=== PATIENT | female | born 2000 | race Two or more races ===

== ENCOUNTER 2020-11-17 16:17 | Emergency (ER) | payer MEDICAID, SELFPAY ==
--- NOTE | ~2020-11-17 | XR_ITS ---
EXAMINATION: XR CHEST CLINICAL INFORMATION: Chest pain. COMPARISON: None TECHNIQUE: Frontal view of the chest was obtained. FINDINGS: The lungs are clear. There is no pneumothorax, pleural reaction, infiltrate, or groundglass opacity. There are costophrenic sulci are clear. The heart is normal in size. The vascularity is normal. The hilar and mediastinal contours and visualized bony structures are unremarkable. XR/XR chest 1V IMPRESSION: Unremarkable examination.
[2020-11-17 16:24] VITALS: BP 100/69; PULSE 85; RESP 16; TEMP 36.6; O2SAT 95; BMI 34.2
== END 2020-11-17 19:34 | disposition left against medical advice (07) ==
PROVIDERS: Emergency Provider Emergency Medicine
DX: J45.909 Unspecified asthma, uncomplicated (principal)
CPT/HCPCS: 71045; 99282; 99283

== ENCOUNTER 2020-12-19 19:56 | Emergency (ER) | payer MEDICAID, SELFPAY ==
[2020-12-19 20:53] VITALS: BP 111/65; PULSE 84; RESP 18; TEMP 36.7; O2SAT 99; BMI 34.2
[2020-12-19 21:36] LABS: COVID-19 Test Negative (Negative); IDNOW Serial# 55D5AD1C
--- NOTE | 2020-12-19 22:16 | ED_ITS ---
HPI - General Adult General Chief complaint: General Medical Stated complaint: Flu like Source: patient Mode of arrival: ambulatory Limitations: no limitations History of Present Illness HPI narrative: 20-year-old female presents with upper respiratory symptoms consistent with COVID-19. Patient would like to be tested. Onset (ago): day(s) (2) Location: head Radiation: non-radiation Severity: mild Severity scale (1-10): 2 Pain Consistency: constant Relieving factors: none Associated symptoms: denies other symptoms Treatments prior to arrival: none Related Data Allergies Allergy/AdvReac Type Severity Reaction Status Date / Time No Known Allergies Allergy Unverified 11/26/19 16:54 Review of Systems Review of Systems: Constitutional: No Fever, No Chills ENT/Mouth: No Ear Pain, positive Nasal Congestion, positive sore throat Eyes: No Eye Pain, No Swelling, No Redness Cardiovascular: No Chest Pain, No SOB Respiratory: Positive Cough, No Sputum, No Dyspnea Gastrointestinal: No Nausea, No Vomiting, No Diarrhea, No Hematochezia, No Melena Genitourinary: No Dysuria, No Urinary Frequency, No Hematuria Musculoskeletal: No Myalgias Skin: No Skin Lesions, No rash Neuro: No Weakness, No Numbness, No Paresthesias, No Dizziness, No Headache Psych: No Anxiety, no Depression, no SI/HI Heme/Lymph: No Lymphadenopathy Endocrine: No Polyuria, No Polydipsia Yes all other systems are reviewed and are negative [facility] Past Medical History Attestation statement: The following information was validated with the patient. Source: old records reviewed Social History Social History Advance Directives: No Advance Directives Information Provided: No Patient : No Physical Exam Vital Signs: Vital Signs: Last Vital Signs Temp 98.1 F 12/19/20 20:53 Pulse 84 12/19/20 20:53 Resp 18 12/19/20 20:53 BP 111/65 12/19/20 20:53 Pulse Ox 99 12/19/20 20:53 Body Mass Index 34.2 Appearance: Alert. Oriented X3. No acute distress. Eyes: Pupils equal, round and reactive to light. Sclera nonicteric. ENT: Pharynx normal. Moist mucous membranes. Neck: Normal inspection. Neck supple. CVS: Normal heart rate and rhythm. Pulses normal. Respiratory: No respiratory distress. Breath sounds normal. Abdomen: Soft and nontender. Skin: Skin warm and dry. Normal skin color. Normal skin turgor. Extremities: No lower extremity edema. Moves all extremities against resistance. Gait well balanced well coordinated. Neuro: No motor deficit. No sensory deficit. Cranial nerves 2-12 intact. Course Course Course Narrative: 20-year-old female presents with upper respiratory symptoms consistent with COVID-19 requesting testing. COVID-19 test is negative. Plan of care is to discharge home. Medical Decision Making Differential Diagnosis Differential Diagnosis: URI, COVID-19, pharyngitis, influenza Medical Records Medical records reviewed: Yes I reviewed the patient's medical records. Lab Data Lab results reviewed: Yes I reviewed the patient's lab results. Labs: Lab Results 12/19/20 Range/Units 21:02 COVID-19 (BRENDA) Negative (Negative) COVID-19 Clin Com See Note Discharge Plan Discharge Clinical Impression: Acute viral syndrome Patient Disposition: Home, Self-Care Instructions: Viral Syndrome (ED) Additional Instructions: You evaluated for upper respiratory symptoms. Your COVID-19 test is negative. Please continue to use supportive measures such as Tylenol, Motrin, and rest to help alleviate symptoms. Thank you for choosing this emergency department for evaluation. Please follow-up with primary care physician as needed. Return to the emergency department for any new, concerning, or worsening symptoms. Stand Alone Forms: Work/School Release Interventions: ED Discharge Assessment Last Done: 12/19/20 22:48 Discharge Date/Time: 12/19/20 22:49
== END 2020-12-19 22:49 | disposition home or self-care (01) ==
PROVIDERS: Emergency Provider Internal Medicine
DX: B34.9 Viral infection, unspecified (principal); Z20.822 Contact with and (suspected) exposure to COVID-19
CPT/HCPCS: 36415; 87635; 99283

== ENCOUNTER 2021-03-10 22:49 | Emergency (ER) | payer MEDICAID, SELFPAY ==
--- NOTE | 2021-03-10 22:54 | ED.GENADULT ---
HPI - General Adult General Chief complaint: Psychiatric Symptoms Stated complaint: CRISIS Time Seen by Provider: 03/10/21 22:53 Source: EMS Mode of arrival: EMS Limitations: altered mental status History of Present Illness HPI narrative: Patient is brought to the emergency room for acting erratically. Patient was found by police, eating rice, patient was being loud, PD called. EMS was not able to get the patient's name. Patient in is laughing, giggling, loud, trying to get out of bed, unable to stand up on herself. Patient unable to answer any questions, patient yelling loudly [id number] over and over again. Related Data Allergies Allergy/AdvReac Type Severity Reaction Status Date / Time Unable to Assess Allergy Unverified 03/10/21 22:53 Review of Systems Review of Systems: Yes Unobtainable due to mental status PMFSH Social History Social History Advance Directives: No Physical Exam Vital Signs: Vital Signs: Last Vital Signs Temp 98.2 F 03/10/21 23:22 Pulse 78 03/11/21 01:51 Resp 16 03/11/21 04:00 BP 99/57 L 03/11/21 01:51 Pulse Ox 97 03/11/21 01:51 BMI result Body Mass Index 26.6 Const: Other: Appearance: Alert. Disoriented, screaming blakewaaaawaaaawaaaaa , patient has a very strong odor of marijuana, trying to redirect patient but patient keeps trying to get out of bed nearly falling Eyes: Pupils equal, round and reactive to light. ENT: Pharynx normal. Neck: Normal inspection. Neck supple. No lymph nodes noted. No crepitus CVS: Normal heart rate and rhythm. Pulses normal. Normal S1 and S2 Respiratory: No respiratory distress. Breath sounds normal. No Wheezing. No rales Abdomen: Soft and nontender. No rigidity. No distention. Skin: Skin warm and dry. Patient has pen hollis/scribbled all over her thighs bilaterally in the front, no abrasions or lacerations Extremities: Moves all extremities Neuro: Patient is under the influence of unknown substances, not following directions Course Course Course Narrative: At this time, patient is too intoxicated/under the influence of substance. Patient is not even speaking, only making noises. Patient is awake but we were unable to get any history from her at all. We tried redirecting the patient but she keeps trying to get up, nearly falling, had to be repositioned in bed multiple times by security. To avoid any falls or injuries, patient was given 50 mg of Benadryl, 2 of Ativan, 5 of Haldol. Patient tolerated well the IM injection. Patient rested comfortably. Physician observation started at 23:06 Planus to metabolize to freedom, reassess once patient is sober for SI, and for patient's wishes for detox Patient is awake, alert and oriented x3, steady gait. I was informed by the patient's nurse that the patient's mother has been calling trying to get the patient behavioral health help. Patient denies suicidal homicidal ideation. Patient declined any help. At this time, there is no grounds to Section 12 the patient. Discharge Plan Discharge Clinical Impression: Substance abuse, Intoxication by drug Patient Disposition: Home, Self-Care Instructions: Cannabis Abuse (ED) Additional Instructions: You declined any behavioral health help. Please follow-up with your primary care physician tomorrow. If you have any worsening or new symptoms, please return to the emergency room or call 911
[2021-03-10 23:01] VITALS: BMI 26.6
--- NOTE | 2021-03-10 23:03 | PC.NURSE ---
pt refusing to give name, date of , screaming inconsolably. medications ordered and administered per MAR as pt was unredirectable. she accepted IM medication without difficulty. pt changed into [facility], close obs staff monitoring pt. EMS was called by police who found pt screaming outside an apartment building without any ID, she was scratching herself, eating amharic rice and mashed potatoes, smoking a blunt. pt refusing vitals, unable to sit still at this time. breathing unlabored, skin [employer].
[2021-03-10] MEDS: Haloperidol Lactate 5 MG/ML VIAL IM (23:06)
[2021-03-10] MEDS: LORazepam 2 MG/ML VIAL IM (23:06)
[2021-03-10] MEDS: diphenhydrAMINE HCL 50 MG/ML VIAL IM (23:06)
[2021-03-10 23:22] VITALS: BP 96/64; PULSE 76; RESP 16; TEMP 36.8; O2SAT 98
[2021-03-10 23:52] VITALS: PULSE 78; RESP 18
[2021-03-10 23:56] VITALS: BP 96/60; PULSE 84; RESP 16; O2SAT 97
[2021-03-11 01:51] VITALS: BP 99/57; PULSE 78; RESP 16; O2SAT 97
[2021-03-11 04:00] VITALS: RESP 16
[2021-03-11 06:00] VITALS: BP 98/53; PULSE 61; RESP 18; TEMP 36.4; O2SAT 98
--- NOTE | 2021-03-11 06:07 | PC.NURSE ---
patient up and ambulating steadily in the halls. asking to be reevaluated for discharge home. stating she did not want us contacting her mother, patient was informed that her mother called and asked for the patient to call her in the am, left her number. seen and reevaluated by provider. patient is alert and oriented, breathing is even and unlabored, ambulating steadily. denies si and hi, wanting to harm herself and others. does not want to see [facility] team of behavioral health for detox. asking to walk home. informed patient that her aunt and mother offered a ride earlier. patient refusing to call them i am 20 years old and my own person . patient discharged home with her belongings.
--- NOTE | 2021-03-11 06:09 | PC.NURSE ---
Patient woke up requesting to go home,''patient stated I don't want to hurt myself'' this tech told the Nurse pt also asked for food. pt got dressed and ate a sandwich and drank a cup of ginerale.
== END 2021-03-11 06:20 | disposition home or self-care (01) ==
PROVIDERS: Emergency Provider Emergency Medicine
DX: F19.120 Other psychoactive substance abuse with intoxication, uncomplicated (principal); F25.0 Schizoaffective disorder, bipolar type; F12.90 Cannabis use, unspecified, uncomplicated; F17.200 Nicotine dependence, unspecified, uncomplicated
CPT/HCPCS: 96372; 99284; 99285; J1200; J2060

== ENCOUNTER 2021-03-28 13:11 | Inpatient (IN) | payer MEDICAID, OTHER, SELFPAY ==
--- NOTE | 2021-03-28 13:23 | ED_ITS ---
HPI - Psych General Chief Complaint: Psychiatric Symptoms Stated Complaint: CRISIS,NOT MED COMPLIANT,-HI/-SI Time Seen by Provider: 03/28/21 13:21 Source: patient and EMS Mode of arrival: EMS Limitations: other (poor historian) History of Present Illness complaint: other (loud speech, appears manic, off medications ) Onset (ago): year(s) Duration: getting worse History of same: Yes Relieving factors: none Context: not taking psychiatric medications Associated psychiatric symptoms: racing thoughts Associated symptoms: denies other symptoms Treatments prior to arrival: none Related Data Allergies Allergy/AdvReac Type Severity Reaction Status Date / Time Unable to Assess Allergy Unverified 03/10/21 22:53 Review of Systems Review of Systems: ROS unable to be obtained due to patient laughing and peristently rapping during interview [facility] Past Medical History Attestation statement: The following information was validated with the patient. Medical History Asthma Bipolar 1 disorder Schizophrenia Social History Social History (Updated 03/28/21 @ 13:27 by Reena Smith DO) Patient Tobacco Use Status: Current everyday Tobacco user Substance Use Type: Marijuana Advance Directives: No Advance Directives Information Provided: No Patient : No Physical Exam Vital Signs: Vital Signs: Last Vital Signs Temp 98 F 03/28/21 13:51 Pulse 97 03/28/21 13:51 Resp 17 03/28/21 13:51 Pulse Ox 97 03/28/21 13:51 BMI result Body Mass Index 27.7 Appearance: Alert. Oriented X3. laughing inappropriately, pressured speech, rapping loudly, at times seems she can control herself but then gets very loud again Eyes: Pupils equal, round and reactive to light. ENT: Pharynx normal. Neck: Normal inspection. Neck supple. CVS: Normal heart rate and rhythm. Pulses normal. Respiratory: No respiratory distress. Breath sounds normal. Abdomen: Soft and non-tender. Skin: Skin warm and dry. Normal skin color. Normal skin turgor. Extremities: No lower extremity edema. No calf ttp Neuro: Oriented X 3. No motor deficit. No sensory deficit. CN 2-12 intact Course Course Course Narrative: Physician observation started at 356pm Patient placed in physician observation because the patient needed more time for BHN to assess the need for inpatient psychiatric admission. At the time observation was started the patient's vitals were stable, patient is alert and oriented , Neuro: nonfocal, CV RRR, Lungs clear patient refusing blood draws at this time inpatient bed search per [facility] MDM - Psych MDM Narrative Medical decision making narrative: 20 yo female with hx of bipolar, schizophrenia here with c/o racing thoughts, pressured speech, giggling, states she is anxious off of her medications, requesting PO pills for her anxiety denies allergies - will offer ativan and haldol PD called for her behaviors at home - plan to consult [facility] Lab Data Labs: Lab Results 03/28/21 03/28/21 03/28/21 Range/Units 13:46 13:46 13:46 Urine Test NEGATIVE (NEGATIVE) Urine Opiates Screen Not Detected (Not Detect) Urine Fentanyl Screen Not Detected (Not Detect) Ur Barbiturates Screen Not Detected (Not Detect) Ur Phencyclidine Scrn Not Detected (Not Detect) Ur Amphetamines Screen Not Detected (Not Detect) U Benzodiazepines Scrn Not Detected (Not Detect) Urine Cocaine Screen Not Detected (Not Detect) U Marijuana (THC) Screen POSITIVE H (Not Detect) COVID-19 (BRENDA) Negative (Negative) COVID-19 Clin Com See Note Discharge Plan Discharge Clinical Impression: Non compliance w medication regimen, Chronic schizophrenia Patient Disposition: Still a Patient
[2021-03-28] MEDS: LORazepam 1 MG TABLET 2 MG PO (13:29)
[2021-03-28] MEDS: HaloperidoL 5 MG TABLET PO (13:30)
[2021-03-28 13:51] VITALS: BP 122/86; PULSE 95; PULSE 97; RESP 17; TEMP 36.6; O2SAT 97; O2SAT 99; BMI 27.7
[2021-03-28 13:58] LABS: UPreg QC Valid YES; Urine Pregnancy NEGATIVE (NEGATIVE)
[2021-03-28 14:10] LABS: Amphetamine Screen Urine Not Detected (Not Detect); Barbiturates, Urine Not Detected (Not Detect); Benzodiazepines Screen Urine Not Detected (Not Detect); Cannabinoid Screen Urine POSITIVE (Not Detect); Cocaine Screen Urine Not Detected (Not Detect); Fentanyl, urine Not Detected (Not Detect); Opiate Screen Urine Not Detected (Not Detect); Phencyclidine Screen Urine Not Detected (Not Detect)
[2021-03-28 14:17] LABS: COVID-19 Test Negative (Negative); IDNOW Serial# 55D5AD1C
[2021-03-29 05:39] VITALS: BP 115/69; PULSE 74; RESP 18; TEMP 36.6; O2SAT 98
--- NOTE | 2021-03-29 06:33 | PC.NURSE ---
Patient slept through the night, no distress observed/reported, behavior appropriate, currently not on any medication, patient's disposition per [facility] is section 12 inpatient bed search, VSS, will continue to monitor.
--- NOTE | 2021-03-29 07:20 | PC.NURSE ---
patient appears to remain asleep at present respirations are even and unlabored, patient appears in no distress
[2021-03-29 11:38] VITALS: BP 113/66; PULSE 99; RESP 16; TEMP 36.8; O2SAT 97
--- NOTE | 2021-03-29 13:29 | PC.NURSE ---
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
--- NOTE | 2021-03-29 14:46 | PC.NURSE ---
patient upset about not being discharged and threatening verbally posturing, offensive statements towards staff.
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
[2021-03-29 16:06] VITALS: BP 128/68; PULSE 95; TEMP 36.3; O2SAT 100
[2021-03-29] MEDS: LORazepam 1 MG TABLET 2 MG PO (16:27)
[2021-03-29] MEDS: HaloperidoL 5 MG TABLET PO (16:27)
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
[2021-03-30 05:07] VITALS: BP 111/78; PULSE 110; RESP 16; TEMP 36.8; O2SAT 96
[2021-03-30 08:16] VITALS: BP 121/86; PULSE 83; RESP 16; TEMP 37.1; O2SAT 98
[2021-03-30] MEDS: OLANZapine 5 MG TABLET PO (10:08)
--- NOTE | 2021-03-30 10:09 | PC.NURSE ---
med x 1 with zyrprexa 5mg po for increase anxiety. pt wants to d/c self because she is greater than 18yrs old and she has done this before she states. pt is ambulation independently in hallway/bathroom/btb.
--- NOTE | 2021-03-30 10:13 | PC.NURSE ---
pt is dancing in hallway with self. i
--- NOTE | 2021-03-30 11:00 | PC.NURSE ---
joyce (lead intake co-ordinator of [facility]) called for an update on pt. [facility] is requesting a new covid test/result prior to pt admission.
[2021-03-30 11:31] VITALS: BP 106/64; PULSE 71; TEMP 36.3; O2SAT 99
--- NOTE | 2021-03-30 11:31 | PC.NURSE ---
rozn at bedside speaking with pt. pt aware of plan of care.
--- NOTE | 2021-03-30 11:52 | PC.NURSE ---
pt spoke to her mother on community phone.
--- NOTE | 2021-03-30 13:37 | PC.NURSE ---
pt states that she wants to leave, she is over 18yrs. pt is lying on the floor on her back tearful . pt is stating that she will break all the furniture if she does not leave. security and care team in attendance.
[2021-03-30] MEDS: LORazepam 1 MG TABLET 2 MG PO (13:46)
[2021-03-30] MEDS: HaloperidoL 5 MG TABLET PO (13:47)
--- NOTE | 2021-03-30 13:49 | PC.NURSE ---
increase agitation/restlessness, pt med x 1 with haldol 5mg po and ativan 2mg po. pt is in hallway talking to self (hallucinating) and swearing.
[2021-03-30 16:30] LABS: MANUAL DIFF FLAG NO
[2021-03-30 16:32] LABS: Appearance Urine CLEAR; Basophils Percent Auto 0.5 % (0-2); Color Urine YELLOW; Eosinophils Absolute Auto 0.3 X10*3/uL (0.0-0.4); Eosinophils Percent Auto 3.8 % (0-4); Glucose Urine UA NEG (NEG); Hematocrit 43.9 % (37.0-47.0); Hemoglobin 14.3 g/dl (12.0-16.0); Imm Gran Abs Auto 0.02 X10*3/uL (0.00-0.03); Imm Gran Pct Auto 0.2 % (0.0-0.4); Leukocyte Esterase Urine NEG (NEG); Lymphocytes Absolute Auto 2.9 X10*3/uL (1.2-4.9); Lymphocytes Percent Auto 32.6 % (20-40); Mean Corpuscular HGB Conc 32.6 g/dl (31.0-35.0); Mean Corpuscular Hemoglobin 28.3 pg (27.0-33.0); Mean Corpuscular Volume 86.8 fL (80.0-98.0); Monocytes Absolute Auto 0.5 X10*3/uL (0.1-1.2); Monocytes Percent Auto 5.8 % (2-11); Neutrophils Percent Auto 57.1 % (45-73); Nitrite Urine NEG (NEG); Platelet Count 211 X10*3/uL (160-400); Red Blood Count 5.06 X10*6/uL (4.20-5.50); Red Cell Distribution Width 14.8 % (11.0-16.0); Urine Blood NEG (NEG); Urine Ketones NEG (NEG); Urine Protein NEG (NEG-TRACE); White Blood Count 8.8 X10*3/uL (4.8-10.8)
[2021-03-30 16:48] LABS: Alanine Aminotransferase 18 U/L (0-31); Alkaline Phosphatase 78 U/L (39-117); Anion Gap 11 (12-20); Aspartate Amino Transferase 14 U/L (5-31); Bilirubin Direct < 0.2 mg/dL (0.0-0.5); Bilirubin Total 0.3 mg/dL (0.0-1.0); Blood Urea Nitrogen 19 mg/dL (9-16); Carbon Dioxide 28 mmol/L (22-29); Chloride 107 mmol/L (96-108); Creatinine Clr Calc Pharmacy 118.2; Estimated Glomerular Filt Rate > 60; Glucose Random 87 mg/dL (60-115); Magnesium 1.8 mg/dL (1.6-2.6); Potassium 4.2 mmol/L (3.3-5.1); Sodium 142 mmol/L (135-145); Total Protein 7.4 g/dL (6.5-8.0)
[2021-03-30 23:51] VITALS: RESP 20
--- NOTE | 2021-03-31 00:32 | PC.NURSE ---
Pt alert and oriented x4, calm and cooperative. Pt ambulating steady on her feet. Pt denies pain. Pt asleep in bed, will continue to monitor.
[2021-03-31] MEDS: OLANZapine 5 MG TABLET PO ×2 (05:14→11:32)
--- NOTE | 2021-03-31 05:15 | PC.NURSE ---
Pt remains alert and oriented x4. Slept until 0430, noted to be walking around POD and singing, noted to be pacing around POD, noted to be making rapid movements swinging her arms. Pt looking anxious and antsy. Pt offered Zyprexa and accepted.
--- NOTE | 2021-03-31 07:11 | PC.NURSE ---
patient appears to remain asleep respirations are even and unlabored, patient appears in no distress
[2021-03-31 09:06] VITALS: BP 106/63; PULSE 91; RESP 17; TEMP 36.5; O2SAT 97
--- NOTE | 2021-03-31 13:47 | PC.NURSE ---
pt walking throughout the pod was slightly anxious/agitated around 1130 but responded well to zyprexa prn and listening to [employer] music and was dancing in her room
--- NOTE | 2021-03-31 17:15 | PC.NURSE ---
Patient took shower was given snacks hyperverbal and appears to be in a manic state pleasant aware of plan of care to be a bed search
[2021-04-01 01:05] VITALS: BP 108/67; PULSE 85; RESP 20; TEMP 36.6; O2SAT 100
[2021-04-01] MEDS: LORazepam 1 MG TABLET 2 MG PO (01:20)
[2021-04-01] MEDS: OLANZapine 5 MG TABLET PO ×2 (01:21→20:51)
--- NOTE | 2021-04-01 07:10 | PC.NURSE ---
Patient slept adequately, difficulty falling sleep, delusional administered Olanzapine 5 mg and ativan 2 mg po with positive effect, no distress observed/reported, medication compliant, behavior appropriate, disposition per [facility] section 12 inpatient bed search, VSS, will continue to monitor.
[2021-04-01 09:48] VITALS: BP 106/63; PULSE 85; RESP 16; TEMP 36.6; O2SAT 98
[2021-04-01 15:41] VITALS: BP 111/70; PULSE 77; TEMP 36.6; O2SAT 100
--- NOTE | 2021-04-01 18:44 | PC.NURSE ---
pt report taken from garrett berger. pt in bathroom at this time. pt in nad, will continue to monitor.
[2021-04-01] MEDS: diphenhydrAMINE HCL 25 MG TABLET 50 MG PO (22:21)
[2021-04-02 03:35] VITALS: BP 116/69; PULSE 75; RESP 16; TEMP 36.8; O2SAT 98
--- NOTE | 2021-04-02 06:34 | PC.NURSE ---
Patient slept through the night, no distress observed/reported, medication compliant, behavior paranoid at baseline but non-concerning, disposition per [facility] is section 12 inpatient bed search, VSS, will continue to monitor
--- NOTE | 2021-04-02 07:46 | PC.NURSE ---
up, eating breakfast, out to chat with staff. is calm, steady on feet. good eye contact.
[2021-04-02] MEDS: OLANZapine 5 MG TABLET PO ×2 (08:37→20:46)
--- NOTE | 2021-04-02 09:54 | PC.NURSE ---
LAURENCE Ramirez in POd called Security when patient began saying inappropriate things to other patients. Patient wasn't redirectable to room and escalated more. Descalation with security was successful and patient willing to take ativan PO following descalation. Pt now writing in room.
[2021-04-02] MEDS: LORazepam 1 MG TABLET PO (09:57)
[2021-04-02 14:00] VITALS: BP 109/65; PULSE 82; TEMP 36.6; O2SAT 98
--- NOTE | 2021-04-03 | ECG_ITS ---
Test Reason : medical clearance Blood Pressure : / mmHG Vent. Rate : 086 BPM Atrial Rate : 086 BPM P-R Int : 176 ms QRS Dur : 092 ms QT Int : 380 ms P-R-T Axes : 067 090 069 degrees QTc Int : 454 ms Normal sinus rhythm Rightward axis Borderline ECG No previous ECGs available Referred By: Patt Dexter Electronically Signed By:KAREN GONZALEZ MD
[2021-04-03 03:59] VITALS: BP 92/58; PULSE 88; RESP 17; TEMP 36.6; O2SAT 99
--- NOTE | 2021-04-03 06:18 | PC.NURSE ---
Patient slept through the night, no distress observed/reported, medication compliant, behavior paranoid at baseline but non-concerning, disposition per [facility] is section 12 inpatient bed search, no update on bed search, VSS, will continue to monitor
--- NOTE | 2021-04-03 07:21 | PC.NURSE ---
patient appeared to remain asleep until approxiamtely 0715, respirations are even and unlabored, patient appears in no distress
[2021-04-03 07:59] VITALS: BP 89/67; PULSE 83; RESP 12; TEMP 36.6; O2SAT 99
[2021-04-03] MEDS: OLANZapine 5 MG TABLET PO (09:36)
[2021-04-03 10:19] LABS: COVID-19 Test Negative (Negative); IDNOW Serial# 9DD0AD1C
--- NOTE | 2021-04-03 15:48 | PC.NURSE ---
Patient is alert and cooperative aware of plan of care to be transported to room 308-2 escorted to floor via wheelchair with belongings accompanied by staff and security
[2021-04-03 17:08] VITALS: BP 98/57; PULSE 85; TEMP 36.4; O2SAT 99
[2021-04-03 17:44] VITALS: BMI 33.3
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
--- NOTE | 2021-04-03 19:10 | PC.NURSE ---
Pt signed a 3 day notice on Monday 04/03, up on 04/06/21
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
[2021-04-03] MEDS: OLANZapine 10 MG TABLET PO (21:36)
[2021-04-03] MEDS: hydrOXYzine HCL 25 MG TABLET PO (21:36)
[2021-04-03] MEDS: traZODone HCL 50 MG TABLET PO (21:36)
[2021-04-04 08:00] VITALS: BP 107/56; PULSE 86; RESP 16; TEMP 36.3; O2SAT 98
[2021-04-04 08:14] LABS: Cholesterol 157 mg/dL; HDL Cholesterol 24 mg/dL; LDL Cholesterol Calculated 82 mg/dl; Triglycerides 256 mg/dL
[2021-04-04 08:35] LABS: Free T4 (Free Thyroxine) 0.67 ng/dL (0.71-1.85); Thyroid Stimulating Hormone 1.54 uIU/mL (0.32-4.0)
[2021-04-04 08:49] LABS: Estimated Average Glucose 103 mg/dL; Hemoglobin A1c % 5.2 %
[2021-04-04 09:27] LABS: Vitamin B12 340 pg/mL (200-900)
--- NOTE | 2021-04-04 10:25 | P.PNPSI_ITS ---
Subjective Subjective Date of Service: 04/04/21 Reason For Visit: SI Interim History: Patient seen and discussed with team. Per staff research associate, pt presented as dysregulated, agitated as she was yelling at her mother on the phone. She has presented as hypomanic today however was redirectable. She was also walking around her room topless, even when staff came in for checks, again required redirection. Patient evaluated this morning and upon interview she reports she feels good, i just showered. Reports positive benefit on zyprexa. Says she argued with her mom today because she doesnt want me in her house. Pt has poor insight into her sx and appears limited cognitively, says im still a little girl, i'm gonna say stupid threats and say a lot of bullshit but at the end of the day I want things to work out for me. Says her mom doesnt want her on her lease because she is a smoker but im her daughter and pt says she doesnt want to be on the streets. Pt has some insight into her mood instability, says I have anger management issues. Thinks Depreta chung worked' in the past. Sleep is improved on zyprexa, Ginny been resting well. Appetite is good, denies overeating. In the milieu, patient is somewhat disruptive in behavior but overall redirectable. Denies SI/SIB/HI upon inquiry. Says she feels safe. Medication Compliance: Yes Side effects from medications: No Attending Groups: Intermittent Review of Systems Acute medical concerns: No Medical Review of Systems: unchanged Mental Status Exam Mental Status Exam Narrative: A&O except to situation. Pt well groomed, just showered, overweight. Good eye contact, inattentive. No Tics or Tremors. Has some psychomotor agitation, i.e. leg shaking (this was noted in ED BH pod prior to starting olanzapine). No abnormal involuntary movements. Calm, cooperative, however difficult to engage in meaningful conversation. Non-pressured speech, spontaneous with regular rate and rhythm, normal volume and prosody. No prolonged speech latency or dysarthria. Mood is ?good,? affect is calm. Denies SI/SIB/HI upon inquiry. Denies A/VH or delusional thought content. Thoughts are disorganized, tangential. Appears to have cognitive impairment possibly secondary to psych diagnosis. Insight/ Judgment limited. Diagnostics Vital Signs (24Hr): Vital Signs - 24 hr 04/03/21 17:08 04/04/21 08:00 Temperature 97.5 F 97.4 F Pulse Rate 85 86 Respiratory Rate 16 Blood Pressure 98/57 L 107/56 L Pulse Oximetry 99 98 BMI result 4Bd Body Mass Index 4d 33.3 4d 4d Labs Results: 03/30/21 16:26 03/30/21 16:26 Labs: Laboratory Results - last 48 hr 04/03/21 04/04/21 04/04/21 09:54 07:29 07:29 Estimat Average Glucose 103 Hemoglobin A1c % 5.2 Triglycerides 256 Cholesterol 157 LDL Cholesterol, Calc 82 HDL Cholesterol 24 Vitamin B12 Folate TSH 1.54 Free T4 0.67 L COVID-19 (BRENDA) Negative COVID-19 Clin Com See Note 04/04/21 07:29 Estimat Average Glucose Hemoglobin A1c % Triglycerides Cholesterol LDL Cholesterol, Calc HDL Cholesterol Vitamin B12 340 Folate 7.0 TSH Free T4 COVID-19 (BRENDA) COVID-19 Clin Com Medications Medications Current Medications Acetaminophen (Acetaminophen 325 Mg Tablet) 650 mg PO Q6H PRN PRN Reason: Headache/Pain Mild Scale (1-3) Al Hydroxide/Mg Hydroxide (Magnesium Hydrox/Alum Hydrox 30 Ml Oral.Susp) 30 ml PO Q6H PRN PRN Reason: Heartburn/Nausea Hydroxyzine HCl (Hydroxyzine Hcl 25 Mg Tablet) 25 mg PO Q6H PRN PRN Reason: Anxiety Last Admin: 04/03/21 21:36 Dose: 25 mg Documented by: Magnesium Hydroxide (Milk Of Magnesia 30 Ml Oral.Susp) 30 ml PO DAILY PRN PRN Reason: Constipation Olanzapine (Olanzapine 10 Mg Tablet) 10 mg PO BEDTIME BELA Last Admin: 04/03/21 21:36 Dose: 10 mg Documented by: Pharmacy Consult (Consult Rx Perform Med Rec) 1 each MISCELLANE ONCE PRN PRN Reason: Consult order Trazodone HCl (Trazodone Hcl 50 Mg Tablet) 50 mg PO BEDTIME PRN PRN Reason: Insomnia Last Admin: 04/03/21 21:36 Dose: 50 mg Documented by: Allergies Allergies Allergy/AdvReac Type Severity Reaction Status Date / Time Unable to Assess Allergy Unverified 03/10/21 22:53 Assessment & Plan Assessment & Plan (1) Schizoaffective disorder, bipolar type: Status: Acute Code(s): F25.0 - Schizoaffective disorder, bipolar type Plan Eleni is a 20 yo female who carries a dx of bipolar disorder and schizophrenia. She presented to [facility] ED on 03/28/21 due to hypomania after her mother called the [place] PD due to pt throwing kitchen table and chairs, reaching for kitchen knives, and threatening to harm herself and her mother. Has been off psychotropic medications since 2019. Pt has a hx of being stabilized on haldol, ativan, depakote, and olanzapine. She has a hx of IPLOC 2x in 2020 at [facility] for manic, psychotic behavior. Plan: Pt has been on zyprexa 5 mg Q4H PRN in the ED BH pod, will change to olanzapine 10 mg QHS to target sx of hypomania and psychosis. Once a day dosing may help with adherence in OP setting. 04/04/21: Start depakote ER 500 mg QHS to target mood instability, hypomanic features. Will monitor for benefit, has been stabilized on this medication in the past in combo with antipsychotic. Monitor response to medications. Monitor for safety in the milieu. Discharge on stabilization. Patient seen. Chart reviewed. Discussed with team. Obtain collateral contact info?as needed I spent minutes with the patient and/or on the patient floor today, greater than?50% of which was spent counseling/coordinating care. Reason for contiued inpatient stay Substantial Risk for: inability to function, rapid decompensation and med/psych decompensation
[2021-04-04 18:31] VITALS: BP 114/70; PULSE 91; RESP 16; TEMP 36.7; O2SAT 98
[2021-04-04] MEDS: OLANZapine 10 MG TABLET PO (20:19)
[2021-04-04] MEDS: hydrOXYzine HCL 25 MG TABLET PO (20:19)
[2021-04-04] MEDS: Divalproex Sodium ER 500 MG TAB.ER.24H PO (20:19)
[2021-04-05 08:28] VITALS: BP 113/70; PULSE 76; RESP 16; TEMP 36.3; O2SAT 97
[2021-04-05] MEDS: LORazepam 1 MG TABLET 2 MG PO ×2 (10:20→15:06)
[2021-04-05] MEDS: HaloperidoL 5 MG TABLET PO ×2 (10:20→15:06)
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
[2021-04-05] MEDS: hydrOXYzine HCL 25 MG TABLET PO (20:49)
[2021-04-05] MEDS: Divalproex Sodium ER 500 MG TAB.ER.24H 1000 MG PO (20:49)
[2021-04-05] MEDS: OLANZapine 10 MG TABLET PO (20:49)
[2021-04-05 20:54] VITALS: BP 113/57; PULSE 69; TEMP 36.8; O2SAT 97
[2021-04-06 07:00] VITALS: BMI 34.3
[2021-04-06 07:49] VITALS: BP 115/66; PULSE 95; TEMP 36.4; O2SAT 98
[2021-04-06] MEDS: HaloperidoL 5 MG TABLET PO ×2 (13:36→20:48)
[2021-04-06] MEDS: LORazepam 1 MG TABLET 2 MG PO (13:37)
--- NOTE | 2021-04-06 15:08 | P.PNPSI_ITS ---
Subjective Subjective Date of Service: 04/06/21 Reason For Visit: SI Interim History: pt encountered in [place], conversing with various staff. amenable to come with MD for interview. disorganized but reasonably calm. accepts information that MD will be filing for commitment without outburst. does say at one point that perhaps she could use remaining in the hospital a bit longer and taking more medication. she believes her mother would accept her home if she left today and she repeatedly expresses the desire to discharge today. practically, once MD informs her she will not be discharged today, she excuses herself to inform her mother she will not be leaving after all. per staff, perseverating about discharge yesterday. agitated behaviors triggered a number of peers yesterday. haldol/ativan PRNs were effective to quell agitation yesterday. later in the day beter able to interact with others in a calm and appropriate manner. slept from 9:30 pm through 5:45 am. Mental Status Exam Mental Status Exam Narrative: hypermotoric and verbal. dressed in loose informal clothing. cooperative with interview. speech incr in rate, amount, loudness. decr latency. thoughts ci rcumstantial and focused on her being an adult and being able to decide her discharge. affect hyper-intense, min-labile. no SI/HI/AVH expressed. Diagnostics Vital Signs (24Hr): Vital Signs - 24 hr 04/05/21 20:54 04/06/21 07:49 Temperature 98.2 F 97.5 F Pulse Rate 69 95 Blood Pressure 113/57 L 115/66 Pulse Oximetry 97 98 BMI result Verdana 4 Body Mass Index Verdana 4 33.3 Verdana 4 Verdana 4 Labs Results: 03/30/21 16:26 03/30/21 16:26 Medications Medications Current Medications Acetaminophen (Acetaminophen 325 Mg Tablet) 650 mg PO Q6H PRN PRN Reason: Headache/Pain Mild Scale (1-3) Al Hydroxide/Mg Hydroxide (Magnesium Hydrox/Alum Hydrox 30 Ml Oral.Susp) 30 ml PO Q6H PRN PRN Reason: Heartburn/Nausea Divalproex Sodium (Divalproex Sodium Er 500 Mg Tab.Er.24h) 1,000 mg PO BEDTIME BELA Last Admin: 04/05/21 20:49 Dose: 1,000 mg Documented by: Haloperidol (Haloperidol 5 Mg Tablet) 5 mg PO Q4H PRN PRN Reason: agitation Last Admin: 04/06/21 13:36 Dose: 5 mg Documented by: Hydroxyzine HCl (Hydroxyzine Hcl 25 Mg Tablet) 25 mg PO Q6H PRN PRN Reason: Anxiety Last Admin: 04/05/21 20:49 Dose: 25 mg Documented by: Lorazepam (Lorazepam 1 Mg Tablet) 2 mg PO Q4H PRN PRN Reason: agitation Last Admin: 04/06/21 13:37 Dose: 2 mg Documented by: Magnesium Hydroxide (Milk Of Magnesia 30 Ml Oral.Susp) 30 ml PO DAILY PRN PRN Reason: Constipation Olanzapine (Olanzapine 10 Mg Tablet) 20 mg PO BEDTIME [facility] Pharmacy Consult (Consult Rx Perform Med Rec) 1 each MISCELLANE ONCE PRN PRN Reason: Consult order Trazodone HCl (Trazodone Hcl 50 Mg Tablet) 50 mg PO BEDTIME PRN PRN Reason: Insomnia Last Admin: 04/03/21 21:36 Dose: 50 mg Documented by: Allergies Allergies Allergy/AdvReac Type Severity Reaction Status Date / Time Unable to Assess Allergy Unverified 03/10/21 22:53 Assessment & Plan Assessment & Plan (1) Schizoaffective disorder, bipolar type: Status: Acute Code(s): F25.0 - Schizoaffective disorder, bipolar type Plan Eleni is a 20 yo female who carries a dx of bipolar disorder and schizophrenia. She presented to [facility] ED on 03/28/21 due to hypomania after her mother called the [place] PD due to pt throwing kitchen table and chairs, reaching for kitchen knives, and threatening to harm herself and her mother. Has been off psychotropic medications since 2020. Pt has a hx of being stabilized on haldol, ativan, depakote, and olanzapine. She has a hx of IPLOC 2x in 2020 at [facility] for manic, psychotic behavior. Plan: Pt has been on zyprexa 5 mg Q4H PRN in the ED BH pod, will change to olanzapine 10 mg QHS to target sx of hypomania and psychosis. Once a day dosing may help with adherence in OP setting. 04/04/21: Start depakote ER 500 mg QHS to target mood instability, hypomanic features. Will monitor for benefit, has been stabilized on this medication in the past in combo with antipsychotic. 04/05: manic. VPA dosing raised to 1000 mg at bedtime, zyprexa 10 continued. 04/06: manic. increasing VPA to 1500 mg QHS and zyprexa to 20 mg. Monitor response to medications. Monitor for safety in the milieu. Discharge on stabilization. Patient seen. Chart reviewed. Discussed with team. Obtain collateral contact info?as needed I spent minutes with the patient and/or on the patient floor today, greater than?50% of which was spent counseling/coordinating care. Reason for contiued inpatient stay Substantial Risk for: harm to self, inability to function and rapid decompensation
[2021-04-06] MEDS: OLANZapine 10 MG TABLET 20 MG PO (20:48)
[2021-04-06] MEDS: Divalproex Sodium ER 500 MG TAB.ER.24H 1500 MG PO (20:48)
[2021-04-06] MEDS: hydrOXYzine HCL 25 MG TABLET PO (20:48)
[2021-04-06 21:43] VITALS: BP 94/52; PULSE 91; TEMP 36.3; O2SAT 95
[2021-04-07 08:29] VITALS: BP 110/72; PULSE 127; RESP 14; TEMP 36.3; O2SAT 97
--- NOTE | 2021-04-07 12:00 | MHC.CLN ---
NUTRITION CONSULT REQUESTED BY PATIENT THAT SHE IS NOT GETTING ENOUGH FOOD. VISITED WITH PATIENT IN HER ROOM. ADVISED THAT SHE CAN ORDER MORE FOOD ITEMS ON HER MEAL TRAYS IF SHE WOULD LIKE. ALSO CAN REQUEST SNACKS ON UNIT. PATIENT NOT FOCUSED ON CONVERSATION STATING THAT SHE IS TIRED .
--- NOTE | 2021-04-07 12:51 | P.PNPSI_ITS ---
Subjective Subjective Date of Service: 04/07/21 Reason For Visit: SI Interim History: pt amenable to meeting, seems a bit more slowed down and less perseverative, more cognitively flexible. seems to understand that she will not be able to return to her mother's house at discharge and conceives of her housing issue as a substantial one. no complaints about medication side effects. per staff, court scheduled for april 13. anx 3, dep 0. denies SI/HI/AVH. appears to be RIS. dancing, chatty. slept well. Mental Status Exam Mental Status Exam Narrative: much less hypermotoric and verbal than yesterday. dressed in loose informal clothing. cooperative with interview. speech remains incr in rate, amount. nml loudness. decr latency. thoughts vague and often difficult to parse, but a bit more organized and less perseverative than yesterday. affect normo-intense, non-labile. no SI/HI/AVH expressed. Diagnostics Vital Signs (24Hr): Vital Signs - 24 hr 04/06/21 21:43 04/07/21 08:29 Temperature 97.4 F 97.3 F Pulse Rate 91 127 H Respiratory Rate 14 Blood Pressure 94/52 L 110/72 Pulse Oximetry 95 97 BMI result Verdana 4 Body Mass Index Verdana 4 34.3 Verdana 4 Verdana 4 Labs Results: 03/30/21 16:26 03/30/21 16:26 Medications Medications Current Medications Acetaminophen (Acetaminophen 325 Mg Tablet) 650 mg PO Q6H PRN PRN Reason: Headache/Pain Mild Scale (1-3) Al Hydroxide/Mg Hydroxide (Magnesium Hydrox/Alum Hydrox 30 Ml Oral.Susp) 30 ml PO Q6H PRN PRN Reason: Heartburn/Nausea Divalproex Sodium (Divalproex Sodium Er 500 Mg Tab.Er.24h) 1,500 mg PO BEDTIME BELA Last Admin: 04/06/21 20:48 Dose: 1,500 mg Documented by: Haloperidol (Haloperidol 5 Mg Tablet) 5 mg PO Q4H PRN PRN Reason: agitation Last Admin: 04/06/21 20:48 Dose: 5 mg Documented by: Hydroxyzine HCl (Hydroxyzine Hcl 25 Mg Tablet) 25 mg PO Q6H PRN PRN Reason: Anxiety Last Admin: 04/06/21 20:48 Dose: 25 mg Documented by: Lorazepam (Lorazepam 1 Mg Tablet) 2 mg PO Q4H PRN PRN Reason: agitation Last Admin: 04/06/21 13:37 Dose: 2 mg Documented by: Magnesium Hydroxide (Milk Of Magnesia 30 Ml Oral.Susp) 30 ml PO DAILY PRN PRN Reason: Constipation Olanzapine (Olanzapine 10 Mg Tablet) 20 mg PO BEDTIME BELA Last Admin: 04/06/21 20:48 Dose: 20 mg Documented by: Pharmacy Consult (Consult Rx Perform Med Rec) 1 each MISCELLANE ONCE PRN PRN Reason: Consult order Trazodone HCl (Trazodone Hcl 50 Mg Tablet) 50 mg PO BEDTIME PRN PRN Reason: Insomnia Last Admin: 04/03/21 21:36 Dose: 50 mg Documented by: Allergies Allergies Allergy/AdvReac Type Severity Reaction Status Date / Time Unable to Assess Allergy Unverified 03/10/21 22:53 Assessment & Plan Assessment & Plan (1) Schizoaffective disorder, bipolar type: Status: Acute Code(s): F25.0 - Schizoaffective disorder, bipolar type Plan Eleni is a 20 yo female who carries a dx of bipolar disorder and schizophrenia. She presented to [facility] ED on 03/28/21 due to hypomania after her mother called the [place] PD due to pt throwing kitchen table and chairs, reaching for kitchen knives, and threatening to harm herself and her mother. Has been off psychotropic medications since 2019. Pt has a hx of being stabilized on haldol, ativan, depakote, and olanzapine. She has a hx of IPLOC 2x in 2020 at [facility] for manic, psychotic behavior. Plan: Pt has been on zyprexa 5 mg Q4H PRN in the ED BH pod, will change to olanzapine 10 mg QHS to target sx of hypomania and psychosis. Once a day dosing may help with adherence in OP setting. 04/04/21: Start depakote ER 500 mg QHS to target mood instability, hypomanic features. Will monitor for benefit, has been stabilized on this medication in the past in combo with antipsychotic. 04/05: manic. VPA dosing raised to 1000 mg at bedtime, zyprexa 10 continued. 04/06: manic. increasing VPA to 1500 mg QHS and zyprexa to 20 mg. 04/07: rima reduced slightly. continue current medications for now. Monitor response to medications. Monitor for safety in the milieu. Discharge on stabilization. Patient seen. Chart reviewed. Discussed with team. Obtain collateral contact info?as needed I spent minutes with the patient and/or on the patient floor today, greater than?50% of which was spent counseling/coordinating care. Reason for contiued inpatient stay Substantial Risk for: harm to others, inability to function and rapid decompensation
[2021-04-07 20:15] VITALS: BP 103/75; PULSE 103; TEMP 36.5; O2SAT 96
[2021-04-07] MEDS: OLANZapine 10 MG TABLET 20 MG PO (20:18)
[2021-04-07] MEDS: Divalproex Sodium ER 500 MG TAB.ER.24H 1500 MG PO (20:18)
[2021-04-07] MEDS: traZODone HCL 50 MG TABLET PO (20:25)
[2021-04-07] MEDS: hydrOXYzine HCL 25 MG TABLET PO (20:25)
[2021-04-08 06:00] VITALS: BP 106/62; PULSE 100; RESP 18; TEMP 36.7; O2SAT 97
[2021-04-08 20:45] VITALS: BP 142/72; PULSE 83; TEMP 36.6; O2SAT 96
[2021-04-08] MEDS: hydrOXYzine HCL 25 MG TABLET PO (22:07)
[2021-04-08] MEDS: Divalproex Sodium ER 500 MG TAB.ER.24H 1500 MG PO (22:07)
[2021-04-08] MEDS: OLANZapine 10 MG TABLET 20 MG PO (22:07)
[2021-04-09 08:34] VITALS: BP 143/98; PULSE 95; RESP 17; TEMP 36.2; O2SAT 97
--- NOTE | 2021-04-09 13:22 | P.PNPSI_ITS ---
Subjective Subjective Date of Service: 04/09/21 Reason For Visit: SI Subjective Notes: Conditional Voluntary and 3 Day Interim History: The nursing staff reported that the patient was seen in the hallway singing and dancing. She stated that she wants to go home and she has signed a 3 day notice. On interview, she denied any symptom, that she is doing fine but she had concrete thinking and thought blocking at times. Mental Status Exam Mental Status Exam Patient Appearance: Well Grooomed Patient Orientation: Person and Situation Level of Consciousness: Awake Patient Behavior: Cooperative Mood Description: Constricted Affect Description: Calm Patient Cognition Impaired: Yes Ability to Follow Directions: Good Speech Pattern: Rapid Hallucinations: None Delusions: Present Thought Process: Distracted and Evasive Thought Content: positive for Circumstantial Judgement: Fair Diagnostics Vital Signs (24Hr): Vital Signs - 24 hr 04/08/21 20:45 04/09/21 08:34 Temperature 97.8 F 97.2 F Pulse Rate 83 95 Respiratory Rate 17 Blood Pressure 142/72 H 143/98 H Pulse Oximetry 96 97 BMI result Verdana 4 Body Mass Index Verdana 4 34.3 Verdana 4 Verdana 4 Labs Results: 03/30/21 16:26 03/30/21 16:26 Medications Medications Current Medications Acetaminophen (Acetaminophen 325 Mg Tablet) 650 mg PO Q6H PRN PRN Reason: Headache/Pain Mild Scale (1-3) Al Hydroxide/Mg Hydroxide (Magnesium Hydrox/Alum Hydrox 30 Ml Oral.Susp) 30 ml PO Q6H PRN PRN Reason: Heartburn/Nausea Divalproex Sodium (Divalproex Sodium Er 500 Mg Tab.Er.24h) 1,500 mg PO BEDTIME BELA Last Admin: 04/08/21 22:07 Dose: 1,500 mg Documented by: Haloperidol (Haloperidol 5 Mg Tablet) 5 mg PO Q4H PRN PRN Reason: agitation Last Admin: 04/06/21 20:48 Dose: 5 mg Documented by: Hydroxyzine HCl (Hydroxyzine Hcl 25 Mg Tablet) 25 mg PO Q6H PRN PRN Reason: Anxiety Last Admin: 04/08/21 22:07 Dose: 25 mg Documented by: Lorazepam (Lorazepam 1 Mg Tablet) 2 mg PO Q4H PRN PRN Reason: agitation Last Admin: 04/06/21 13:37 Dose: 2 mg Documented by: Magnesium Hydroxide (Milk Of Magnesia 30 Ml Oral.Susp) 30 ml PO DAILY PRN PRN Reason: Constipation Olanzapine (Olanzapine 10 Mg Tablet) 20 mg PO BEDTIME BELA Last Admin: 04/08/21 22:07 Dose: 20 mg Documented by: Pharmacy Consult (Consult Rx Perform Med Rec) 1 each MISCELLANE ONCE PRN PRN Reason: Consult order Trazodone HCl (Trazodone Hcl 50 Mg Tablet) 50 mg PO BEDTIME PRN PRN Reason: Insomnia Last Admin: 04/07/21 20:25 Dose: 50 mg Documented by: Allergies Allergies Allergy/AdvReac Type Severity Reaction Status Date / Time Unable to Assess Allergy Unverified 03/10/21 22:53 Assessment & Plan Assessment & Plan (1) Schizoaffective disorder, bipolar type: Status: Acute Code(s): F25.0 - Schizoaffective disorder, bipolar type Plan Eleni is a 20 yo female who carries a dx of bipolar disorder and schizophrenia. She presented to [facility] ED on 03/28/21 due to hypomania after her mother called the [place] PD due to pt throwing kitchen table and chairs, reaching for kitchen knives, and threatening to harm herself and her mother. Has been off psychotropic medications since 2019. Pt has a hx of being stabilized on haldol, ativan, depakote, and olanzapine. She has a hx of IPLOC 2x in 2019 at [facility] for manic, psychotic behavior. Plan: Pt has been on zyprexa 5 mg Q4H PRN in the ED BH pod, will change to olanzapine 10 mg QHS to target sx of hypomania and psychosis. Once a day dosing may help with adherence in OP setting. 04/04/21: Start depakote ER 500 mg QHS to target mood instability, hypomanic features. Will monitor for benefit, has been stabilized on this medication in the past in combo with antipsychotic. 04/05: manic. VPA dosing raised to 1000 mg at bedtime, zyprexa 10 continued. 04/06: manic. increasing VPA to 1500 mg QHS and zyprexa to 20 mg. 04/07: rima reduced slightly. continue current medications for now. Monitor response to medications. Monitor for safety in the milieu. Discharge on stabilization. Patient seen. Chart reviewed. Discussed with team. Obtain collateral contact info?as needed I spent minutes with the patient and/or on the patient floor today, greater than?50% of which was spent counseling/coordinating care. Reason for contiued inpatient stay Substantial Risk for: inability to function, rapid decompensation and med/psych decompensation
[2021-04-09] MEDS: LORazepam 1 MG TABLET 2 MG PO (15:06)
[2021-04-09] MEDS: HaloperidoL 5 MG TABLET PO (15:06)
[2021-04-10 08:30] VITALS: BP 105/65; PULSE 95; RESP 18; TEMP 36.2; O2SAT 95
--- NOTE | 2021-04-10 10:38 | P.PNPSI_ITS ---
Subjective Subjective Date of Service: 04/08/21 Reason For Visit: SI Interim History: The nursing staff reported that she was singing on the hallways, easily redirectable. On interview, she denied new symptoms, asked about 3 day notice. Mental Status Exam Mental Status Exam Patient Appearance: Appropriate Patient Orientation: Person and Situation Level of Consciousness: Awake Patient Behavior: Guarded and Passive Mood Description: Suspicious and Withdrawn Affect Description: Constricted Patient Cognition Impaired: No Ability to Follow Directions: Fair Speech Pattern: Clear Hallucinations: None Delusions: Not Present Thought Process: Intact Thought Content: positive for Linear Judgement: Fair Diagnostics Vital Signs (24Hr): BMI result Verdana 4 Body Mass Index Verdana 4 34.3 Verdana 4 Verdana 4 Labs Results: 03/30/21 16:26 03/30/21 16:26 Medications Medications Current Medications Acetaminophen (Acetaminophen 325 Mg Tablet) 650 mg PO Q6H PRN PRN Reason: Headache/Pain Mild Scale (1-3) Al Hydroxide/Mg Hydroxide (Magnesium Hydrox/Alum Hydrox 30 Ml Oral.Susp) 30 ml PO Q6H PRN PRN Reason: Heartburn/Nausea Divalproex Sodium (Divalproex Sodium Er 500 Mg Tab.Er.24h) 1,500 mg PO BEDTIME BELA Last Admin: 04/10/21 01:30 Dose: Not Given Documented by: Haloperidol (Haloperidol 5 Mg Tablet) 5 mg PO Q4H PRN PRN Reason: agitation Last Admin: 04/09/21 15:06 Dose: 5 mg Documented by: Hydroxyzine HCl (Hydroxyzine Hcl 25 Mg Tablet) 25 mg PO Q6H PRN PRN Reason: Anxiety Last Admin: 04/08/21 22:07 Dose: 25 mg Documented by: Magnesium Hydroxide (Milk Of Magnesia 30 Ml Oral.Susp) 30 ml PO DAILY PRN PRN Reason: Constipation Olanzapine (Olanzapine 10 Mg Tablet) 20 mg PO BEDTIME BELA Last Admin: 04/10/21 01:30 Dose: Not Given Documented by: Pharmacy Consult (Consult Rx Perform Med Rec) 1 each MISCELLANE ONCE PRN PRN Reason: Consult order Trazodone HCl (Trazodone Hcl 50 Mg Tablet) 50 mg PO BEDTIME PRN PRN Reason: Insomnia Last Admin: 04/07/21 20:25 Dose: 50 mg Documented by: Allergies Allergies Allergy/AdvReac Type Severity Reaction Status Date / Time Unable to Assess Allergy Unverified 03/10/21 22:53 Assessment & Plan Assessment & Plan (1) Schizoaffective disorder, bipolar type: Status: Acute Code(s): F25.0 - Schizoaffective disorder, bipolar type Plan Eleni is a 20 yo female who carries a dx of bipolar disorder and schizophrenia. She presented to [facility] ED on 03/28/21 due to hypomania after her mother called the [place] PD due to pt throwing kitchen table and chairs, reaching for kitchen knives, and threatening to harm herself and her mother. Has been off psychotropic medications since 2019. Pt has a hx of being stabilized on haldol, ativan, depakote, and olanzapine. She has a hx of IPLOC 2x in 2019 at [facility] for manic, psychotic behavior. Plan: Pt has been on zyprexa 5 mg Q4H PRN in the ED BH pod, will change to olanzapine 10 mg QHS to target sx of hypomania and psychosis. Once a day dosing may help with adherence in OP setting. 04/04/21: Start depakote ER 500 mg QHS to target mood instability, hypomanic features. Will monitor for benefit, has been stabilized on this medication in the past in combo with antipsychotic. 04/05: manic. VPA dosing raised to 1000 mg at bedtime, zyprexa 10 continued. 04/06: manic. increasing VPA to 1500 mg QHS and zyprexa to 20 mg. 04/07: rima reduced slightly. continue current medications for now. Monitor response to medications. Monitor for safety in the milieu. Discharge on stabilization. Patient seen. Chart reviewed. Discussed with team. Obtain collateral contact info?as needed I spent minutes with the patient and/or on the patient floor today, greater than?50% of which was spent counseling/coordinating care. Reason for contiued inpatient stay Substantial Risk for: inability to function, rapid decompensation and med/psych decompensation
[2021-04-10] MEDS: Divalproex Sodium ER 500 MG TAB.ER.24H 1000 MG PO (10:56)
[2021-04-10] MEDS: OLANZapine ODT 10 MG TAB.RAPDIS TRANSLINGU (10:56)
--- NOTE | 2021-04-10 13:34 | P.PNPSI_ITS ---
Subjective Subjective Date of Service: 04/10/21 Reason For Visit: SI Interim History: pt eager to meet with MD. asking for discharge, notes she is over 18 and so should be able to go. MD explains to her that team does not feel it is safe for her to discharge and that she will not be allowed to go until her rima is under better control and a suitable living environment is identified for her. pt is persistent and perseverative and is inflexible in her thinking. per staff, denying depression, SI/HI/AVH. appears to RIS, however, per staff. anxiety 07/18. asking for discharge. calling her mother on the phone a lot. pacing, listening to music. refused meds last NOC. Mental Status Exam Mental Status Exam Narrative: continues less hypermotoric and verbal than earlier in admission. dressed in loose informal clothing. cooperative with interview. speech remains incr in rate, amount. nml loudness. decr latency. thoughts vague and often difficult to parse, but a bit more organized than previously. affect normo-intense, non- labile. no SI/HI/AVH expressed. Diagnostics Vital Signs (24Hr): Vital Signs - 24 hr 04/10/21 08:30 Temperature 97.2 F Pulse Rate 95 Respiratory Rate 18 Blood Pressure 105/65 Pulse Oximetry 95 BMI result Verdana 4 Body Mass Index Verdana 4 34.3 Verdana 4 Verdana 4 Labs Results: 03/30/21 16:26 03/30/21 16:26 Medications Medications Current Medications Acetaminophen (Acetaminophen 325 Mg Tablet) 650 mg PO Q6H PRN PRN Reason: Headache/Pain Mild Scale (1-3) Al Hydroxide/Mg Hydroxide (Magnesium Hydrox/Alum Hydrox 30 Ml Oral.Susp) 30 ml PO Q6H PRN PRN Reason: Heartburn/Nausea Divalproex Sodium (Divalproex Sodium Er 500 Mg Tab.Er.24h) 1,500 mg PO BEDTIME BELA Last Admin: 04/10/21 01:30 Dose: Not Given Documented by: Haloperidol (Haloperidol 5 Mg Tablet) 5 mg PO Q4H PRN PRN Reason: agitation Last Admin: 04/09/21 15:06 Dose: 5 mg Documented by: Hydroxyzine HCl (Hydroxyzine Hcl 25 Mg Tablet) 25 mg PO Q6H PRN PRN Reason: Anxiety Last Admin: 04/08/21 22:07 Dose: 25 mg Documented by: Magnesium Hydroxide (Milk Of Magnesia 30 Ml Oral.Susp) 30 ml PO DAILY PRN PRN Reason: Constipation Olanzapine (Olanzapine 10 Mg Tablet) 20 mg PO BEDTIME BELA Last Admin: 04/10/21 01:30 Dose: Not Given Documented by: Pharmacy Consult (Consult Rx Perform Med Rec) 1 each MISCELLANE ONCE PRN PRN Reason: Consult order Trazodone HCl (Trazodone Hcl 50 Mg Tablet) 50 mg PO BEDTIME PRN PRN Reason: Insomnia Last Admin: 04/07/21 20:25 Dose: 50 mg Documented by: Allergies Allergies Allergy/AdvReac Type Severity Reaction Status Date / Time Unable to Assess Allergy Unverified 03/10/21 22:53 Assessment & Plan Assessment & Plan (1) Schizoaffective disorder, bipolar type: Status: Acute Code(s): F25.0 - Schizoaffective disorder, bipolar type Plan Eleni is a 20 yo female who carries a dx of bipolar disorder and schizophrenia. She presented to [facility] ED on 03/28/21 due to hypomania after her mother called the [place] [employer] due to pt throwing kitchen table and chairs, reaching for kitchen knives, and threatening to harm herself and her mother. Has been off psychotropic medications since 2019. Pt has a hx of being stabilized on haldol, ativan, depakote, and olanzapine. She has a hx of IPLOC 2x in 2020 at [facility] for manic, psychotic behavior. Plan: Pt has been on zyprexa 5 mg Q4H PRN in the ED BH pod, will change to olanzapine 10 mg QHS to target sx of hypomania and psychosis. Once a day dosing may help with adherence in OP setting. 04/04/21: Start depakote ER 500 mg QHS to target mood instability, hypomanic features. Will monitor for benefit, has been stabilized on this medication in the past in combo with antipsychotic. 04/05: manic. VPA dosing raised to 1000 mg at bedtime, zyprexa 10 continued. 04/06: manic. increasing VPA to 1500 mg QHS and zyprexa to 20 mg. 04/07: rima reduced slightly. continue current medications for now. 04/10: rima continues unchanged from 04/07. T/C increased VPA to 2000 mg. I spent minutes with the patient and/or on the patient floor today, greater than?50% of which was spent counseling/coordinating care. Reason for contiued inpatient stay Substantial Risk for: inability to function and rapid decompensation
[2021-04-10] MEDS: OLANZapine 10 MG TABLET 20 MG PO (22:33)
[2021-04-10] MEDS: Divalproex Sodium ER 500 MG TAB.ER.24H 1500 MG PO (22:33)
[2021-04-11 10:45] VITALS: BP 119/65; PULSE 97; RESP 18; TEMP 36.5; O2SAT 99
--- NOTE | 2021-04-11 11:01 | P.PNPSI_ITS ---
Subjective Subjective Date of Service: 04/11/21 Reason For Visit: SI Interim History: pt appears a bit less pressured today. seen in a room with TV on and was incredibly distractable by the TV. states that there is a hearing this at which her mother will testify and that she might get to go to a assisted in [place] where they will set her up with longer term housing. reports very good mood but difficulty sleeping. MD informs her her HS meds will need to be increased to help her sleep as that is very important. per staff, asking for DC. slept 830 to 1000 pm, up briefly, then back in bed until 0700. Mental Status Exam Mental Status Exam Narrative: continues less hypermotoric and verbal than earlier in admission. dressed in loose informal clothing. cooperative with interview. speech remains incr in rate, amount. nml loudness. decr latency. thoughts a bit more organized and concrete than previously. affect normo-intense, non-labile. no SI/HI/AVH expr essed. Diagnostics Vital Signs (24Hr): BMI result Verdana 4 Body Mass Index Verdana 4 34.3 Verdana 4 Verdana 4 Labs Results: 03/30/21 16:26 03/30/21 16:26 Medications Medications Current Medications Acetaminophen (Acetaminophen 325 Mg Tablet) 650 mg PO Q6H PRN PRN Reason: Headache/Pain Mild Scale (1-3) Al Hydroxide/Mg Hydroxide (Magnesium Hydrox/Alum Hydrox 30 Ml Oral.Susp) 30 ml PO Q6H PRN PRN Reason: Heartburn/Nausea Divalproex Sodium (Divalproex Sodium Er 500 Mg Tab.Er.24h) 1,500 mg PO BEDTIME BELA Last Admin: 04/10/21 22:33 Dose: 1,500 mg Documented by: Haloperidol (Haloperidol 5 Mg Tablet) 5 mg PO Q4H PRN PRN Reason: agitation Last Admin: 04/09/21 15:06 Dose: 5 mg Documented by: Hydroxyzine HCl (Hydroxyzine Hcl 25 Mg Tablet) 25 mg PO Q6H PRN PRN Reason: Anxiety Last Admin: 04/08/21 22:07 Dose: 25 mg Documented by: Magnesium Hydroxide (Milk Of Magnesia 30 Ml Oral.Susp) 30 ml PO DAILY PRN PRN Reason: Constipation Olanzapine (Olanzapine 10 Mg Tablet) 20 mg PO BEDTIME BELA Last Admin: 04/10/21 22:33 Dose: 20 mg Documented by: Pharmacy Consult (Consult Rx Perform Med Rec) 1 each MISCELLANE ONCE PRN PRN Reason: Consult order Trazodone HCl (Trazodone Hcl 50 Mg Tablet) 50 mg PO BEDTIME PRN PRN Reason: Insomnia Last Admin: 04/07/21 20:25 Dose: 50 mg Documented by: Allergies Allergies Allergy/AdvReac Type Severity Reaction Status Date / Time Unable to Assess Allergy Unverified 03/10/21 22:53 Assessment & Plan Assessment & Plan (1) Schizoaffective disorder, bipolar type: Status: Acute Code(s): F25.0 - Schizoaffective disorder, bipolar type Facundo Knowles is a 20 yo female who carries a dx of bipolar disorder and schizophrenia. She presented to [facility] ED on 03/28/21 due to hypomania after her mother called the [place] PD due to pt throwing kitchen table and chairs, reaching for kitchen knives, and threatening to harm herself and her mother. Has been off psychotropic medications since 2019. Pt has a hx of being stabilized on haldol, ativan, depakote, and olanzapine. She has a hx of IPLOC 2x in 2020 at [facility] for manic, psychotic behavior. Plan: Pt has been on zyprexa 5 mg Q4H PRN in the ED BH pod, will change to olanzapine 10 mg QHS to target sx of hypomania and psychosis. Once a day dosing may help with adherence in OP setting. 04/04/21: Start depakote ER 500 mg QHS to target mood instability, hypomanic features. Will monitor for benefit, has been stabilized on this medication in the past in combo with antipsychotic. 04/05: manic. VPA dosing raised to 1000 mg at bedtime, zyprexa 10 continued. 04/06: manic. increasing VPA to 1500 mg QHS and zyprexa to 20 mg. 04/07: rima reduced slightly. continue current medications for now. 04/10: rima continues unchanged from 04/07. T/C increased VPA to 2000 mg. 04/11: remains manic. increase VPA to 2000 mg tonight and olanzapine to 30 mg tonight. I spent minutes with the patient and/or on the patient floor today, greater than?50% of which was spent counseling/coordinating care. Reason for contiued inpatient stay Substantial Risk for: inability to function and rapid decompensation
[2021-04-11] MEDS: OLANZapine 10 MG TABLET 30 MG PO (20:58)
[2021-04-11] MEDS: Divalproex Sodium ER 500 MG TAB.ER.24H 2000 MG PO (20:58)
[2021-04-11 21:00] VITALS: BP 108/63; PULSE 94; RESP 16; TEMP 36.5; O2SAT 99
[2021-04-12 09:25] VITALS: BP 99/63; PULSE 80; RESP 17; TEMP 36.2; O2SAT 100
--- NOTE | 2021-04-12 15:14 | P.PNPSI_ITS ---
Subjective Subjective Date of Service: 04/12/21 Reason For Visit: SI Interim History: pt reprots that she is getting there in terms of her mood. reports she is happy, as well. describes that she is fearless, she has been through it all and experienced everything and she knows she can handle anything. focused on 05/08 appointments to get started getting SSI and concerned that commitment to the hospital may prevent her from attending the appointment. denies SI/HI/AVH. spontaneously breaks into Latonya Dutta song during interview. per staff, active and appropriate in group. dancing, singing on the unit. guarded. up x2 in the night for food. med-compliant. Mental Status Exam Mental Status Exam Narrative: continues less hypermotoric and verbal than earlier in admission. dressed in loose informal clothing. cooperative with interview. speech remains incr in rate, amount. nml loudness. decr latency. thoughts a bit more organized and concrete than previously. affect normo-intense, non-labile. no SI/HI/AVH. Diagnostics Vital Signs (24Hr): Vital Signs - 24 hr 04/11/21 21:00 04/12/21 09:25 Temperature 97.7 F 97.1 F Pulse Rate 94 80 Respiratory Rate 16 17 Blood Pressure 108/63 99/63 Pulse Oximetry 99 100 BMI result Verdana 4 Body Mass Index Verdana 4 34.3 Verdana 4 Verdana 4 Labs Results: 03/30/21 16:26 03/30/21 16:26 Medications Medications Current Medications Acetaminophen (Acetaminophen 325 Mg Tablet) 650 mg PO Q6H PRN PRN Reason: Headache/Pain Mild Scale (1-3) Al Hydroxide/Mg Hydroxide (Magnesium Hydrox/Alum Hydrox 30 Ml Oral.Susp) 30 ml PO Q6H PRN PRN Reason: Heartburn/Nausea Divalproex Sodium (Divalproex Sodium Er 500 Mg Tab.Er.24h) 2,000 mg PO BEDTIME BELA Last Admin: 04/11/21 20:58 Dose: 2,000 mg Documented by: Haloperidol (Haloperidol 5 Mg Tablet) 5 mg PO Q4H PRN PRN Reason: agitation Last Admin: 04/09/21 15:06 Dose: 5 mg Documented by: Hydroxyzine HCl (Hydroxyzine Hcl 25 Mg Tablet) 25 mg PO Q6H PRN PRN Reason: Anxiety Last Admin: 04/08/21 22:07 Dose: 25 mg Documented by: Magnesium Hydroxide (Milk Of Magnesia 30 Ml Oral.Susp) 30 ml PO DAILY PRN PRN Reason: Constipation Olanzapine (Olanzapine 10 Mg Tablet) 30 mg PO BEDTIME BELA Last Admin: 04/11/21 20:58 Dose: 30 mg Documented by: Pharmacy Consult (Consult Rx Perform Med Rec) 1 each MISCELLANE ONCE PRN PRN Reason: Consult order Trazodone HCl (Trazodone Hcl 50 Mg Tablet) 50 mg PO BEDTIME PRN PRN Reason: Insomnia Last Admin: 04/07/21 20:25 Dose: 50 mg Documented by: Allergies Allergies Allergy/AdvReac Type Severity Reaction Status Date / Time Unable to Assess Allergy Unverified 03/10/21 22:53 Assessment & Plan Assessment & Plan (1) Schizoaffective disorder, bipolar type: Status: Acute Code(s): F25.0 - Schizoaffective disorder, bipolar type Plan Eleni is a 20 yo female who carries a dx of bipolar disorder and schizophrenia. She presented to [facility] ED on 03/28/21 due to hypomania after her mother called the [employer] due to pt throwing kitchen table and chairs, reaching for kitchen knives, and threatening to harm herself and her mother. Has been off psychotropic medications since 2019. Pt has a hx of being stabilized on haldol, ativan, depakote, and olanzapine. She has a hx of IPLOC 2x in 2020 at [facility] for manic, psychotic behavior. Plan: Pt has been on zyprexa 5 mg Q4H PRN in the ED BH pod, will change to olanzapine 10 mg QHS to target sx of hypomania and psychosis. Once a day dosing may help with adherence in OP setting. 04/04/21: Start depakote ER 500 mg QHS to target mood instability, hypomanic features. Will monitor for benefit, has been stabilized on this medication in the past in combo with antipsychotic. 04/05: manic. VPA dosing raised to 1000 mg at bedtime, zyprexa 10 continued. 04/06: manic. increasing VPA to 1500 mg QHS and zyprexa to 20 mg. 04/07: rima reduced slightly. continue current medications for now. 04/10: rima continues unchanged from 04/07. T/C increased VPA to 2000 mg. 04/11: remains manic. increase VPA to 2000 mg tonight and olanzapine to 30 mg tonight. 04/12: as per yesterday. perhaps slightly calmer today. hearing has been deferred a week. I spent minutes with the patient and/or on the patient floor today, greater than?50% of which was spent counseling/coordinating care. Reason for contiued inpatient stay Substantial Risk for: inability to function and rapid decompensation
[2021-04-12 20:00] VITALS: BP 106/68; PULSE 100; RESP 100; TEMP 36; O2SAT 97
[2021-04-12] MEDS: Divalproex Sodium ER 500 MG TAB.ER.24H 2000 MG PO (20:50)
[2021-04-12] MEDS: OLANZapine 10 MG TABLET 30 MG PO (20:50)
[2021-04-13 07:00] VITALS: BMI 33.1
[2021-04-13 09:30] VITALS: BP 108/63; PULSE 91; RESP 16; TEMP 36.5; O2SAT 96
[2021-04-13] MEDS: Acetaminophen 325 MG TABLET 650 MG PO (13:18)
--- NOTE | 2021-04-13 14:02 | P.PNPSI_ITS ---
Subjective Subjective Date of Service: 04/13/21 Reason For Visit: SI Interim History: pt appears more calm today, no longer pressured, able to remain quiet, not talking over MD. also has gained enough insight to be able to say that she would not be safe if discharged to the street. remains interested in SW getting her out of the hospital and on her way to her own apartment. per staff, visible, interactive. denies anx/dep. denies SI/HI. denies AVH. dancing in the milieu yesterday, some agitation during meeting 1:1 with staff. polite and pleasant, generally speaking, however. seen by package delivery room service runner and KATJA yesterday. slept well. Mental Status Exam Mental Status Exam Narrative: dressed in loose informal clothing. cooperative with interview. no PMA/PMR. speech nml in rate, amount, loudness, latency. thoughts more organized and linear/logical. affect normo-intense, non-labile. no SI/HI/AVH expressed. Diagnostics Vital Signs (24Hr): Vital Signs - 24 hr 04/12/21 20:00 04/13/21 09:30 Temperature 96.8 F 97.7 F Pulse Rate 100 91 Respiratory Rate 100 H 16 Blood Pressure 106/68 108/63 Pulse Oximetry 97 96 BMI result Verdana 4 Body Mass Index Verdana 4 34.3 Verdana 4 Verdana 4 Labs Results: 03/30/21 16:26 03/30/21 16:26 Medications Medications Current Medications Acetaminophen (Acetaminophen 325 Mg Tablet) 650 mg PO Q6H PRN PRN Reason: Headache/Pain Mild Scale (1-3) Last Admin: 04/13/21 13:18 Dose: 650 mg Documented by: Al Hydroxide/Mg Hydroxide (Magnesium Hydrox/Alum Hydrox 30 Ml Oral.Susp) 30 ml PO Q6H PRN PRN Reason: Heartburn/Nausea Divalproex Sodium (Divalproex Sodium Er 500 Mg Tab.Er.24h) 2,000 mg PO BEDTIME BELA Last Admin: 04/12/21 20:50 Dose: 2,000 mg Documented by: Haloperidol (Haloperidol 5 Mg Tablet) 5 mg PO Q4H PRN PRN Reason: agitation Last Admin: 04/09/21 15:06 Dose: 5 mg Documented by: Hydroxyzine HCl (Hydroxyzine Hcl 25 Mg Tablet) 25 mg PO Q6H PRN PRN Reason: Anxiety Last Admin: 04/08/21 22:07 Dose: 25 mg Documented by: Magnesium Hydroxide (Milk Of Magnesia 30 Ml Oral.Susp) 30 ml PO DAILY PRN PRN Reason: Constipation Olanzapine (Olanzapine 10 Mg Tablet) 30 mg PO BEDTIME BELA Last Admin: 04/12/21 20:50 Dose: 30 mg Documented by: Pharmacy Consult (Consult Rx Perform Med Rec) 1 each MISCELLANE ONCE PRN PRN Reason: Consult order Trazodone HCl (Trazodone Hcl 50 Mg Tablet) 50 mg PO BEDTIME PRN PRN Reason: Insomnia Last Admin: 04/07/21 20:25 Dose: 50 mg Documented by: Allergies Allergies Allergy/AdvReac Type Severity Reaction Status Date / Time Unable to Assess Allergy Unverified 03/10/21 22:53 Assessment & Plan Assessment & Plan (1) Schizoaffective disorder, bipolar type: Status: Acute Code(s): F25.0 - Schizoaffective disorder, bipolar type Plan Eleni is a 20 yo female who carries a dx of bipolar disorder and schizophrenia. She presented to [facility] ED on 03/28/21 due to hypomania after her mother called the [employer] PD due to pt throwing kitchen table and chairs, reaching for kitchen knives, and threatening to harm herself and her mother. Has been off psychotropic medications since 2019. Pt has a hx of being stabilized on haldol, ativan, depakote, and olanzapine. She has a hx of IPLOC 2x in 2020 at [facility] for manic, psychotic behavior. Plan: Pt has been on zyprexa 5 mg Q4H PRN in the ED BH pod, will change to olanzapine 10 mg QHS to target sx of hypomania and psychosis. Once a day dosing may help with adherence in OP setting. 04/04/21: Start depakote ER 500 mg QHS to target mood instability, hypomanic features. Will monitor for benefit, has been stabilized on this medication in the past in combo with antipsychotic. 04/05: manic. VPA dosing raised to 1000 mg at bedtime, zyprexa 10 continued. 04/06: manic. increasing VPA to 1500 mg QHS and zyprexa to 20 mg. 04/07: rima reduced slightly. continue current medications for now. 04/10: rima continues unchanged from 04/07. T/C increased VPA to 2000 mg. 04/11: remains manic. increase VPA to 2000 mg tonight and olanzapine to 30 mg tonight. 04/12: as per yesterday. perhaps slightly calmer today. hearing has been deferred a week. 04/13: substantial improvement in manic Sx. continue current mgmt. I spent minutes with the patient and/or on the patient floor today, greater than?50% of which was spent counseling/coordinating care. Reason for contiued inpatient stay Substantial Risk for: inability to function and rapid decompensation
[2021-04-13] MEDS: hydrOXYzine HCL 25 MG TABLET PO (15:04)
[2021-04-13 18:00] VITALS: BP 115/63; PULSE 86; RESP 16; TEMP 36.3; O2SAT 97
[2021-04-13] MEDS: OLANZapine 10 MG TABLET 30 MG PO (22:07)
[2021-04-13] MEDS: Divalproex Sodium ER 500 MG TAB.ER.24H 2000 MG PO (22:07)
[2021-04-14 08:41] VITALS: BP 129/61; PULSE 114; RESP 17; TEMP 36.7; O2SAT 97
--- NOTE | 2021-04-14 12:27 | P.PNPSI_ITS ---
Subjective Subjective Date of Service: 04/14/21 Reason For Visit: SI Interim History: pt in a good humor, seen mouthing lyrics to music on headphones while painting in day room. no complaints or requests today. states she is in a good mood, sleeping well, working with SW on discharge to [facility] next week. agreeable to labs for saturday. per staff, attending art group only. anx 3, denying other Sx. pacing, headphones on. pleasant. Mental Status Exam Mental Status Exam Narrative: dressed in loose informal clothing. cooperative with interview. no PMA/PMR. speech incr in rate; nml amount, loudness, latency. thoughts more organized and linear/logical. affect normo-intense, non-labile. no SI/HI/AVH expressed. Diagnostics Vital Signs (24Hr): Vital Signs - 24 hr 04/13/21 18:00 04/14/21 08:41 Temperature 97.3 F 98.0 F Pulse Rate 86 114 H Respiratory Rate 16 17 Blood Pressure 115/63 129/61 Pulse Oximetry 97 97 BMI result Verdana 4 Body Mass Index Verdana 4 33.1 Verdana 4 Verdana 4 Labs Results: 03/30/21 16:26 03/30/21 16:26 Medications Medications Current Medications Acetaminophen (Acetaminophen 325 Mg Tablet) 650 mg PO Q6H PRN PRN Reason: Headache/Pain Mild Scale (1-3) Last Admin: 04/13/21 13:18 Dose: 650 mg Documented by: Al Hydroxide/Mg Hydroxide (Magnesium Hydrox/Alum Hydrox 30 Ml Oral.Susp) 30 ml PO Q6H PRN PRN Reason: Heartburn/Nausea Divalproex Sodium (Divalproex Sodium Er 500 Mg Tab.Er.24h) 2,000 mg PO BEDTIME BELA Last Admin: 04/13/21 22:07 Dose: 2,000 mg Documented by: Haloperidol (Haloperidol 5 Mg Tablet) 5 mg PO Q4H PRN PRN Reason: agitation Last Admin: 04/09/21 15:06 Dose: 5 mg Documented by: Hydroxyzine HCl (Hydroxyzine Hcl 25 Mg Tablet) 25 mg PO Q6H PRN PRN Reason: Anxiety Last Admin: 04/13/21 15:04 Dose: 25 mg Documented by: Magnesium Hydroxide (Milk Of Magnesia 30 Ml Oral.Susp) 30 ml PO DAILY PRN PRN Reason: Constipation Olanzapine (Olanzapine 10 Mg Tablet) 30 mg PO BEDTIME BELA Last Admin: 04/13/21 22:07 Dose: 30 mg Documented by: Pharmacy Consult (Consult Rx Perform Med Rec) 1 each MISCELLANE ONCE PRN PRN Reason: Consult order Trazodone HCl (Trazodone Hcl 50 Mg Tablet) 50 mg PO BEDTIME PRN PRN Reason: Insomnia Last Admin: 04/07/21 20:25 Dose: 50 mg Documented by: Allergies Allergies Allergy/AdvReac Type Severity Reaction Status Date / Time Unable to Assess Allergy Unverified 03/10/21 22:53 Assessment & Plan Assessment & Plan (1) Schizoaffective disorder, bipolar type: Status: Acute Code(s): F25.0 - Schizoaffective disorder, bipolar type Plan Eleni is a 20 yo female who carries a dx of bipolar disorder and schiz ophrenia. She presented to [facility] ED on 03/28/21 due to hypomania after her mother called the [place] PD due to pt throwing kitchen table and chairs, reaching for kitchen knives, and threatening to harm herself and her mother. Has been off psychotropic medications since 2020. Pt has a hx of being stabilized on haldol, ativan, depakote, and olanzapine. She has a hx of IPLOC 2x in 2020 at [facility] for manic, psychotic behavior. Plan: Pt has been on zyprexa 5 mg Q4H PRN in the ED BH pod, will change to ol anzapine 10 mg QHS to target sx of hypomania and psychosis. Once a day dosing may help with adherence in OP setting. 04/04/21: Start depakote ER 500 mg QHS to target mood instability, hypomanic features. Will monitor for benefit, has been stabilized on this medication in the past in combo with antipsychotic. 04/05: manic. VPA dosing raised to 1000 mg at bedtime, zyprexa 10 continued. 04/06: manic. increasing VPA to 1500 mg QHS and zyprexa to 20 mg. 04/07: rima reduced slightly. continue current medications for now. 04/10: rima continues unchanged from 04/07. T/C increased VPA to 2000 mg. 04/11: remains manic. increase VPA to 2000 mg tonight and olanzapine to 30 mg tonight. 04/12: as per yesterday. perhaps slightly calmer today. hearing has been deferred a week. 04/13: substantial improvement in manic Sx. continue current mgmt. 04/14: as per yesterday. labs ordered for saturday. planning for DC to [facility] sometime next week. I spent minutes with the patient and/or on the patient floor today, greater than?50% of which was spent counseling/coordinating care. Reason for contiued inpatient stay Substantial Risk for: harm to self, inability to function and rapid decompensation
[2021-04-14] MEDS: OLANZapine 10 MG TABLET 30 MG PO (20:44)
[2021-04-14] MEDS: Divalproex Sodium ER 500 MG TAB.ER.24H 2000 MG PO (20:44)
[2021-04-14 20:46] VITALS: BP 105/68; PULSE 84; TEMP 36.6; O2SAT 96
[2021-04-15] MEDS: Acetaminophen 325 MG TABLET 650 MG PO (08:10)
[2021-04-15 08:30] VITALS: BP 112/70; PULSE 83; RESP 18; TEMP 36.4; O2SAT 97
--- NOTE | 2021-04-15 18:31 | HO.PSYCHPN ---
Subjective Subjective Date of Service: 04/15/21 Reason For Visit: SI Subjective Notes: Conditional Voluntary Interim History: 04/14: pt in a good humor, seen mouthing lyrics to music on headphones while painting in day room. no complaints or requests today. states she is in a good mood, sleeping well, working with SW on discharge to [facility] next week. agreeable to labs for saturday. per staff, attending art group only. anx 3, denying other Sx. pacing, headphones on. pleasant. 04/15 : No complaints. Pleasant. Happy thst DC to assisted is imminent next week. Ct meds Medication Compliance: Yes Review of Systems Review of Systems CVS: No c/o chest pain, palpitations, no SOB [employer]: No c/o dizziness, headache GI: No c/o Nausea, Vomiting, diarrhea, constipation or heartburn Mental Status Exam Mental Status Exam Narrative: dressed in loose informal clothing. cooperative with interview. no PMA/PMR. speech incr in rate; nml amount, loudness, latency. thoughts more organized and linear/logical. affect normo-intense, non-labile. no SI/HI/AVH expressed. Patient Appearance: Appropriate Patient Orientation: Person and Situation Level of Consciousness: Awake Patient Behavior: Guarded and Passive Mood Description: Suspicious and Withdrawn Affect Description: Constricted Patient Cognition Impaired: No Ability to Follow Directions: Fair Speech Pattern: Clear Diagnostics Vital Signs (24Hr): Vital Signs - 24 hr 04/14/21 20:46 04/15/21 08:30 Temperature 97.8 F 97.5 F Pulse Rate 84 83 Respiratory Rate 18 Blood Pressure 105/68 112/70 Pulse Oximetry 96 97 BMI result Body Mass Index 33.1 Labs Results: 03/30/21 16:26 03/30/21 16:26 Medications Medications Current Medications Acetaminophen (Acetaminophen 325 Mg Tablet) 650 mg PO Q6H PRN PRN Reason: Headache/Pain Mild Scale (1-3) Last Admin: 04/15/21 08:10 Dose: 650 mg Documented by: Al Hydroxide/Mg Hydroxide (Magnesium Hydrox/Alum Hydrox 30 Ml Oral.Susp) 30 ml PO Q6H PRN PRN Reason: Heartburn/Nausea Divalproex Sodium (Divalproex Sodium Er 500 Mg Tab.Er.24h) 2,000 mg PO BEDTIME [facility] Last Admin: 04/14/21 20:44 Dose: 2,000 mg Documented by: Haloperidol (Haloperidol 5 Mg Tablet) 5 mg PO Q4H PRN PRN Reason: agitation Last Admin: 04/09/21 15:06 Dose: 5 mg Documented by: Hydroxyzine HCl (Hydroxyzine Hcl 25 Mg Tablet) 25 mg PO Q6H PRN PRN Reason: Anxiety Last Admin: 04/13/21 15:04 Dose: 25 mg Documented by: Magnesium Hydroxide (Milk Of Magnesia 30 Ml Oral.Susp) 30 ml PO DAILY PRN PRN Reason: Constipation Olanzapine (Olanzapine 10 Mg Tablet) 30 mg PO BEDTIME BELA Last Admin: 04/14/21 20:44 Dose: 30 mg Documented by: Pharmacy Consult (Consult Rx Perform Med Rec) 1 each MISCELLANE ONCE PRN PRN Reason: Consult order Trazodone HCl (Trazodone Hcl 50 Mg Tablet) 50 mg PO BEDTIME PRN PRN Reason: Insomnia Last Admin: 04/07/21 20:25 Dose: 50 mg Documented by: Allergies Allergies Allergy/AdvReac Type Severity Reaction Status Date / Time Unable to Assess Allergy Unverified 03/10/21 22:53 Assessment & Plan Assessment & Plan (1) Schizoaffective disorder, bipolar type: Status: Acute Code(s): F25.0 - Schizoaffective disorder, bipolar type Plan Eleni is a 20 yo female who carries a dx of bipolar disorder and schizophrenia. She presented to [facility] ED on 03/28/21 due to hypomania after her mother called the [place] PD due to pt throwing kitchen table and chairs, reaching for kitchen knives, and threatening to harm herself and her mother. Has been off psychotropic medications since 2019. Pt has a hx of being stabilized on haldol, ativan, depakote, and olanzapine. She has a hx of IPLOC 2x in 2020 at [facility] for manic, psychotic behavior. Plan: Pt has been on zyprexa 5 mg Q4H PRN in the ED BH pod, will change to olanzapine 10 mg QHS to target sx of hypomania and psychosis. Once a day dosing may help with adherence in OP setting. 04/04/21: Start depakote ER 500 mg QHS to target mood instability, hypomanic features. Will monitor for benefit, has been stabilized on this medication in the past in combo with antipsychotic. 04/05: manic. VPA dosing raised to 1000 mg at bedtime, zyprexa 10 continued. 04/06: manic. increasing VPA to 1500 mg QHS and zyprexa to 20 mg. 04/07: rima reduced slightly. continue current medications for now. 04/10: rima continues unchanged from 04/07. T/C increased VPA to 2000 mg. 04/11: remains manic. increase VPA to 2000 mg tonight and olanzapine to 30 mg tonight. 04/12: as per yesterday. perhaps slightly calmer today. hearing has been deferred a week. 04/13: substantial improvement in manic Sx. continue current mgmt. 04/14: as per yesterday. labs ordered for saturday. planning for DC to [facility] assisted sometime next week. 04/15: Ct meds Rx plan. DC assisted next week I spent minutes with the patient and/or on the patient floor today, greater than?50% of which was spent counseling/coordinating care. Patient educated on: diagnosis Reason for contiued inpatient stay Substantial Risk for: harm to self and rapid decompensation
[2021-04-15 20:00] VITALS: BP 129/70; PULSE 88; RESP 17; TEMP 36.4; O2SAT 98
[2021-04-15] MEDS: OLANZapine 10 MG TABLET 30 MG PO (20:35)
[2021-04-15] MEDS: Divalproex Sodium ER 500 MG TAB.ER.24H 2000 MG PO (20:35)
[2021-04-15] MEDS: hydrOXYzine HCL 25 MG TABLET PO (20:39)
[2021-04-15] MEDS: traZODone HCL 50 MG TABLET PO (20:39)
--- NOTE | 2021-04-16 04:38 | P.PNPSI_ITS ---
Subjective Subjective Date of Service: 04/16/21 Reason For Visit: SI Subjective Notes: Conditional Voluntary Interim History: 04/14: pt in a good humor, seen mouthing lyrics to music on headphones while painting in day room. no complaints or requests today. states she is in a good mood, sleeping well, working with SW on discharge to [facility] next week. agreeable to labs for saturday. per staff, attending art group only. anx 3, denying other Sx. pacing, headphones on. pleasant. 04/15 : No complaints. Pleasant. Happy thst DC to [facility] is imminent next week. Ct meds 04/16: Pleasant/ no complaints. Looking forward to DC Review of Systems Review of Systems CVS: No c/o chest pain, palpitations, no SOB NARCOTICS AND VICE DETECTIVE: No c/o dizziness, headache GI: No c/o Nausea, Vomiting, diarrhea, constipation or heartburn Mental Status Exam Mental Status Exam Narrative: dressed in loose informal clothing. cooperative with interview. no PMA/PMR. speech incr in rate; nml amount, loudness, latency. thoughts more organized and linear/logical. affect normo-intense, non-labile. no SI/HI/AVH expressed. Patient Appearance: Appropriate Patient Orientation: Person and Situation Level of Consciousness: Awake Patient Behavior: Guarded and Passive Mood Description: Suspicious and Withdrawn Affect Description: Constricted Patient Cognition Impaired: No Ability to Follow Directions: Fair Speech Pattern: Clear Diagnostics Vital Signs (24Hr): Vital Signs - 24 hr 04/15/21 08:30 04/15/21 20:00 Temperature 97.5 F 97.6 F Pulse Rate 83 88 Respiratory Rate 18 17 Blood Pressure 112/70 129/70 Pulse Oximetry 97 98 BMI result Verdana 4 Body Mass Index Verdana 4 33.1 Verdana 4 Verdana 4 Labs Results: 03/30/21 16:26 03/30/21 16:26 Medications Medications Current Medications Acetaminophen (Acetaminophen 325 Mg Tablet) 650 mg PO Q6H PRN PRN Reason: Headache/Pain Mild Scale (1-3) Last Admin: 04/15/21 08:10 Dose: 650 mg Documented by: Al Hydroxide/Mg Hydroxide (Magnesium Hydrox/Alum Hydrox 30 Ml Oral.Susp) 30 ml PO Q6H PRN PRN Reason: Heartburn/Nausea Divalproex Sodium (Divalproex Sodium Er 500 Mg Tab.Er.24h) 2,000 mg PO BEDTIME BELA Last Admin: 04/15/21 20:35 Dose: 2,000 mg Documented by: Haloperidol (Haloperidol 5 Mg Tablet) 5 mg PO Q4H PRN PRN Reason: agitation Last Admin: 04/09/21 15:06 Dose: 5 mg Documented by: Hydroxyzine HCl (Hydroxyzine Hcl 25 Mg Tablet) 25 mg PO Q6H PRN PRN Reason: Anxiety Last Admin: 04/15/21 20:39 Dose: 25 mg Documented by: Magnesium Hydroxide (Milk Of Magnesia 30 Ml Oral.Susp) 30 ml PO DAILY PRN PRN Reason: Constipation Olanzapine (Olanzapine 10 Mg Tablet) 30 mg PO BEDTIME BELA Last Admin: 04/15/21 20:35 Dose: 30 mg Documented by: Pharmacy Consult (Consult Rx Perform Med Rec) 1 each MISCELLANE ONCE PRN PRN Reason: Consult order Trazodone HCl (Trazodone Hcl 50 Mg Tablet) 50 mg PO BEDTIME PRN PRN Reason: Insomnia Last Admin: 04/15/21 20:39 Dose: 50 mg Documented by: Allergies Allergies Allergy/AdvReac Type Severity Reaction Status Date / Time Unable to Assess Allergy Unverified 03/10/21 22:53 Assessment & Plan Assessment & Plan (1) Schizoaffective disorder, bipolar type: Status: Acute Code(s): F25.0 - Schizoaffective disorder, bipolar type Plan Eleni is a 20 yo female who carries a dx of bipolar disorder and schizophrenia. She presented to [facility] ED on 03/28/21 due to hypomania after her mother called the [place] PD due to pt throwing kitchen table and chairs, reaching for kitchen knives, and threatening to harm herself and her mother. Has been off psychotropic medications since 2020. Pt has a hx of being stabilized on haldol, ativan, depakote, and olanzapine. She has a hx of IPLOC 2x in 2019 at [facility] for manic, psychotic behavior. Plan: Pt has been on zyprexa 5 mg Q4H PRN in the ED BH pod, will change to olanzapine 10 mg QHS to target sx of hypomania and psychosis. Once a day dosing may help with adherence in OP setting. 1/25/22: Start depakote ER 500 mg QHS to target mood instability, hypomanic features. Will monitor for benefit, has been stabilized on this medication in the past in combo with antipsychotic. 04/05: manic. VPA dosing raised to 1000 mg at bedtime, zyprexa 10 continued. 04/06: manic. increasing VPA to 1500 mg QHS and zyprexa to 20 mg. 04/07: rima reduced slightly. continue current medications for now. 04/10: rima continues unchanged from 04/07. T/C increased VPA to 2000 mg. 04/11: remains manic. increase VPA to 2000 mg tonight and olanzapine to 30 mg tonight. 04/12: as per yesterday. perhaps slightly calmer today. hearing has been deferred a week. 04/13: substantial improvement in manic Sx. continue current mgmt. 04/14: as per yesterday. labs ordered for saturday. planning for DC to [facility] sometime next week. 04/15: Ct meds Rx plan. DC [facility] next week 04/16: Dc next week. Ct Rx plan I spent minutes with the patient and/or on the patient floor today, greater than?50% of which was spent counseling/coordinating care. Reason for contiued inpatient stay Substantial Risk for: harm to self
[2021-04-16 08:15] VITALS: BP 114/73; PULSE 86; RESP 18; TEMP 36.8; O2SAT 99
[2021-04-16 18:00] VITALS: BP 107/66; PULSE 94; RESP 16; TEMP 36.6; O2SAT 97
[2021-04-16] MEDS: Divalproex Sodium ER 500 MG TAB.ER.24H 2000 MG PO (20:51)
[2021-04-16] MEDS: traZODone HCL 50 MG TABLET PO (20:52)
[2021-04-16] MEDS: OLANZapine 10 MG TABLET 30 MG PO (20:52)
[2021-04-17 08:20] VITALS: BP 128/74; PULSE 94; RESP 16; TEMP 36.8; O2SAT 97
[2021-04-17 08:29] LABS: MANUAL DIFF FLAG NO
[2021-04-17 08:43] LABS: Basophils Percent Auto 0.4 % (0-2); Eosinophils Absolute Auto 0.2 X10*3/uL (0.0-0.4); Eosinophils Percent Auto 2.2 % (0-4); Hematocrit 41.7 % (37.0-47.0); Hemoglobin 13.6 g/dl (12.0-16.0); Imm Gran Abs Auto 0.35 X10*3/uL (0.00-0.03); Imm Gran Pct Auto 3.9 % (0.0-0.4); Lymphocytes Absolute Auto 2.8 X10*3/uL (1.2-4.9); Lymphocytes Percent Auto 30.3 % (20-40); Mean Corpuscular HGB Conc 32.6 g/dl (31.0-35.0); Mean Corpuscular Hemoglobin 27.8 pg (27.0-33.0); Mean Corpuscular Volume 85.3 fL (80.0-98.0); Mean Platelet Volume 10.3 fL (9.4-12.3); Monocytes Absolute Auto 0.8 X10*3/uL (0.1-1.2); Monocytes Percent Auto 9.2 % (2-11); Neutrophils Absolute Auto 4.9 x10*3/uL (2.0-8.3); Platelet Count 189 X10*3/uL (160-400); Red Blood Count 4.89 X10*6/uL (4.20-5.50); Red Cell Distribution Width 15.4 % (11.0-16.0); White Blood Count 9.1 X10*3/uL (4.8-10.8)
[2021-04-17 09:10] LABS: Valproate 86.1 mcg/mL (50.0-100.0)
[2021-04-17 09:12] LABS: Alanine Aminotransferase 57 U/L (0-31); Albumin Level 3.5 g/dL (3.5-5.0); Alkaline Phosphatase 57 U/L (39-117); Anion Gap 11 (12-20); Aspartate Amino Transferase 27 U/L (5-31); Bilirubin Direct < 0.2 mg/dL (0.0-0.5); Bilirubin Total 0.3 mg/dL (0.0-1.0); Blood Urea Nitrogen 20 mg/dL (9-16); Calcium 9.9 mg/dL (8.4-10.2); Carbon Dioxide 32 mmol/L (22-29); Chloride 102 mmol/L (96-108); Creatinine Clr Calc Pharmacy 160.1; Estimated Glomerular Filt Rate > 60; Glucose Random 81 mg/dL (60-115); Potassium 4.9 mmol/L (3.3-5.1); Sodium 140 mmol/L (135-145); Total Protein 6.2 g/dL (6.5-8.0)
--- NOTE | 2021-04-17 12:51 | P.PNPSI_ITS ---
Subjective Subjective Date of Service: 04/17/21 Reason For Visit: SI Interim History: pt appears as last saturday. less pressured and perseverative on discharge, let still wanting to leave [facility]. denies any problems or symptoms whatsoever. would like to go to intermediate [facility], informed hopefully a bed will opn in the next few days. VPA level 86, slight LFT bump. per staff, pleasant, showered, eating well. no anx/dep/AH. excited to go to intermediate. singing in room while roommate napping. slept well overnight. Mental Status Exam Mental Status Exam Narrative: dressed in loose informal clothing. cooperative with interview. no PMA/PMR. speech incr in rate; nml amount, loudness, latency. thoughts more organized and linear/logical. affect normo-intense, non-labile. no SI/HI/AVH expressed. Diagnostics Vital Signs (24Hr): Vital Signs - 24 hr 04/16/21 18:00 04/17/21 08:20 Temperature 98 F 98.2 F Pulse Rate 94 94 Respiratory Rate 16 16 Blood Pressure 107/66 128/74 Pulse Oximetry 97 97 BMI result Verdana 4 Body Mass Index Verdana 4 33.1 Verdana 4 Verdana 4 Labs Results: 04/17/21 08:14 04/17/21 08:14 Labs: Laboratory Results - last 48 hr 04/17/21 04/17/21 08:14 08:14 WBC 9.1 RBC 4.89 Hgb 13.6 Hct 41.7 MCV 85.3 MCH 27.8 MCHC 32.6 RDW 15.4 Plt Count 189 MPV 10.3 Immature Gran % (Auto) 3.9 H Neut % (Auto) 54.0 Lymph % (Auto) 30.3 [place] % (Auto) 9.2 Eos % (Auto) 2.2 Baso % (Auto) 0.4 Lymph # (Auto) 2.8 [place] # (Auto) 0.8 Eos # (Auto) 0.2 Baso # (Auto) 0.0 Abs Immat Gran (auto) 0.35 H Absolute Neuts (auto) 4.9 Absolute Nucleated RBC 0.000 Nucleated RBC % (auto) 0.0 Sodium 140 Potassium 4.9 Chloride 102 Carbon Dioxide 32 H Anion Gap 11 L BUN 20 H Creatinine 0.72 Estim Creat Clear Calc 160.1 Estimated GFR > 60 Random Glucose 81 Calcium 9.9 Total Bilirubin 0.3 Direct Bilirubin < 0.2 AST 27 D ALT 57 H Alkaline Phosphatase 57 D Total Protein 6.2 L Albumin 3.5 Valproic Acid 86.1 Medications Medications Current Medications Acetaminophen (Acetaminophen 325 Mg Tablet) 650 mg PO Q6H PRN PRN Reason: Headache/Pain Mild Scale (1-3) Last Admin: 04/15/21 08:10 Dose: 650 mg Documented by: Al Hydroxide/Mg Hydroxide (Magnesium Hydrox/Alum Hydrox 30 Ml Oral.Susp) 30 ml PO Q6H PRN PRN Reason: Heartburn/Nausea Divalproex Sodium (Divalproex Sodium Er 500 Mg Tab.Er.24h) 2,000 mg PO BEDTIME BELA Last Admin: 04/16/21 20:51 Dose: 2,000 mg Documented by: Haloperidol (Haloperidol 5 Mg Tablet) 5 mg PO Q4H PRN PRN Reason: agitation Last Admin: 04/09/21 15:06 Dose: 5 mg Documented by: Hydroxyzine HCl (Hydroxyzine Hcl 25 Mg Tablet) 25 mg PO Q6H PRN PRN Reason: Anxiety Last Admin: 04/15/21 20:39 Dose: 25 mg Documented by: Magnesium Hydroxide (Milk Of Magnesia 30 Ml Oral.Susp) 30 ml PO DAILY PRN PRN Reason: Constipation Olanzapine (Olanzapine 10 Mg Tablet) 30 mg PO BEDTIME BELA Last Admin: 04/16/21 20:52 Dose: 30 mg Documented by: Pharmacy Consult (Consult Rx Perform Med Rec) 1 each MISCELLANE ONCE PRN PRN Reason: Consult order Trazodone HCl (Trazodone Hcl 50 Mg Tablet) 50 mg PO BEDTIME PRN PRN Reason: Insomnia Last Admin: 04/16/21 20:52 Dose: 50 mg Documented by: Allergies Allergies Allergy/AdvReac Type Severity Reaction Status Date / Time Unable to Assess Allergy Unverified 03/10/21 22:53 Assessment & Plan Assessment & Plan (1) Schizoaffective disorder, bipolar type: Status: Acute Code(s): F25.0 - Schizoaffective disorder, bipolar type Plan Eleni is a 20 yo female who carries a dx of bipolar disorder and schizophrenia. She presented to [facility] on 03/28/21 due to hypomania after her mother called the [place] PD due to pt throwing kitchen table and chairs, reaching for kitchen knives, and threatening to harm herself and her mother. Has been off psychotropic medications since 2019. Pt has a hx of being stabilized on haldol, ativan, depakote, and olanzapine. She has a hx of IPLOC 2x in 2019 at [facility] for manic, psychotic behavior. Plan: Pt has been on zyprexa 5 mg Q4H PRN in the ED BH pod, will change to olanzapine 10 mg QHS to target sx of hypomania and psychosis. Once a day dosing may help with adherence in OP setting. 04/04/21: Start depakote ER 500 mg QHS to target mood instability, hypomanic features. Will monitor for benefit, has been stabilized on this medication in the past in combo with antipsychotic. 04/05: manic. VPA dosing raised to 1000 mg at bedtime, zyprexa 10 continued. 04/06: manic. increasing VPA to 1500 mg QHS and zyprexa to 20 mg. 04/07: rima reduced slightly. continue current medications for now. 04/10: rima continues unchanged from 04/07. T/C increased VPA to 2000 mg. 04/11: remains manic. increase VPA to 2000 mg tonight and olanzapine to 30 mg tonight. 04/12: as per yesterday. perhaps slightly calmer today. hearing has been deferred a week. 04/13: substantial improvement in manic Sx. continue current mgmt. 04/14: as per yesterday. labs ordered for saturday. planning for DC to [facility] sometime next week. 04/15: Ct meds Rx plan. DC intermediate next week 2: Dc next week. Ct Rx plan 04/17: LFTs increased on 2 grams VPA. VPA level 86. monitor LFTs, planning for discharge later this weeken. improved insight into safety concerns, such as that a young woman is not safe when living on the streets. I spent minutes with the patient and/or on the patient floor today, greater than?50% of which was spent counseling/coordinating care. Reason for contiued inpatient stay Substantial Risk for: harm to self, inability to function and rapid decompensation
[2021-04-17] MEDS: OLANZapine 10 MG TABLET 30 MG PO (20:44)
[2021-04-17] MEDS: Divalproex Sodium ER 500 MG TAB.ER.24H 2000 MG PO (20:45)
[2021-04-17 20:48] VITALS: BP 117/77; PULSE 96; RESP 18; TEMP 36.3; O2SAT 99
[2021-04-18 09:30] VITALS: BP 117/68; PULSE 97; RESP 15; TEMP 36.7; O2SAT 98
--- NOTE | 2021-04-18 17:19 | HO.PSYCHPN ---
Subjective Subjective Date of Service: 04/18/21 Reason For Visit: SI Interim History: Patient seen and discussed with team. Patient evaluated this morning and upon interview pt reports she feels good and that her SW found a chcf in [place] for her. Says its going pretty good with her relationship with her mom. States she is doing okay with medications. No questions or concerns. Sleep is good. Says she feels sheldon happy because she is hoping to get discharged soon. eating well. In the milieu, patient is found resting in her room. Denies SI/SIB/HI upon inquiry. Denies irritability or assaultive ideation. Says she feels safe. Medication Compliance: Yes Side effects from medications: No Attending Groups: Yes Review of Systems Acute medical concerns: No Medical Review of Systems: unchanged Mental Status Exam Mental Status Exam Narrative: Appearance: casually groomed, good hygiene, in NAD behavior: calm, cooperative, calm when talking about lack of housing, future oriented Psychomotor: no agitation or retardation noted. TP: linear TC: no signs of psychosis Mood: good Affect: congruent, non labile. VH/VH: Diagnostics Vital Signs (24Hr): Vital Signs - 24 hr 04/17/21 20:48 04/18/21 09:30 Temperature 97.3 F 98.1 F Pulse Rate 96 97 Respiratory Rate 18 15 Blood Pressure 117/77 117/68 Pulse Oximetry 99 98 BMI result Body Mass Index 33.1 Labs Results: 04/17/21 08:14 04/17/21 08:14 Labs: Laboratory Results - last 48 hr 04/17/21 04/17/21 08:14 08:14 WBC 9.1 RBC 4.89 Hgb 13.6 Hct 41.7 MCV 85.3 MCH 27.8 MCHC 32.6 RDW 15.4 Plt Count 189 MPV 10.3 Immature Gran % (Auto) 3.9 H Neut % (Auto) 54.0 Lymph % (Auto) 30.3 [place] % (Auto) 9.2 Eos % (Auto) 2.2 Baso % (Auto) 0.4 Lymph # (Auto) 2.8 [place] # (Auto) 0.8 Eos # (Auto) 0.2 Baso # (Auto) 0.0 Abs Immat Gran (auto) 0.35 H Absolute Neuts (auto) 4.9 Absolute Nucleated RBC 0.000 Nucleated RBC % (auto) 0.0 Sodium 140 Potassium 4.9 Chloride 102 Carbon Dioxide 32 H Anion Gap 11 L BUN 20 H Creatinine 0.72 Estim Creat Clear Calc 160.1 Estimated GFR > 60 Random Glucose 81 Calcium 9.9 Total Bilirubin 0.3 Direct Bilirubin < 0.2 AST 27 D ALT 57 H Alkaline Phosphatase 57 D Total Protein 6.2 L Albumin 3.5 Valproic Acid 86.1 Medications Medications Current Medications Acetaminophen (Acetaminophen 325 Mg Tablet) 650 mg PO Q6H PRN PRN Reason: Headache/Pain Mild Scale (1-3) Last Admin: 04/15/21 08:10 Dose: 650 mg Documented by: Al Hydroxide/Mg Hydroxide (Magnesium Hydrox/Alum Hydrox 30 Ml Oral.Susp) 30 ml PO Q6H PRN PRN Reason: Heartburn/Nausea Divalproex Sodium (Divalproex Sodium Er 500 Mg Tab.Er.24h) 2,000 mg PO BEDTIME BELA Last Admin: 04/17/21 20:45 Dose: 2,000 mg Documented by: Haloperidol (Haloperidol 5 Mg Tablet) 5 mg PO Q4H PRN PRN Reason: agitation Last Admin: 04/09/21 15:06 Dose: 5 mg Documented by: Hydroxyzine HCl (Hydroxyzine Hcl 25 Mg Tablet) 25 mg PO Q6H PRN PRN Reason: Anxiety Last Admin: 04/15/21 20:39 Dose: 25 mg Documented by: Magnesium Hydroxide (Milk Of Magnesia 30 Ml Oral.Susp) 30 ml PO DAILY PRN PRN Reason: Constipation Olanzapine (Olanzapine 10 Mg Tablet) 30 mg PO BEDTIME [facility] Last Admin: 04/17/21 20:44 Dose: 30 mg Documented by: Pharmacy Consult (Consult Rx Perform Med Rec) 1 each MISCELLANE ONCE PRN PRN Reason: Consult order Trazodone HCl (Trazodone Hcl 50 Mg Tablet) 50 mg PO BEDTIME PRN PRN Reason: Insomnia Last Admin: 04/16/21 20:52 Dose: 50 mg Documented by: Allergies Allergies Allergy/AdvReac Type Severity Reaction Status Date / Time Unable to Assess Allergy Unverified 03/10/21 22:53 Assessment & Plan Assessment & Plan (1) Schizoaffective disorder, bipolar type: Status: Acute Code(s): F25.0 - Schizoaffective disorder, bipolar type Facundo Knowles is a 20 yo female who carries a dx of bipolar disorder and schizophrenia. She presented to [facility] ED on 03/28/21 due to hypomania after her mother called the [place] PD due to pt throwing kitchen table and chairs, reaching for kitchen knives, and threatening to harm herself and her mother. Has been off psychotropic medications since 2019. Pt has a hx of being stabilized on haldol, ativan, depakote, and olanzapine. She has a hx of IPLOC 2x in 2019 at [facility] for manic, psychotic behavior. Plan: Pt has been on zyprexa 5 mg Q4H PRN in the ED BH pod, will change to olanzapine 10 mg QHS to target sx of hypomania and psychosis. Once a day dosing may help with adherence in OP setting. 04/04/21: Start depakote ER 500 mg QHS to target mood instability, hypomanic features. Will monitor for benefit, has been stabilized on this medication in the past in combo with antipsychotic. 04/05: manic. VPA dosing raised to 1000 mg at bedtime, zyprexa 10 continued. 04/06: manic. increasing VPA to 1500 mg QHS and zyprexa to 20 mg. 04/07: rima reduced slightly. continue current medications for now. 04/10: rima continues unchanged from 04/07. T/C increased VPA to 2000 mg. 04/11: remains manic. increase VPA to 2000 mg tonight and olanzapine to 30 mg tonight. 04/12: as per yesterday. perhaps slightly calmer today. hearing has been deferred a week. 04/13: substantial improvement in manic Sx. continue current mgmt. 04/14: as per yesterday. labs ordered for saturday. planning for DC to [facility] sometime next week. 04/15: Ct meds Rx plan. DC [facility] next week 04/16: Dc next week. Ct Rx plan 04/17: LFTs increased on 2 grams VPA. VPA level 86. monitor LFTs, planning for discharge later this weeken. improved insight into safety concerns, such as that a young woman is not safe when living on the streets. 04/18: Ct current treatment plan I spent minutes with the patient and/or on the patient floor today, greater than?50% of which was spent counseling/coordinating care. Reason for contiued inpatient stay Substantial Risk for: rapid decompensation and med/psych decompensation
[2021-04-18] MEDS: Divalproex Sodium ER 500 MG TAB.ER.24H 2000 MG PO (20:17)
[2021-04-18] MEDS: OLANZapine 10 MG TABLET 30 MG PO (20:17)
[2021-04-18 20:21] VITALS: BP 110/64; PULSE 82; TEMP 36.5; O2SAT 96
[2021-04-19 06:00] VITALS: BP 116/72; PULSE 84; RESP 16; TEMP 36.7; O2SAT 98
--- NOTE | 2021-04-19 10:08 | HO.PSYCHPN ---
Subjective Subjective Date of Service: 04/19/21 Reason For Visit: SI Subjective Notes: Section 7 Interim History: Pt met with this chart writer and ANGÉLICA Rocha. Pt reports feeling better in that I'm a woman and I have more control over my emotions. Pt reports feeling calmer. She reports less anxious mood, sleeping and eating well. She denies SI/HI. She does not appear internally preoccupied. However, when asked what she thinks has helped her feel better she does not see connection between medications and her improvement in mood. She reports 2 years ago being stable without medication, therefore she thinks she can be stable without medications. This chart writer explained that mental illness is progressive and symptoms are more frequent, therefore need for ongoing treatment with medicaitons to prevent further hospitalizations. Pt also reports she wants to leave even if there is no correction bed secure for her. Given that psychiatrically she is stable and has reached max benefit from treatment inpt, team decided after consultation with hospital family law attorney to discharge pt prior to commitment hearing. Medication Compliance: Yes Side effects from medications: No Attending Groups: No Mental Status Exam Mental Status Exam Narrative: Appearance: casually groomed, good hygiene, in NAD behavior: calm, cooperative, somewhat frustrated when talking about lack of housing and pt worried about not being discharged. Psychomotor: no agitation or retardation noted. TP: linear TC: no signs of psychosis Mood: good Affect: congruent, non labile. VH/VH: Diagnostics Vital Signs (24Hr): Vital Signs - 24 hr 04/19/21 20:22 04/20/21 06:00 Temperature 98.4 F 98.6 F Pulse Rate 87 89 Respiratory Rate 16 Blood Pressure 111/68 111/70 Pulse Oximetry 97 97 BMI result Body Mass Index 33.1 Labs Results: 04/17/21 08:14 04/17/21 08:14 Medications Medications Current Medications Acetaminophen (Acetaminophen 325 Mg Tablet) 650 mg PO Q6H PRN PRN Reason: Headache/Pain Mild Scale (1-3) Last Admin: 04/15/21 08:10 Dose: 650 mg Documented by: Al Hydroxide/Mg Hydroxide (Magnesium Hydrox/Alum Hydrox 30 Ml Oral.Susp) 30 ml PO Q6H PRN PRN Reason: Heartburn/Nausea Divalproex Sodium (Divalproex Sodium Er 500 Mg Tab.Er.24h) 2,000 mg PO BEDTIME [facility] Last Admin: 04/19/21 20:19 Dose: 2,000 mg Documented by: Haloperidol (Haloperidol 5 Mg Tablet) 5 mg PO Q4H PRN PRN Reason: agitation Last Admin: 04/09/21 15:06 Dose: 5 mg Documented by: Hydroxyzine HCl (Hydroxyzine Hcl 25 Mg Tablet) 25 mg PO Q6H PRN PRN Reason: Anxiety Last Admin: 04/15/21 20:39 Dose: 25 mg Documented by: Magnesium Hydroxide (Milk Of Magnesia 30 Ml Oral.Susp) 30 ml PO DAILY PRN PRN Reason: Constipation Olanzapine (Olanzapine 10 Mg Tablet) 30 mg PO BEDTIME BELA Last Admin: 04/19/21 20:19 Dose: 30 mg Documented by: Pharmacy Consult (Consult Rx Perform Med Rec) 1 each MISCELLANE ONCE PRN PRN Reason: Consult order Trazodone HCl (Trazodone Hcl 50 Mg Tablet) 50 mg PO BEDTIME PRN PRN Reason: Insomnia Last Admin: 04/16/21 20:52 Dose: 50 mg Documented by: Allergies Allergies Allergy/AdvReac Type Severity Reaction Status Date / Time Unable to Assess Allergy Unverified 03/10/21 22:53 Assessment & Plan Assessment & Plan (1) Schizoaffective disorder, bipolar type: Status: Acute Code(s): F25.0 - Schizoaffective disorder, bipolar type Plan Eleni is a 20 yo female who carries a dx of bipolar disorder and schizophrenia. She presented to [facility] on 03/28/21 due to hypomania after her mother called the [place] PD due to pt throwing kitchen table and chairs, reaching for kitchen knives, and threatening to harm herself and her mother. Has been off psychotropic medications since 2020. Pt has a hx of being stabilized on haldol, ativan, depakote, and olanzapine. She has a hx of IPLOC 2x in 2020 at [facility] for manic, psychotic behavior. Plan: Pt has been on zyprexa 5 mg Q4H PRN in the ED BH pod, will change to olanzapine 10 mg QHS to target sx of hypomania and psychosis. Once a day dosing may help with adherence in OP setting. 04/04/21: Start depakote ER 500 mg QHS to target mood instability, hypomanic features. Will monitor for benefit, has been stabilized on this medication in the past in combo with antipsychotic. 04/05: manic. VPA dosing raised to 1000 mg at bedtime, zyprexa 10 continued. 04/06: manic. increasing VPA to 1500 mg QHS and zyprexa to 20 mg. 04/07: rima reduced slightly. continue current medications for now. 04/10: rima continues unchanged from 04/07. T/C increased VPA to 2000 mg. 04/11: remains manic. increase VPA to 2000 mg tonight and olanzapine to 30 mg tonight. 04/12: as per yesterday. perhaps slightly calmer today. hearing has been deferred a week. 04/13: substantial improvement in manic Sx. continue current mgmt. 04/14: as per yesterday. labs ordered for saturday. planning for DC to [facility] sometime next week. 04/15: Ct meds Rx plan. DC correction next week 04/16: Dc next week. Ct Rx plan 04/17: LFTs increased on 2 grams VPA. VPA level 86. monitor LFTs, planning for discharge later this weeken. improved insight into safety concerns, such as that a young woman is not safe when living on the streets. I spent minutes with the patient and/or on the patient floor today, greater than?50% of which was spent counseling/coordinating care. Reason for contiued inpatient stay Substantial Risk for: stable for discharge
[2021-04-19] MEDS: Divalproex Sodium ER 500 MG TAB.ER.24H 2000 MG PO (20:19)
[2021-04-19] MEDS: OLANZapine 10 MG TABLET 30 MG PO (20:19)
[2021-04-19 20:22] VITALS: BP 111/68; PULSE 87; TEMP 36.9; O2SAT 97
[2021-04-20 06:00] VITALS: BP 111/70; PULSE 89; RESP 16; TEMP 37; O2SAT 97
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
--- NOTE | 2021-04-20 11:39 | PC.NURSE ---
Eleni is alert, fully oriented, pleasant and cooperative with discharge process. She verbalizes plan to continue meds as prescribed. She denies ideation, plan or intent to harm self or others. She denies auditory and visual hallucinations. She denies physical complaint.
== END 2021-04-20 11:15 | disposition home or self-care (01) | DRG 750 ==
LOC: HO.ED 15:57 → HO.PADLT16 04-03 13:28
PROVIDERS: Physician Assistant; Admitting Provider Social Worker; Emergency Provider Emergency Medicine; Visit Provider Psychiatry & Neurology Psychiatry
DX: F25.0 Schizoaffective disorder, bipolar type (principal); R45.851 Suicidal ideations; R45.850 Homicidal ideations; Z91.14 Patient's other noncompliance with medication regimen; F17.210 Nicotine dependence, cigarettes, uncomplicated; Z71.6 Tobacco abuse counseling; Z20.822 Contact with and (suspected) exposure to COVID-19; Z79.899 Other long term (current) drug therapy
CPT/HCPCS: 36415; 80048; 80061; 80076; 80164; 80307; 81003; 81025; 82607; 82746; 83036; 83735; 84439; 84443; 85025; 87635; 93005; 99285; Q0163

== ENCOUNTER 2021-04-21 11:12 | Emergency (ER) | payer MEDICAID, SELFPAY | END 2021-04-21 15:47 | disposition left against medical advice (07) | PROVIDERS: Emergency Provider Emergency Medicine | DX: R10.9 Unspecified abdominal pain (principal) ==

== ENCOUNTER 2021-07-09 07:37 | Inpatient (IN) | payer OTHER, MEDICAID, SELFPAY ==
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
[2021-07-09 08:02] VITALS: BP 135/77; PULSE 56; RESP 18; TEMP 36.8; O2SAT 99; BMI 32.3
--- NOTE | 2021-07-09 08:15 | PC.NURSE ---
BHN referal sent.
[2021-07-09 08:42] LABS: MANUAL DIFF FLAG NO
[2021-07-09 08:49] LABS: Basophils Percent Auto 0.3 % (0-2); Eosinophils Absolute Auto 0.2 X10*3/uL (0.0-0.4); Eosinophils Percent Auto 2.6 % (0-4); Hematocrit 43.5 % (37.0-47.0); Hemoglobin 14.5 g/dl (12.0-16.0); Imm Gran Abs Auto 0.02 X10*3/uL (0.00-0.03); Imm Gran Pct Auto 0.3 % (0.0-0.4); Lymphocytes Absolute Auto 2.9 X10*3/uL (1.2-4.9); Lymphocytes Percent Auto 39.8 % (20-40); Mean Corpuscular HGB Conc 33.3 g/dl (31.0-35.0); Mean Corpuscular Volume 84.1 fL (80.0-98.0); Mean Platelet Volume 10.3 fL (9.4-12.3); Monocytes Absolute Auto 0.5 X10*3/uL (0.1-1.2); Monocytes Percent Auto 6.4 % (2-11); Neutrophils Absolute Auto 3.7 x10*3/uL (2.0-8.3); Neutrophils Percent Auto 50.6 % (45-73); Platelet Count 227 X10*3/uL (160-400); Red Blood Count 5.17 X10*6/uL (4.20-5.50); Red Cell Distribution Width 13.1 % (11.0-16.0); White Blood Count 7.2 X10*3/uL (4.8-10.8)
[2021-07-09 08:50] LABS: UPreg QC Valid YES; Urine Pregnancy NEGATIVE (NEGATIVE)
[2021-07-09 09:01] VITALS: PULSE 97; RESP 16; O2SAT 95
[2021-07-09 09:01] LABS: COVID-19 Test Negative (Negative)
[2021-07-09 09:02] LABS: Alanine Aminotransferase 18 U/L (0-31); Albumin Level 4.1 g/dL (3.5-5.0); Alkaline Phosphatase 70 U/L (39-117); Anion Gap 12 (12-20); Aspartate Amino Transferase 19 U/L (5-31); Bilirubin Direct 0.2 mg/dL (0.0-0.5); Bilirubin Total 0.3 mg/dL (0.0-1.0); Blood Urea Nitrogen 11 mg/dL (9-16); Calcium 9.5 mg/dL (8.4-10.2); Carbon Dioxide 22 mmol/L (22-29); Chloride 108 mmol/L (96-108); Creatinine Clr Calc Pharmacy 148.1; Estimated Glomerular Filt Rate > 60; Glucose Random 107 mg/dL (60-115); Potassium 4.1 mmol/L (3.3-5.1); Sodium 138 mmol/L (135-145); Total Protein 7.6 g/dL (6.5-8.0)
[2021-07-09 09:14] LABS: Appearance Urine HAZY; Color Urine YELLOW; Glucose Urine UA NEG (NEG); Leukocyte Esterase Urine NEG (NEG); Nitrite Urine NEG (NEG); PH 5.5 (5.0-8.0); Specific Gravity - Urine >= 1.030 (1.005-1.025); UACC Culture Trigger NO; Urine Blood NEG (NEG); Urine Ketones NEG (NEG); Urine Protein 1+ MG/DL (NEG-TRACE)
[2021-07-09 09:25] LABS: Bacteria Urine 1+ /LPF; Squamous Epithelial Cell Urine 3+ /LPF; WBC Urine 0-2 /HPF (0-4)
--- NOTE | 2021-07-09 11:17 | PC.NURSE ---
pt has been hyper at times, at the RN station often for snacks. humming to herself, singing, responding to internal stimuli, dancing. redirectable when needed. no aggressive or violent behaviors noted since arrival.
[2021-07-09 11:47] LABS: Amphetamine Screen Urine Not Detected (Not Detect); Barbiturates, Urine Not Detected (Not Detect); Benzodiazepines Screen Urine Not Detected (Not Detect); Cannabinoid Screen Urine POSITIVE (Not Detect); Cocaine Screen Urine Not Detected (Not Detect); Fentanyl, urine Not Detected (Not Detect); Opiate Screen Urine Not Detected (Not Detect); Phencyclidine Screen Urine Not Detected (Not Detect)
[2021-07-09] MEDS: OLANZapine 10 MG TABLET PO (13:20)
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
--- NOTE | 2021-07-09 13:47 | PHA.MEDREC ---
MED REC COMPLETE, PT STATES NOT TAKING ANY MEDICATIONS Pharmacy Consult ? Medication Reconciliation Pharmacy has completed the medication reconciliation.
--- NOTE | 2021-07-09 14:07 | PC.NURSE ---
calmly meeting with N client consultant.
[2021-07-10] MEDS: LORazepam 1 MG TABLET PO ×2 (01:26→17:21)
[2021-07-10] MEDS: OLANZapine 5 MG TABLET PO ×2 (01:26→09:37)
[2021-07-10 01:33] VITALS: BP 119/79; PULSE 77; RESP 17; TEMP 36.5; O2SAT 98
--- NOTE | 2021-07-10 06:00 | PC.NURSE ---
Patient was up briefly, snacked and refreshed heavily, restless, Ativan 1 mg administered at 0126 with positive effect, compliant with her HS PO medication, behavior non concerning at this time but can be unpredictable, disposition per N is section 12 inpatient bed search, VSS, will continue to monitor.
[2021-07-10 16:50] VITALS: BP 124/61; PULSE 87; TEMP 36.6; O2SAT 96
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
[2021-07-10] MEDS: HaloperidoL 5 MG TABLET PO (17:21)
[2021-07-10] MEDS: Lithium Carbonate 300 MG CAPSULE PO (21:09)
[2021-07-10] MEDS: OLANZapine 10 MG TABLET PO (21:09)
--- NOTE | 2021-07-10 22:33 | PC.ADMIT ---
Patient is a 20 year old single , bilingual female admitted to as a Section 12 B from the [facility] POD at 1640 and placed on 15 minute safety checks. Patient admission diagnosis: unspecified Schizophrenia. Medical issue: hx of arthritis. )
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
[2021-07-11 06:37] VITALS: BP 115/84; PULSE 124; RESP 22; TEMP 36.5; O2SAT 98
[2021-07-11 08:17] LABS: Alanine Aminotransferase 25 U/L (0-31); Alkaline Phosphatase 60 U/L (39-117); Anion Gap 12 (12-20); Aspartate Amino Transferase 17 U/L (5-31); Bilirubin Total 0.4 mg/dL (0.0-1.0); Blood Urea Nitrogen 12 mg/dL (9-16); Calcium 9.7 mg/dL (8.4-10.2); Carbon Dioxide 21 mmol/L (22-29); Chloride 109 mmol/L (96-108); Cholesterol 138 mg/dL; Estimated Glomerular Filt Rate > 60; Glucose Fasting 103 mg/dL (60-99); HDL Cholesterol 33 mg/dL; LDL Cholesterol Calculated 83 mg/dl; Magnesium 1.9 mg/dL (1.6-2.6); Potassium 4.3 mmol/L (3.3-5.1); Sodium 138 mmol/L (135-145); Total Protein 7.2 g/dL (6.5-8.0); Triglycerides 112 mg/dL
[2021-07-11 08:23] LABS: Estimated Average Glucose 105 mg/dL; Free T4 (Free Thyroxine) 1.08 ng/dL (0.71-1.85); Hemoglobin A1c % 5.3 %; Thyroid Stimulating Hormone 4.13 uIU/mL (0.32-4.0)
[2021-07-11] MEDS: HaloperidoL 5 MG TABLET PO ×2 (08:39→16:42)
[2021-07-11] MEDS: OLANZapine 10 MG TABLET PO ×2 (08:39→22:31)
[2021-07-11] MEDS: LORazepam 1 MG TABLET PO ×2 (08:39→16:42)
[2021-07-11 08:54] LABS: Folate 8.1 ng/mL (> or = 4.0); Vitamin B12 351 pg/mL (200-900)
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
[2021-07-11] MEDS: Lithium Carbonate 300 MG CAPSULE PO (22:31)
[2021-07-11 22:35] VITALS: BP 115/80; PULSE 122; TEMP 36.3; O2SAT 97
[2021-07-12 06:00] VITALS: BP 104/72; PULSE 92; RESP 19; TEMP 36.2; O2SAT 98
[2021-07-12] MEDS: OLANZapine 10 MG TABLET PO (08:50)
[2021-07-12] MEDS: HaloperidoL 5 MG TABLET PO ×2 (08:50→18:33)
[2021-07-12] MEDS: LORazepam 1 MG TABLET PO ×2 (08:50→16:36)
--- NOTE | 2021-07-12 16:12 | HO.PSYCHPN ---
Subjective Subjective Date of Service: 07/12/21 Reason For Visit: schizophrenia Subjective Notes: Conditional Voluntary Healthcare Proxy: No Guardianship: No Medical Problems Affecting Mental Status: No Interim History: Met with pt and Juve MESSER. Call to mother who will come in Saturday 1pm for a family meeting. Pt agrees to applications for MRC, DMH, DTA, SSI She remains manic, somewhat scattered and tangential and is making awkward verbalizations that appear to be a combinations of echolalia and attempted ventriloquism, while humming. She was hypergraphic but organized in our meeting. She is focused on her 21st birthday on [birth year] and wants to be discharged for this. 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 Will continue to work with her medicines. Medication Compliance: Yes Side effects from medications: No Attending Groups: No Review of Systems Acute medical concerns: No Medical Review of Systems: unchanged Review of Systems Reports behavioral changes Psychiatric: Reports behavioral changes, Reports difficulty concentrating, Reports irritability, Reports mood swings, Reports paranoia, Reports homicidal ideation (denies) and Reports suicidal ideation (denies) Mental Status Exam Mental Status Exam Patient Appearance: Fatigued and Disheveled Patient Orientation: Person, Place and Situation Level of Consciousness: Alert Patient Behavior: Guarded, Talkative, Hyperactive, Suspicious, Aggressive, Restless, Belligerent, Verbal Threats, Anxious, Resistive to Care, Avoidant, Fatigued, Distractible, Good Eye Contact, Uncooperative and Impulsive Mood Description: Labile and Angry Affect Description: Labile Patient Cognition Impaired: No Ability to Follow Directions: Good Speech Pattern: Perseverating, Spontaneous Speech, Rambling and Pressured Memory Description: Remote Impaired and Episodic Impaired Hallucinations: Auditory Delusions: Paranoid Ideation and Grandiose Perceptual Disturbances: Derealization Thought Process: Racing, Illogical and Distracted Thought Content: positive for Racing, positive for Disorganized and positive for Homicidal Ideation Depressive Symptoms: Increased Irritability and Difficulty Concentrating Abnormal Motor Activity Signs and Symptoms: Agitation and Restlessness Judgement: Poor Diagnostics Vital Signs (24Hr): Vital Signs - 24 hr 07/11/21 22:35 07/12/21 06:00 Temperature 97.4 F 97.2 F Pulse Rate 122 H 92 Respiratory Rate 19 Blood Pressure 115/80 104/72 Pulse Oximetry 97 98 BMI result Body Mass Index 32.3 Labs Results: 07/09/21 08:36 07/11/21 07:40 Labs: Laboratory Results - last 48 hr 07/11/21 07/11/21 07/11/21 07:40 07:40 07:40 Sodium 138 Potassium 4.3 Chloride 109 H Carbon Dioxide 21 L Anion Gap 12 BUN 12 Creatinine 0.75 Estim Creat Clear Calc 150.0 Estimated GFR > 60 Fasting Glucose 103 H Estimat Average Glucose 105 Hemoglobin A1c % 5.3 Calcium 9.7 Magnesium 1.9 Total Bilirubin 0.4 AST 17 ALT 25 Alkaline Phosphatase 60 Total Protein 7.2 Albumin 4.0 Triglycerides 112 Cholesterol 138 LDL Cholesterol, Calc 83 HDL Cholesterol 33 D Vitamin B12 351 Folate 8.1 TSH 4.13 H Free T4 1.08 Medications Medications Current Medications Acetaminophen (Acetaminophen 325 Mg Tablet) 650 mg PO Q6H PRN PRN Reason: Headache/Pain Mild Scale (1-3) Al Hydroxide/Mg Hydroxide (Magnesium Hydrox/Alum Hydrox 30 Ml Oral.Susp) 30 ml PO Q6H PRN PRN Reason: Heartburn/Nausea Haloperidol (Haloperidol 5 Mg Tablet) 5 mg PO BID PRN PRN Reason: psychotic agitation,violence Last Admin: 07/12/21 08:50 Dose: 5 mg Documented by: Hydroxyzine HCl (Hydroxyzine Hcl 25 Mg Tablet) 25 mg PO BEDTIME PRN PRN Reason: Anxiety [place] Carbonate ([place] Carbonate 300 Mg Capsule) 300 mg PO BEDTIME [facility] Last Admin: 07/11/21 22:31 Dose: 300 mg Documented by: Lorazepam (Lorazepam 1 Mg Tablet) 1 mg PO Q4H PRN PRN Reason: agitation Last Admin: 07/12/21 08:50 Dose: 1 mg Documented by: Magnesium Hydroxide (Milk Of Magnesia 30 Ml Oral.Susp) 30 ml PO DAILY PRN PRN Reason: Constipation Olanzapine (Olanzapine 5 Mg Tablet) 5 mg PO Q4H PRN PRN Reason: psychosis, agitation Olanzapine (Olanzapine 10 Mg Tablet) 10 mg PO BID [facility] Last Admin: 07/12/21 08:50 Dose: 10 mg Documented by: Pharmacy Consult (Consult Rx Perform Med Rec) 1 each MISCELLANE ONCE PRN PRN Reason: Consult order Trazodone HCl (Trazodone Hcl 50 Mg Tablet) 50 mg PO BEDTIME PRN PRN Reason: Insomnia Allergies Allergies Allergy/AdvReac Type Severity Reaction Status Date / Time No Known Allergies Allergy Verified 07/09/21 08:01 Assessment & Plan Assessment & Plan (1) Schizoaffective disorder, bipolar type: Status: Acute Code(s): F25.0 - Schizoaffective disorder, bipolar type Plan Increase [place] to 600 mg HS Increase Olanzapine to 15 mg BID I spent minutes with the patient and/or on the patient floor today, greater than?50% of which was spent counseling/coordinating care. Patient educated on: therapeutic strategies Informed Consent: further education needed Reason for contiued inpatient stay Substantial Risk for: harm to self, harm to others, inability to function and rapid decompensation
[2021-07-12] MEDS: OLANZapine 5 MG TABLET PO (16:36)
[2021-07-12] MEDS: OLANZapine 7.5 MG TABLET 15 MG PO (20:30)
[2021-07-12] MEDS: Lithium Carbonate 300 MG CAPSULE 600 MG PO (20:31)
[2021-07-13 09:15] VITALS: BP 134/68; PULSE 114; TEMP 36.6
[2021-07-13] MEDS: OLANZapine 7.5 MG TABLET 15 MG PO ×2 (09:36→19:19)
[2021-07-13] MEDS: HaloperidoL 5 MG TABLET PO ×2 (09:36→18:49)
[2021-07-13] MEDS: LORazepam 1 MG TABLET PO ×2 (09:37→18:49)
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
[2021-07-13 18:00] VITALS: BP 119/68; PULSE 85; RESP 16; TEMP 36.4; O2SAT 99
[2021-07-13] MEDS: Lithium Carbonate 300 MG CAPSULE 600 MG PO (19:20)
[2021-07-14] MEDS: OLANZapine 7.5 MG TABLET 15 MG PO ×2 (08:17→19:54)
[2021-07-14 09:46] VITALS: BP 121/76; PULSE 117; RESP 18; TEMP 36.6; O2SAT 94
--- NOTE | 2021-07-14 11:56 | P.PNPSI_ITS ---
Subjective Subjective Date of Service: 07/14/21 Reason For Visit: schizophrenia Subjective Notes: 3 Day Healthcare Proxy: No Guardianship: No Medical Problems Affecting Mental Status: No Interim History: Family meeting with pt, pt's mother, Juve MESSER. Three day notice to 07/18. Pt continues to present with hypomania, tangential at times and with pressure of speech. Today she presents with more obvious ADHD sx as well. Interaction with mother went well. Mother is very supportive. Pt wanting to return to school to work on GED and to begin to work again. Mother is supportive of this. Mother supports medication therapy for pt, citing her need to utilize medication as well for medical issues. Pt had refused [facility] referral on 07/13. Today, she will allow out pt follow up appointments to be made. Pt is anticipating her 21st birthday on 07[birth year] and is excited to be legal . Medication Compliance: Yes Side effects from medications: No Attending Groups: Intermittent Review of Systems Acute medical concerns: No Medical Review of Systems: unchanged Review of Systems Psychiatric: Reports anxiety, Reports depression, Reports difficulty concentrating, Reports irritability, Reports mood swings and Reports paranoia Mental Status Exam Mental Status Exam Patient Appearance: Disheveled Patient Orientation: Person, Place, Time and Situation Level of Consciousness: Alert Patient Behavior: Talkative, Cooperative, Restless, Anxious, Distractible and Good Eye Contact Mood Description: Apprehensive Affect Description: Labile Patient Cognition Impaired: No Ability to Follow Directions: Good Speech Pattern: Spontaneous Speech, Rambling, Cofabulation, Excessive and Pressured Memory Description: Episodic Impaired Hallucinations: None Delusions: Not Present Thought Process: Distracted Thought Content: positive for Circumstantial, positive for Tangential and positive for Logical Depressive Symptoms: Difficulty Sleeping Abnormal Motor Activity Signs and Symptoms: Restlessness Judgement: Fair Diagnostics Vital Signs (24Hr): Vital Signs - 24 hr 07/13/21 18:00 07/14/21 09:46 Temperature 97.6 F 97.8 F Pulse Rate 85 117 H Respiratory Rate 16 18 Blood Pressure 119/68 121/76 Pulse Oximetry 99 94 BMI result Body Mass Index 32.3 Labs Results: 07/09/21 08:36 07/11/21 07:40 Medications Medications Current Medications Acetaminophen (Acetaminophen 325 Mg Tablet) 650 mg PO Q6H PRN PRN Reason: Headache/Pain Mild Scale (1-3) Al Hydroxide/Mg Hydroxide (Magnesium Hydrox/Alum Hydrox 30 Ml Oral.Susp) 30 ml PO Q6H PRN PRN Reason: Heartburn/Nausea Haloperidol (Haloperidol 5 Mg Tablet) 5 mg PO BID PRN PRN Reason: psychotic agitation,violence Last Admin: 07/13/21 18:49 Dose: 5 mg Documented by: Hydroxyzine HCl (Hydroxyzine Hcl 25 Mg Tablet) 25 mg PO BEDTIME PRN PRN Reason: Anxiety [place] Carbonate ([place] Carbonate 300 Mg Capsule) 600 mg PO BEDTIME [facility] Last Admin: 07/13/21 19:20 Dose: 600 mg Documented by: Lorazepam (Lorazepam 1 Mg Tablet) 1 mg PO Q4H PRN PRN Reason: agitation Last Admin: 07/13/21 18:49 Dose: 1 mg Documented by: Magnesium Hydroxide (Milk Of Magnesia 30 Ml Oral.Susp) 30 ml PO DAILY PRN PRN Reason: Constipation Olanzapine (Olanzapine 5 Mg Tablet) 5 mg PO Q4H PRN PRN Reason: psychosis, agitation Last Admin: 07/12/21 16:36 Dose: 5 mg Documented by: Olanzapine (Olanzapine 7.5 Mg Tablet) 15 mg PO BID [facility] Last Admin: 07/14/21 08:17 Dose: 15 mg Documented by: Pharmacy Consult (Consult Rx Perform Med Rec) 1 each MISCELLANE ONCE PRN PRN Reason: Consult order Trazodone HCl (Trazodone Hcl 50 Mg Tablet) 50 mg PO BEDTIME PRN PRN Reason: Insomnia Allergies Allergies Allergy/AdvReac Type Severity Reaction Status Date / Time No Known Allergies Allergy Verified 07/09/21 08:01 Assessment & Plan Assessment & Plan (1) Schizoaffective disorder, bipolar type: Status: Acute Code(s): F25.0 - Schizoaffective disorder, bipolar type Plan Increase [place] to 600 mg HS Increase Olanzapine to 15 mg BID 07/14/21- Discontinue [place] Continue Olanzapine Clonidine 0.1 mg bid I spent minutes with the patient and/or on the patient floor today, greater than?50% of which was spent counseling/coordinating care. Patient educated on: medication risk/benefits and therapeutic strategies Informed Consent: further education needed Reason for contiued inpatient stay Substantial Risk for: inability to function and rapid decompensation
[2021-07-14 18:00] VITALS: BP 132/89; PULSE 118; RESP 16; TEMP 36.7; O2SAT 98
[2021-07-14] MEDS: cloNIDine HCL 0.1 MG TABLET PO (19:54)
[2021-07-15] MEDS: LORazepam 1 MG TABLET PO ×2 (00:34→21:19)
[2021-07-15] MEDS: hydrOXYzine HCL 25 MG TABLET PO (00:34)
[2021-07-15 06:00] VITALS: BP 109/55; PULSE 80; RESP 16; TEMP 36.5; O2SAT 98
[2021-07-15] MEDS: OLANZapine 7.5 MG TABLET 15 MG PO ×2 (09:20→21:19)
[2021-07-15] MEDS: cloNIDine HCL 0.1 MG TABLET PO ×2 (09:20→21:20)
[2021-07-15] MEDS: Acetaminophen 325 MG TABLET 650 MG PO (11:20)
--- NOTE | 2021-07-15 16:45 | P.PNPSI_ITS ---
Subjective Subjective Date of Service: 07/15/21 Reason For Visit: schizophrenia Interim History: Patient a little disorganized but pleasant. Sometimes standing in the [place] and this looking around. On approach she was lying in a bed singing very loudly. As health science writer introduced himself she apologized for singing to loudly and says she will try to be quieter but she does likes to sing the lyrics to her music allowed which she finds comforting. She denies any SI or HI or AVH. She says s he is overall doing well and is looking for to lunch. She has no complaints and no requests. Mental Status Exam Mental Status Exam Narrative: Patient Appearance:?unkempt Patient Orientation:?Person, Place, Time and Situation Level of Consciousness:?Alert Patient Behavior:?Talkative, Cooperative, Restless, Anxious, Distractible and Good Eye Contact Mood Description:?Apprehensive Affect Description:?Labile Patient Cognition Impaired:?No Ability to Follow Directions:?Good Speech Pattern:?Spontaneous Speech, Rambling, Cofabulation, Excessive and Pressured Memory Description:?Episodic Impaired Hallucinations:?None Delusions:?Not Present Thought Process:?Distracted; can be goal oriented Thought Content:on lunch, music Depressive Symptoms:?Difficulty Sleeping Abnormal Motor Activity Signs and Symptoms:?Restlessness Judgement:?Fair Diagnostics Vital Signs (24Hr): Vital Signs - 24 hr 07/14/21 18:00 Temperature 98.0 F Pulse Rate 118 H Respiratory Rate 16 Blood Pressure 132/89 Pulse Oximetry 98 BMI result Body Mass Index 32.3 Labs Results: 07/09/21 08:36 07/11/21 07:40 Medications Medications Current Medications Acetaminophen (Acetaminophen 325 Mg Tablet) 650 mg PO Q6H PRN PRN Reason: Headache/Pain Mild Scale (1-3) Last Admin: 07/15/21 11:20 Dose: 650 mg Documented by: Al Hydroxide/Mg Hydroxide (Magnesium Hydrox/Alum Hydrox 30 Ml Oral.Susp) 30 ml PO Q6H PRN PRN Reason: Heartburn/Nausea Clonidine HCl (Clonidine Hcl 0.1 Mg Tablet) 0.1 mg PO BID BELA; Protocol Last Admin: 07/15/21 09:20 Dose: 0.1 mg Documented by: Haloperidol (Haloperidol 5 Mg Tablet) 5 mg PO BID PRN PRN Reason: psychotic agitation,violence Last Admin: 07/13/21 18:49 Dose: 5 mg Documented by: Hydroxyzine HCl (Hydroxyzine Hcl 25 Mg Tablet) 25 mg PO BEDTIME PRN PRN Reason: Anxiety Last Admin: 07/15/21 00:34 Dose: 25 mg Documented by: Lorazepam (Lorazepam 1 Mg Tablet) 1 mg PO Q4H PRN PRN Reason: agitation Last Admin: 07/15/21 00:34 Dose: 1 mg Documented by: Magnesium Hydroxide (Milk Of Magnesia 30 Ml Oral.Susp) 30 ml PO DAILY PRN PRN Reason: Constipation Olanzapine (Olanzapine 5 Mg Tablet) 5 mg PO Q4H PRN PRN Reason: psychosis, agitation Last Admin: 07/12/21 16:36 Dose: 5 mg Documented by: Olanzapine (Olanzapine 7.5 Mg Tablet) 15 mg PO BID BELA Last Admin: 07/15/21 09:20 Dose: 15 mg Documented by: Pharmacy Consult (Consult Rx Perform Med Rec) 1 each MISCELLANE ONCE PRN PRN Reason: Consult order Trazodone HCl (Trazodone Hcl 50 Mg Tablet) 50 mg PO BEDTIME PRN PRN Reason: Insomnia Allergies Allergies Allergy/AdvReac Type Severity Reaction Status Date / Time No Known Allergies Allergy Verified 07/09/21 08:01 Assessment & Plan Assessment & Plan (1) Schizoaffective disorder, bipolar type: Status: Acute Code(s): F25.0 - Schizoaffective disorder, bipolar type Plan Increase [place] to 600 mg HS Increase Olanzapine to 15 mg BID 07/13/21: no med changes 07/15 no changes to current regimen I spent minutes with the patient and/or on the patient floor today, greater than?50% of which was spent counseling/coordinating care. Reason for contiued inpatient stay Substantial Risk for: med/psych decompensation
[2021-07-15 18:00] VITALS: BP 99/57; PULSE 70; RESP 18; TEMP 36.5; O2SAT 98
[2021-07-16] MEDS: cloNIDine HCL 0.1 MG TABLET PO ×2 (10:59→21:26)
[2021-07-16] MEDS: OLANZapine 7.5 MG TABLET 15 MG PO ×2 (10:59→21:26)
[2021-07-16 11:04] VITALS: BP 105/72; PULSE 90; RESP 16; TEMP 36.8; O2SAT 99
[2021-07-16 18:00] VITALS: BP 125/78; PULSE 107; RESP 20; TEMP 36.4; O2SAT 98
--- NOTE | 2021-07-16 18:40 | P.PNPSI_ITS ---
Subjective Subjective Date of Service: 07/16/21 Reason For Visit: schizophrenia Interim History: Patient pleasant and calm, sitting in her room. She said she was singing and feels in a good mood. Denies any SI or AVH. Says she is sleeping fine. No complaints and no requests Mental Status Exam Mental Status Exam Narrative: Patient Appearance:?unkempt Patient Orientation:?Person, Place, Time and Situation Level of Consciousness:?Alert Patient Behavior:?Talkative, Cooperative, Distractible and Good Eye Contact Mood Description:? good Affect Description:?Labile Patient Cognition Impaired:?No Ability to Follow Directions:?Good Speech Pattern:?Spontaneous Speech, sometimes Rambling Memory Description:?Episodic Impaired Hallucinations:?None Delusions:?Not Present Thought Process:?Distracted; can be goal oriented Thought Content: music Abnormal Motor Activity Signs and Symptoms:?Restlessness Judgement:?Fair Diagnostics Vital Signs (24Hr): Vital Signs - 24 hr 07/16/21 11:04 Temperature 98.2 F Pulse Rate 90 Respiratory Rate 16 Blood Pressure 105/72 Pulse Oximetry 99 BMI result Body Mass Index 32.3 Labs Results: 07/09/21 08:36 07/11/21 07:40 Medications Medications Current Medications Acetaminophen (Acetaminophen 325 Mg Tablet) 650 mg PO Q6H PRN PRN Reason: Headache/Pain Mild Scale (1-3) Last Admin: 07/15/21 11:20 Dose: 650 mg Documented by: Al Hydroxide/Mg Hydroxide (Magnesium Hydrox/Alum Hydrox 30 Ml Oral.Susp) 30 ml PO Q6H PRN PRN Reason: Heartburn/Nausea Clonidine HCl (Clonidine Hcl 0.1 Mg Tablet) 0.1 mg PO BID BELA; Protocol Last Admin: 07/16/21 10:59 Dose: 0.1 mg Documented by: Haloperidol (Haloperidol 5 Mg Tablet) 5 mg PO BID PRN PRN Reason: psychotic agitation,violence Last Admin: 07/13/21 18:49 Dose: 5 mg Documented by: Hydroxyzine HCl (Hydroxyzine Hcl 25 Mg Tablet) 25 mg PO BEDTIME PRN PRN Reason: Anxiety Last Admin: 07/15/21 00:34 Dose: 25 mg Documented by: Lorazepam (Lorazepam 1 Mg Tablet) 1 mg PO Q4H PRN PRN Reason: agitation Last Admin: 07/15/21 21:19 Dose: 1 mg Documented by: Magnesium Hydroxide (Milk Of Magnesia 30 Ml Oral.Susp) 30 ml PO DAILY PRN PRN Reason: Constipation Olanzapine (Olanzapine 5 Mg Tablet) 5 mg PO Q4H PRN PRN Reason: psychosis, agitation Last Admin: 07/12/21 16:36 Dose: 5 mg Documented by: Olanzapine (Olanzapine 7.5 Mg Tablet) 15 mg PO BID BELA Last Admin: 07/16/21 10:59 Dose: 15 mg Documented by: Pharmacy Consult (Consult Rx Perform Med Rec) 1 each MISCELLANE ONCE PRN PRN Reason: Consult order Trazodone HCl (Trazodone Hcl 50 Mg Tablet) 50 mg PO BEDTIME PRN PRN Reason: Insomnia Allergies Allergies Allergy/AdvReac Type Severity Reaction Status Date / Time No Known Allergies Allergy Verified 07/09/21 08:01 Assessment & Plan Assessment & Plan (1) Schizoaffective disorder, bipolar type: Status: Acute Code(s): F25.0 - Schizoaffective disorder, bipolar type Plan Increase [place] to 600 mg HS Increase Olanzapine to 15 mg BID 07/13/21: no med changes 07/15 no changes to current regimen 07/16 no changes to current regimen I spent minutes with the patient and/or on the patient floor today, greater than?50% of which was spent counseling/coordinating care. Reason for contiued inpatient stay Substantial Risk for: other
[2021-07-16] MEDS: traZODone HCL 50 MG TABLET PO (21:26)
[2021-07-16] MEDS: LORazepam 1 MG TABLET PO (21:26)
[2021-07-17 08:00] VITALS: BP 84/57; PULSE 84; TEMP 35.8; O2SAT 99
[2021-07-17] MEDS: OLANZapine 7.5 MG TABLET 15 MG PO ×2 (09:33→21:42)
[2021-07-17] MEDS: LORazepam 1 MG TABLET PO (09:33)
--- NOTE | 2021-07-17 18:48 | HO.PSYCHPN ---
Subjective Subjective Date of Service: 07/17/21 Reason For Visit: schizophrenia Subjective Notes: [place] Warning, Conditional Voluntary and 3 Day Healthcare Proxy: No Guardianship: No Medical Problems Affecting Mental Status: No Interim History: Patient seen and discussed with team. Patient evaluated today and upon interview pt reports her mood is good. Says her sleep is getting better. Medications are okay. Pt says she is very excited to discharge and looking forward to her birthday coming up, says her mom is gonna buy me a cake. In the milieu, patient is safe in behavior. Denies SI/SIB/HI upon inquiry. Denies irritability or assaultive ideation. Says she feels safe. Medication Compliance: Yes Side effects from medications: No Attending Groups: Intermittent Review of Systems Acute medical concerns: No Medical Review of Systems: unchanged Mental Status Exam Mental Status Exam Narrative: Patient Appearance:?unkempt Patient Orientation:?Person, Place, Time and Situation Level of Consciousness:?Alert Patient Behavior:?Talkative, Cooperative, Distractible and Good Eye Contact Mood Description:? good Affect Description:?Labile Patient Cognition Impaired:?No Ability to Follow Directions:?Good Speech Pattern:?Spontaneous Speech, sometimes Rambling Memory Description:?Episodic Impaired Hallucinations:?None Delusions:?Not Present Thought Process:?Distracted; can be goal oriented Thought Content: music Abnormal Motor Activity Signs and Symptoms:?Restlessness Judgement:?Fair Diagnostics Vital Signs (24Hr): Vital Signs - 24 hr 07/17/21 08:00 Temperature 96.4 F L Pulse Rate 84 Blood Pressure 84/57 L Pulse Oximetry 99 BMI result Body Mass Index 32.3 Labs Results: 07/09/21 08:36 07/11/21 07:40 Medications Medications Current Medications Acetaminophen (Acetaminophen 325 Mg Tablet) 650 mg PO Q6H PRN PRN Reason: Headache/Pain Mild Scale (1-3) Last Admin: 07/15/21 11:20 Dose: 650 mg Documented by: Al Hydroxide/Mg Hydroxide (Magnesium Hydrox/Alum Hydrox 30 Ml Oral.Susp) 30 ml PO Q6H PRN PRN Reason: Heartburn/Nausea Clonidine HCl (Clonidine Hcl 0.1 Mg Tablet) 0.1 mg PO BID BELA; Protocol Last Admin: 07/17/21 09:45 Dose: Not Given Documented by: Haloperidol (Haloperidol 5 Mg Tablet) 5 mg PO BID PRN PRN Reason: psychotic agitation,violence Last Admin: 07/13/21 18:49 Dose: 5 mg Documented by: Hydroxyzine HCl (Hydroxyzine Hcl 25 Mg Tablet) 25 mg PO BEDTIME PRN PRN Reason: Anxiety Last Admin: 07/15/21 00:34 Dose: 25 mg Documented by: Lorazepam (Lorazepam 1 Mg Tablet) 1 mg PO Q4H PRN PRN Reason: agitation Last Admin: 07/17/21 09:33 Dose: 1 mg Documented by: Magnesium Hydroxide (Milk Of Magnesia 30 Ml Oral.Susp) 30 ml PO DAILY PRN PRN Reason: Constipation Olanzapine (Olanzapine 5 Mg Tablet) 5 mg PO Q4H PRN PRN Reason: psychosis, agitation Last Admin: 07/12/21 16:36 Dose: 5 mg Documented by: Olanzapine (Olanzapine 7.5 Mg Tablet) 15 mg PO BID BELA Last Admin: 07/17/21 09:33 Dose: 15 mg Documented by: Pharmacy Consult (Consult Rx Perform Med Rec) 1 each MISCELLANE ONCE PRN PRN Reason: Consult order Trazodone HCl (Trazodone Hcl 50 Mg Tablet) 50 mg PO BEDTIME PRN PRN Reason: Insomnia Last Admin: 07/16/21 21:26 Dose: 50 mg Documented by: Allergies Allergies Allergy/AdvReac Type Severity Reaction Status Date / Time No Known Allergies Allergy Verified 07/09/21 08:01 Assessment & Plan Assessment & Plan (1) Schizoaffective disorder, bipolar type: Status: Acute Code(s): F25.0 - Schizoaffective disorder, bipolar type Plan Increase [place] to 600 mg HS Increase Olanzapine to 15 mg BID 07/13/21: no med changes 07/15 no changes to current regimen 07/16 no changes to current regimen 07/17 continue current regimen, 3 day notice up on 07/18 I spent minutes with the patient and/or on the patient floor today, greater than?50% of which was spent counseling/coordinating care. Patient educated on: therapeutic strategies Reason for contiued inpatient stay Substantial Risk for: med/psych decompensation
[2021-07-17] MEDS: cloNIDine HCL 0.1 MG TABLET PO (21:43)
[2021-07-17 21:45] VITALS: BP 117/58; PULSE 83; TEMP 36.3
[2021-07-18] MEDS: cloNIDine HCL 0.1 MG TABLET PO (09:27)
[2021-07-18] MEDS: OLANZapine 7.5 MG TABLET 15 MG PO (09:27)
--- NOTE | 2021-07-18 09:28 | P.DS_ITS ---
DS: Providers Provider Date of Service: 07/18/21 Date of admission: 07/10/21 15:13 Date of discharge: 07/18/21 Primary care physician: [facility] Admitting clinician: Micaela Bryan Attending physician on admission: Micaela Bryan Attending physician on discharge: Micaela Bryan Discharging clinician: Micaela Bryan DS: Diagnosis Discharge Diagnosis (1) Schizoaffective disorder, bipolar type: Status: Acute DS: Medications Discharge Medications Home Medications: Previous Rx's Medication Instructions Recorded clonidine HCl 0.1 mg tablet 0.1 mg PO BID #60 tab 07/18/21 olanzapine 15 mg tablet (Zyprexa) 15 mg PO BID #60 tab 07/18/21 Mental Status Exam Mental Status Exam Patient Appearance: Disheveled Patient Orientation: Person, Place, Time and Situation Level of Consciousness: Alert Patient Behavior: Talkative, Cooperative, Restless, Anxious, Distractible and Good Eye Contact Mood Description: Apprehensive Affect Description: Labile Patient Cognition Impaired: No Ability to Follow Directions: Good Speech Pattern: Spontaneous Speech, Rambling, Cofabulation, Excessive and Pressured Memory Description: Episodic Impaired Hallucinations: None Delusions: Not Present Thought Process: Distracted Thought Content: positive for Circumstantial, positive for Tangential and positive for Logical Depressive Symptoms: Difficulty Sleeping Abnormal Motor Activity Signs and Symptoms: Restlessness Judgement: Fair DS: Summary Hospital Course Hospital Course: Pt admitted to adult psychiatry for exacerbation of symptoms of Schizoaffective Disorder, Bipolar Type. Pt was started on Olanzapine and Clonidine, these were titrated and pt returned to baseline. Family meeting with mother who was a valuable resource in advising the team on Eleni's baseline. Pt responded to behavioral interventions by the team and was able to return home to her mother who agreed to her discharge, believing she was stable and at her baseline level of functioning. Time spent discussing smoking cessation with patient: 3 to 10 minutes Status at Discharge Functional status at discharge: independent ambulation Overall status at discharge: patient is back to baseline Time Spent with Patient Time attestation: Total time spent providing and/or coordinating discharge services: 30 Time spent: Less than 30 minutes Discharge Plan Discharge Patient Disposition: Home, Self-Care Discharge Diagnosis: Schizoaffective Disorder, bipolar type Referrals: [facility] [Other] - Tomorrow (Patient referral to outpatient therapy and psychiatry Patient's parent should follow-up with [facility] outpatient clinic for scheduled appointments as agency has not communicated them prior to discharge.) [facility] [Primary Care Provider] - 1 Week Discharge Medications: New clonidine HCl 0.1 mg Tablet 0.1 mg PO BID Qty: 60 0RF Protocol: Hold for SBP< HOLD for SBP < : 90 olanzapine [Zyprexa] 15 mg tablet 15 mg PO BID Qty: 60 0RF Discharge Orders: Discharge Order (Routine); Ordered 07/18/21 Ordered By: Micaela Bryan Diet: advance to usual diet Activity on Discharge: As tolerated Stand Alone Forms: Patient Portal Discharge page, Community Support Care Plan Goals: Mood Stabilization Health Concerns: Schizoaffective Disorder, Bipolar Type Plan of Treatment: Attend scheduled appointments Take medications as directed Assessment: non-suicidal, non-psychotic Discharge Date/Time: 07/18/21 10:44
[2021-07-18 09:41] VITALS: BP 107/59; PULSE 83; RESP 16; TEMP 36.3; O2SAT 100
== END 2021-07-18 10:44 | disposition home or self-care (01) | DRG 750 ==
LOC: HO.ED 07-10 11:23 → HO.PM5 07-10 15:17
PROVIDERS: Admitting Provider Psychiatry & Neurology Psychiatry; Emergency Provider Emergency Medicine; Visit Provider Clinical Nurse Specialist Psychiatric/Mental Health, Adult
DX: F25.0 Schizoaffective disorder, bipolar type (principal); Z20.822 Contact with and (suspected) exposure to COVID-19; Z79.899 Other long term (current) drug therapy
CPT/HCPCS: 36415; 80048; 80053; 80061; 80076; 80307; 81001; 81025; 82607; 82746; 83036; 83735; 84439; 84443; 85025; 87635; 99285

== ENCOUNTER 2021-08-31 20:00 | Inpatient (IN) | payer OTHER, MEDICAID, SELFPAY ==
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
[2021-08-31 20:39] VITALS: BP 109/77; PULSE 91; RESP 16; TEMP 36.4; O2SAT 97; BMI 29.0
[2021-08-31] MEDS: HaloperidoL 5 MG TABLET 10 MG PO (20:46)
[2021-08-31] MEDS: LORazepam 1 MG TABLET 2 MG PO (20:47)
[2021-08-31] MEDS: diphenhydrAMINE HCL 25 MG TABLET 50 MG PO (20:47)
[2021-08-31 21:24] LABS: COVID-19 Test Negative (Negative)
[2021-08-31] MEDS: OLANZapine 7.5 MG TABLET 15 MG PO (22:33)
[2021-09-01 01:12] LABS: MANUAL DIFF FLAG NO
[2021-09-01 01:13] LABS: Basophils Percent Auto 0.3 % (0-2); Eosinophils Absolute Auto 0.2 X10*3/uL (0.0-0.4); Eosinophils Percent Auto 2.4 % (0-4); Hematocrit 41.9 % (37.0-47.0); Hemoglobin 13.8 g/dl (12.0-16.0); Imm Gran Abs Auto 0.03 X10*3/uL (0.00-0.03); Imm Gran Pct Auto 0.3 % (0.0-0.4); Lymphocytes Absolute Auto 2.9 X10*3/uL (1.2-4.9); Lymphocytes Percent Auto 31.8 % (20-40); Mean Corpuscular HGB Conc 32.9 g/dl (31.0-35.0); Mean Corpuscular Hemoglobin 27.7 pg (27.0-33.0); Mean Platelet Volume 9.4 fL (9.4-12.3); Monocytes Absolute Auto 0.6 X10*3/uL (0.1-1.2); Monocytes Percent Auto 6.7 % (2-11); Neutrophils Absolute Auto 5.4 x10*3/uL (2.0-8.3); Neutrophils Percent Auto 58.5 % (45-73); Platelet Count 221 X10*3/uL (160-400); Red Blood Count 4.99 X10*6/uL (4.20-5.50); Red Cell Distribution Width 14.6 % (11.0-16.0); White Blood Count 9.2 X10*3/uL (4.8-10.8)
[2021-09-01 01:24] LABS: Ethanol < 10 mg/dL
[2021-09-01 01:28] LABS: Alanine Aminotransferase 12 U/L (0-31); Albumin Level 3.8 g/dL (3.5-5.0); Alkaline Phosphatase 66 U/L (39-117); Anion Gap 11 (12-20); Aspartate Amino Transferase 12 U/L (5-31); Bilirubin Total 0.4 mg/dL (0.0-1.0); Blood Urea Nitrogen 15 mg/dL (9-16); Calcium 9.2 mg/dL (8.4-10.2); Carbon Dioxide 23 mmol/L (22-29); Chloride 109 mmol/L (96-108); Creatinine Clr Calc Pharmacy 128.6; Estimated Glomerular Filt Rate > 60; Glucose Random 108 mg/dL (60-115); Magnesium 1.9 mg/dL (1.6-2.6); Potassium 3.9 mmol/L (3.3-5.1); Sodium 139 mmol/L (135-145); Total Protein 6.7 g/dL (6.5-8.0)
--- NOTE | 2021-09-01 06:14 | PC.NURSE ---
Patient slept through the night, no distress observed/reported, administered Ativan 2 mg PO, Haldol 10 mg PO, and Benadryl 50 mg PO at 2046, at the time of arrival due to manic behavior, HS medication administered/medication compliant, VSS, disposition per [facility] is section 12 inpatient bed search, behavior non concerning at this time but highly unpredictable, will continue to monitor.
[2021-09-01 07:07] VITALS: BP 109/68; PULSE 80; RESP 16; TEMP 36.4; O2SAT 98
--- NOTE | 2021-09-01 08:10 | PC.NURSE ---
PT RESTING ON STRETCHER. ATE BKFST. BEDSEARCH CONTINUES
[2021-09-01] MEDS: OLANZapine 7.5 MG TABLET 15 MG PO ×2 (09:09→20:57)
[2021-09-01] MEDS: cloNIDine HCL 0.1 MG TABLET PO ×2 (09:09→20:57)
--- NOTE | 2021-09-01 14:46 | PC.NURSE ---
NURSE TO NURSE TO M3
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
[2021-09-01 15:55] VITALS: BP 115/68; PULSE 62; RESP 18; TEMP 36.4; O2SAT 99
--- NOTE | 2021-09-01 16:22 | PC.NURSE ---
Pt signed a Three Day Notice on Friday 09/01 up on Wednesday 09/06.
--- NOTE | 2021-09-01 16:41 | PC.NURSE ---
Patient signed a 3Day Notice, shortly after being admitted onto the unit. Covering Psychiatric Provider who entered original orders was notified, along with Social Work and Utilization Review- all notified via email by this Rear Load Truck Driver.
--- NOTE | 2021-09-01 18:30 | PC.ADMIT ---
21yo female admitted onto M3 from [facility] ED Pod referred by the CARE Team. Patient known to [facility] Behavioral Health Units. PMH of Bipolar, Schizophrenia, and Asthma. Admitted for rima and bizarre affect, per crisis report patient has been off her medication for the last 40 days, patient's mother called 911 r/t safety concerns re: patient's bizarre behavior including leaving the house naked during the night. Limited participation in Admission Assessment: Patient calm upon arriving to the unit, quickly became tearful and labile, noted to be trying to maintain control and manage emotions, then self-dialoguing in escalation before retreating to her room and falling asleep. Patient previously received a medical restraint in the ER d/t aggressive behaviors toward staff; no s/sx of aggression at time of admission. Patient admitted under a CV, and requested/signed a 3 Day Notice once on the unit. Denied SI/HI; appeared to be responding to internal stimuli, thought blocking. Legals not signed at this time. Orders were obtained by Psych Provider. Placed on 15 minute safety checks.
[2021-09-01 20:52] VITALS: BP 108/66; PULSE 76; RESP 18; TEMP 36.2; O2SAT 98
[2021-09-02] MEDS: HaloperidoL 5 MG TABLET PO ×3 (04:51→22:41)
[2021-09-02] MEDS: LORazepam 1 MG TABLET PO ×3 (04:51→22:41)
[2021-09-02 08:45] VITALS: BP 143/71; PULSE 89; RESP 18; TEMP 36.2; O2SAT 99
[2021-09-02] MEDS: cloNIDine HCL 0.1 MG TABLET PO ×2 (08:52→22:41)
[2021-09-02] MEDS: OLANZapine 7.5 MG TABLET 15 MG PO ×2 (08:52→22:41)
[2021-09-02 09:23] LABS: Alanine Aminotransferase 15 U/L (0-31); Albumin Level 3.9 g/dL (3.5-5.0); Alkaline Phosphatase 59 U/L (39-117); Aspartate Amino Transferase 14 U/L (5-31); Bilirubin Total 0.3 mg/dL (0.0-1.0); Blood Urea Nitrogen 13 mg/dL (9-16); Calcium 9.5 mg/dL (8.4-10.2); Cholesterol 176 mg/dL; Creatinine Clr Calc Pharmacy 122.3; Estimated Glomerular Filt Rate > 60; Glucose Fasting 88 mg/dL (60-99); HDL Cholesterol 33 mg/dL; LDL Cholesterol Calculated 110 mg/dl; Total Protein 6.9 g/dL (6.5-8.0); Triglycerides 165 mg/dL
[2021-09-02 09:33] LABS: Anion Gap 11 (12-20); Carbon Dioxide 26 mmol/L (22-29); Chloride 105 mmol/L (96-108); Potassium 4.9 mmol/L (3.3-5.1); Sodium 137 mmol/L (135-145)
--- NOTE | 2021-09-02 10:08 | P.PNPSI_ITS ---
Subjective Subjective Date of Service: 09/02/21 Reason For Visit: Elizabeth Subjective Notes: Conditional Voluntary Medical Problems Affecting Mental Status: No Interim History: pt restarted zyprexa and clonidine; slept 10 pm to 4 am. Had repeat labs and CL in normal range. anion gap still 11. Chem profile essentially normal. taking meds; utilizing PRN meds with good effect; BP still elevated. Medication Compliance: Yes Side effects from medications: No Attending Groups: No Review of Systems Acute medical concerns: Yes none Medical Review of Systems: unchanged Review of Systems Review of Systems Constitutional : No Weight loss, No Fever, No Chills, No Fatigue, No Malaise ENT/Mouth : No sore throat, No Rhinorrhea Eyes: No Eye Pain, No Swelling, No Redness Cardiovascular : No Chest Pain, No SOB, No Dyspnea on Exertion, No Orthopnea, No Edema, No Palpitations Respiratory : No Cough, No Sputum, No Wheezing Gastrointestinal : No Nausea, No Vomiting, No Diarrhea, No Constipation, No abdominal Pain, No Hematochezia, No Melena Genitourinary : No Dysuria, No Urinary Frequency, No Hematuria, Musculoskeletal : No joint pain, No Myalgias, No Joint Swelling Skin : No Skin Lesions, No rash Neuro : No Weakness, No Numbness, No Dizziness, No Headache Psych : No Anxiety/Panic, No Depression All other systems reviewed and are negative Yes all other systems are reviewed and are negative and Unobtainable due to mental status Mental Status Exam Mental Status Exam Narrative: Appearance: poor hygiene in NAD Behavior:guarded and irritable psychomotor: no agitation or retardation noted Speech:clear, some delayed in response, spontaneous Thought process:thought blocking Thought content:wanting to go home Mood: okay Affect: guarded SI:denies HI:denies VH/AH:appears internally preoccupied. Delusions:paranoid delusions Insight/judgment:impaired x 2. Memory/cog: alert, not to situation Abnormal Motor Activity Signs and Symptoms: Restlessness Judgement: Poor Diagnostics Vital Signs (24Hr): Vital Signs - 24 hr 09/01/21 15:55 09/01/21 20:52 09/02/21 08:45 Temperature 97.6 F 97.2 F 97.1 F Pulse Rate 62 76 89 Respiratory Rate 18 18 18 Blood Pressure 115/68 108/66 143/71 H Pulse Oximetry 99 98 99 Oxygen Delivery Method Room Air Room Air Room Air BMI result Body Mass Index 29.0 Labs Results: 09/01/21 01:08 09/02/21 08:51 Labs: Laboratory Results - last 48 hr 08/31/21 09/01/21 09/01/21 20:48 01:08 01:08 WBC 9.2 RBC 4.99 Hgb 13.8 Hct 41.9 MCV 84.0 MCH 27.7 MCHC 32.9 RDW 14.6 Plt Count 221 MPV 9.4 Immature Gran % (Auto) 0.3 Neut % (Auto) 58.5 Lymph % (Auto) 31.8 [place] % (Auto) 6.7 Eos % (Auto) 2.4 Baso % (Auto) 0.3 Lymph # (Auto) 2.9 [place] # (Auto) 0.6 Eos # (Auto) 0.2 Baso # (Auto) 0.0 Abs Immat Gran (auto) 0.03 Absolute Neuts (auto) 5.4 Absolute Nucleated RBC 0.000 Nucleated RBC % (auto) 0.0 Sodium 139 Potassium 3.9 Chloride 109 H Carbon Dioxide 23 Anion Gap 11 L BUN 15 Creatinine 0.77 Estim Creat Clear Calc 128.6 Estimated GFR > 60 Random Glucose 108 Fasting Glucose Calcium 9.2 Magnesium 1.9 Total Bilirubin 0.4 AST 12 ALT 12 Alkaline Phosphatase 66 Total Protein 6.7 Albumin 3.8 Triglycerides Cholesterol LDL Cholesterol, Calc HDL Cholesterol TSH Ethyl Alcohol COVID-19 (BRENDA) Negative COVID-19 Clin Com See Note 09/01/21 09/02/21 01:08 08:51 WBC RBC Hgb Hct MCV MCH MCHC RDW Plt Count MPV Immature Gran % (Auto) Neut % (Auto) Lymph % (Auto) [place] % (Auto) Eos % (Auto) Baso % (Auto) Lymph # (Auto) [place] # (Auto) Eos # (Auto) Baso # (Auto) Abs Immat Gran (auto) Absolute Neuts (auto) Absolute Nucleated RBC Nucleated RBC % (auto) Sodium 137 Potassium 4.9 D Chloride 105 Carbon Dioxide 26 Anion Gap 11 L BUN 13 Creatinine 0.81 Estim Creat Clear Calc 122.3 Estimated GFR > 60 Random Glucose Fasting Glucose 88 Calcium 9.5 Magnesium Total Bilirubin 0.3 AST 14 ALT 15 Alkaline Phosphatase 59 Total Protein 6.9 Albumin 3.9 Triglycerides 165 Cholesterol 176 D LDL Cholesterol, Calc 110 HDL Cholesterol 33 TSH 2.60 Ethyl Alcohol < 10 COVID-19 (BRENDA) COVID-19 Clin Com Medications Medications Current Medications Acetaminophen (Acetaminophen 325 Mg Tablet) 650 mg PO Q6H PRN PRN Reason: Headache/Pain Mild Scale (1-3) Al Hydroxide/Mg Hydroxide (Magnesium Hydrox/Alum Hydrox 30 Ml Oral.Susp) 30 ml PO Q6H PRN PRN Reason: Heartburn/Nausea Clonidine HCl (Clonidine Hcl 0.1 Mg Tablet) 0.1 mg PO BID [facility]; Protocol Last Admin: 09/02/21 08:52 Dose: 0.1 mg Haloperidol (Haloperidol 5 Mg Tablet) 5 mg PO Q6H PRN PRN Reason: agitation Last Admin: 09/02/21 04:51 Dose: 5 mg Hydroxyzine HCl (Hydroxyzine Hcl 50 Mg Tablet) 50 mg PO Q6H PRN PRN Reason: Anxiety Lorazepam (Lorazepam 1 Mg Tablet) 1 mg PO Q6H PRN PRN Reason: agitation/anxiety Last Admin: 09/02/21 04:51 Dose: 1 mg Magnesium Hydroxide (Milk Of Magnesia 30 Ml Oral.Susp) 30 ml PO DAILY PRN PRN Reason: Constipation Olanzapine (Olanzapine 7.5 Mg Tablet) 15 mg PO BID [facility] Last Admin: 09/02/21 08:52 Dose: 15 mg Trazodone HCl (Trazodone Hcl 100 Mg Tablet) 100 mg PO BEDTIME PRN PRN Reason: Insomnia Allergies Allergies Allergy/AdvReac Type Severity Reaction Status Date / Time No Known Allergies Allergy Verified 07/09/21 08:01 Assessment & Plan Assessment & Plan (1) Schizoaffective disorder, bipolar type: Status: Acute Code(s): F25.0 - Schizoaffective disorder, bipolar type Plan Ms. Mcginnis is a 21 year-old woman with hx of schizoaffective disorder brought via EMS after pt found naked on the streets. Utox positive for cannabinoids. Pt known to / through previous admission with similar presentation. Pt last discharged from on 07/18/2021. Apparently pt has not taken medications since discharge. After discussing risks, benefits and alternative treatment option, pt agrees to restart olanzapine and clonidine. CONTINUE PLAN 15 minutes checks, CV Olanzapine 15mg po BID, clonidine 0.1mg po BID Obtain collateral information Aftercare planning. I spent ___15___ minutes with the patient and/or on the patient floor today, greater than?50% of which was spent counseling/coordinating care. Patient educated on: medication risk/benefits Informed Consent: further education needed Reason for contiued inpatient stay Substantial Risk for: harm to self, inability to function and rapid decompensation
[2021-09-02 10:23] LABS: Estimated Average Glucose 100 mg/dL; Hemoglobin A1c % 5.1 %
[2021-09-02] MEDS: Acetaminophen 325 MG TABLET 650 MG PO (12:59)
--- NOTE | 2021-09-02 16:50 | PC.NURSE ---
Patient appears to be increasingly responding to internal stimuli, labile, listening to headphones and shouting. Accepting redirection briefly but continues to appear increasingly preoccupied. Accepted PRNs as offered.
[2021-09-02 22:37] VITALS: BP 121/57; PULSE 75; RESP 16; TEMP 36.3; O2SAT 98
[2021-09-03 08:25] VITALS: BP 115/78; PULSE 100; RESP 18; TEMP 36.3; O2SAT 99
[2021-09-03] MEDS: OLANZapine 7.5 MG TABLET 15 MG PO ×2 (08:35→22:11)
[2021-09-03] MEDS: cloNIDine HCL 0.1 MG TABLET PO ×2 (08:35→22:11)
[2021-09-03] MEDS: HaloperidoL 5 MG TABLET PO (11:31)
[2021-09-03] MEDS: LORazepam 1 MG TABLET PO (11:31)
--- NOTE | 2021-09-03 12:05 | HO.PSYCHPN ---
Subjective Subjective Date of Service: 09/03/21 Reason For Visit: Elizabeth Subjective Notes: Conditional Voluntary Medical Problems Affecting Mental Status: No Interim History: Pt in bed with covers over her head when approached; Would not engage with TW. pt restarted zyprexa and clonidine; Staff report slept through night; Some odd behavior on unit spraying water around; throwing food. would not stop when asked. did not escalate and then got distracted with other things. taking meds; utilizing PRN meds with good effect; BP stabilizing. Medication Compliance: Yes Side effects from medications: No Review of Systems Acute medical concerns: No Medical Review of Systems: unchanged Review of Systems Review of Systems Constitutional : No Weight loss, No Fever, No Chills, No Fatigue, No Malaise ENT/Mouth : No sore throat, No Rhinorrhea Eyes: No Eye Pain, No Swelling, No Redness Cardiovascular : No Chest Pain, No SOB, No Dyspnea on Exertion, No Orthopnea, No Edema, No Palpitations Respiratory : No Cough, No Sputum, No Wheezing Gastrointestinal : No Nausea, No Vomiting, No Diarrhea, No Constipation, No abdominal Pain, No Hematochezia, No Melena Genitourinary : No Dysuria, No Urinary Frequency, No Hematuria, Musculoskeletal : No joint pain, No Myalgias, No Joint Swelling Skin : No Skin Lesions, No rash Neuro : No Weakness, No Numbness, No Dizziness, No Headache Psych : No Anxiety/Panic, No Depression All other systems reviewed and are negative Yes all other systems are reviewed and are negative and Unobtainable due to mental status Mental Status Exam Mental Status Exam Narrative: Appearance: poor hygiene in NAD Behavior:guarded and irritable psychomotor: no agitation or retardation noted Speech:clear, some delayed in response, spontaneous Thought process:thought blocking Thought content:wanting to go home Mood: okay Affect: guarded SI:denies HI:denies VH/AH:appears internally preoccupied. Delusions:paranoid delusions Insight/judgment:impaired x 2. Memory/cog: alert, not to situation Diagnostics Vital Signs (24Hr): Vital Signs - 24 hr 09/02/21 22:37 09/03/21 08:25 Temperature 97.4 F 97.4 F Pulse Rate 75 100 Respiratory Rate 16 18 Blood Pressure 121/57 L 115/78 Pulse Oximetry 98 99 Oxygen Delivery Method Room Air Room Air BMI result Body Mass Index 29.0 Labs Results: 09/01/21 01:08 09/02/21 08:51 Labs: Laboratory Results - last 48 hr 09/02/21 09/02/21 08:51 08:51 Sodium 137 Potassium 4.9 D Chloride 105 Carbon Dioxide 26 Anion Gap 11 L BUN 13 Creatinine 0.81 Estim Creat Clear Calc 122.3 Estimated GFR > 60 Fasting Glucose 88 Estimat Average Glucose 100 Hemoglobin A1c % 5.1 Calcium 9.5 Total Bilirubin 0.3 AST 14 ALT 15 Alkaline Phosphatase 59 Total Protein 6.9 Albumin 3.9 Triglycerides 165 Cholesterol 176 D LDL Cholesterol, Calc 110 HDL Cholesterol 33 TSH 2.60 Medications Medications Current Medications Acetaminophen (Acetaminophen 325 Mg Tablet) 650 mg PO Q6H PRN PRN Reason: Headache/Pain Mild Scale (1-3) Last Admin: 09/02/21 12:59 Dose: 650 mg Al Hydroxide/Mg Hydroxide (Magnesium Hydrox/Alum Hydrox 30 Ml Oral.Susp) 30 ml PO Q6H PRN PRN Reason: Heartburn/Nausea Clonidine HCl (Clonidine Hcl 0.1 Mg Tablet) 0.1 mg PO BID [facility]; Protocol Last Admin: 09/03/21 08:35 Dose: 0.1 mg Haloperidol (Haloperidol 5 Mg Tablet) 5 mg PO Q6H PRN PRN Reason: agitation Last Admin: 09/03/21 11:31 Dose: 5 mg Hydroxyzine HCl (Hydroxyzine Hcl 50 Mg Tablet) 50 mg PO Q6H PRN PRN Reason: Anxiety Lorazepam (Lorazepam 1 Mg Tablet) 1 mg PO Q6H PRN PRN Reason: agitation/anxiety Last Admin: 09/03/21 11:31 Dose: 1 mg Magnesium Hydroxide (Milk Of Magnesia 30 Ml Oral.Susp) 30 ml PO DAILY PRN PRN Reason: Constipation Olanzapine (Olanzapine 7.5 Mg Tablet) 15 mg PO BID [facility] Last Admin: 09/03/21 08:35 Dose: 15 mg Trazodone HCl (Trazodone Hcl 100 Mg Tablet) 100 mg PO BEDTIME PRN PRN Reason: Insomnia Allergies Allergies Allergy/AdvReac Type Severity Reaction Status Date / Time No Known Allergies Allergy Verified 07/09/21 08:01 Assessment & Plan Assessment & Plan (1) Schizoaffective disorder, bipolar type: Status: Acute Code(s): F25.0 - Schizoaffective disorder, bipolar type Plan Ms. Mcginnis is a 21 year-old woman with hx of schizoaffective disorder brought via EMS after pt found naked on the streets. Utox positive for cannabinoids. Pt known to M3/M5 through previous admission with similar presentation. Pt last discharged from on 07/18/2021. Apparently pt has not taken medications since discharge. After discussing risks, benefits and alternative treatment option, pt agrees to restart olanzapine and clonidine. CONTINUE PLAN 15 minutes checks, CV Olanzapine 15mg po BID, clonidine 0.1mg po BID Obtain collateral information Aftercare planning. I spent __15____ minutes with the patient and/or on the patient floor today, greater than?50% of which was spent counseling/coordinating care. Reason for contiued inpatient stay Substantial Risk for: harm to self, harm to others, inability to function and rapid decompensation
[2021-09-03 22:03] VITALS: BP 99/63; PULSE 88; RESP 16; TEMP 36.6; O2SAT 98
[2021-09-04] MEDS: OLANZapine 7.5 MG TABLET 15 MG PO ×2 (08:31→21:32)
[2021-09-04] MEDS: cloNIDine HCL 0.1 MG TABLET PO ×2 (08:31→21:32)
[2021-09-04 08:33] VITALS: BP 95/57; PULSE 81; RESP 16
--- NOTE | 2021-09-04 17:45 | HO.PSYCHPN ---
Subjective Subjective Date of Service: 09/04/21 Reason For Visit: Elizabeth Subjective Notes: [place]choa Warning and Conditional Voluntary Healthcare Proxy: No Guardianship: No Medical Problems Affecting Mental Status: No Interim History: Patient seen and discussed with team. Patient evaluated today and upon interview she reports Im good, feeling okay, no complaints about meds, sleep is good. Feels safe. Denies questions or concerns. Not going to groups, prolonged speech latency, intense staring. Pt is internally preoccupied, at one point introduces herself to T/W unprompted midway in conversation. Says she showered, eating okay.? Medication Compliance: Yes Side effects from medications: No Attending Groups: No Mental Status Exam Mental Status Exam Narrative: Appearance: hospital gown, poor hygiene in NAD Behavior:guarded but calm psychomotor: no agitation or retardation noted Speech:clear, some delayed in response, spontaneous Thought process:thought blocking Thought content:wanting to go home Mood: okay Affect: guarded SI:denies HI:denies VH/AH:appears internally preoccupied. Delusions:paranoid delusions Insight/judgment:impaired x 2. Memory/cog: alert, not to situation Diagnostics Vital Signs (24Hr): Vital Signs - 24 hr 09/03/21 22:03 09/04/21 08:33 Temperature 98 F Pulse Rate 88 81 Respiratory Rate 16 16 Blood Pressure 99/63 95/57 L Pulse Oximetry 98 Oxygen Delivery Method Room Air BMI result Body Mass Index 29.0 Labs Results: 09/01/21 01:08 09/02/21 08:51 Medications Medications Current Medications Acetaminophen (Acetaminophen 325 Mg Tablet) 650 mg PO Q6H PRN PRN Reason: Headache/Pain Mild Scale (1-3) Last Admin: 09/02/21 12:59 Dose: 650 mg Al Hydroxide/Mg Hydroxide (Magnesium Hydrox/Alum Hydrox 30 Ml Oral.Susp) 30 ml PO Q6H PRN PRN Reason: Heartburn/Nausea Clonidine HCl (Clonidine Hcl 0.1 Mg Tablet) 0.1 mg PO BID [facility]; Protocol Last Admin: 09/04/21 08:31 Dose: 0.1 mg Haloperidol (Haloperidol 5 Mg Tablet) 5 mg PO Q6H PRN PRN Reason: agitation Last Admin: 09/03/21 11:31 Dose: 5 mg Hydroxyzine HCl (Hydroxyzine Hcl 50 Mg Tablet) 50 mg PO Q6H PRN PRN Reason: Anxiety Lorazepam (Lorazepam 1 Mg Tablet) 1 mg PO Q6H PRN PRN Reason: agitation/anxiety Last Admin: 09/03/21 11:31 Dose: 1 mg Magnesium Hydroxide (Milk Of Magnesia 30 Ml Oral.Susp) 30 ml PO DAILY PRN PRN Reason: Constipation Olanzapine (Olanzapine 7.5 Mg Tablet) 15 mg PO BID [facility] Last Admin: 09/04/21 08:31 Dose: 15 mg Trazodone HCl (Trazodone Hcl 100 Mg Tablet) 100 mg PO BEDTIME PRN PRN Reason: Insomnia Allergies Allergies Allergy/AdvReac Type Severity Reaction Status Date / Time No Known Allergies Allergy Verified 07/09/21 08:01 Assessment & Plan Assessment & Plan (1) Schizoaffective disorder, bipolar type: Status: Acute Code(s): F25.0 - Schizoaffective disorder, bipolar type Plan Ms. Mcginnis is a 21 year-old woman with hx of schizoaffective disorder brought via EMS after pt found naked on the streets. Utox positive for cannabinoids. Pt known to / through previous admission with similar presentation. Pt last discharged from on 07/18/2021. Apparently pt has not taken medications since discharge. After discussing risks, benefits and alternative treatment option, pt agrees to restart olanzapine and clonidine. CONTINUE PLAN 15 minutes checks, CV Olanzapine 15mg po BID, clonidine 0.1mg po BID Obtain collateral information Aftercare planning. I spent minutes with the patient and/or on the patient floor today, greater than?50% of which was spent counseling/coordinating care. Patient educated on: medication risk/benefits Reason for contiued inpatient stay Substantial Risk for: inability to function, rapid decompensation and med/psych decompensation
[2021-09-04] MEDS: LORazepam 1 MG TABLET PO (21:32)
[2021-09-04 21:38] VITALS: BP 102/51; PULSE 73; RESP 18; TEMP 36.6; O2SAT 99
[2021-09-05 08:35] VITALS: BP 101/65; PULSE 84; RESP 16; TEMP 36.6; O2SAT 99
[2021-09-05] MEDS: OLANZapine 7.5 MG TABLET 15 MG PO ×2 (09:41→20:50)
[2021-09-05] MEDS: cloNIDine HCL 0.1 MG TABLET PO ×2 (09:41→20:50)
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
[2021-09-05 20:52] VITALS: BP 142/89; PULSE 96; TEMP 36.5; O2SAT 97
[2021-09-05] MEDS: LORazepam 1 MG TABLET PO (20:56)
[2021-09-05] MEDS: hydrOXYzine HCL 50 MG TABLET PO (22:07)
[2021-09-05] MEDS: traZODone HCL 100 MG TABLET PO (22:07)
[2021-09-06 08:30] VITALS: BP 102/61; PULSE 88; RESP 20; TEMP 36.3; O2SAT 97
[2021-09-06] MEDS: cloNIDine HCL 0.1 MG TABLET PO (08:45)
[2021-09-06] MEDS: OLANZapine 7.5 MG TABLET 15 MG PO (08:46)
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
== END 2021-09-06 14:06 | disposition home health service (06) | DRG 750 ==
LOC: HO.ED 09-01 01:32 → HO.PADLT16 09-01 15:40
PROVIDERS: Physician Assistant; Admitting Provider Social Worker; Emergency Provider Emergency Medicine Emergency Medical Services; Visit Provider Social Worker
DX: F25.0 Schizoaffective disorder, bipolar type (principal); Z20.822 Contact with and (suspected) exposure to COVID-19; Z79.899 Other long term (current) drug therapy
CPT/HCPCS: 36415; 80053; 80061; 82077; 83036; 83735; 84443; 85025; 87635; 99285; Q0163

== ENCOUNTER 2021-10-15 17:06 | Inpatient (IN) | payer OTHER, SELFPAY ==
[2021-10-15 17:15] VITALS: BP 109/68; PULSE 84; O2SAT 98
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
[2021-10-15 17:30] VITALS: BP 114/73; PULSE 86; RESP 18; TEMP 36.9; O2SAT 98; BMI 42.5
--- NOTE | 2021-10-15 18:15 | PC.NURSE ---
cooperative with spinning frame changer sitter nearby
[2021-10-15 18:37] LABS: Appearance Urine HAZY; Color Urine DK YELLOW; Glucose Urine UA NEG (NEG); Leukocyte Esterase Urine NEG (NEG); Nitrite Urine NEG (NEG); Specific Gravity - Urine >= 1.030 (1.005-1.025); Urine Blood NEG (NEG); Urine Ketones 5 MG/DL (NEG); Urine Protein TRACE MG/DL (NEG-TRACE)
[2021-10-15 18:52] LABS: Amphetamine Screen Urine Not Detected (Not Detect); Barbiturates, Urine Not Detected (Not Detect); Benzodiazepines Screen Urine Not Detected (Not Detect); Cannabinoid Screen Urine POSITIVE (Not Detect); Cocaine Screen Urine Not Detected (Not Detect); Fentanyl, urine Not Detected (Not Detect); Opiate Screen Urine Not Detected (Not Detect); Phencyclidine Screen Urine Not Detected (Not Detect)
[2021-10-15 19:29] LABS: COVID-19 Test Negative (Negative)
--- NOTE | 2021-10-16 01:18 | PC.NURSE ---
Patient refused lab draws, questions, and dinner. Patient did ask to be put in room. redirected back to chair and went to sleep. will continue with plan of care.
[2021-10-16 01:41] LABS: Basophils Percent Auto 0.5 % (0-2); Eosinophils Absolute Auto 0.2 X10*3/uL (0.0-0.4); Eosinophils Percent Auto 1.8 % (0-4); Hematocrit 42.8 % (37.0-47.0); Imm Gran Abs Auto 0.03 X10*3/uL (0.00-0.03); Imm Gran Pct Auto 0.4 % (0.0-0.4); Lymphocytes Percent Auto 35.3 % (20-40); Mean Corpuscular HGB Conc 32.7 g/dl (31.0-35.0); Mean Corpuscular Hemoglobin 27.6 pg (27.0-33.0); Mean Corpuscular Volume 84.4 fL (80.0-98.0); Mean Platelet Volume 9.5 fL (9.4-12.3); Monocytes Absolute Auto 0.7 X10*3/uL (0.1-1.2); Monocytes Percent Auto 7.9 % (2-11); Neutrophils Absolute Auto 4.6 x10*3/uL (2.0-8.3); Neutrophils Percent Auto 54.1 % (45-73); Platelet Count 227 X10*3/uL (160-400); Red Blood Count 5.07 X10*6/uL (4.20-5.50); Red Cell Distribution Width 14.7 % (11.0-16.0); White Blood Count 8.5 X10*3/uL (4.8-10.8)
[2021-10-16 01:42] LABS: MANUAL DIFF FLAG NO
[2021-10-16 02:13] LABS: Alanine Aminotransferase 12 U/L (0-31); Albumin Level 4.3 g/dL (3.5-5.0); Alkaline Phosphatase 62 U/L (39-117); Anion Gap 15 (12-20); Aspartate Amino Transferase 13 U/L (5-31); Bilirubin Total 0.7 mg/dL (0.0-1.0); Blood Urea Nitrogen 16 mg/dL (9-16); Calcium 10.1 mg/dL (8.4-10.2); Carbon Dioxide 25 mmol/L (22-29); Chloride 105 mmol/L (96-108); Creatinine Clr Calc Pharmacy 164.7; Estimated Glomerular Filt Rate > 60; Glucose Random 92 mg/dL (60-115); Magnesium 1.6 mg/dL (1.6-2.6); Potassium 4.4 mmol/L (3.3-5.1); Sodium 141 mmol/L (135-145); Total Protein 7.4 g/dL (6.5-8.0)
[2021-10-16 07:40] VITALS: BP 109/66; PULSE 63; RESP 20; TEMP 36.4; O2SAT 95
[2021-10-16 10:32] VITALS: BP 117/65; PULSE 63; RESP 14; O2SAT 99
[2021-10-16 16:54] VITALS: BP 99/57; PULSE 62; RESP 16; O2SAT 99
[2021-10-16 21:21] VITALS: BP 116/76; PULSE 68; RESP 16; TEMP 36.3; O2SAT 99
--- NOTE | 2021-10-16 21:58 | PC.ADMIT ---
Patient is a 21 year old female. Legal status of a CV. 15 minute safety checks initiated. Patient is covid negative.? A & O x2 person and place. Lack of insight into the situation and reported it is 2020 . Patient presents after endorsing suicial ideation as evidenced by writing a suicide note that read ?My name is Eleni and I just wnt to ?. Patient did not verbalize this to the mother or family, but left a note on the kitchen table. Currently the patient denies SI/HI/AH/VH. However, the patient was having a difficult time focusing during admission process due to responding to internal stimuli. Patient would laugh intermittently. Patient is able to contract for safety if suicidal thoughts occur. Concentration is impaired. Patient declined to sign ANNALEE at this time. Toxicology positive for marijuana. Patient denies acute complaints at this time.
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
[2021-10-16] MEDS: OLANZapine 10 MG TABLET PO (22:50)
[2021-10-17 09:16] LABS: Estimated Average Glucose 94 mg/dL; Hemoglobin A1c % 4.9 %
[2021-10-17 09:21] LABS: Cholesterol 156 mg/dL; HDL Cholesterol 35 mg/dL; LDL Cholesterol Calculated 94 mg/dl; Magnesium 1.8 mg/dL (1.6-2.6); Triglycerides 136 mg/dL
[2021-10-17 09:43] LABS: Free T4 (Free Thyroxine) 0.99 ng/dL (0.71-1.85); Thyroid Stimulating Hormone 1.01 uIU/mL (0.32-4.0)
[2021-10-17 11:00] LABS: Folate 8.3 ng/mL (> or = 4.0); Vitamin B12 260 pg/mL (200-900)
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
[2021-10-17] MEDS: OLANZapine 7.5 MG TABLET 15 MG PO (21:48)
[2021-10-17 21:50] VITALS: BP 132/78; PULSE 86; TEMP 36.6; O2SAT 96
[2021-10-18 06:00] VITALS: BP 107/75; PULSE 88; RESP 18; TEMP 36.6; O2SAT 98
--- NOTE | 2021-10-18 16:28 | P.PNPSI_ITS ---
Subjective Subjective Date of Service: 10/18/21 Reason For Visit: Psychosis Interim History: similar presentation to yesterday. terse, denies Sx. per staff, pleasant. flat, guarded. +RIS. denies Sx. showered. isolative. appeared to have slept well. Mental Status Exam Mental Status Exam Narrative: Pt is in hospital attire, adequately groomed. Good eye contact, inattentive. No Tics or Tremors. Calm, cooperative but not able to meaningfully engage. No abnormal involuntary movements. Non-pressured speech, spontaneous with regular rate and rhythm, normal volume and prosody. No prolonged speech latency or dysarthria. Mood is ?good,? affect is blunted. no SI/HI/AVH expressed. poverty of thought, thought blocking. Insight/ Judgment limited. Diagnostics Vital Signs (24Hr): Vital Signs - 24 hr 10/17/21 21:50 10/18/21 06:00 Temperature 97.9 F 97.8 F Pulse Rate 86 88 Respiratory Rate 18 Blood Pressure 132/78 107/75 Pulse Oximetry 96 98 Oxygen Delivery Method Room Air Room Air BMI result Body Mass Index 42.5 Labs Results: 10/16/21 01:28 10/16/21 01:28 Labs: Laboratory Results - last 48 hr 10/17/21 10/17/21 10/17/21 08:44 08:44 08:44 Estimat Average Glucose 94 Hemoglobin A1c % 4.9 Magnesium 1.8 Triglycerides 136 Cholesterol 156 LDL Cholesterol, Calc 94 HDL Cholesterol 35 Vitamin B12 260 Folate 8.3 TSH 1.01 Free T4 0.99 Medications Medications Current Medications Acetaminophen (Acetaminophen 325 Mg Tablet) 650 mg PO Q6H PRN PRN Reason: Headache/Pain Mild Scale (1-3) Al Hydroxide/Mg Hydroxide (Magnesium Hydrox/Alum Hydrox 30 Ml Oral.Susp) 30 ml PO Q6H PRN PRN Reason: Heartburn/Nausea Hydroxyzine HCl (Hydroxyzine Hcl 25 Mg Tablet) 25 mg PO Q6H PRN PRN Reason: Anxiety Magnesium Hydroxide (Milk Of Magnesia 30 Ml Oral.Susp) 30 ml PO DAILY PRN PRN Reason: Constipation Olanzapine (Olanzapine 7.5 Mg Tablet) 15 mg PO BEDTIME BELA Last Admin: 10/17/21 21:48 Dose: 15 mg Trazodone HCl (Trazodone Hcl 100 Mg Tablet) 100 mg PO BEDTIME PRN PRN Reason: Insomnia Allergies Allergies Allergy/AdvReac Type Severity Reaction Status Date / Time No Known Allergies Allergy Verified 10/15/21 17:30 Assessment & Plan Assessment & Plan (1) Schizoaffective disorder, bipolar type: Status: Acute Code(s): F25.0 - Schizoaffective disorder, bipolar type Plan Eleni is a 20 yo female who carries a dx of bipolar disorder and schizophrenia. She presented to [facility] on 10/15/2021 due to SI, patient presents with a hand written note that her mom found (this is in the chart) that is vaguely suicidal. Pt refused to answer questions, not cooperating. Pt recently discharged from [facility] 09/06/21. Pt is well known to [facility] M5/M3 with similar presentation s/s of rima often in context of med non-adherence. 10/16: Re-start olanzapine 10 mg QHS to target sx of hypomania and psychosis. 10/17: increase zyprexa to 15 mg QHS, add trazodone 100 mg QHS PRN insomnia. 10/18: continue current mgmt. I spent __20____ minutes with the patient and/or on the patient floor today, greater than?50% of which was spent counseling/coordinating care. Reason for contiued inpatient stay Substantial Risk for: harm to self, inability to function and rapid decompensation
[2021-10-18 18:00] VITALS: BP 124/69; PULSE 74; RESP 18; TEMP 36.4; O2SAT 96
[2021-10-18] MEDS: OLANZapine 7.5 MG TABLET 15 MG PO (21:33)
[2021-10-18 21:34] VITALS: BP 117/69; PULSE 75; TEMP 36.4; O2SAT 99
[2021-10-19 06:00] VITALS: BP 101/61; PULSE 56; RESP 16; TEMP 36.9; O2SAT 98
[2021-10-19 07:00] VITALS: BMI 32.7
[2021-10-19 09:31] VITALS: BMI 32.7
--- NOTE | 2021-10-19 14:22 | HO.PSYCHPN ---
Subjective Subjective Date of Service: 10/19/21 Reason For Visit: Psychosis Interim History: calm, cooperative. same presentation as other days. increased latency of response, appears preoccupied. states she is doing fine, denies all psych Sx. discuss maturation of her 3-day on saturday and planning for discharge that day. per staff, 3-day up saturday. flat, walking the halls, denies psych Sx. RIS. attended psych group. eating and sleeping well. feels safe. laughing and dancing in the [place] by herself. Mental Status Exam Mental Status Exam Narrative: Pt is in hospital attire, adequately groomed. Good eye contact, inattentive. No Tics or Tremors. Calm, cooperative but not able to meaningfully engage. No abnormal involuntary movements. Non-pressured speech, spontaneous with regular rate and rhythm, normal volume and prosody. increased latency of response. Mood is ?good,? affect is blunted. no SI/HI/AVH expressed. poverty of thought, thought blocking. Insight/ Judgment limited. Diagnostics Vital Signs (24Hr): Vital Signs - 24 hr 10/18/21 18:00 10/18/21 21:34 10/19/21 06:00 Temperature 97.6 F 97.6 F 98.4 F Pulse Rate 74 75 56 Respiratory Rate 18 16 Blood Pressure 124/69 117/69 101/61 Pulse Oximetry 96 99 98 Oxygen Delivery Method Room Air Room Air Room Air BMI result Body Mass Index 32.7 Labs Results: 10/16/21 01:28 10/16/21 01:28 Medications Medications Current Medications Acetaminophen (Acetaminophen 325 Mg Tablet) 650 mg PO Q6H PRN PRN Reason: Headache/Pain Mild Scale (1-3) Al Hydroxide/Mg Hydroxide (Magnesium Hydrox/Alum Hydrox 30 Ml Oral.Susp) 30 ml PO Q6H PRN PRN Reason: Heartburn/Nausea Hydroxyzine HCl (Hydroxyzine Hcl 25 Mg Tablet) 25 mg PO Q6H PRN PRN Reason: Anxiety Magnesium Hydroxide (Milk Of Magnesia 30 Ml Oral.Susp) 30 ml PO DAILY PRN PRN Reason: Constipation Olanzapine (Olanzapine 7.5 Mg Tablet) 15 mg PO BEDTIME BELA Last Admin: 10/18/21 21:33 Dose: 15 mg Trazodone HCl (Trazodone Hcl 100 Mg Tablet) 100 mg PO BEDTIME PRN PRN Reason: Insomnia Allergies Allergies Allergy/AdvReac Type Severity Reaction Status Date / Time No Known Allergies Allergy Verified 10/15/21 17:30 Assessment & Plan Assessment & Plan (1) Schizoaffective disorder, bipolar type: Status: Acute Code(s): F25.0 - Schizoaffective disorder, bipolar type Plan Eleni is a 20 yo female who carries a dx of bipolar disorder and schizophrenia. She presented to [facility] on 10/15/2021 due to SI, patient presents with a hand written note that her mom found (this is in the chart) that is vaguely suicidal. Pt refused to answer questions, not cooperating. Pt recently discharged from [facility] 09/06/21. Pt is well known to [facility] M5/M3 with similar presentation s/s of rima often in context of med non-adherence. 10/16: Re-start olanzapine 10 mg QHS to target sx of hypomania and psychosis. 10/17: increase zyprexa to 15 mg QHS, add trazodone 100 mg QHS PRN insomnia. 10/18: continue current mgmt. 10/19: continue current mgmt. continues with poverty of thought, delayed responses, bizarre behavior. safe, however. 3-day expires saturday, planning for saturday discharge. I spent __20____ minutes with the patient and/or on the patient floor today, greater than?50% of which was spent counseling/coordinating care. Reason for contiued inpatient stay Substantial Risk for: inability to function and rapid decompensation
[2021-10-19] MEDS: hydrOXYzine HCL 25 MG TABLET PO (16:57)
[2021-10-19 19:05] VITALS: BP 114/72; PULSE 67; RESP 16; TEMP 36.3; O2SAT 99
[2021-10-19] MEDS: OLANZapine 7.5 MG TABLET 15 MG PO (21:24)
[2021-10-20 09:44] VITALS: BP 118/69; PULSE 82; RESP 20; TEMP 36.7; O2SAT 99
--- NOTE | 2021-10-20 15:24 | HO.PSYCHPN ---
Subjective Subjective Date of Service: 10/20/21 Reason For Visit: Psychosis Interim History: no change in presentation. flat affect, slightly delayed responses. everything is good. states she is sleeping and eating well. no complaints or requests. explains she threw chair in her room bcse she can't shower, explaining she can't shower normally and she doesn't want to talk about it bcse it's personal. per staff, singing and dancing in the halls listening to music on headphones. attending groups. +RIS. denies Sx. flat affect. threw a chair in her room. slept well. Mental Status Exam Mental Status Exam Narrative: Pt is in hospital attire, adequately groomed. Good eye contact, inattentive. No Tics or Tremors. Calm, cooperative but not able to meaningfully engage. No abnormal involuntary movements. Non-pressured speech, spontaneous with regular rate and rhythm, normal volume and prosody. increased latency of response. Mood is ?good,? affect is blunted. no SI/HI/AVH expressed. poverty of thought, thought blocking. Insight/ Judgment limited. Diagnostics Vital Signs (24Hr): Vital Signs - 24 hr 10/19/21 19:05 10/20/21 09:44 Temperature 97.3 F 98.0 F Pulse Rate 67 82 Respiratory Rate 16 20 Blood Pressure 114/72 118/69 Pulse Oximetry 99 99 Oxygen Delivery Method Room Air Room Air BMI result Body Mass Index 32.7 Labs Results: 10/16/21 01:28 10/16/21 01:28 Medications Medications Current Medications Acetaminophen (Acetaminophen 325 Mg Tablet) 650 mg PO Q6H PRN PRN Reason: Headache/Pain Mild Scale (1-3) Al Hydroxide/Mg Hydroxide (Magnesium Hydrox/Alum Hydrox 30 Ml Oral.Susp) 30 ml PO Q6H PRN PRN Reason: Heartburn/Nausea Hydroxyzine HCl (Hydroxyzine Hcl 25 Mg Tablet) 25 mg PO Q6H PRN PRN Reason: Anxiety Last Admin: 10/19/21 16:57 Dose: 25 mg Magnesium Hydroxide (Milk Of Magnesia 30 Ml Oral.Susp) 30 ml PO DAILY PRN PRN Reason: Constipation Olanzapine (Olanzapine 7.5 Mg Tablet) 15 mg PO BEDTIME BELA Last Admin: 10/19/21 21:24 Dose: 15 mg Trazodone HCl (Trazodone Hcl 100 Mg Tablet) 100 mg PO BEDTIME PRN PRN Reason: Insomnia Allergies Allergies Allergy/AdvReac Type Severity Reaction Status Date / Time No Known Allergies Allergy Verified 10/15/21 17:30 Assessment & Plan Assessment & Plan (1) Schizoaffective disorder, bipolar type: Status: Acute Code(s): F25.0 - Schizoaffective disorder, bipolar type Plan Eleni is a 20 yo female who carries a dx of bipolar disorder and schizophrenia. She presented to [facility] on 10/15/2021 due to SI, patient presents with a hand written note that her mom found (this is in the chart) that is vaguely suicidal. Pt refused to answer questions, not cooperating. Pt recently discharged from [facility] 09/06/21. Pt is well known to [facility]/ with similar presentation s/s of rima often in context of med non-adherence. 10/16: Re-start olanzapine 10 mg QHS to target sx of hypomania and psychosis. 10/17: increase zyprexa to 15 mg QHS, add trazodone 100 mg QHS PRN insomnia. 10/18: continue current mgmt. 10/19: continue current mgmt. continues with poverty of thought, delayed responses, bizarre behavior. safe, however. 3-day expires saturday, planning for saturday discharge. 10/20: no change in presentation or management. I spent __20____ minutes with the patient and/or on the patient floor today, greater than?50% of which was spent counseling/coordinating care. Reason for contiued inpatient stay Substantial Risk for: inability to function and rapid decompensation
[2021-10-20] MEDS: OLANZapine 7.5 MG TABLET 15 MG PO (20:50)
[2021-10-20 20:53] VITALS: BP 105/67; PULSE 65; TEMP 36.4; O2SAT 97
[2021-10-21 09:08] VITALS: BP 121/78; PULSE 78; RESP 18; TEMP 36.7; O2SAT 96
--- NOTE | 2021-10-21 14:16 | P.PNPSI_ITS ---
Subjective Subjective Date of Service: 10/21/21 Reason For Visit: Psychosis Subjective Notes: 3 Day Interim History: Three-day notice in place which expires on Saturday. As per staff has been guarded but pleasant. Pacing listen to music. Today with automotive service writer reports things are going well. Being in the hospital has helped her reflect on things but reluctant to discuss details. Did appear internally preoccupied. Denied depression. Denied SI. Reports that she would like to discharge home to her mom. Medication Compliance: Yes Side effects from medications: No Attending Groups: Intermittent Review of Systems Acute medical concerns: No Review of Systems Review of Systems Unremarkable Mental Status Exam Mental Status Exam Narrative: engaged. Hospital clothing. Self-care okay. Affect flat. Did appear internally preoccupied. Was slightly guarded. No SI or HI. Insight and judgment limited Diagnostics Vital Signs (24Hr): Vital Signs - 24 hr 10/20/21 20:53 10/21/21 09:08 Temperature 97.6 F 98.0 F Pulse Rate 65 78 Respiratory Rate 18 Blood Pressure 105/67 121/78 Pulse Oximetry 97 96 Oxygen Delivery Method Room Air Room Air BMI result Body Mass Index 32.7 Labs Results: 10/16/21 01:28 10/16/21 01:28 Medications Medications Current Medications Acetaminophen (Acetaminophen 325 Mg Tablet) 650 mg PO Q6H PRN PRN Reason: Headache/Pain Mild Scale (1-3) Al Hydroxide/Mg Hydroxide (Magnesium Hydrox/Alum Hydrox 30 Ml Oral.Susp) 30 ml PO Q6H PRN PRN Reason: Heartburn/Nausea Hydroxyzine HCl (Hydroxyzine Hcl 25 Mg Tablet) 25 mg PO Q6H PRN PRN Reason: Anxiety Last Admin: 10/19/21 16:57 Dose: 25 mg Magnesium Hydroxide (Milk Of Magnesia 30 Ml Oral.Susp) 30 ml PO DAILY PRN PRN Reason: Constipation Olanzapine (Olanzapine 7.5 Mg Tablet) 15 mg PO BEDTIME BELA Last Admin: 10/20/21 20:50 Dose: 15 mg Trazodone HCl (Trazodone Hcl 100 Mg Tablet) 100 mg PO BEDTIME PRN PRN Reason: Insomnia Allergies Allergies Allergy/AdvReac Type Severity Reaction Status Date / Time No Known Allergies Allergy Verified 10/15/21 17:30 Assessment & Plan Assessment & Plan (1) Schizoaffective disorder, bipolar type: Status: Acute Code(s): F25.0 - Schizoaffective disorder, bipolar type Plan Eleni is a 20 yo female who carries a dx of bipolar disorder and schizophrenia. She presented to [facility] on 10/15/2021 due to SI, patient presents with a hand written note that her mom found (this is in the chart) that is vaguely suicidal. Pt refused to answer questions, not cooperating. Pt recently discharged from [facility] 09/06/21. Pt is well known to [facility] M[facility]/M[facility] with similar presentation s/s of rima often in context of med non-adherence. 10/16: Re-start olanzapine 10 mg QHS to target sx of hypomania and psychosis. 10/17: increase zyprexa to 15 mg QHS, add trazodone 100 mg QHS PRN insomnia. 10/18: continue current mgmt. 10/19: continue current mgmt. continues with poverty of thought, delayed responses, bizarre behavior. safe, however. 3-day expires saturday, planning for saturday discharge. 10/20: no change in presentation or management. 10/21/2021: No changes to current treatment plan. Three-day notice expires Saturday10/23/2021 I spent minutes with the patient and/or on the patient floor today, greater than?50% of which was spent counseling/coordinating care. Reason for contiued inpatient stay Substantial Risk for: rapid decompensation
[2021-10-21] MEDS: OLANZapine 7.5 MG TABLET 15 MG PO (21:24)
[2021-10-21 21:26] VITALS: BP 119/69; PULSE 69; TEMP 36.6; O2SAT 97
[2021-10-22 09:42] VITALS: BP 97/69; PULSE 85; RESP 20; TEMP 36.3; O2SAT 98
--- NOTE | 2021-10-22 11:46 | P.PNPSI_ITS ---
Subjective Subjective Date of Service: 10/22/21 Reason For Visit: Psychosis Interim History: Three-day notice in place which expires on Saturday. Appears less anxious today and less pacing. Reports things are going well. Lessinternally preoccupied. Denied depression. Denied SI. Reports that she would like to discharge home to her mom and older sister and enjoys journaling to stay busy at home. Medication Compliance: Yes Side effects from medications: No Attending Groups: Intermittent Review of Systems Acute medical concerns: No Review of Systems Review of Systems Unremarkable Mental Status Exam Mental Status Exam Narrative: engaged. Hospital clothing. Self-care okay. Affect flat. Less internally preoccupied. Less guarded. No SI or HI. Insight and judgment fair Diagnostics Vital Signs (24Hr): Vital Signs - 24 hr 10/21/21 21:26 10/22/21 09:42 Temperature 97.8 F 97.3 F Pulse Rate 69 85 Respiratory Rate 20 Blood Pressure 119/69 97/69 Pulse Oximetry 97 98 Oxygen Delivery Method Room Air Room Air BMI result Body Mass Index 32.7 Labs Results: 10/16/21 01:28 10/16/21 01:28 Medications Medications Current Medications Acetaminophen (Acetaminophen 325 Mg Tablet) 650 mg PO Q6H PRN PRN Reason: Headache/Pain Mild Scale (1-3) Al Hydroxide/Mg Hydroxide (Magnesium Hydrox/Alum Hydrox 30 Ml Oral.Susp) 30 ml PO Q6H PRN PRN Reason: Heartburn/Nausea Hydroxyzine HCl (Hydroxyzine Hcl 25 Mg Tablet) 25 mg PO Q6H PRN PRN Reason: Anxiety Last Admin: 10/19/21 16:57 Dose: 25 mg Magnesium Hydroxide (Milk Of Magnesia 30 Ml Oral.Susp) 30 ml PO DAILY PRN PRN Reason: Constipation Olanzapine (Olanzapine 7.5 Mg Tablet) 15 mg PO BEDTIME BELA Last Admin: 10/21/21 21:24 Dose: 15 mg Trazodone HCl (Trazodone Hcl 100 Mg Tablet) 100 mg PO BEDTIME PRN PRN Reason: Insomnia Allergies Allergies Allergy/AdvReac Type Severity Reaction Status Date / Time No Known Allergies Allergy Verified 10/15/21 17:30 Assessment & Plan Assessment & Plan (1) Schizoaffective disorder, bipolar type: Status: Acute Code(s): F25.0 - Schizoaffective disorder, bipolar type Plan Eleni is a 20 yo female who carries a dx of bipolar disorder and schizophrenia. She presented to [facility] on 10/15/2021 due to SI, patient presents with a hand written note that her mom found (this is in the chart) that is vaguely suicidal. Pt refused to answer questions, not cooperating. Pt recently discharged from [facility] M5 09/06/21. Pt is well known to [facility] M5/M3 with similar presentation s/s of rima often in context of med non-adherence. 10/16: Re-start olanzapine 10 mg QHS to target sx of hypomania and psychosis. 10/17: increase zyprexa to 15 mg QHS, add trazodone 100 mg QHS PRN insomnia. 10/18: continue current mgmt. 10/19: continue current mgmt. continues with poverty of thought, delayed responses, bizarre behavior. safe, however. 3-day expires saturday, planning for saturday discharge. 10/20: no change in presentation or management. 10/22/2021: No changes to current treatment plan. Three-day notice expires Saturday10/23/2021 I spent minutes with the patient and/or on the patient floor today, greater than?50% of which was spent counseling/coordinating care. Reason for contiued inpatient stay Substantial Risk for: rapid decompensation
[2021-10-22 18:40] VITALS: BP 104/66; PULSE 72; RESP 16; TEMP 36.4; O2SAT 98
[2021-10-22] MEDS: OLANZapine 7.5 MG TABLET 15 MG PO (22:21)
[2021-10-23 09:27] VITALS: BP 112/59; PULSE 97; RESP 14; TEMP 36.7; O2SAT 99
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
== END 2021-10-23 12:15 | disposition home health service (06) | DRG 750 ==
LOC: HO.ED 18:03 → HO.PADLT16 10-16 20:28
PROVIDERS: Physician Assistant; Registered Nurse; Admitting Provider Psychiatry & Neurology Psychiatry; Emergency Provider Student in an Organized Health Care Education/Training Program; Visit Provider Psychiatry & Neurology Psychiatry
DX: F25.0 Schizoaffective disorder, bipolar type (principal); R45.851 Suicidal ideations; Z20.822 Contact with and (suspected) exposure to COVID-19; Z91.14 Patient's other noncompliance with medication regimen; Z79.899 Other long term (current) drug therapy
CPT/HCPCS: 36415; 80053; 80061; 80307; 81003; 82607; 82746; 83036; 83735; 84439; 84443; 85025; 87635; 96372; 99284; 99285

== ENCOUNTER 2021-12-06 20:40 | Inpatient (IN) | payer MEDICAID, OTHER, SELFPAY ==
[2021-12-06 20:46] VITALS: BP 114/78; PULSE 84; RESP 18; TEMP 36.7; O2SAT 97; BMI 30.4
--- OUTSIDE RECORDS SUMMARY | 2021-12-06 21:04 | XMS_ITS | Continuity of Care Document ---
:2000 Author Organization [facility] Address [address] [place] [address]- Care Team Providers Name Role Phone Amaya PERSAUD, Szuan Primary Care Physician Encounter [facility] Date(s): 11/18/18 - 03/18/19 [facility] [address] [place] [address]- [facility] Attending Physician: Serjio Christianson MD Allergies, Adverse Reactions, Alerts Substance Reaction Severity Status NKA Active Immunizations Given and Recorded Vaccine Date Status Refusal Reason influenza virus vaccine, live 01/20/14 Given influenza virus vaccine, live 01/16/13 Given Human Papillomavirus Vaccine 01/16/13 Given Human Papillomavirus Vaccine 10/23/11 Given Meningococcal Conjugate Vaccine 10/23/11 Given tetanus/diphtheria/pertussis, acel(Tdap) 10/23/11 Given Varicella Virus Vaccine1 08/24/09 Given Varicella Virus Vaccine2 07/23/01 Given Measles/Mumps/Rubella Virus Vaccine3 09/19/05 Given Measles/Mumps/Rubella Virus Vaccine4 07/23/01 Given Poliovirus Vaccine, Inactivated 09/19/05 Given Poliovirus Vaccine, Inactivated 06/04/01 Given Poliovirus Vaccine, Inactivated 00 Given Poliovirus Vaccine, Inactivated 00 Given diphtheria/tetanus/pertussis, acel(DTaP) 05/13/02 Given diphtheria/tetanus/pertussis, acel(DTaP) 01/22/01 Given diphtheria/tetanus/pertussis, acel(DTaP) 00 Given diphtheria/tetanus/pertussis, acel(DTaP)5 00 Given pneumococcal 7-valent vaccine 10/31/01 Given pneumococcal 7-valent vaccine 01/22/01 Given pneumococcal 7-valent vaccine 00 Given pneumococcal 7-valent vaccine 00 Given Haemophilus B conjugate (HbOC) vaccine6 10/31/01 Given Haemophilus B conjugate (HbOC) vaccine 01/22/01 Given Haemophilus B conjugate (HbOC) vaccine 00 Given Haemophilus B conjugate (HbOC) vaccine 00 Given hepatitis B pediatric vaccine 01/22/01 Given hepatitis B pediatric vaccine 00 Given hepatitis B pediatric vaccine 00 Given 1Admin Note: VIS Date 05/22/20072Admin Note: VIS Date 05/22/20073Admin Note: vis date 05/22/20074Admin Note: vis date 05/22/20075Admin Note: Date of vaccine amended after chart review of med records from [facility]. [id number] Note: HIB Medications Flonase 50 mcg/inh nasal spray 1 sprays, Nares, Both, 2 times a day, # 1 each, 3 Refills, Maintenance, 1 sprays Nares, Both 2 timesa day,x30 days Start Date: 01/18/13 Stop Date: 05/18/13 Status: Orderednaproxen 500 mg oral tablet 1 tablet = 500 mg, By Mouth, 2 times a day, # 60 tablet, 3 Refills, Maintenance, 12/27/16 8:36:27 Start Date: 12/27/16 Status: Orderednaproxen 500 mg oral tablet 1 tablet = 500 mg, By Mouth, 2 times a day, # 60 tablet, 3 Refills, Maintenance, 11/17/18 14:56:35 EDT Start Date: 11/17/18 Status: Orderedomeprazole 20 mg oral enteric coated capsule 1 capsule = 20 mg, By Mouth, Daily, # 30 capsule, 1 Refills, Maintenance, 12/27/16 8:36:36 Start Date: 12/27/16 Status: Ordered Problem List Condition Effective Dates Status Health Status Informant Healthy child(Confirmed) Active Obesity(Confirmed) Active Social History Social History Type Response Smoking Status Never smoker; Tobacco user i n household: No entered on: 12/27/16 Sex
--- OUTSIDE RECORDS SUMMARY | 2021-12-06 21:04 | XMS_ITS | Continuity of Care Document ---
:2000 Author Organization [facility] Address [address] [place] [address]- Care Team Providers Name Role Phone Amaya PERSAUD, Suzan Primary Care Physician Encounter [facility] Date(s): 02/16/19 - 02/26/19 [facility] [address] [place] [id number]- [facility] Attending Physician: Alexsander Caicedo Admitting Physician: Alexsander Caicedo Referring Physician: AdmtrAlexsander Allergies, Adverse Reactions, Alerts Substance Reaction Severity [...] after chart review of med records from [facility]. [id number] Note: HIB Medications Flonase 50 mcg/inh nasal [...]
[2021-12-06 21:21] LABS: Appearance Urine Cloudy; Color Urine Yellow; Glucose Urine UA Negative (Negative); Leukocyte Esterase Urine Small (1+) (Negative); Nitrite Urine Negative (Negative); PH 6.5 (5.0-9.0); Specific Gravity - Urine >= 1.030 (1.005-1.025); UMIC TRIGGER UA YES; Urine Blood Negative (Negative); Urine Ketones Trace mg/dL (Negative); Urine Protein Trace mg/dL (Neg-Trace)
[2021-12-06 21:27] LABS: COVID-19 Test Negative (Negative)
[2021-12-06 21:28] LABS: Amphetamine Screen Urine Not Detected (Not Detect); Barbiturates, Urine Not Detected (Not Detect); Benzodiazepines Screen Urine Not Detected (Not Detect); Cannabinoid Screen Urine POSITIVE (Not Detect); Cocaine Screen Urine Not Detected (Not Detect); Fentanyl, urine Not Detected (Not Detect); Opiate Screen Urine Not Detected (Not Detect); Phencyclidine Screen Urine Not Detected (Not Detect)
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
[2021-12-06 22:10] LABS: Bacteria Urine 4+ (None Seen); Hyaline Casts Urine 0-2 /LPF (0-2); RBC Urine 0-2 /HPF (0-2); WBC Urine 0-5 /HPF (0-5)
[2021-12-06] MEDS: cloNIDine HCL 0.1 MG TABLET PO (22:22)
[2021-12-06] MEDS: traZODone HCL 100 MG TABLET PO (22:23)
[2021-12-06] MEDS: OLANZapine 7.5 MG TABLET 15 MG PO (22:24)
--- NOTE | 2021-12-07 | ECG_ITS ---
Test Reason : med clearance Blood Pressure : / mmHG Vent. Rate : 063 BPM Atrial Rate : 063 BPM P-R Int : 188 ms QRS Dur : 084 ms QT Int : 394 ms P-R-T Axes : 064 081 054 degrees QTc Int : 403 ms Normal sinus rhythm Normal ECG When compared with ECG of 03-APR-2021 10:19, QT has shortened Referred By: Florinda Smith Electronically Signed By:ABE PRINCE
--- NOTE | 2021-12-07 04:06 | PC.NURSE ---
Patient slept well, comfortable in her bed. BHN assessed in community,disposition section 12 inpatient bed search. V/S stable. Possible adm. to A5.Will continue to monitor.
[2021-12-07 05:41] VITALS: BP 127/74; PULSE 68; RESP 16; TEMP 36.6; O2SAT 96
[2021-12-07 06:56] LABS: UPreg QC Valid YES
[2021-12-07 06:57] LABS: Urine Pregnancy NEGATIVE (NEGATIVE)
--- NOTE | 2021-12-07 07:13 | PC.NURSE ---
patient appears to remain asleep respirations are even and unlabored patient appears in no distress
[2021-12-07] MEDS: cloNIDine HCL 0.1 MG TABLET PO ×2 (09:17→18:57)
[2021-12-07 12:33] LABS: MANUAL DIFF FLAG NO
[2021-12-07 12:38] LABS: Basophils Percent Auto 0.3 % (0-2); Eosinophils Absolute Auto 0.2 X10*3/uL (0.0-0.4); Eosinophils Percent Auto 1.8 % (0-4); Imm Gran Abs Auto 0.03 X10*3/uL (0.00-0.03); Imm Gran Pct Auto 0.3 % (0.0-0.4); Lymphocytes Percent Auto 33.5 % (20-40); Mean Corpuscular HGB Conc 32.6 g/dl (31.0-35.0); Mean Corpuscular Hemoglobin 27.7 pg (27.0-33.0); Mean Corpuscular Volume 85.1 fL (80.0-98.0); Mean Platelet Volume 10.1 fL (9.4-12.3); Monocytes Absolute Auto 0.5 X10*3/uL (0.1-1.2); Monocytes Percent Auto 5.9 % (2-11); Neutrophils Absolute Auto 5.2 x10*3/uL (2.0-8.3); Neutrophils Percent Auto 58.2 % (45-73); Platelet Count 212 X10*3/uL (160-400); Red Blood Count 5.05 X10*6/uL (4.20-5.50); Red Cell Distribution Width 14.8 % (11.0-16.0)
[2021-12-07 12:53] LABS: Alanine Aminotransferase 13 U/L (0-31); Albumin Level 3.9 g/dL (3.5-5.0); Alkaline Phosphatase 58 U/L (39-117); Anion Gap 12 (12-20); Aspartate Amino Transferase 11 U/L (5-31); Bilirubin Total 0.4 mg/dL (0.0-1.0); Blood Urea Nitrogen 17 mg/dL (9-16); Calcium 9.8 mg/dL (8.4-10.2); Carbon Dioxide 24 mmol/L (22-29); Chloride 108 mmol/L (96-108); Creatinine Clr Calc Pharmacy 143.6; Estimated Glomerular Filt Rate > 60; Glucose Random 94 mg/dL (60-115); Potassium 4.4 mmol/L (3.3-5.1); Sodium 140 mmol/L (135-145); Total Protein 6.8 g/dL (6.5-8.0)
--- NOTE | 2021-12-07 15:45 | PHA.MEDREC ---
Pharmacy Consult ? Medication Reconciliation Pharmacy has completed the medication reconciliation. CHECKED MED REC DONE BY NURSING
--- NOTE | 2021-12-07 16:42 | PC.ADMIT ---
Pt is a 21 year old female who is previously kown to M5 from [facility] at approx at 1600 on a cv status. Pt is covid -, tox screen postive for THC. Per chart review, pt presents with active SI, disorganized thought procress, and poor ADL's. Pt is currently endorsing active SI with plan and intent to walk into traffic. She is unable to express any information regarding current HI, plan or intent. She appears to be responding to internal stimuli throughout the assessment. During admit, pt did not speak a lot and answered yes and no to questions. Pt denied SI,HI,AH,VH. Pt reported that she would come to staff if she had any intrusive thoughts to harm herself or others. Pt at times seems internally preoccupied. Pt has past trauma hx, Provider called and notified of admission. Start treatment plan and monitor for safety. pt has hx of Bipolar I and schizophrenia
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
--- NOTE | 2021-12-07 18:54 | PC.NURSE ---
Pt signed a 3 day notice up on December 12.
[2021-12-07] MEDS: OLANZapine 7.5 MG TABLET 15 MG PO (18:57)
[2021-12-07] MEDS: traZODone HCL 100 MG TABLET PO (18:57)
[2021-12-08 06:00] VITALS: BP 129/71; PULSE 92; RESP 18; O2SAT 98
[2021-12-08] MEDS: cloNIDine HCL 0.1 MG TABLET PO ×2 (08:00→19:04)
[2021-12-08 09:45] LABS: Estimated Average Glucose 100 mg/dL; Hemoglobin A1c % 5.1 %
[2021-12-08 09:58] LABS: Cholesterol 193 mg/dL; HDL Cholesterol 38 mg/dL; LDL Cholesterol Calculated 120 mg/dl; Magnesium 1.9 mg/dL (1.6-2.6); Triglycerides 177 mg/dL
[2021-12-08 10:21] LABS: Free T4 (Free Thyroxine) 0.89 ng/dL (0.71-1.85); Thyroid Stimulating Hormone 2.54 uIU/mL (0.32-4.0)
[2021-12-08 10:35] LABS: Folate 6.3 ng/mL (> or = 4.0); Vitamin B12 245 pg/mL (200-900)
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
[2021-12-08 17:38] VITALS: BP 109/66; PULSE 58; RESP 18; TEMP 36.5
[2021-12-08] MEDS: OLANZapine 7.5 MG TABLET 15 MG PO (19:04)
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
[2021-12-09 08:29] VITALS: BP 92/61; PULSE 68; TEMP 36.4; O2SAT 99
[2021-12-09] MEDS: cloNIDine HCL 0.1 MG TABLET PO ×2 (08:39→19:18)
[2021-12-09] MEDS: Thiamine HCL 100 MG TABLET PO (08:40)
[2021-12-09] MEDS: Multivitamin TABLET 1 TAB PO (08:40)
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
[2021-12-09 15:58] VITALS: BP 111/68; PULSE 62
[2021-12-09] MEDS: OLANZapine 10 MG TABLET 20 MG PO (19:18)
[2021-12-10 08:13] VITALS: BP 99/63; PULSE 73; TEMP 36.3; O2SAT 97
[2021-12-10] MEDS: Multivitamin TABLET 1 TAB PO (08:26)
[2021-12-10] MEDS: Thiamine HCL 100 MG TABLET PO (08:26)
[2021-12-10] MEDS: cloNIDine HCL 0.1 MG TABLET PO ×2 (08:26→19:28)
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
[2021-12-10 17:04] VITALS: BP 110/71; PULSE 86; TEMP 36.5; O2SAT 97
[2021-12-10] MEDS: OLANZapine 10 MG TABLET 20 MG PO (19:29)
[2021-12-11 09:20] VITALS: BP 136/60; PULSE 85; RESP 16; TEMP 36.9; O2SAT 97
[2021-12-11] MEDS: Multivitamin TABLET 1 TAB PO (09:24)
[2021-12-11] MEDS: Thiamine HCL 100 MG TABLET PO (09:24)
[2021-12-11] MEDS: cloNIDine HCL 0.1 MG TABLET PO ×2 (09:24→18:53)
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
[2021-12-11] MEDS: traZODone HCL 100 MG TABLET PO (18:53)
[2021-12-11] MEDS: OLANZapine 10 MG TABLET 20 MG PO (18:53)
[2021-12-11 18:55] VITALS: BP 135/65; PULSE 70; TEMP 36.6
[2021-12-12 06:00] VITALS: BP 124/93; PULSE 84; RESP 14
[2021-12-12] MEDS: Multivitamin TABLET 1 TAB PO (09:30)
[2021-12-12] MEDS: cloNIDine HCL 0.1 MG TABLET PO (09:30)
[2021-12-12] MEDS: Thiamine HCL 100 MG TABLET PO (09:30)
--- NOTE | 2021-12-12 15:03 | PM.PSYDC ---
DS: Providers Provider Date of Service: 12/12/21 Date of admission: 12/07/21 13:48 Date of discharge: 12/12/21 Primary care physician: Unknown Physician Admitting clinician: Micaela Bryan Attending physician on admission: José Miguel Pierce Attending physician on discharge: José Miguel Pierce Discharging clinician: Micaela Bryan DS: Diagnosis Discharge Diagnosis (1) Schizoaffective disorder, bipolar type: Status: Acute (2) Cannabis use disorder: Status: Acute (3) Suicidal ideation: Status: Resolved DS: Medications Discharge Medications Home Medications: Previous Rx's Medication Instructions Recorded clonidine HCl 0.1 mg tablet 1 tab PO BID #60 tabs 12/12/21 multivitamin (Daily-Ioana tablet) 1 tab PO DAILY #30 tabs 12/12/21 olanzapine 10 mg tablet 20 mg PO BEDTIME #30 tabs 12/12/21 thiamine mononitrate (vit B1) 100 100 mg PO DAILY #30 tabs 12/12/21 mg tablet trazodone 100 mg tablet 1 tab PO BEDTIME PRN insomnia #30 12/12/21 tabs Mental Status Exam Mental Status Exam Patient Appearance: Appropriate Patient Orientation: Person, Place, Time and Situation Level of Consciousness: Alert Patient Behavior: Guarded, Talkative and Distractible Mood Description: Flat Affect Description: Flat Patient Cognition Impaired: No Ability to Follow Directions: Good Speech Pattern: Spontaneous Speech and Long Pauses Memory Description: Episodic Impaired Hallucinations: None (denies) Thought Process: Distracted Thought Content: positive for [place], positive for Circumstantial, positive for Tangential, positive for Suicidal Ideation (denies) and positive for Homicidal Ideation (denies) Judgement: Fair Data Data Completed and Pending Completed studies during hospitalization [Text1]: 12/06/21 12/06/21 12/06/21 06:52 21:05 21:05 WBC RBC Hgb Hct MCV MCH MCHC RDW Plt Count MPV Immature Gran % (Auto) Neut % (Auto) Lymph % (Auto) [place] % (Auto) Eos % (Auto) Baso % (Auto) Lymph # (Auto) [place] # (Auto) Eos # (Auto) Baso # (Auto) Abs Immat Gran (auto) Absolute Neuts (auto) Absolute Nucleated RBC Nucleated RBC % (auto) Sodium Potassium Chloride Carbon Dioxide Anion Gap BUN Creatinine Estim Creat Clear Calc Estimated GFR Random Glucose Estimat Average Glucose Hemoglobin A1c % Calcium Magnesium Total Bilirubin AST ALT Alkaline Phosphatase Total Protein Albumin Triglycerides Cholesterol LDL Cholesterol, Calc HDL Cholesterol Vitamin B12 Folate TSH Free T4 Urine Color Urine Appearance Urine pH Ur Specific [place] Urine Protein Urine Glucose (UA) Urine Ketones Urine Blood Urine Nitrite Ur Leukocyte Esterase Urine RBC Urine WBC Ur Squamous Epith Cells Urine Bacteria Hyaline Casts Urine Test NEGATIVE Urine Opiates Screen Not Detected Urine Fentanyl Screen Not Detected Ur Barbiturates Screen Not Detected Ur Phencyclidine Scrn Not Detected Ur Amphetamines Screen Not Detected U Benzodiazepines Scrn Not Detected Urine Cocaine Screen Not Detected U Marijuana (THC) Screen POSITIVE H COVID-19 (BRENDA) Negative COVID-19 Clin Com See Note 12/06/21 12/07/21 12/07/21 21:05 12:29 12:29 WBC 9.0 RBC 5.05 Hgb 14.0 Hct 43.0 MCV 85.1 MCH 27.7 MCHC 32.6 RDW 14.8 Plt Count 212 MPV 10.1 Immature Gran % (Auto) 0.3 Neut % (Auto) 58.2 Lymph % (Auto) 33.5 [place] % (Auto) 5.9 Eos % (Auto) 1.8 Baso % (Auto) 0.3 Lymph # (Auto) 3.0 [place] # (Auto) 0.5 Eos # (Auto) 0.2 Baso # (Auto) 0.0 Abs Immat Gran (auto) 0.03 Absolute Neuts (auto) 5.2 Absolute Nucleated RBC 0.000 Nucleated RBC % (auto) 0.0 Sodium 140 Potassium 4.4 Chloride 108 Carbon Dioxide 24 Anion Gap 12 BUN 17 H Creatinine 0.73 Estim Creat Clear Calc 143.6 Estimated GFR > 60 Random Glucose 94 Estimat Average Glucose Hemoglobin A1c % Calcium 9.8 Magnesium Total Bilirubin 0.4 AST 11 ALT 13 Alkaline Phosphatase 58 Total Protein 6.8 Albumin 3.9 Triglycerides Cholesterol LDL Cholesterol, Calc HDL Cholesterol Vitamin B12 Folate TSH Free T4 Urine Color Yellow Urine Appearance Cloudy Urine pH 6.5 Ur Specific [place] >= 1.030 H Urine Protein Trace Urine Glucose (UA) Negative Urine Ketones Trace Urine Blood Negative Urine Nitrite Negative Ur Leukocyte Esterase Small (1+) H Urine RBC 0-2 Urine WBC 0-5 Ur Squamous Epith Cells 3-5 Urine Bacteria 4+ Hyaline Casts 0-2 Urine Test Urine Opiates Screen Urine Fentanyl Screen Ur Barbiturates Screen Ur Phencyclidine Scrn Ur Amphetamines Screen U Benzodiazepines Scrn Urine Cocaine Screen U Marijuana (THC) Screen COVID-19 (BRENDA) COVID-19 Clin Com 12/08/21 12/08/21 12/08/21 08:27 08:27 08:27 WBC RBC Hgb Hct MCV MCH MCHC RDW Plt Count MPV Immature Gran % (Auto) Neut % (Auto) Lymph % (Auto) [place] % (Auto) Eos % (Auto) Baso % (Auto) Lymph # (Auto) [place] # (Auto) Eos # (Auto) Baso # (Auto) Abs Immat Gran (auto) Absolute Neuts (auto) Absolute Nucleated RBC Nucleated RBC % (auto) Sodium Potassium Chloride Carbon Dioxide Anion Gap BUN Creatinine Estim Creat Clear Calc Estimated GFR Random Glucose Estimat Average Glucose 100 Hemoglobin A1c % 5.1 Calcium Magnesium 1.9 Total Bilirubin AST ALT Alkaline Phosphatase Total Protein Albumin Triglycerides 177 Cholesterol 193 D LDL Cholesterol, Calc 120 HDL Cholesterol 38 Vitamin B12 245 Folate 6.3 TSH 2.54 Free T4 0.89 Urine Color Urine Appearance Urine pH Ur Specific [place] Urine Protein Urine Glucose (UA) Urine Ketones Urine Blood Urine Nitrite Ur Leukocyte Esterase Urine RBC Urine WBC Ur Squamous Epith Cells Urine Bacteria Hyaline Casts Urine Test Urine Opiates Screen Urine Fentanyl Screen Ur Barbiturates Screen Ur Phencyclidine Scrn Ur Amphetamines Screen U Benzodiazepines Scrn Urine Cocaine Screen U Marijuana (THC) Screen COVID-19 (BRENDA) COVID-19 Clin Com DS: Summary Hospital Course Hospital Course: Admission to adult psychiatry for exacerbation of schizoaffective disorder, bipolar type and cannabis use disorder. Pt signed a three day notice upon admission. Olanzapine was increased, Clonidine and Trazodone were continued and pt accepted vitamin B-1 and a multivitamin. She was able to leave on her three day notice and will return to her mother's home. Time spent discussing smoking cessation with patient: 3 to 10 minutes Status at Discharge Functional status at discharge: independent ambulation Overall status at discharge: patient is progressing back to baseline Time Spent with Patient Time attestation: Total time spent providing and/or coordinating discharge services: 35 Time spent: Greater than 30 minutes Discharge Plan Discharge Anticipated Discharge Date/Time: 12/12/21 14:23 Patient Disposition: Home, Self-Care Discharge Diagnosis: Schizoaffective Disorder, Bipolar Type Cannabis Use Disorder Referrals: Therapy: Jose Armando Lima ([facility]) [Other] - 12/18/21 2:45 pm (In person at the office ) Psych Prescriber: Lisette Hare ([facility]) [Other] - 01/10/22 11:00 am (In person at the office ) Psychiatrist: Lisette Hare ([facility]) [Other] - 02/12/22 10:00 am (Telehealth ) [facility] [Other] - 12/13/21 (FAX- [phone] The Visiting RN services will begin on 12/13/21. ) Katherine Ryan MD [Physician] - 12/26/21 1:00 pm (IN OFFICE) Discharge Medications: New multivitamin [Daily-Ioana] Tablet 1 tab PO DAILY Qty: 30 0RF olanzapine 10 mg Tablet 20 mg PO BEDTIME Qty: 30 0RF thiamine mononitrate (vit B1) 100 mg Tablet 100 mg PO DAILY Qty: 30 0RF Continued clonidine HCl 0.1 mg tablet 1 tab PO BID Qty: 60 0RF trazodone 100 mg tablet 1 tab PO BEDTIME PRN (Reason: insomnia) Qty: 30 0RF Discontinued olanzapine 15 mg tablet 15 mg PO BEDTIME Qty: 30 0RF Discharge Orders: Discharge Order (Routine); Ordered 12/12/21 Ordered By: Micaela Bryan Diet: Advance to usual diet Activity on Discharge: As tolerated Stand Alone Forms: Patient Portal Discharge page, Community Support Care Plan Goals: Maintain mood and safe behaviors Take medications as directed Practice coping skills Continue with out patient providers and connect with them as needed Health Concerns: Stable mood and behaviors Plan of Treatment: Follow up with out patient provider appointments Take medications as directed Assessment: alert, oriented, non suicidal, non homicidal, non manic, non psychotic Discharge Date/Time: 12/12/21 13:58
== END 2021-12-12 13:58 | disposition home or self-care (01) | DRG 750 ==
LOC: HO.ED 12-07 13:05 → HO.PM5 12-07 15:39
PROVIDERS: Clinical Nurse Specialist Psychiatric/Mental Health, Adult; Nurse Practitioner Family; Admitting Provider Psychiatry & Neurology Psychiatry; Emergency Provider Internal Medicine; Visit Provider Psychiatry & Neurology Psychiatry
DX: F25.0 Schizoaffective disorder, bipolar type (principal); R45.851 Suicidal ideations; J45.909 Unspecified asthma, uncomplicated; Z79.899 Other long term (current) drug therapy
CPT/HCPCS: 36415; 80053; 80061; 80307; 81001; 81025; 82607; 82746; 83036; 83735; 84439; 84443; 85025; 87635; 90792; 93005; 99285

== ENCOUNTER 2022-01-09 13:32 | Emergency (ER) | payer MEDICAID, SELFPAY ==
[2022-01-09 13:37] VITALS: BP 95/70; PULSE 85; O2SAT 97
[2022-01-09 13:39] VITALS: BP 99/73; PULSE 75; RESP 18; TEMP 36.6; O2SAT 98; BMI 15.2
[2022-01-09 14:17] LABS: MANUAL DIFF FLAG NO
[2022-01-09 14:20] LABS: Appearance Urine Cloudy; Color Urine Dark Yellow; Glucose Urine UA Negative (Negative); Leukocyte Esterase Urine Small (1+) (Negative); Nitrite Urine Negative (Negative); PH 5.5 (5.0-9.0); Specific Gravity - Urine >= 1.030 (1.005-1.025); UMIC TRIGGER UACC YES; Urine Blood Large (3+) (Negative); Urine Ketones Trace mg/dL (Negative); Urine Protein 30 (1+) mg/dL (Neg-Trace)
[2022-01-09 14:22] LABS: Bacteria Urine 1+ (None Seen); Hyaline Casts Urine 0-2 /LPF (0-2); RBC Urine >20 /HPF (0-2); UACC Culture Trigger YES; UPreg QC Valid YES; Urine Pregnancy NEGATIVE (NEGATIVE)
[2022-01-09 14:25] LABS: Basophils Absolute Auto 0.1 X10*3/uL (0.0-0.2); Basophils Percent Auto 0.5 % (0-2); Eosinophils Absolute Auto 0.2 X10*3/uL (0.0-0.4); Hematocrit 44.2 % (37.0-47.0); Hemoglobin 14.4 g/dl (12.0-16.0); Imm Gran Abs Auto 0.02 X10*3/uL (0.00-0.03); Imm Gran Pct Auto 0.2 % (0.0-0.4); Lymphocytes Percent Auto 20.1 % (20-40); Mean Corpuscular HGB Conc 32.6 g/dl (31.0-35.0); Mean Corpuscular Hemoglobin 28.3 pg (27.0-33.0); Mean Corpuscular Volume 86.8 fL (80.0-98.0); Mean Platelet Volume 9.8 fL (9.4-12.3); Monocytes Absolute Auto 0.5 X10*3/uL (0.1-1.2); Monocytes Percent Auto 5.3 % (2-11); Neutrophils Absolute Auto 7.1 x10*3/uL (2.0-8.3); Neutrophils Percent Auto 71.9 % (45-73); Platelet Count 254 X10*3/uL (160-400); Red Blood Count 5.09 X10*6/uL (4.20-5.50); Red Cell Distribution Width 14.7 % (11.0-16.0); White Blood Count 9.9 X10*3/uL (4.8-10.8)
[2022-01-09 14:34] LABS: Amphetamine Screen Urine Not Detected (Not Detect); Barbiturates, Urine Not Detected (Not Detect); Benzodiazepines Screen Urine Not Detected (Not Detect); Cannabinoid Screen Urine POSITIVE (Not Detect); Cocaine Screen Urine Not Detected (Not Detect); Fentanyl, urine Not Detected (Not Detect); Opiate Screen Urine Not Detected (Not Detect); Phencyclidine Screen Urine Not Detected (Not Detect)
[2022-01-09 14:36] LABS: Alanine Aminotransferase 14 U/L (0-31); Albumin Level 4.3 g/dL (3.5-5.0); Alkaline Phosphatase 65 U/L (39-117); Anion Gap 14 (12-20); Aspartate Amino Transferase 13 U/L (5-31); Bilirubin Direct 0.2 mg/dL (0.0-0.5); Bilirubin Total 0.5 mg/dL (0.0-1.0); Blood Urea Nitrogen 15 mg/dL (9-16); Calcium 9.9 mg/dL (8.4-10.2); Carbon Dioxide 25 mmol/L (22-29); Chloride 107 mmol/L (96-108); Creatinine Clr Calc Pharmacy 82.7; Estimated Glomerular Filt Rate > 60; Glucose Random 110 mg/dL (60-115); Lipase 16 U/L (8-78); Potassium 4.2 mmol/L (3.3-5.1); Sodium 142 mmol/L (135-145); Total Protein 7.6 g/dL (6.5-8.0)
--- NOTE | 2022-01-09 16:40 | PC.NURSE ---
called x 3 to triage for reassessment. No answer. Presumed LWT>
== END 2022-01-09 17:50 | disposition left against medical advice (07) ==
LOC: HO.ED 17:44
PROVIDERS: Emergency Provider Emergency Medicine
DX: R10.9 Unspecified abdominal pain (principal); F25.0 Schizoaffective disorder, bipolar type; F12.90 Cannabis use, unspecified, uncomplicated; F17.210 Nicotine dependence, cigarettes, uncomplicated
CPT/HCPCS: 36415; 80048; 80076; 80307; 81001; 81025; 83690; 85025; 87086; 99282; 99283

== ENCOUNTER 2022-01-10 10:34 | Emergency (ER) | payer MEDICAID, SELFPAY ==
[2022-01-10 10:38] VITALS: BP 152/76; PULSE 84; O2SAT 99
[2022-01-10 11:18] VITALS: BP 131/84; PULSE 81; RESP 18; TEMP 36.1; O2SAT 99; BMI 33.4
[2022-01-10 11:49] LABS: MANUAL DIFF FLAG NO
[2022-01-10 11:50] LABS: Basophils Absolute Auto 0.1 X10*3/uL (0.0-0.2); Basophils Percent Auto 0.6 % (0-2); Eosinophils Absolute Auto 0.2 X10*3/uL (0.0-0.4); Eosinophils Percent Auto 2.1 % (0-4); Hematocrit 47.6 % (37.0-47.0); Hemoglobin 15.4 g/dl (12.0-16.0); Imm Gran Abs Auto 0.03 X10*3/uL (0.00-0.03); Imm Gran Pct Auto 0.3 % (0.0-0.4); Lymphocytes Absolute Auto 2.5 X10*3/uL (1.2-4.9); Lymphocytes Percent Auto 29.1 % (20-40); Mean Corpuscular HGB Conc 32.4 g/dl (31.0-35.0); Mean Corpuscular Hemoglobin 28.4 pg (27.0-33.0); Mean Corpuscular Volume 87.7 fL (80.0-98.0); Mean Platelet Volume 9.7 fL (9.4-12.3); Monocytes Absolute Auto 0.6 X10*3/uL (0.1-1.2); Monocytes Percent Auto 6.5 % (2-11); Neutrophils Absolute Auto 5.3 x10*3/uL (2.0-8.3); Neutrophils Percent Auto 61.4 % (45-73); Platelet Count 229 X10*3/uL (160-400); Red Blood Count 5.43 X10*6/uL (4.20-5.50); Red Cell Distribution Width 14.8 % (11.0-16.0); White Blood Count 8.7 X10*3/uL (4.8-10.8)
[2022-01-10 12:04] LABS: Anion Gap 18 (12-20); Blood Urea Nitrogen 12 mg/dL (9-16); Calcium 9.7 mg/dL (8.4-10.2); Carbon Dioxide 19 mmol/L (22-29); Chloride 107 mmol/L (96-108); Creatinine Clr Calc Pharmacy 142.7; Estimated Glomerular Filt Rate > 60; Glucose Random 92 mg/dL (60-115); Potassium 4.3 mmol/L (3.3-5.1); Sodium 140 mmol/L (135-145)
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
[2022-01-10 12:32] VITALS: BP 107/81; PULSE 71
[2022-01-10 12:46] LABS: Appearance Urine Clear; Color Urine Dark Yellow; Glucose Urine UA Negative (Negative); Leukocyte Esterase Urine Trace (Negative); Nitrite Urine Negative (Negative); PH 5.5 (5.0-9.0); Specific Gravity - Urine >= 1.030 (1.005-1.025); UMIC TRIGGER UACC YES; UPreg QC Valid YES; Urine Blood Small (1+) (Negative); Urine Ketones Trace mg/dL (Negative); Urine Pregnancy NEGATIVE (NEGATIVE); Urine Protein Negative (Neg-Trace)
[2022-01-10 12:55] LABS: Bacteria Urine None Seen (None Seen); Hyaline Casts Urine 0-2 /LPF (0-2); Squamous Epithelial Cell Urine 0-2 /HPF (0-2); WBC Urine 0-5 /HPF (0-5)
[2022-01-10 12:56] LABS: RBC Urine 0-2 /HPF (0-2)
[2022-01-10 13:07] LABS: COVID-19 Test Negative (Negative)
== END 2022-01-10 13:38 | disposition home or self-care (01) ==
PROVIDERS: Nurse Practitioner Family; Emergency Provider Emergency Medicine
DX: N39.0 Urinary tract infection, site not specified (principal); R42 Dizziness and giddiness; F17.210 Nicotine dependence, cigarettes, uncomplicated; Z71.6 Tobacco abuse counseling; Z20.822 Contact with and (suspected) exposure to COVID-19; Z79.899 Other long term (current) drug therapy
CPT/HCPCS: 36415; 80048; 81001; 81025; 85025; 87635; 99283

== ENCOUNTER 2022-01-13 14:38 | Emergency (ER) | payer MEDICAID, SELFPAY ==
[2022-01-13 14:41] VITALS: BP 99/60; PULSE 69; RESP 18; TEMP 36.1; O2SAT 98; BMI 33.4
[2022-01-13 18:59] VITALS: BP 106/62; PULSE 58; RESP 18; O2SAT 99
[2022-01-13 19:34] LABS: Alanine Aminotransferase 16 U/L (0-31); Alkaline Phosphatase 83 U/L (39-117); Anion Gap 20 (12-20); Aspartate Amino Transferase 17 U/L (5-31); Bilirubin Total 0.6 mg/dL (0.0-1.0); Blood Urea Nitrogen 14 mg/dL (9-16); Calcium 10.6 mg/dL (8.4-10.2); Carbon Dioxide 19 mmol/L (22-29); Chloride 104 mmol/L (96-108); Creatinine Clr Calc Pharmacy 139.1; Estimated Glomerular Filt Rate > 60; Glucose Random 87 mg/dL (60-115); Potassium 4.2 mmol/L (3.3-5.1); Sodium 139 mmol/L (135-145); Total Protein 8.9 g/dL (6.5-8.0)
[2022-01-13 22:46] LABS: HCG Quantitative < 2 mIU/mL
== END 2022-01-13 22:41 | disposition left against medical advice (07) ==
PROVIDERS: Emergency Medicine; Emergency Provider Emergency Medicine
DX: R42 Dizziness and giddiness (principal)
CPT/HCPCS: 36415; 80053; 84702; 99281; 99283

== ENCOUNTER 2022-01-16 18:37 | Emergency (ER) | payer MEDICAID, SELFPAY ==
[2022-01-16 20:12] VITALS: BP 113/73; PULSE 85; RESP 18; TEMP 36.5; O2SAT 98; BMI 31.9
[2022-01-16 21:27] LABS: MANUAL DIFF FLAG NO
[2022-01-16 21:28] LABS: Basophils Absolute Auto 0.1 X10*3/uL (0.0-0.2); Basophils Percent Auto 0.4 % (0-2); Eosinophils Absolute Auto 0.1 X10*3/uL (0.0-0.4); Eosinophils Percent Auto 0.7 % (0-4); Hematocrit 43.7 % (37.0-47.0); Hemoglobin 14.4 g/dl (12.0-16.0); Imm Gran Abs Auto 0.04 X10*3/uL (0.00-0.03); Imm Gran Pct Auto 0.3 % (0.0-0.4); Lymphocytes Absolute Auto 2.9 X10*3/uL (1.2-4.9); Lymphocytes Percent Auto 19.3 % (20-40); Mean Platelet Volume 9.5 fL (9.4-12.3); Neutrophils Absolute Auto 10.8 x10*3/uL (2.0-8.3); Neutrophils Percent Auto 72.3 % (45-73); Platelet Count 255 X10*3/uL (160-400); Red Blood Count 5.14 X10*6/uL (4.20-5.50); Red Cell Distribution Width 14.6 % (11.0-16.0); White Blood Count 14.9 X10*3/uL (4.8-10.8)
[2022-01-16 21:55] LABS: Alanine Aminotransferase 15 U/L (0-31); Albumin Level 4.5 g/dL (3.5-5.0); Alkaline Phosphatase 72 U/L (39-117); Anion Gap 19 (12-20); Aspartate Amino Transferase 17 U/L (5-31); Bilirubin Total 0.7 mg/dL (0.0-1.0); Blood Urea Nitrogen 12 mg/dL (9-16); Calcium 10.9 mg/dL (8.4-10.2); Carbon Dioxide 23 mmol/L (22-29); Chloride 104 mmol/L (96-108); Creatinine Clr Calc Pharmacy 129.4; Estimated Glomerular Filt Rate > 60; Glucose Random 96 mg/dL (60-115); Sodium 142 mmol/L (135-145); Total Protein 7.8 g/dL (6.5-8.0)
[2022-01-16 23:45] LABS: Appearance Urine Turbid; Color Urine Dark Yellow; Glucose Urine UA Negative (Negative); Leukocyte Esterase Urine Small (1+) (Negative); Nitrite Urine Negative (Negative); PH 5.5 (5.0-9.0); Specific Gravity - Urine >= 1.030 (1.005-1.025); UMIC TRIGGER UACC YES; Urine Blood Moderate (2+) (Negative); Urine Ketones 40 mg/dL (Negative); Urine Protein 100 (2+) mg/dL (Neg-Trace)
[2022-01-16 23:48] LABS: UPreg QC Valid YES; Urine Pregnancy NEGATIVE (NEGATIVE)
[2022-01-16 23:59] LABS: Bacteria Urine 2+ (None Seen); Hyaline Casts Urine 0-2 /LPF (0-2); RBC Urine >20 /HPF (0-2); UACC Culture Trigger YES; WBC Urine 0-5 /HPF (0-5)
--- NOTE | 2022-01-17 | ECG_ITS ---
Test Reason : DIZZINESS Blood Pressure : / mmHG Vent. Rate : 079 BPM Atrial Rate : 079 BPM P-R Int : 146 ms QRS Dur : 096 ms QT Int : 362 ms P-R-T Axes : 039 055 006 degrees QTc Int : 415 ms Normal sinus rhythm Nonspecific ST abnormality Lateral leads Intra-ventricular conduction delay Abnormal ECG When compared with ECG of 07-DEC-2021 10:17, Non-specific change in ST segment in Lateral leads Referred By: Mars Pena Electronically Signed By:PADMINI PAVON MD
[2022-01-17 00:28] VITALS: BP 136/79; PULSE 86; RESP 19; TEMP 36.7; O2SAT 99
--- NOTE | 2022-01-17 00:30 | ED.DIZZY ---
HPI - Dizziness General Chief Complaint: Dizziness Stated Complaint: dizzy Time Seen by Provider: 01/17/22 00:29 Source: patient Mode of arrival: ambulatory Limitations: no limitations History of Present Illness HPI Narrative: Patient has schizophrenia was seen here on 01/09 for possible UTI urine culture was negative on Macrobid comes here for feeling dizzy nonspecific it started today denies any spinning movement denies any lightheadedness denies any passing out no chest pain or palpitation Related Data Previous Rx's Medication Instructions Recorded clonidine HCl 0.1 mg tablet 1 tab PO BID #60 tabs 12/12/21 multivitamin (Daily-Ioana tablet) 1 tab PO DAILY #30 tabs 12/12/21 olanzapine 10 mg tablet 20 mg PO BEDTIME #30 tabs 12/12/21 thiamine mononitrate (vit B1) 100 100 mg PO DAILY #30 tabs 12/12/21 mg tablet trazodone 100 mg tablet 1 tab PO BEDTIME PRN insomnia #30 12/12/21 tabs nitrofurantoin 100 mg PO Q12H 5 days #10 caps 01/10/22 monohydrate/macrocrystals 100 mg capsule (Macrobid) Allergies Allergy/AdvReac Type Severity Reaction Status Date / Time No Known Allergies Allergy Verified 10/15/21 17:30 Review of Systems Review of Systems: Yes all other systems are reviewed and are negative [facility] Past Medical History Medical History Asthma Bipolar 1 disorder Bipolar disorder Cannabis use disorder Schizophrenia Social History Social History Household Members: None Household Members Other:: mother, sister Housing: Apartment Housing Other:: Current living situation will change as the apt has be condemned Do you presently have visiting nurse or other home services: No Unable to assess alcohol history related to: Refusing to respond Alcohol intake: never Patient Tobacco Use Status: Never used Tobacco Tobacco use type: Cigarette Cigarette Packs Per Day: 1 Cigarettes Per Day: 20.0 e-Cigarette/Vaping Use: Never Used Second Hand Smoke Exposure: No Substance Use Type: Marijuana Advance Directives: No Advance Directives Information Provided: No service: No Sexual orientation: Did not discuss Physical Exam Vital Signs: Vital Signs: Last Vital Signs Temp 98.0 F 01/17/22 00:28 Pulse 103 H 01/17/22 00:54 Resp 19 01/17/22 00:28 BP 108/72 01/17/22 00:54 Pulse Ox 99 01/17/22 00:28 O2 Del Method 01/17/22 00:28 BMI result Body Mass Index 31.9 Appearance: Alert. Oriented X3. No acute distress. Eyes: PERRLA, No Nystagmus ENT: Pharynx normal. Oral Mucosa moist Neck: Normal inspection. Neck supple. CVS: Normal heart rate and rhythm. Pulses normal. Respiratory: No respiratory distress. Equal air entry bilateral, no wheezing/rales/rhonchi Abdomen: Soft and nontender. Bowel sounds are present, no mass palpable, no CVA tenderness Skin: Skin warm and dry. Normal skin color. Normal skin turgor. Extremities: No lower extremity edema. No calf tenderness Neuro: Oriented X 3. No motor deficit. No sensory deficit.No cerebellar signs , cranial nerves II-XII intact MDM - Dizziness MDM Narrative Medical decision making narrative: Patient nonspecific complaints normal orthostatics at this time patient does not have any dizziness will discharge patient home advised to drink plenty of fluids Differential Diagnosis Differential diagnosis: Likely benign paroxysmal positional vertigo and orthostatic hypotension Lab Data Attestation: I reviewed the patient's lab results. Result diagrams: 01/16/22 21:21 01/16/22 21:21 Labs: Lab Results 01/16/22 01/16/22 01/16/22 Range/Units 21:21 21:21 23:37 WBC 14.9 H (4.8-10.8) X10*3/uL RBC 5.14 (4.20-5.50) X10*6/uL Hgb 14.4 (12.0-16.0) g/dl Hct 43.7 (37.0-47.0) % MCV 85.0 (80.0-98.0) fL MCH 28.0 (27.0-33.0) pg MCHC 33.0 (31.0-35.0) g/dl RDW 14.6 (11.0-16.0) % Plt Count 255 (160-400) X10*3/uL MPV 9.5 (9.4-12.3) fL Immature Gran % (Auto) 0.3 (0.0-0.4) % Neut % (Auto) 72.3 (45-73) % Lymph % (Auto) 19.3 L (20-40) % Gage % (Auto) 7.0 (2-11) % Eos % (Auto) 0.7 (0-4) % Baso % (Auto) 0.4 (0-2) % Lymph # (Auto) 2.9 (1.2-4.9) X10*3/uL Gage # (Auto) 1.0 (0.1-1.2) X10*3/uL Eos # (Auto) 0.1 (0.0-0.4) X10*3/uL Baso # (Auto) 0.1 (0.0-0.2) X10*3/uL Abs Immat Gran (auto) 0.04 H (0.00-0.03) X10*3/uL Absolute Neuts (auto) 10.8 H (2.0-8.3) x10*3/uL Absolute Nucleated RBC 0.000 (0.0-0.012) X10*3/uL Nucleated RBC % (auto) 0.0 (0.0-0.2) /100WBC Sodium 142 (135-145) mmol/L Potassium 4.0 (3.3-5.1) mmol/L Chloride 104 (96-108) mmol/L Carbon Dioxide 23 (22-29) mmol/L Anion Gap 19 (12-20) BUN 12 (9-16) mg/dL Creatinine 0.83 (0.5-1.4) mg/dL Estim Creat Clear Calc 129.4 Estimated GFR > 60 Random Glucose 96 (60-115) mg/dL Calcium 10.9 H (8.4-10.2) mg/dL Total Bilirubin 0.7 (0.0-1.0) mg/dL AST 17 (5-31) U/L ALT 15 (0-31) U/L Alkaline Phosphatase 72 (39-117) U/L Total Protein 7.8 (6.5-8.0) g/dL Albumin 4.5 (3.5-5.0) g/dL Urine Color Dark Yellow Urine Appearance Turbid Urine pH 5.5 (5.0-9.0) Ur Specific Wentworth >= 1.030 H (1.005-1.025) Urine Protein 100 (2+) H (Neg-Trace) mg/dL Urine Glucose (UA) Negative (Negative) mg/dL Urine Ketones 40 (Negative) mg/dL Urine Blood Moderate (2+) H (Negative) Urine Nitrite Negative (Negative) Ur Leukocyte Esterase Small (1+) H (Negative) Urine RBC >20 H (0-2) /HPF Urine WBC 0-5 (0-5) /HPF Ur Squamous Epith Cells 11-20 (0-2) /HPF Urine Bacteria 2+ (None Seen) Hyaline Casts 0-2 (0-2) /LPF Urine Yeast Present Urine Test (NEGATIVE) 01/16/22 Range/Units 23:37 WBC (4.8-10.8) X10*3/uL RBC (4.20-5.50) X10*6/uL Hgb (12.0-16.0) g/dl Hct (37.0-47.0) % MCV (80.0-98.0) fL MCH (27.0-33.0) pg MCHC (31.0-35.0) g/dl RDW (11.0-16.0) % Plt Count (160-400) X10*3/uL MPV (9.4-12.3) fL Immature Gran % (Auto) (0.0-0.4) % Neut % (Auto) (45-73) % Lymph % (Auto) (20-40) % Gage % (Auto) (2-11) % Eos % (Auto) (0-4) % Baso % (Auto) (0-2) % Lymph # (Auto) (1.2-4.9) X10*3/uL Gage # (Auto) (0.1-1.2) X10*3/uL Eos # (Auto) (0.0-0.4) X10*3/uL Baso # (Auto) (0.0-0.2) X10*3/uL Abs Immat Gran (auto) (0.00-0.03) X10*3/uL Absolute Neuts (auto) (2.0-8.3) x10*3/uL Absolute Nucleated RBC (0.0-0.012) X10*3/uL Nucleated RBC % (auto) (0.0-0.2) /100WBC Sodium (135-145) mmol/L Potassium (3.3-5.1) mmol/L Chloride (96-108) mmol/L Carbon Dioxide (22-29) mmol/L Anion Gap (12-20) BUN (9-16) mg/dL Creatinine (0.5-1.4) mg/dL Estim Creat Clear Calc Estimated GFR Random Glucose (60-115) mg/dL Calcium (8.4-10.2) mg/dL Total Bilirubin (0.0-1.0) mg/dL AST (5-31) U/L ALT (0-31) U/L Alkaline Phosphatase (39-117) U/L Total Protein (6.5-8.0) g/dL Albumin (3.5-5.0) g/dL Urine Color Urine Appearance Urine pH (5.0-9.0) Ur Specific Wentworth (1.005-1.025) Urine Protein (Neg-Trace) mg/dL Urine Glucose (UA) (Negative) mg/dL Urine Ketones (Negative) mg/dL Urine Blood (Negative) Urine Nitrite (Negative) Ur Leukocyte Esterase (Negative) Urine RBC (0-2) /HPF Urine WBC (0-5) /HPF Ur Squamous Epith Cells (0-2) /HPF Urine Bacteria (None Seen) Hyaline Casts (0-2) /LPF Urine Yeast Urine Test NEGATIVE (NEGATIVE) ECG Data Attestation: I personally reviewed and interpreted this ECG as follows: Interpretation: Heart rate 71 beats per minute normal sinus rhythm normal interval normal axis no acute ST-T changes Discharge Plan Discharge Clinical Impression: Dizziness Patient Disposition: Home, Self-Care Instructions: Dizziness (ED) Additional Instructions: Drink plenty of fluid Follow with PCP/ therapist as needed Prescriptions: No Action multivitamin [Daily-Ioana] Tablet 1 tab PO DAILY Qty: 30 0RF olanzapine 10 mg Tablet 20 mg PO BEDTIME Qty: 30 0RF thiamine mononitrate (vit B1) 100 mg Tablet 100 mg PO DAILY Qty: 30 0RF clonidine HCl 0.1 mg tablet 1 tab PO BID Qty: 60 0RF trazodone 100 mg tablet 1 tab PO BEDTIME PRN (Reason: insomnia) Qty: 30 0RF nitrofurantoin monohyd/m-cryst [Macrobid] 100 mg capsule 100 mg PO Q12H 5 Days Qty: 10 0RF Rx Instructions: must administer with a meal/food
[2022-01-17 00:35] VITALS: BP 112/63; PULSE 79
[2022-01-17 00:52] VITALS: BP 109/71; PULSE 86
[2022-01-17 00:54] VITALS: BP 108/72; PULSE 103
== END 2022-01-17 01:24 | disposition home or self-care (01) ==
PROVIDERS: Emergency Provider Internal Medicine
DX: R42 Dizziness and giddiness (principal); F17.210 Nicotine dependence, cigarettes, uncomplicated; Z71.6 Tobacco abuse counseling; Z79.899 Other long term (current) drug therapy
CPT/HCPCS: 36415; 80053; 81001; 81025; 85025; 87086; 87147; 93005; 99282; 99283

== ENCOUNTER 2022-01-21 21:04 | Emergency (ER) | payer MEDICAID, SELFPAY ==
[2022-01-21 21:20] VITALS: BP 139/91; PULSE 85; RESP 17; TEMP 36.5; O2SAT 97; BMI 31.9
[2022-01-22 01:31] LABS: MANUAL DIFF FLAG NO
[2022-01-22 01:33] LABS: Basophils Absolute Auto 0.1 X10*3/uL (0.0-0.2); Basophils Percent Auto 0.6 % (0-2); Eosinophils Absolute Auto 0.2 X10*3/uL (0.0-0.4); Eosinophils Percent Auto 1.5 % (0-4); Imm Gran Abs Auto 0.07 X10*3/uL (0.00-0.03); Imm Gran Pct Auto 0.4 % (0.0-0.4); Lymphocytes Absolute Auto 4.5 X10*3/uL (1.2-4.9); Lymphocytes Percent Auto 28.4 % (20-40); Mean Corpuscular HGB Conc 33.3 g/dl (31.0-35.0); Mean Corpuscular Hemoglobin 28.7 pg (27.0-33.0); Mean Corpuscular Volume 86.1 fL (80.0-98.0); Mean Platelet Volume 9.7 fL (9.4-12.3); Monocytes Absolute Auto 0.9 X10*3/uL (0.1-1.2); Monocytes Percent Auto 5.9 % (2-11); Neutrophils Percent Auto 63.2 % (45-73); Platelet Count 263 X10*3/uL (160-400); Red Blood Count 4.88 X10*6/uL (4.20-5.50); Red Cell Distribution Width 14.9 % (11.0-16.0); White Blood Count 15.8 X10*3/uL (4.8-10.8)
[2022-01-22 01:46] LABS: Alanine Aminotransferase 17 U/L (0-31); Albumin Level 4.2 g/dL (3.5-5.0); Alkaline Phosphatase 65 U/L (39-117); Anion Gap 15 (12-20); Aspartate Amino Transferase 16 U/L (5-31); Bilirubin Total 0.2 mg/dL (0.0-1.0); Blood Urea Nitrogen 14 mg/dL (9-16); Calcium 9.7 mg/dL (8.4-10.2); Carbon Dioxide 21 mmol/L (22-29); Chloride 110 mmol/L (96-108); Creatinine Clr Calc Pharmacy 155.6; Estimated Glomerular Filt Rate > 60; Glucose Random 91 mg/dL (60-115); Magnesium 1.9 mg/dL (1.6-2.6); Potassium 4.1 mmol/L (3.3-5.1); Sodium 142 mmol/L (135-145); Total Protein 7.3 g/dL (6.5-8.0)
--- NOTE | 2022-01-22 02:40 | ECG_ITS ---
Test Reason : DIZZINESS Blood Pressure : / mmHG Vent. Rate : 074 BPM Atrial Rate : 074 BPM P-R Int : 174 ms QRS Dur : 080 ms QT Int : 396 ms P-R-T Axes : 017 082 023 degrees QTc Int : 439 ms Poor data quality Normal sinus rhythm Nonspecific T wave abnormality Abnormal ECG When compared with ECG of 17-JAN-2022 01:23, QRS voltage has decreased Non-specific change in ST segment in Lateral leads Referred By: Lisette Reed Electronically Signed By:PADMINI PAVON MD
[2022-01-22 03:02] VITALS: BP 117/69; PULSE 81; RESP 18; TEMP 36.7; O2SAT 96
--- NOTE | 2022-01-22 03:24 | ED_ITS ---
HPI - Dizziness General Chief Complaint: Dizziness Stated Complaint: Dizziness Time Seen by Provider: 01/22/22 02:34 Related Data Previous Rx's Medication Instructions Recorded clonidine HCl 0.1 mg tablet 1 tab PO BID #60 tabs 12/12/21 multivitamin (Daily-Ioana tablet) 1 tab PO DAILY #30 tabs 12/12/21 olanzapine 10 mg tablet 20 mg PO BEDTIME #30 tabs 12/12/21 thiamine mononitrate (vit B1) 100 100 mg PO DAILY #30 tabs 12/12/21 mg tablet trazodone 100 mg tablet 1 tab PO BEDTIME PRN insomnia #30 12/12/21 tabs nitrofurantoin 100 mg PO Q12H 5 days #10 caps 01/10/22 monohydrate/macrocrystals 100 mg capsule (Macrobid) Allergies Allergy/AdvReac Type Severity Reaction Status Date / Time No Known Allergies Allergy Verified 10/15/21 17:30 [facility] Past Medical History Medical History Asthma Bipolar 1 disorder Bipolar disorder Cannabis use disorder Schizophrenia Social History Social History Household Members: None Household Members Other:: mother, sister Housing: Apartment Housing Other:: Current living situation will change as the apt has be condemned Do you presently have visiting nurse or other home services: No Unable to assess alcohol history related to: Refusing to respond Alcohol intake: never Patient Tobacco Use Status: Never used Tobacco Tobacco use type: Cigarette Cigarette Packs Per Day: 1 Cigarettes Per Day: 20.0 e-Cigarette/Vaping Use: Never Used Second Hand Smoke Exposure: No Substance Use Type: Marijuana Advance Directives: No service: No Sexual orientation: Did not discuss Physical Exam Vital Signs: Vital Signs: Last Vital Signs Temp 98.0 F 01/22/22 03:02 Pulse 81 01/22/22 03:02 Resp 18 01/22/22 03:02 BP 117/69 01/22/22 03:02 Pulse Ox 96 01/22/22 03:02 O2 Del Method 01/22/22 03:02 BMI result Body Mass Index 31.9 MDM - Dizziness Lab Data Result diagrams: 01/22/22 01:25 01/22/22 01:25 Labs: Lab Results 01/22/22 01/22/22 Range/Units 01:25 01:25 WBC 15.8 H (4.8-10.8) X10*3/uL RBC 4.88 (4.20-5.50) X10*6/uL Hgb 14.0 (12.0-16.0) g/dl Hct 42.0 (37.0-47.0) % MCV 86.1 (80.0-98.0) fL MCH 28.7 (27.0-33.0) pg MCHC 33.3 (31.0-35.0) g/dl RDW 14.9 (11.0-16.0) % Plt Count 263 (160-400) X10*3/uL MPV 9.7 (9.4-12.3) fL Immature Gran % (Auto) 0.4 (0.0-0.4) % Neut % (Auto) 63.2 (45-73) % Lymph % (Auto) 28.4 (20-40) % Worth % (Auto) 5.9 (2-11) % Eos % (Auto) 1.5 (0-4) % Baso % (Auto) 0.6 (0-2) % Lymph # (Auto) 4.5 (1.2-4.9) X10*3/uL Worth # (Auto) 0.9 (0.1-1.2) X10*3/uL Eos # (Auto) 0.2 (0.0-0.4) X10*3/uL Baso # (Auto) 0.1 (0.0-0.2) X10*3/uL Abs Immat Gran (auto) 0.07 H (0.00-0.03) X10*3/uL Absolute Neuts (auto) 10.0 H (2.0-8.3) x10*3/uL Absolute Nucleated RBC 0.000 (0.0-0.012) X10*3/uL Nucleated RBC % (auto) 0.0 (0.0-0.2) /100WBC Sodium 142 (135-145) mmol/L Potassium 4.1 (3.3-5.1) mmol/L Chloride 110 H (96-108) mmol/L Carbon Dioxide 21 L (22-29) mmol/L Anion Gap 15 (12-20) BUN 14 (9-16) mg/dL Creatinine 0.69 (0.5-1.4) mg/dL Estim Creat Clear Calc 155.6 Estimated GFR > 60 Random Glucose 91 (60-115) mg/dL Calcium 9.7 D (8.4-10.2) mg/dL Magnesium 1.9 (1.6-2.6) mg/dL Total Bilirubin 0.2 (0.0-1.0) mg/dL AST 16 (5-31) U/L ALT 17 (0-31) U/L Alkaline Phosphatase 65 (39-117) U/L Total Protein 7.3 (6.5-8.0) g/dL Albumin 4.2 (3.5-5.0) g/dL ECG Data Attestation: I personally reviewed and interpreted this ECG as follows: Prior ECG tracings: available for review Interpretation: Normal sinus rhythm, HR-74, no STEMI, [place]/QRS/QTC is within normal limits. Discharge Plan Discharge Prescriptions: No Action multivitamin [Daily-Ioana] Tablet 1 tab PO DAILY Qty: 30 0RF olanzapine 10 mg Tablet 20 mg PO BEDTIME Qty: 30 0RF thiamine mononitrate (vit B1) 100 mg Tablet 100 mg PO DAILY Qty: 30 0RF clonidine HCl 0.1 mg tablet 1 tab PO BID Qty: 60 0RF trazodone 100 mg tablet 1 tab PO BEDTIME PRN (Reason: insomnia) Qty: 30 0RF nitrofurantoin monohyd/m-cryst [Macrobid] 100 mg capsule 100 mg PO Q12H 5 Days Qty: 10 0RF Rx Instructions: must administer with a meal/food
[2022-01-22 03:38] LABS: Appearance Urine Clear; Color Urine Yellow; Glucose Urine UA Negative (Negative); Leukocyte Esterase Urine Negative (Negative); Nitrite Urine Negative (Negative); PH 5.5 (5.0-9.0); Urine Blood Negative (Negative); Urine Ketones Negative (Negative); Urine Protein Negative (Neg-Trace)
[2022-01-22 03:39] LABS: UPreg QC Valid YES; Urine Pregnancy NEGATIVE (NEGATIVE)
[2022-01-22 03:47] LABS: Amphetamine Screen Urine Not Detected (Not Detect); Barbiturates, Urine Not Detected (Not Detect); Benzodiazepines Screen Urine Not Detected (Not Detect); Cannabinoid Screen Urine POSITIVE (Not Detect); Cocaine Screen Urine Not Detected (Not Detect); Fentanyl, urine Not Detected (Not Detect); Opiate Screen Urine Not Detected (Not Detect); Phencyclidine Screen Urine Not Detected (Not Detect)
--- NOTE | 2022-01-22 03:58 | PC.NURSE ---
Pt currently walking and screaming around the ED yelling for the mother to come inside. Security called and assisted with re-directing pt back to the bedside. Pts mom on the phone reports being two minutes away.
--- NOTE | 2022-01-22 04:07 | PC.NURSE ---
PT BECOMING BELLIGERENT, YELLING LOUDLY OVER THE PHONE. MOTHER ARRIVED, PT CONTINUED TO REMAIN AGITATED, REQUESTING TO LEAVE. PT ESCORTED OUT BY MD DERICK AWARE. NO FURTHER ACTION REQUIRED.
== END 2022-01-22 04:35 | disposition left against medical advice (07) ==
PROVIDERS: Student in an Organized Health Care Education/Training Program; Emergency Provider Emergency Medicine
DX: R42 Dizziness and giddiness (principal); R45.1 Restlessness and agitation; F12.90 Cannabis use, unspecified, uncomplicated; Z79.899 Other long term (current) drug therapy
CPT/HCPCS: 36415; 80053; 80307; 81003; 81025; 83735; 85025; 93005; 99284

== ENCOUNTER 2022-01-28 13:10 | Emergency (ER) | payer MEDICAID, SELFPAY ==
[2022-01-28 13:15] VITALS: BP 123/88; PULSE 107; RESP 16; TEMP 36.6; O2SAT 98; BMI 31.9
--- NOTE | 2022-01-28 14:16 | ED.DIZZY ---
HPI - Dizziness General Chief Complaint: Dizziness <ABBY Busby Last Filed: 01/28/22 14:20> Stated Complaint: Dizzy <ABBY Busby - Last Filed: 01/28/22 14:20> Time Seen by Provider: 01/28/22 15:08 <ABBY Busby Last Filed: 01/28/22 14:20> Source: patient and old records reviewed <ABBY Bray Last Filed: 01/28/22 16:01> Mode of arrival: ambulatory <ABBY Bray Last Filed: 01/28/22 16:01> Limitations: no limitations <ABBY Bray Last Filed: 01/28/22 16:01> History of Present Illness HPI Narrative: 21-year-old female with a history of schizoaffective disorder, bipolar type, cannabis use who presents to the ER for evaluation of dizziness and lightheadedness for the last 1 day. She has been to the ER 2 other times this month for the same. She was admitted to the psychiatric unit in December for exacerbation of her schizoaffective disorder. Her olanzapine was increased at that time. Patient reports that she gets lightheaded when changing positions. Last for a few seconds and then goes away. She denies any history of this in the past. She denies any new medications or medication changes. She denies any drug use. She denies any chest pain or shortness of breath. No tinnitus or hearing problems. No history of vertigo. <ABBY Bray Last Filed: 01/28/22 16:01> MD elicited complaint: lightheadedness <ABBY Bray Last Filed: 01/28/22 16:01> Onset (ago): day(s) (1) <ABBY Bray Last Filed: 01/28/22 16:01> Timing: sudden onset and intermittent <ABBY Bray Last Filed: 01/28/22 16:01> Severity: moderate <ABBY Bray Last Filed: 01/28/22 16:01> Description: lightheadedness <ABBY Bray Last Filed: 01/28/22 16:01> History of similar symptoms: Yes <ABBY Bray Last Filed: 01/28/22 16:01> Exacerbating factors: movement/ambulation <ABBY Bray Last Filed: 01/28/22 16:01> Relieving factors: remaining still, rest and lying down <ABBY Bray Last Filed: 01/28/22 16:01> Associated symptoms: denies other symptoms <ABBY Bray Last Filed: 01/28/22 16:01> Related Data Home Medications: Previous Rx's Medication Instructions Recorded clonidine HCl 0.1 mg tablet 1 tab PO BID #60 tabs 12/12/21 multivitamin (Daily-Ioana tablet) 1 tab PO DAILY #30 tabs 12/12/21 olanzapine 10 mg tablet 20 mg PO BEDTIME #30 tabs 12/12/21 thiamine mononitrate (vit B1) 100 100 mg PO DAILY #30 tabs 12/12/21 mg tablet trazodone 100 mg tablet 1 tab PO BEDTIME PRN insomnia #30 12/12/21 tabs nitrofurantoin 100 mg PO Q12H 5 days #10 caps 01/10/22 monohydrate/macrocrystals 100 mg capsule (Macrobid) <ABBY Busby Last Filed: 01/28/22 14:20> Allergies/Adverse Reactions: Allergies Allergy/AdvReac Type Severity Reaction Status Date / Time No Known Allergies Allergy Verified 01/28/22 13:15 <ABBY Busby Last Filed: 01/28/22 14:20> Review of Systems Review of Systems: Constitutional: No Fever, No Chills ENT/Mouth: No sore throat, No Rhinorrhea Eyes: No vision changes Cardiovascular: No Chest Pain, No SOB, No Orthopnea, No Edema Respiratory: No Cough, No Sputum, No Wheezing, No dyspnea Gastrointestinal: No Nausea, No Vomiting, No Diarrhea, No abdominal Pain Genitourinary: No Dysuria, No Urinary Frequency, No Hematuria Musculoskeletal: No joint pain, No Myalgias Skin: No Skin Lesions, No rash Neuro: No Weakness, No Numbness, + Dizziness, No Headache Psych: No Anxiety/Panic, No Depression Heme/Lymph: No Bruising, No Lymphadenopathy Endocrine: No Polyuria, No Polydipsia <Patt Renschler, PA - Last Filed: 01/28/22 16:01> [facility] Past Medical History Medical History: Medical History Asthma Bipolar 1 disorder Bipolar disorder Cannabis use disorder Schizophrenia <ABBY Busby - Last Filed: 01/28/22 14:20> Social History Social History: Social History Household Members: None Household Members Other:: mother, sister Housing: Apartment Housing Other:: Current living situation will change as the apt has be condemned Do you presently have visiting nurse or other home services: No Unable to assess alcohol history related to: Refusing to respond Alcohol intake: never Patient Tobacco Use Status: Never used Tobacco Tobacco use type: Cigarette Cigarette Packs Per Day: 1 Cigarettes Per Day: 20.0 e-Cigarette/Vaping Use: Never Used Second Hand Smoke Exposure: No Substance Use Type: Marijuana Advance Directives: No Advance Directives Information Provided: No service: No Sexual orientation: Did not discuss <ABBY Busby - Last Filed: 01/28/22 14:20> Physical Exam Vital Signs: Vital Signs: Last Vital Signs Temp 97.9 F 01/28/22 13:15 Pulse 81 01/28/22 15:49 Resp 16 01/28/22 13:15 BP 118/68 01/28/22 15:49 Pulse Ox 98 01/28/22 13:15 O2 Del Method 01/28/22 13:15 BMI result Body Mass Index 31.9 <ABBY Busby - Last Filed: 01/28/22 14:20> Vital Signs: Last Vital Signs Temp 97.9 F 01/28/22 13:15 Pulse 81 01/28/22 15:49 Resp 16 01/28/22 13:15 BP 118/68 01/28/22 15:49 Pulse Ox 98 01/28/22 13:15 O2 Del Method 01/28/22 13:15 BMI result Body Mass Index 31.9 <ABBY Bray - Last Filed: 01/28/22 16:01> Course Course Course Narrative: RME-- 21yo F w/PMHx asthma, bipolar, schizophrenia, c/o lightheadedness x today. denies other assoc sx including HENLEY, CP/SOB, N/V/D, abd pain, room spinning dizziness Ambulating with steady gait, lungs CTA EKG, Labs, UA, Orthos and IVF ordered in triage <ABBY Busby - Last Filed: 01/28/22 14:20> Reevaluation(s) Reevaluation #1: Lab workup was unremarkable. EKG normal. Troponin negative. UA negative for infection patient up and ambulating, looks well. Orthostatic vital signs are negative. She is declining IV access and IV fluids. Comfortable discharge home with supportive care. Up with her PCP as needed. <ABBY Bray - Last Filed: 01/28/22 16:01> MDM - Dizziness Lab Data Attestation: I reviewed the patient's lab results. <ABBY Bray - Last Filed: 01/28/22 16:01> Result diagrams: : 01/28/22 14:38 01/28/22 14:38 <ABBY Busby - Last Filed: 01/28/22 14:20> Labs: Lab Results 01/28/22 01/28/22 01/28/22 Range/Units 14:27 14:27 14:38 WBC 9.1 (4.8-10.8) X10*3/uL RBC 5.18 (4.20-5.50) X10*6/uL Hgb 14.9 (12.0-16.0) g/dl Hct 44.6 (37.0-47.0) % MCV 86.1 (80.0-98.0) fL MCH 28.8 (27.0-33.0) pg MCHC 33.4 (31.0-35.0) g/dl RDW 15.1 (11.0-16.0) % Plt Count 249 (160-400) X10*3/uL MPV 9.4 (9.4-12.3) fL Immature Gran % (Auto) 0.3 (0.0-0.4) % Neut % (Auto) 67.8 (45-73) % Lymph % (Auto) 21.5 (20-40) % Fleming % (Auto) 8.1 (2-11) % Eos % (Auto) 1.9 (0-4) % Baso % (Auto) 0.4 (0-2) % Lymph # (Auto) 2.0 (1.2-4.9) X10*3/uL Fleming # (Auto) 0.7 (0.1-1.2) X10*3/uL Eos # (Auto) 0.2 (0.0-0.4) X10*3/uL Baso # (Auto) 0.0 (0.0-0.2) X10*3/uL Abs Immat Gran (auto) 0.03 (0.00-0.03) X10*3/uL Absolute Neuts (auto) 6.2 (2.0-8.3) x10*3/uL Absolute Nucleated RBC 0.000 (0.0-0.012) X10*3/uL Nucleated RBC % (auto) 0.0 (0.0-0.2) /100WBC Sodium (135-145) mmol/L Potassium (3.3-5.1) mmol/L Chloride (96-108) mmol/L Carbon Dioxide (22-29) mmol/L Anion Gap (12-20) BUN (9-16) mg/dL Creatinine (0.5-1.4) mg/dL Estim Creat Clear Calc Estimated GFR Random Glucose (60-115) mg/dL Calcium (8.4-10.2) mg/dL Magnesium (1.6-2.6) mg/dL Total Bilirubin (0.0-1.0) mg/dL Direct Bilirubin (0.0-0.5) mg/dL AST (5-31) U/L ALT (0-31) U/L Alkaline Phosphatase (39-117) U/L Troponin I High Sens (<3.5-17.0) ng/L Total Protein (6.5-8.0) g/dL Albumin (3.5-5.0) g/dL Urine Color Urine Appearance Urine pH (5.0-9.0) Ur Specific [place] (1.005-1.025) Urine Protein (Neg-Trace) mg/dL Urine Glucose (UA) (Negative) mg/dL Urine Ketones (Negative) mg/dL Urine Blood (Negative) Urine Nitrite (Negative) Ur Leukocyte Esterase (Negative) Urine Test (NEGATIVE) COVID-19 (BRENDA) Negative (Negative) COVID-19 Clin Com See Note Influenza Type A (MARIO) Negative (Negative) Influenza Type B (MARIO) Negative (Negative) Influenza A & B Note See Note 01/28/22 01/28/22 01/28/22 Range/Units 14:38 14:39 15:40 WBC (4.8-10.8) X10*3/uL RBC (4.20-5.50) X10*6/uL Hgb (12.0-16.0) g/dl Hct (37.0-47.0) % MCV (80.0-98.0) fL MCH (27.0-33.0) pg MCHC (31.0-35.0) g/dl RDW (11.0-16.0) % Plt Count (160-400) X10*3/uL MPV (9.4-12.3) fL Immature Gran % (Auto) (0.0-0.4) % Neut % (Auto) (45-73) % Lymph % (Auto) (20-40) % Fleming % (Auto) (2-11) % Eos % (Auto) (0-4) % Baso % (Auto) (0-2) % Lymph # (Auto) (1.2-4.9) X10*3/uL Fleming # (Auto) (0.1-1.2) X10*3/uL Eos # (Auto) (0.0-0.4) X10*3/uL Baso # (Auto) (0.0-0.2) X10*3/uL Abs Immat Gran (auto) (0.00-0.03) X10*3/uL Absolute Neuts (auto) (2.0-8.3) x10*3/uL Absolute Nucleated RBC (0.0-0.012) X10*3/uL Nucleated RBC % (auto) (0.0-0.2) /100WBC Sodium 140 (135-145) mmol/L Potassium 4.0 (3.3-5.1) mmol/L Chloride 106 (96-108) mmol/L Carbon Dioxide 23 (22-29) mmol/L Anion Gap 15 (12-20) BUN 15 (9-16) mg/dL Creatinine 0.71 (0.5-1.4) mg/dL Estim Creat Clear Calc 151.2 Estimated GFR > 60 Random Glucose 104 (60-115) mg/dL Calcium 9.8 (8.4-10.2) mg/dL Magnesium 1.7 (1.6-2.6) mg/dL Total Bilirubin 0.6 (0.0-1.0) mg/dL Direct Bilirubin 0.2 (0.0-0.5) mg/dL AST 15 (5-31) U/L ALT 14 (0-31) U/L Alkaline Phosphatase 66 (39-117) U/L Troponin I High Sens < 3.5 (<3.5-17.0) ng/L Total Protein 7.7 (6.5-8.0) g/dL Albumin 4.5 (3.5-5.0) g/dL Urine Color Yellow Urine Appearance Cloudy Urine pH 5.5 (5.0-9.0) Ur Specific Canyon >= 1.030 H (1.005-1.025) Urine Protein Trace (Neg-Trace) mg/dL Urine Glucose (UA) Negative (Negative) mg/dL Urine Ketones 15 (Negative) mg/dL Urine Blood Negative (Negative) Urine Nitrite Negative (Negative) Ur Leukocyte Esterase Negative (Negative) Urine Test (NEGATIVE) COVID-19 (BRENDA) (Negative) COVID-19 Clin Com Influenza Type A (MARIO) (Negative) Influenza Type B (MARIO) (Negative) Influenza A & B Note 01/28/22 Range/Units 15:40 WBC (4.8-10.8) X10*3/uL RBC (4.20-5.50) X10*6/uL Hgb (12.0-16.0) g/dl Hct (37.0-47.0) % MCV (80.0-98.0) fL MCH (27.0-33.0) pg MCHC (31.0-35.0) g/dl RDW (11.0-16.0) % Plt Count (160-400) X10*3/uL MPV (9.4-12.3) fL Immature Gran % (Auto) (0.0-0.4) % Neut % (Auto) (45-73) % Lymph % (Auto) (20-40) % Fleming % (Auto) (2-11) % Eos % (Auto) (0-4) % Baso % (Auto) (0-2) % Lymph # (Auto) (1.2-4.9) X10*3/uL Fleming # (Auto) (0.1-1.2) X10*3/uL Eos # (Auto) (0.0-0.4) X10*3/uL Baso # (Auto) (0.0-0.2) X10*3/uL Abs Immat Gran (auto) (0.00-0.03) X10*3/uL Absolute Neuts (auto) (2.0-8.3) x10*3/uL Absolute Nucleated RBC (0.0-0.012) X10*3/uL Nucleated RBC % (auto) (0.0-0.2) /100WBC Sodium (135-145) mmol/L Potassium (3.3-5.1) mmol/L Chloride (96-108) mmol/L Carbon Dioxide (22-29) mmol/L Anion Gap (12-20) BUN (9-16) mg/dL Creatinine (0.5-1.4) mg/dL Estim Creat Clear Calc Estimated GFR Random Glucose (60-115) mg/dL Calcium (8.4-10.2) mg/dL Magnesium (1.6-2.6) mg/dL Total Bilirubin (0.0-1.0) mg/dL Direct Bilirubin (0.0-0.5) mg/dL AST (5-31) U/L ALT (0-31) U/L Alkaline Phosphatase (39-117) U/L Troponin I High Sens (<3.5-17.0) ng/L Total Protein (6.5-8.0) g/dL Albumin (3.5-5.0) g/dL Urine Color Urine Appearance Urine pH (5.0-9.0) Ur Specific [place] (1.005-1.025) Urine Protein (Neg-Trace) mg/dL Urine Glucose (UA) (Negative) mg/dL Urine Ketones (Negative) mg/dL Urine Blood (Negative) Urine Nitrite (Negative) Ur Leukocyte Esterase (Negative) Urine Test NEGATIVE (NEGATIVE) COVID-19 (BRENDA) (Negative) COVID-19 Clin Com Influenza Type A (MARIO) (Negative) Influenza Type B (MARIO) (Negative) Influenza A & B Note <ABBY Busby - Last Filed: 01/28/22 14:20> Lab Results 01/28/22 01/28/22 01/28/22 Range/Units 14:27 14:27 14:38 WBC 9.1 (4.8-10.8) X10*3/uL RBC 5.18 (4.20-5.50) X10*6/uL Hgb 14.9 (12.0-16.0) g/dl Hct 44.6 (37.0-47.0) % MCV 86.1 (80.0-98.0) fL MCH 28.8 (27.0-33.0) pg MCHC 33.4 (31.0-35.0) g/dl RDW 15.1 (11.0-16.0) % Plt Count 249 (160-400) X10*3/uL MPV 9.4 (9.4-12.3) fL Immature Gran % (Auto) 0.3 (0.0-0.4) % Neut % (Auto) 67.8 (45-73) % Lymph % (Auto) 21.5 (20-40) % Fleming % (Auto) 8.1 (2-11) % Eos % (Auto) 1.9 (0-4) % Baso % (Auto) 0.4 (0-2) % Lymph # (Auto) 2.0 (1.2-4.9) X10*3/uL Fleming # (Auto) 0.7 (0.1-1.2) X10*3/uL Eos # (Auto) 0.2 (0.0-0.4) X10*3/uL Baso # (Auto) 0.0 (0.0-0.2) X10*3/uL Abs Immat Gran (auto) 0.03 (0.00-0.03) X10*3/uL Absolute Neuts (auto) 6.2 (2.0-8.3) x10*3/uL Absolute Nucleated RBC 0.000 (0.0-0.012) X10*3/uL Nucleated RBC % (auto) 0.0 (0.0-0.2) /100WBC Sodium (135-145) mmol/L Potassium (3.3-5.1) mmol/L Chloride (96-108) mmol/L Carbon Dioxide (22-29) mmol/L Anion Gap (12-20) BUN (9-16) mg/dL Creatinine (0.5-1.4) mg/dL Estim Creat Clear Calc Estimated GFR Random Glucose (60-115) mg/dL Calcium (8.4-10.2) mg/dL Magnesium (1.6-2.6) mg/dL Total Bilirubin (0.0-1.0) mg/dL Direct Bilirubin (0.0-0.5) mg/dL AST (5-31) U/L ALT (0-31) U/L Alkaline Phosphatase (39-117) U/L Troponin I High Sens (<3.5-17.0) ng/L Total Protein (6.5-8.0) g/dL Albumin (3.5-5.0) g/dL Urine Color Urine Appearance Urine pH (5.0-9.0) Ur Specific [place] (1.005-1.025) Urine Protein (Neg-Trace) mg/dL Urine Glucose (UA) (Negative) mg/dL Urine Ketones (Negative) mg/dL Urine Blood (Negative) Urine Nitrite (Negative) Ur Leukocyte Esterase (Negative) Urine Test (NEGATIVE) COVID-19 (BRENDA) Negative (Negative) COVID-19 Clin Com See Note Influenza Type A (MARIO) Negative (Negative) Influenza Type B (MARIO) Negative (Negative) Influenza A & B Note See Note 01/28/22 01/28/22 01/28/22 Range/Units 14:38 14:39 15:40 WBC (4.8-10.8) X10*3/uL RBC (4.20-5.50) X10*6/uL Hgb (12.0-16.0) g/dl Hct (37.0-47.0) % MCV (80.0-98.0) fL MCH (27.0-33.0) pg MCHC (31.0-35.0) g/dl RDW (11.0-16.0) % Plt Count (160-400) X10*3/uL MPV (9.4-12.3) fL Immature Gran % (Auto) (0.0-0.4) % Neut % (Auto) (45-73) % Lymph % (Auto) (20-40) % Fleming % (Auto) (2-11) % Eos % (Auto) (0-4) % Baso % (Auto) (0-2) % Lymph # (Auto) (1.2-4.9) X10*3/uL Fleming # (Auto) (0.1-1.2) X10*3/uL Eos # (Auto) (0.0-0.4) X10*3/uL Baso # (Auto) (0.0-0.2) X10*3/uL Abs Immat Gran (auto) (0.00-0.03) X10*3/uL Absolute Neuts (auto) (2.0-8.3) x10*3/uL Absolute Nucleated RBC (0.0-0.012) X10*3/uL Nucleated RBC % (auto) (0.0-0.2) /100WBC Sodium 140 (135-145) mmol/L Potassium 4.0 (3.3-5.1) mmol/L Chloride 106 (96-108) mmol/L Carbon Dioxide 23 (22-29) mmol/L Anion Gap 15 (12-20) BUN 15 (9-16) mg/dL Creatinine 0.71 (0.5-1.4) mg/dL Estim Creat Clear Calc 151.2 Estimated GFR > 60 Random Glucose 104 (60-115) mg/dL Calcium 9.8 (8.4-10.2) mg/dL Magnesium 1.7 (1.6-2.6) mg/dL Total Bilirubin 0.6 (0.0-1.0) mg/dL Direct Bilirubin 0.2 (0.0-0.5) mg/dL AST 15 (5-31) U/L ALT 14 (0-31) U/L Alkaline Phosphatase 66 (39-117) U/L Troponin I High Sens < 3.5 (<3.5-17.0) ng/L Total Protein 7.7 (6.5-8.0) g/dL Albumin 4.5 (3.5-5.0) g/dL Urine Color Yellow Urine Appearance Cloudy Urine pH 5.5 (5.0-9.0) Ur Specific [place] >= 1.030 H (1.005-1.025) Urine Protein Trace (Neg-Trace) mg/dL Urine Glucose (UA) Negative (Negative) mg/dL Urine Ketones 15 (Negative) mg/dL Urine Blood Negative (Negative) Urine Nitrite Negative (Negative) Ur Leukocyte Esterase Negative (Negative) Urine Test (NEGATIVE) COVID-19 (BRENDA) (Negative) COVID-19 Clin Com Influenza Type A (MARIO) (Negative) Influenza Type B (MARIO) (Negative) Influenza A & B Note 01/28/22 Range/Units 15:40 WBC (4.8-10.8) X10*3/uL RBC (4.20-5.50) X10*6/uL Hgb (12.0-16.0) g/dl Hct (37.0-47.0) % MCV (80.0-98.0) fL MCH (27.0-33.0) pg MCHC (31.0-35.0) g/dl RDW (11.0-16.0) % Plt Count (160-400) X10*3/uL MPV (9.4-12.3) fL Immature Gran % (Auto) (0.0-0.4) % Neut % (Auto) (45-73) % Lymph % (Auto) (20-40) % Fleming % (Auto) (2-11) % Eos % (Auto) (0-4) % Baso % (Auto) (0-2) % Lymph # (Auto) (1.2-4.9) X10*3/uL Fleming # (Auto) (0.1-1.2) X10*3/uL Eos # (Auto) (0.0-0.4) X10*3/uL Baso # (Auto) (0.0-0.2) X10*3/uL Abs Immat Gran (auto) (0.00-0.03) X10*3/uL Absolute Neuts (auto) (2.0-8.3) x10*3/uL Absolute Nucleated RBC (0.0-0.012) X10*3/uL Nucleated RBC % (auto) (0.0-0.2) /100WBC Sodium (135-145) mmol/L Potassium (3.3-5.1) mmol/L Chloride (96-108) mmol/L Carbon Dioxide (22-29) mmol/L Anion Gap (12-20) BUN (9-16) mg/dL Creatinine (0.5-1.4) mg/dL Estim Creat Clear Calc Estimated GFR Random Glucose (60-115) mg/dL Calcium (8.4-10.2) mg/dL Magnesium (1.6-2.6) mg/dL Total Bilirubin (0.0-1.0) mg/dL Direct Bilirubin (0.0-0.5) mg/dL AST (5-31) U/L ALT (0-31) U/L Alkaline Phosphatase (39-117) U/L Troponin I High Sens (<3.5-17.0) ng/L Total Protein (6.5-8.0) g/dL Albumin (3.5-5.0) g/dL Urine Color Urine Appearance Urine pH (5.0-9.0) Ur Specific [place] (1.005-1.025) Urine Protein (Neg-Trace) mg/dL Urine Glucose (UA) (Negative) mg/dL Urine Ketones (Negative) mg/dL Urine Blood (Negative) Urine Nitrite (Negative) Ur Leukocyte Esterase (Negative) Urine Test NEGATIVE (NEGATIVE) COVID-19 (BRENDA) (Negative) COVID-19 Clin Com Influenza Type A (MARIO) (Negative) Influenza Type B (MARIO) (Negative) Influenza A & B Note <ABBY Bray - Last Filed: 01/28/22 16:01> ECG Data Attestation: I personally reviewed and interpreted this ECG as follows: <ABBY Bray - Last Filed: 01/28/22 16:01> ECG interpretation date: 01/28/22 <ABBY Bray - Last Filed: 01/28/22 16:01> ECG interpretation time: 15:13 <ABBY Bray - Last Filed: 01/28/22 16:01> Prior ECG tracings: available for review <ABBY Bray - Last Filed: 01/28/22 16:01> Interpretation: Normal sinus rhythm, ventricular rate 94 beats per minute, normal OK interval, normal QTC, no ST segment elevations or depressions. No change from prior last week <ABBY Bray - Last Filed: 01/28/22 16:01> Discharge Plan Discharge Clinical Impression: Lightheadedness <ABBY Busby - Last Filed: 01/28/22 14:20> Patient Disposition: Home, Self-Care <ABBY Busby Last Filed: 01/28/22 14:20> Instructions: Lightheadedness (ED) <ABBY Busby Last Filed: 01/28/22 14:20> Additional Instructions: Your lab workup today was normal. Your EKG was normal. You are negative for influenza and COVID-19. Your urine test showed that you may have very mild dehydration. There is no urine infection. This could contribute to lightheadedness. Make sure you are drinking plenty of water and staying hydrated. When changing positions do so slowly. Follow-up with your primary care doctor this week. If you develop new or worsening symptoms call 911 or come back to the ER for further evaluation. <ABBY Busby Last Filed: 01/28/22 14:20> Prescriptions: No Action multivitamin [Daily-Ioana] Tablet 1 tab PO DAILY Qty: 30 0RF olanzapine 10 mg Tablet 20 mg PO BEDTIME Qty: 30 0RF thiamine mononitrate (vit B1) 100 mg Tablet 100 mg PO DAILY Qty: 30 0RF clonidine HCl 0.1 mg tablet 1 tab PO BID Qty: 60 0RF trazodone 100 mg tablet 1 tab PO BEDTIME PRN (Reason: insomnia) Qty: 30 0RF nitrofurantoin monohyd/m-cryst [Macrobid] 100 mg capsule 100 mg PO Q12H 5 Days Qty: 10 0RF Rx Instructions: must administer with a meal/food <ABBY Busby Last Filed: 01/28/22 14:20>
--- NOTE | 2022-01-28 14:18 | ECG_ITS ---
Test Reason : LIGHTHEADED Blood Pressure : / mmHG Vent. Rate : 094 BPM Atrial Rate : 094 BPM P-R Int : 140 ms QRS Dur : 082 ms QT Int : 354 ms P-R-T Axes : 019 085 023 degrees QTc Int : 442 ms Normal sinus rhythm Normal ECG When compared with ECG of 22-JAN-2022 02:44, Heart rate has increased Referred By: Silvana Claros Electronically Signed By:PADMINI PAVON MD
[2022-01-28 14:44] LABS: MANUAL DIFF FLAG NO
[2022-01-28 14:48] LABS: Basophils Percent Auto 0.4 % (0-2); Eosinophils Absolute Auto 0.2 X10*3/uL (0.0-0.4); Eosinophils Percent Auto 1.9 % (0-4); Hematocrit 44.6 % (37.0-47.0); Hemoglobin 14.9 g/dl (12.0-16.0); Imm Gran Abs Auto 0.03 X10*3/uL (0.00-0.03); Imm Gran Pct Auto 0.3 % (0.0-0.4); Lymphocytes Percent Auto 21.5 % (20-40); Mean Corpuscular HGB Conc 33.4 g/dl (31.0-35.0); Mean Corpuscular Hemoglobin 28.8 pg (27.0-33.0); Mean Corpuscular Volume 86.1 fL (80.0-98.0); Mean Platelet Volume 9.4 fL (9.4-12.3); Monocytes Absolute Auto 0.7 X10*3/uL (0.1-1.2); Monocytes Percent Auto 8.1 % (2-11); Neutrophils Absolute Auto 6.2 x10*3/uL (2.0-8.3); Neutrophils Percent Auto 67.8 % (45-73); Platelet Count 249 X10*3/uL (160-400); Red Blood Count 5.18 X10*6/uL (4.20-5.50); Red Cell Distribution Width 15.1 % (11.0-16.0); White Blood Count 9.1 X10*3/uL (4.8-10.8)
[2022-01-28 15:03] LABS: Alanine Aminotransferase 14 U/L (0-31); Albumin Level 4.5 g/dL (3.5-5.0); Alkaline Phosphatase 66 U/L (39-117); Anion Gap 15 (12-20); Aspartate Amino Transferase 15 U/L (5-31); Bilirubin Direct 0.2 mg/dL (0.0-0.5); Bilirubin Total 0.6 mg/dL (0.0-1.0); Blood Urea Nitrogen 15 mg/dL (9-16); Calcium 9.8 mg/dL (8.4-10.2); Carbon Dioxide 23 mmol/L (22-29); Chloride 106 mmol/L (96-108); Creatinine Clr Calc Pharmacy 151.2; Estimated Glomerular Filt Rate > 60; Glucose Random 104 mg/dL (60-115); Magnesium 1.7 mg/dL (1.6-2.6); Sodium 140 mmol/L (135-145); Total Protein 7.7 g/dL (6.5-8.0)
[2022-01-28 15:07] LABS: COVID-19 Test Negative (Negative); IDNOW Serial# 16C4AD1C; IDNOW Serial# 9DB6401D; Influenza A Negative (Negative); Influenza B2 Negative (Negative)
[2022-01-28 15:14] LABS: Troponin-I High Sensitivity < 3.5 ng/L (<3.5-17.0)
[2022-01-28 15:49] VITALS: BP 118/68; PULSE 81
[2022-01-28 15:55] LABS: Appearance Urine Cloudy; Color Urine Yellow; Glucose Urine UA Negative (Negative); Leukocyte Esterase Urine Negative (Negative); Nitrite Urine Negative (Negative); PH 5.5 (5.0-9.0); Specific Gravity - Urine >= 1.030 (1.005-1.025); Urine Blood Negative (Negative); Urine Ketones 15 mg/dL (Negative); Urine Protein Trace mg/dL (Neg-Trace)
[2022-01-28 15:56] LABS: UPreg QC Valid YES; Urine Pregnancy NEGATIVE (NEGATIVE)
[2022-01-28 16:07] LABS: Amphetamine Screen Urine Not Detected (Not Detect); Barbiturates, Urine Not Detected (Not Detect); Benzodiazepines Screen Urine Not Detected (Not Detect); Cannabinoid Screen Urine POSITIVE (Not Detect); Cocaine Screen Urine Not Detected (Not Detect); Fentanyl, urine Not Detected (Not Detect); Opiate Screen Urine Not Detected (Not Detect); Phencyclidine Screen Urine Not Detected (Not Detect)
== END 2022-01-28 16:16 | disposition home or self-care (01) ==
PROVIDERS: Physician Assistant; Emergency Provider Emergency Medicine Emergency Medical Services
DX: R42 Dizziness and giddiness (principal); F17.210 Nicotine dependence, cigarettes, uncomplicated; Z71.6 Tobacco abuse counseling; Z20.822 Contact with and (suspected) exposure to COVID-19; Z79.899 Other long term (current) drug therapy
CPT/HCPCS: 36415; 80048; 80076; 80307; 81003; 81025; 83735; 84484; 85025; 87502; 87635; 93005; 99284

== ENCOUNTER 2022-02-11 14:26 | Emergency (ER) | payer MEDICAID, SELFPAY ==
[2022-02-11 14:30] VITALS: BP 116/70; PULSE 77; RESP 18; TEMP 37.2; O2SAT 98; BMI 31.9
--- NOTE | 2022-02-11 14:33 | ECG_ITS ---
Test Reason : DIZZINESS Blood Pressure : / mmHG Vent. Rate : 092 BPM Atrial Rate : 092 BPM P-R Int : 162 ms QRS Dur : 080 ms QT Int : 346 ms P-R-T Axes : 039 082 027 degrees QTc Int : 427 ms Normal sinus rhythm Normal ECG When compared with ECG of 28-JAN-2022 14:19, No significant change was found Referred By: Generic ED Physician Electronically Signed By:KAREN GONZALEZ MD
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
[2022-02-11 14:56] LABS: Appearance Urine Clear; Color Urine Yellow; Glucose Urine UA Negative (Negative); Leukocyte Esterase Urine Small (1+) (Negative); Nitrite Urine Negative (Negative); UMIC TRIGGER UACC YES; Urine Blood Negative (Negative); Urine Ketones Negative (Negative); Urine Protein Negative (Neg-Trace)
[2022-02-11 14:57] LABS: UPreg QC Valid YES; Urine Pregnancy NEGATIVE (NEGATIVE)
[2022-02-11 15:10] LABS: Bacteria Urine 2+ (None Seen); Hyaline Casts Urine 0-2 /LPF (0-2); RBC Urine 0-2 /HPF (0-2); UACC Culture Trigger YES; WBC Urine 0-5 /HPF (0-5)
[2022-02-11 15:16] LABS: MANUAL DIFF FLAG NO
[2022-02-11 15:19] LABS: Basophils Percent Auto 0.3 % (0-2); Eosinophils Absolute Auto 0.2 X10*3/uL (0.0-0.4); Eosinophils Percent Auto 1.5 % (0-4); Hematocrit 42.9 % (37.0-47.0); Imm Gran Abs Auto 0.03 X10*3/uL (0.00-0.03); Imm Gran Pct Auto 0.3 % (0.0-0.4); Lymphocytes Absolute Auto 1.8 X10*3/uL (1.2-4.9); Lymphocytes Percent Auto 17.9 % (20-40); Mean Corpuscular HGB Conc 32.6 g/dl (31.0-35.0); Mean Corpuscular Hemoglobin 28.6 pg (27.0-33.0); Mean Corpuscular Volume 87.6 fL (80.0-98.0); Mean Platelet Volume 9.6 fL (9.4-12.3); Monocytes Absolute Auto 0.4 X10*3/uL (0.1-1.2); Monocytes Percent Auto 4.2 % (2-11); Neutrophils Absolute Auto 7.6 x10*3/uL (2.0-8.3); Neutrophils Percent Auto 75.8 % (45-73); Platelet Count 233 X10*3/uL (160-400); Red Cell Distribution Width 14.5 % (11.0-16.0)
[2022-02-11 15:33] LABS: COVID-19 Test Negative (Negative); IDNOW Serial# BCCEAD1C
[2022-02-11 15:37] LABS: Alanine Aminotransferase 12 U/L (0-31); Albumin Level 4.1 g/dL (3.5-5.0); Alkaline Phosphatase 65 U/L (39-117); Anion Gap 10 (12-20); Aspartate Amino Transferase 12 U/L (5-31); Bilirubin Direct < 0.2 mg/dL (0.0-0.5); Bilirubin Total 0.2 mg/dL (0.0-1.0); Blood Urea Nitrogen 21 mg/dL (9-16); Calcium 9.7 mg/dL (8.4-10.2); Carbon Dioxide 22 mmol/L (22-29); Chloride 107 mmol/L (96-108); Creatinine Clr Calc Pharmacy 135.9; Estimated Glomerular Filt Rate > 60; Glucose Random 85 mg/dL (60-115); Magnesium 1.7 mg/dL (1.6-2.6); Potassium 4.5 mmol/L (3.3-5.1); Sodium 134 mmol/L (135-145)
[2022-02-11 17:26] VITALS: BP 113/69; PULSE 71; RESP 18; TEMP 37; O2SAT 99
[2022-02-11 17:41] VITALS: BP 109/61; PULSE 75; RESP 18; O2SAT 98
[2022-02-11 17:52] VITALS: BP 123/62; PULSE 90; RESP 18
== END 2022-02-11 17:55 | disposition home or self-care (01) ==
PROVIDERS: Nurse Practitioner Family; Emergency Provider Internal Medicine
DX: R42 Dizziness and giddiness (principal); N39.0 Urinary tract infection, site not specified; Z20.822 Contact with and (suspected) exposure to COVID-19; Z79.899 Other long term (current) drug therapy
CPT/HCPCS: 36415; 80048; 80076; 81001; 81025; 83735; 85025; 87086; 87635; 93005; 99283

== ENCOUNTER 2022-02-17 12:02 | Emergency (ER) | payer MEDICAID, SELFPAY ==
--- NOTE | ~2022-02-17 | XR_ITS ---
EXAMINATION: XR CHEST CLINICAL INFORMATION: Cough COMPARISON: None TECHNIQUE: 2 views of the chest were obtained. FINDINGS: No significant abnormality is noted involving the heart, lungs, mediastinum, bony thorax or soft tissues. XR/XR chest 2V IMPRESSION: Unremarkable examination.
[2022-02-17 12:03] VITALS: BP 141/78; PULSE 100; RESP 18; TEMP 36.8; O2SAT 97; BMI 31.9
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
[2022-02-17 13:21] LABS: COVID-19 Test Negative (Negative); IDNOW Serial# 16C4AD1C; IDNOW Serial# BCCEAD1C; Influenza A Negative (Negative); Influenza B2 Negative (Negative)
== END 2022-02-17 13:54 | disposition home or self-care (01) ==
PROVIDERS: Physician Assistant; Emergency Provider Emergency Medicine
DX: J06.9 Acute upper respiratory infection, unspecified (principal); R42 Dizziness and giddiness; Z20.822 Contact with and (suspected) exposure to COVID-19
CPT/HCPCS: 71046; 87502; 87635; 99282; 99283

== ENCOUNTER 2022-03-19 18:02 | Emergency (ER) | payer MEDICAID, SELFPAY ==
[2022-03-19 18:10] VITALS: BP 107/66; PULSE 84; RESP 16; TEMP 36.9; O2SAT 98; BMI 31.0
[2022-03-19 19:10] LABS: Appearance Urine Clear; Color Urine Yellow; Glucose Urine UA Negative (Negative); Leukocyte Esterase Urine Trace (Negative); Nitrite Urine Negative (Negative); PH 5.5 (5.0-9.0); UMIC TRIGGER UACC YES; Urine Blood Negative (Negative); Urine Ketones Negative (Negative); Urine Protein Negative (Neg-Trace)
[2022-03-19 19:15] LABS: Bacteria Urine None Seen (None Seen); Hyaline Casts Urine 0-2 /LPF (0-2); RBC Urine 0-2 /HPF (0-2); WBC Urine 0-5 /HPF (0-5)
--- NOTE | 2022-03-19 20:26 | ED_ITS ---
HPI - Dizziness General Chief Complaint: Dizziness Stated Complaint: dizziness Time Seen by Provider: 03/19/22 20:25 Source: patient Mode of arrival: ambulatory Limitations: no limitations History of Present Illness HPI Narrative: 21-year-old female presents with intermittent resolved dizziness and right arm pain. Patient has a history of schizophrenic affective disorder and cannabis use disorder. She has presented multiple times in the past for similar circumstances. MD elicited complaint: dizziness Onset (ago): minute(s) Timing: sudden onset and episodic Severity: similar to previous episodes Description: lightheadedness History of similar symptoms: Yes Exacerbating factors: nothing Relieving factors: nothing Associated symptoms: denies other symptoms Related Data Previous Rx's Medication Instructions Recorded clonidine HCl 0.1 mg tablet 1 tab PO BID #60 tabs 12/12/21 multivitamin (Daily-Oiana tablet) 1 tab PO DAILY #30 tabs 12/12/21 olanzapine 10 mg tablet 20 mg PO BEDTIME #30 tabs 12/12/21 thiamine mononitrate (vit B1) 100 100 mg PO DAILY #30 tabs 12/12/21 mg tablet trazodone 100 mg tablet 1 tab PO BEDTIME PRN insomnia #30 12/12/21 tabs nitrofurantoin 100 mg PO Q12H 5 days #10 caps 01/10/22 monohydrate/macrocrystals 100 mg capsule (Macrobid) nitrofurantoin 100 mg PO Q12H 5 days #10 caps 02/11/22 monohydrate/macrocrystals 100 mg capsule (Macrobid) albuterol sulfate 90 mcg/actuation 1 inh inhalation QID PRN shortness 02/17/22 aerosol inhaler of breath or wheezing #6.7 grams Allergies Allergy/AdvReac Type Severity Reaction Status Date / Time No Known Allergies Allergy Verified 01/28/22 13:15 Review of Systems Review of Systems: Constitutional: No Fever, No Chills ENT/Mouth: No Ear Pain, No Hoarseness, No sore throat Eyes: No Eye Pain, No Swelling, No Redness, No Foreign Body Cardiovascular: No Chest Pain, No SOB Respiratory: No Cough, No Dyspnea Gastrointestinal: No Nausea, No Vomiting, No Diarrhea, No abdominal Pain Genitourinary: No Dysuria, No Hematuria Musculoskeletal: positive right arm pain, No Myalgias, No Joint Swelling Skin: No Skin lacerations, No rash Neuro: No Weakness, No Numbness, No Paresthesias, No Loss of Consciousness, positive resolved Dizziness, No Headache Psych: No Anxiety/Panic, No Depression Heme/Lymph: no easy bruising, no Lymphadenopathy Endocrine: No Polyuria, No Polydipsia Yes all other systems are reviewed and are negative [facility] Past Medical History Attestation statement: The following information was validated with the patient. Source: old records reviewed Medical History Asthma Bipolar 1 disorder Bipolar disorder Cannabis use disorder Schizophrenia Social History Social History Household Members: None Household Members Other:: mother, sister Housing: Apartment Housing Other:: Current living situation will change as the apt has be condemned Do you presently have visiting nurse or other home services: No Unable to assess alcohol history related to: Refusing to respond Alcohol intake: never Patient Tobacco Use Status: Never used Tobacco Tobacco use type: Cigarette Cigarette Packs Per Day: 1 Cigarettes Per Day: 20.0 e-Cigarette/Vaping Use: Never Used Second Hand Smoke Exposure: No Substance Use Type: Marijuana Advance Directives: No Advance Directives Information Provided: Yes service: No Sexual orientation: Did not discuss Physical Exam Vital Signs: Vital Signs: Last Vital Signs Temp 98.4 F 03/19/22 18:10 Pulse 84 03/19/22 18:10 Resp 16 03/19/22 18:10 BP 107/66 03/19/22 18:10 Pulse Ox 98 03/19/22 18:10 O2 Del Method 03/19/22 18:10 BMI result Body Mass Index 31.0 Appearance: Alert. Oriented X3. No acute distress. Eyes: Pupils equal, round and reactive to light. ENT: Pharynx normal. Neck: Normal inspection. Neck supple. CVS: Normal heart rate and rhythm. Pulses normal. Respiratory: No respiratory distress. Breath sounds normal. Abdomen: Soft and nontender. Skin: Skin warm and dry. Normal skin color. Normal skin turgor. Extremities: No lower extremity edema. Gait well-balanced well coordinated. Neuro: No motor deficit. No sensory deficit. Cranial nerves 2-12 intact Course Course Course Narrative: 21-year-old female with schizoaffective disorder and cannabis use disorder presents for a resolved episode of dizziness. Patient stated that she felt dizzy earlier today, does not feel dizzy now. The dizziness was not accompanied by changes in vision, headache, palpitations, weakness, or syncopal episodes. Patient did report prior history of UTI, was on antibiotics and completed the entire course. Patient has denied chest pain or pressure, palpitations, shortness of breath, fevers and chills. Patient does have a flat affect consistent with schizoaffective disorder. Patient presents with a note from her mother, stating that she has right arm pain however during my interview patient did not report any pain in her arm. She has full range of motion to all of her extremities, no pain on extraocular movements, no nystagmus. Vital signs are st able within normal limits. Patient is afebrile and nontoxic. Shaan coma scale 15. Plan of care is for respiratory panel, urinalysis. I do not feel that this patient requires CT scan at this time, patient is neurovascularly intact, cranial nerves 2-12 intact, and her gait is well balanced and coordinated. 22:01 respiratory panel negative. Urinalysis indicates leukocyte esterase without bacteria or nitrites. I do not feel that this patient requires antibiotics at this time as she just completed the course less than 4 weeks ago. Plan of care is to discharge home. Patient verbalized understanding of and agrees to plan of care. Verbalized understanding of signs and symptoms indicating need for emergent intervention. Medications Administered Discontinued Medications Generic Name Dose Route Start Last Admin Trade Name Freq PRN Reason Stop Dose Admin Acetaminophen 650 mg 03/19/22 21:05 03/19/22 21:14 Acetaminophen 325 Mg Tablet PO 03/19/22 21:06 650 mg ONCE ONE Administration Medical Decision Making Differential Diagnosis Differential Diagnoses: The differential diagnosis associated with the presentation includes Medication side effect, RSV, COVID, influenza, , UTI Lab Data MDM Lab Attestation statement: I reviewed the patient's lab results. Labs: Lab Results 03/19/22 03/19/22 03/19/22 Range/Units 18:45 18:45 21:12 Urine Color Yellow Urine Appearance Clear Urine pH 5.5 (5.0-9.0) Ur Specific [place] 1.020 (1.005-1.025) Urine Protein Negative (Neg-Trace) mg/dL Urine Glucose (UA) Negative (Negative) mg/dL Urine Ketones Negative (Negative) mg/dL Urine Blood Negative (Negative) Urine Nitrite Negative (Negative) Ur Leukocyte Esterase Trace H (Negative) Urine RBC 0-2 (0-2) /HPF Urine WBC 0-5 (0-5) /HPF Ur Squamous Epith Cells 3-5 (0-2) /HPF Urine Bacteria None Seen (None Seen) Hyaline Casts 0-2 (0-2) /LPF Urine Test NEGATIVE (NEGATIVE) COVID-19 (BRENDA) (Negative) COVID-19 Clin Com Influenza Type A (MARIO) Negative (Negative) Influenza Type B (MARIO) Negative (Negative) Influenza A & B Note See Note 03/19/22 Range/Units 21:12 Urine Color Urine Appearance Urine pH (5.0-9.0) Ur Specific [place] (1.005-1.025) Urine Protein (Neg-Trace) mg/dL Urine Glucose (UA) (Negative) mg/dL Urine Ketones (Negative) mg/dL Urine Blood (Negative) Urine Nitrite (Negative) Ur Leukocyte Esterase (Negative) Urine RBC (0-2) /HPF Urine WBC (0-5) /HPF Ur Squamous Epith Cells (0-2) /HPF Urine Bacteria (None Seen) Hyaline Casts (0-2) /LPF Urine Test (NEGATIVE) COVID-19 (BRENDA) Negative (Negative) COVID-19 Clin Com See Note Influenza Type A (MARIO) (Negative) Influenza Type B (MARIO) (Negative) Influenza A & B Note External Record Review External record reviewed: Outpatient record and Prior outpatient labs Discharge Plan Discharge Clinical Impression: Dizziness, Arm pain, right Patient Disposition: Home, Self-Care Instructions: Dizziness (ED), Arm Pain (ED) Additional Instructions: You were evaluated for dizziness and arm pain. Your COVID influenza RSV test are negative. Please follow-up with primary care physician. For your arm pain please Alternate Tylenol 650 mg every 6 hours and Motrin 600 mg every 6 hours as needed for pain and fever management. Consider taking these medications 3 hours apart so you have pain and fever management every 3 hours. Write down what time you take these medications to prevent accidental overdose. Thank you for choosing this emergency department for evaluation. Please follow-up with primary care physician as needed. Return to the emergency department for any new, concerning, or worsening symptoms. Prescriptions: No Action multivitamin [Daily-Ioana] Tablet 1 tab PO DAILY Qty: 30 0RF olanzapine 10 mg Tablet 20 mg PO BEDTIME Qty: 30 0RF thiamine mononitrate (vit B1) 100 mg Tablet 100 mg PO DAILY Qty: 30 0RF clonidine HCl 0.1 mg tablet 1 tab PO BID Qty: 60 0RF trazodone 100 mg tablet 1 tab PO BEDTIME PRN (Reason: insomnia) Qty: 30 0RF nitrofurantoin monohyd/m-cryst [Macrobid] 100 mg capsule 100 mg PO Q12H 5 Days Qty: 10 0RF Rx Instructions: must administer with a meal/food nitrofurantoin monohyd/m-cryst [Macrobid] 100 mg capsule 100 mg PO Q12H 5 Days Qty: 10 0RF Rx Instructions: must administer with a meal/food albuterol sulfate 90 mcg/actuation HFA aerosol inhaler 1 inh inhalation QID PRN (Reason: shortness of breath or wheezing) Qty: 6.7 0RF Referrals: ED Physician,Generic [Physician] - 1 week (Primary care physician) Interventions: ED Discharge Assessment Last Done: 03/19/22 22:36 Discharge Date/Time: 03/19/22 22:37
[2022-03-19 20:40] LABS: UPreg QC Valid YES; Urine Pregnancy NEGATIVE (NEGATIVE)
--- NOTE | 2022-03-19 20:59 | PC.NURSE ---
pt states to this rn that she has a letter from her mother. letter says pt has r arm pain. pt states at this time she does have right arm pain. this rn spoke with provider leslie kimble. per leslie lin order for tylenol 650mg po. order read back and confirmed with leslie
[2022-03-19] MEDS: Acetaminophen 325 MG TABLET 650 MG PO (21:14)
[2022-03-19 21:30] LABS: COVID-19 Test Negative (Negative); IDNOW Serial# 16C4AD1C; IDNOW Serial# BCCEAD1C; Influenza A Negative (Negative); Influenza B2 Negative (Negative)
== END 2022-03-19 22:37 | disposition home or self-care (01) ==
PROVIDERS: Nurse Practitioner Family; Emergency Provider Internal Medicine
DX: R42 Dizziness and giddiness (principal); M79.601 Pain in right arm; F25.0 Schizoaffective disorder, bipolar type; F12.90 Cannabis use, unspecified, uncomplicated; F17.210 Nicotine dependence, cigarettes, uncomplicated; Z79.899 Other long term (current) drug therapy; Z20.822 Contact with and (suspected) exposure to COVID-19
CPT/HCPCS: 81001; 81025; 87502; 87635; 99283

== ENCOUNTER 2022-04-02 16:54 | Emergency (ER) | payer MEDICAID, SELFPAY ==
[2022-04-02 17:02] VITALS: BP 105/73; BP 124/88; PULSE 77; PULSE 81; RESP 16; TEMP 36.6; O2SAT 98; BMI 27.4
--- NOTE | 2022-04-02 17:02 | ED.GENADULT ---
HPI - General Adult General Chief complaint: Extremity Problem Stated complaint: R ARM PAIN, NO INJURY PER EMS Time Seen by Provider: 04/02/22 17:03 Source: patient and EMS Mode of arrival: EMS Limitations: no limitations History of Present Illness HPI narrative: Patient is a 21 year old assigned female at with a history of schizoaffective disorder presenting to the emergency department today with right arm pain. Patient states that she was seen here previously, approximately 1 month ago and they put an IV in her right arm which cause discomfort and now she states it is still hurting. Patient states that she would like her blood drawn from the right side. Patient denies any dizziness, lightheadedness, abdominal pain, nausea, vomiting, fever, chills, blurry vision, double vision, loss of vision, chest pain, difficulty breathing, shortness of breath, back pain, night sweats, pain with urination, increased urinary frequency, increased urinary urgency, blood in her urine or stool, syncope or a near syncopal episode, recent trauma or falls, bowel incontinence, bladder incontinence, bowel retention, bladder retention, or any other complaints at this time. Onset (ago): week(s) Location: right and upper extremity Severity: mild Severity scale (1-10): 2 Relieving factors: none Exacerbating factors: none Associated symptoms: denies other symptoms Treatments prior to arrival: none Related Data Previous Rx's Medication Instructions Recorded clonidine HCl 0.1 mg tablet 1 tab PO BID #60 tabs 12/12/21 multivitamin (Daily-Ioana tablet) 1 tab PO DAILY #30 tabs 12/12/21 olanzapine 10 mg tablet 20 mg PO BEDTIME #30 tabs 12/12/21 thiamine mononitrate (vit B1) 100 100 mg PO DAILY #30 tabs 12/12/21 mg tablet trazodone 100 mg tablet 1 tab PO BEDTIME PRN insomnia #30 12/12/21 tabs nitrofurantoin 100 mg PO Q12H 5 days #10 caps 01/10/22 monohydrate/macrocrystals 100 mg capsule (Macrobid) nitrofurantoin 100 mg PO Q12H 5 days #10 caps 02/11/22 monohydrate/macrocrystals 100 mg capsule (Macrobid) albuterol sulfate 90 mcg/actuation 1 inh inhalation QID PRN shortness 02/17/22 aerosol inhaler of breath or wheezing #6.7 grams Allergies Allergy/AdvReac Type Severity Reaction Status Date / Time No Known Allergies Allergy Verified 01/28/22 13:15 Review of Systems Constitutional: Constitutional: Reports no additional constitutional complaints, Denies chills, Denies fever(s) and Denies night sweats Eyes: Eyes: Reports no additional eye complaints, Denies blurry vision, Denies change in vision, Denies diplopia, Denies eye discharge, Denies loss of vision and Denies eye pain ENT: Denies dizziness Cardiovascular: Cardiovascular: Reports no additional cardiovascular complaints, Denies chest pain, Denies lightheadedness, Denies Loss of Consciousness and Denies dyspnea Respiratory: Respiratory: Reports no additional respiratory complaints and Denies dyspnea Gastrointestinal: Gastrointestinal: Reports no additional gastrointestinal complaints, Denies abdominal pain, Denies melena, Denies hematochezia, Denies change in bowel habits and Denies change in stool character Genitourinary: Genitourinary: Denies hematuria, Denies urinary frequency, Denies dysuria, Denies urinary incontinence, Denies urinary hesitancy and Denies urinary urgency Musculoskeletal: Musculoskeletal: Reports no additional musculoskeletal complaints, Denies numbness and Denies tingling Comments: right arm pain Neurologic: Denies dizziness, Denies loss of vision, Denies numbness and Denies tingling Psychiatric: Psychiatric: Reports no additional psychiatric complaints Endocrine: Endocrine: Reports no additional endocrine complaints Hematologic/Lymphatic: Hematologic/Lymphatic: Reports no additional hematologic/lymphatic complaints Allergic/Immunologic: Allergic/Immunologic: Reports no additional allergic/immunologic complaints [facility] Past Medical History Attestation statement: The following information was validated with the patient. Source: old records reviewed and nursing notes reviewed Medical History Asthma Bipolar 1 disorder Bipolar disorder Cannabis use disorder Schizophrenia Social History Social History Household Members: None Household Members Other:: mother, sister Housing: Apartment Housing Other:: Current living situation will change as the apt has be condemned Do you presently have visiting nurse or other home services: No Unable to assess alcohol history related to: Refusing to respond Alcohol intake: never Patient Tobacco Use Status: Never used Tobacco Tobacco use type: Cigarette Cigarette Packs Per Day: 1 Cigarettes Per Day: 20.0 e-Cigarette/Vaping Use: Never Used Second Hand Smoke Exposure: No Substance Use Type: Marijuana Advance Directives: No Advance Directives Information Provided: No service: No Sexual orientation: Did not discuss Physical Exam ED Vital Signs: Vital Signs - 24 hr 04/02/22 17:02 Temperature 97.9 F Pulse Rate 77 Respiratory Rate 16 Blood Pressure 105/73 Pulse Oximetry 98 Oxygen Delivery Method Room Air BMI result Body Mass Index 27.4 Const General: cooperative, no acute distress, alert and awake Nutritional Appearance: well nourished Orientation/consciousness: patient oriented x3 Limitations: no limitations HENMT Head: Yes normal to inspection and Yes atraumatic Ears: hearing grossly normal bilaterally and external ears normal General nose exam: Normal external nose present, no nasal discharge noted and no epistaxis Face and sinus: Yes normal facial exam, No abrasion and No laceration Mouth: Normal oral and palatal mucosa present, no drooling and no muffled voice Eyes General: appearance normal, both eyes and all related structures Periorbital: periorbital findings normal Eyelids: Yes eyelids normal Conjunctivae: conjunctivae normal Pupils: Equal, round and reactive pupils present EOM: EOMs intact bilaterally Neck Neck: Yes normal visual inspection, Yes full ROM and Yes no lymphadenopathy Chest Chest palpation & inspection: normal inspection of the chest Resp Effort & Inspection: normal respiratory effort and able to speak in complete sentences Auscultation: clear to auscultation bilaterally Cardio Rate: regular rate Rhythm: regular rhythm GI Inspection: Yes normal to inspection Palpation (GI): Soft to palpation, not firm, nontender, no guarding and not rigid Neuro General: patient oriented x3 and moves all extremities Cranial nerves: Yes Equal, round and reactive pupils present Cognition (Neuro): normal cognition Motor exam (neuro): 5/5 motor strength present throughout Sensory Exam: Normal double simultaneous stimulation for sensation Coordination: [id number] test normal Extrem General: Yes normal to inspection, Yes full ROM and Yes capillary refill normal Psych Appearance: grossly normal Mental Status: mental status grossly normal Affect: normal affect Attitude: cooperative Thought process: Normal thought process present Thought content: Normal thought content present Insight: Good insight present (Psych) Medical Decision Making Medical Decision Making MDM Narrative: Patient is a 21 year old assigned female at with a history of schizoaffective disorder presenting to the emergency department today with right arm pain. Patient's physical exam was unremarkable. Patient's blood work was unremarkable. I explained my physical exam findings as well as all test results to the patient. I answered all questions asked by the patient. Patient was evaluated by CARE team who recommended the patient be evaluated by their team whenever she presents to the ED for a medical problem. I stressed the importance of the patient taking her medication as prescribed. I stressed the importance of the patient following up with her primary care provider. I stressed the importance of the patient returning to the emergency department immediately if her symptoms were to worsen or if she were to develop any dizziness, shortness of breath, difficulty breathing, chest pain, blurry vision, loss of vision, nausea, vomiting, abdominal pain, fever, chills, back pain, or any other complaints. Patient verbalized agreement and understanding with this treatment plan and discharge. Differential Diagnosis Differential Diagnoses: The differential diagnosis associated with the presentation includes arm pain, fixed delusion Lab Data MDM Lab Attestation statement: I reviewed the patient's lab results. 04/02/22 17:18 04/02/22 17:18 Labs: Lab Results 04/02/22 04/02/22 Range/Units 17:18 17:18 WBC 8.0 (4.8-10.8) X10*3/uL RBC 5.37 (4.20-5.50) X10*6/uL Hgb 15.2 (12.0-16.0) g/dl Hct 45.7 (37.0-47.0) % MCV 85.1 (80.0-98.0) fL MCH 28.3 (27.0-33.0) pg MCHC 33.3 (31.0-35.0) g/dl RDW 14.0 (11.0-16.0) % Plt Count 238 (160-400) X10*3/uL MPV 10.1 (9.4-12.3) fL Immature Gran % (Auto) 0.3 (0.0-0.4) % Neut % (Auto) 62.3 (45-73) % Lymph % (Auto) 29.5 (20-40) % [place] % (Auto) 5.4 (2-11) % Eos % (Auto) 2.1 (0-4) % Baso % (Auto) 0.4 (0-2) % Lymph # (Auto) 2.4 (1.2-4.9) X10*3/uL [place] # (Auto) 0.4 (0.1-1.2) X10*3/uL Eos # (Auto) 0.2 (0.0-0.4) X10*3/uL Baso # (Auto) 0.0 (0.0-0.2) X10*3/uL Abs Immat Gran (auto) 0.02 (0.00-0.03) X10*3/uL Absolute Neuts (auto) 5.0 (2.0-8.3) x10*3/uL Absolute Nucleated RBC 0.000 (0.0-0.012) X10*3/uL Nucleated RBC % (auto) 0.0 (0.0-0.2) /100WBC Sodium 139 (135-145) mmol/L Potassium 4.4 (3.3-5.1) mmol/L Chloride 110 H (96-108) mmol/L Carbon Dioxide 19 L (22-29) mmol/L Anion Gap 14 (12-20) BUN 10 (9-16) mg/dL Creatinine 0.69 (0.5-1.4) mg/dL Estim Creat Clear Calc 125.9 Estimated GFR > 60 Random Glucose 89 (60-115) mg/dL Calcium 9.6 (8.4-10.2) mg/dL Total Bilirubin 0.4 (0.0-1.0) mg/dL AST 21 (5-31) U/L ALT 25 (0-31) U/L Alkaline Phosphatase 78 (39-117) U/L C-Reactive Protein < 0.10 (< or = 0.50) mg/dL Total Protein 7.3 (6.5-8.0) g/dL Albumin 4.0 (3.5-5.0) g/dL Discharge Plan Discharge Clinical Impression: Arm pain Patient Disposition: Home, Self-Care Instructions: Arm Pain (ED) Prescriptions: No Action multivitamin [Daily-Ioana] Tablet 1 tab PO DAILY Qty: 30 0RF olanzapine 10 mg Tablet 20 mg PO BEDTIME Qty: 30 0RF thiamine mononitrate (vit B1) 100 mg Tablet 100 mg PO DAILY Qty: 30 0RF clonidine HCl 0.1 mg tablet 1 tab PO BID Qty: 60 0RF trazodone 100 mg tablet 1 tab PO BEDTIME PRN (Reason: insomnia) Qty: 30 0RF nitrofurantoin monohyd/m-cryst [Macrobid] 100 mg capsule 100 mg PO Q12H 5 Days Qty: 10 0RF Rx Instructions: must administer with a meal/food nitrofurantoin monohyd/m-cryst [Macrobid] 100 mg capsule 100 mg PO Q12H 5 Days Qty: 10 0RF Rx Instructions: must administer with a meal/food albuterol sulfate 90 mcg/actuation HFA aerosol inhaler 1 inh inhalation QID PRN (Reason: shortness of breath or wheezing) Qty: 6.7 0RF Print Language: Brazilian
[2022-04-02 17:22] LABS: MANUAL DIFF FLAG NO
[2022-04-02 17:31] LABS: Basophils Percent Auto 0.4 % (0-2); Eosinophils Absolute Auto 0.2 X10*3/uL (0.0-0.4); Eosinophils Percent Auto 2.1 % (0-4); Hematocrit 45.7 % (37.0-47.0); Hemoglobin 15.2 g/dl (12.0-16.0); Imm Gran Abs Auto 0.02 X10*3/uL (0.00-0.03); Imm Gran Pct Auto 0.3 % (0.0-0.4); Lymphocytes Absolute Auto 2.4 X10*3/uL (1.2-4.9); Lymphocytes Percent Auto 29.5 % (20-40); Mean Corpuscular HGB Conc 33.3 g/dl (31.0-35.0); Mean Corpuscular Hemoglobin 28.3 pg (27.0-33.0); Mean Corpuscular Volume 85.1 fL (80.0-98.0); Mean Platelet Volume 10.1 fL (9.4-12.3); Monocytes Absolute Auto 0.4 X10*3/uL (0.1-1.2); Monocytes Percent Auto 5.4 % (2-11); Neutrophils Percent Auto 62.3 % (45-73); Platelet Count 238 X10*3/uL (160-400); Red Blood Count 5.37 X10*6/uL (4.20-5.50)
[2022-04-02 17:56] LABS: Alanine Aminotransferase 25 U/L (0-31); Alkaline Phosphatase 78 U/L (39-117); Anion Gap 14 (12-20); Aspartate Amino Transferase 21 U/L (5-31); Bilirubin Total 0.4 mg/dL (0.0-1.0); Blood Urea Nitrogen 10 mg/dL (9-16); C Reactive Protein < 0.10 mg/dL (< or = 0.50); Calcium 9.6 mg/dL (8.4-10.2); Carbon Dioxide 19 mmol/L (22-29); Chloride 110 mmol/L (96-108); Creatinine Clr Calc Pharmacy 125.9; Estimated Glomerular Filt Rate > 60; Glucose Random 89 mg/dL (60-115); Potassium 4.4 mmol/L (3.3-5.1); Sodium 139 mmol/L (135-145); Total Protein 7.3 g/dL (6.5-8.0)
[2022-04-02 18:05] LABS: Erythrocyte Sedimentation Rate 11 MM/HR (0-20)
== END 2022-04-02 18:14 | disposition home or self-care (01) ==
PROVIDERS: Physician Assistant Medical; Emergency Provider Emergency Medicine
DX: M79.601 Pain in right arm (principal); F25.0 Schizoaffective disorder, bipolar type; F12.90 Cannabis use, unspecified, uncomplicated; F17.210 Nicotine dependence, cigarettes, uncomplicated; Z79.899 Other long term (current) drug therapy
CPT/HCPCS: 36415; 80053; 85025; 85652; 86140; 99282; 99283

== ENCOUNTER 2022-04-14 22:05 | Emergency (ER) | payer MEDICAID, SELFPAY ==
[2022-04-14 22:15] VITALS: BP 111/69; PULSE 100; PULSE 122; RESP 16; TEMP 37.1; O2SAT 100; O2SAT 97; BMI 32.3
--- NOTE | 2022-04-14 22:26 | ED_ITS ---
HPI - Alcohol General Chief Complaint: Psychiatric Symptoms Stated Complaint: Etoh Time Seen by Provider: 04/14/22 22:08 Source: patient and EMS Mode of arrival: EMS History of Present Illness HPI narrative: 21-year-old female who arrives via EMS were called by PD for patient reporting that she is intoxicated after having 7 fire ball nips, patient has underlying schizoaffective disorder as well as bipolar, she was noted to be out on the [employer] [place]. Patient has no acute complaints here in the emergency room, lives with her mom, and no suicidal ideation at this time. Related Data Previous Rx's Medication Instructions Recorded clonidine HCl 0.1 mg tablet 1 tab PO BID #60 tabs 12/12/21 multivitamin (Daily-Ioana tablet) 1 tab PO DAILY #30 tabs 12/12/21 olanzapine 10 mg tablet 20 mg PO BEDTIME #30 tabs 12/12/21 thiamine mononitrate (vit B1) 100 100 mg PO DAILY #30 tabs 12/12/21 mg tablet trazodone 100 mg tablet 1 tab PO BEDTIME PRN insomnia #30 12/12/21 tabs nitrofurantoin 100 mg PO Q12H 5 days #10 caps 01/10/22 monohydrate/macrocrystals 100 mg capsule (Macrobid) nitrofurantoin 100 mg PO Q12H 5 days #10 caps 02/11/22 monohydrate/macrocrystals 100 mg capsule (Macrobid) albuterol sulfate 90 mcg/actuation 1 inh inhalation QID PRN shortness 02/17/22 aerosol inhaler of breath or wheezing #6.7 grams Allergies Allergy/AdvReac Type Severity Reaction Status Date / Time No Known Allergies Allergy Verified 01/28/22 13:15 Review of Systems Review of Systems: Pertinent positives and negatives as stated in HPI PMFSH Past Medical History Source: nursing notes reviewed Medical History Asthma Bipolar 1 disorder Bipolar disorder Cannabis use disorder Schizophrenia Social History Social History Household Members: None Household Members Other:: mother, sister Housing: Apartment Housing Other:: Current living situation will change as the apt has be condemned Do you presently have visiting nurse or other home services: No Unable to assess alcohol history related to: Refusing to respond Alcohol intake: never Patient Tobacco Use Status: Never used Tobacco Tobacco use type: Cigarette Cigarette Packs Per Day: 1 Cigarettes Per Day: 20.0 e-Cigarette/Vaping Use: Never Used Second Hand Smoke Exposure: No Substance Use Type: Marijuana Advance Directives: No service: No Sexual orientation: Did not discuss Physical Exam ED Vital Signs: Vital Signs - 24 hr 04/14/22 22:15 04/14/22 23:24 04/15/22 02:12 Temperature 98.8 F 98.2 F 98.1 F Pulse Rate 100 55 95 Respiratory Rate 16 16 17 Blood Pressure 111/69 99/57 L 89/54 L Pulse Oximetry 97 97 95 Oxygen Delivery Method Room Air Room Air BMI result Body Mass Index 32.3 VITAL SIGNS: Reviewed. GENERAL: Slightly unkempt, in no acute distress. HEAD: Normocephalic/atraumatic EYES: PERRLA, EOMI EARS: Ext canals without abnormality OROPHARYNX: no oral lesions noted, posterior pharynx clear LUNGS: Normal breath sounds. No adventitious sounds or accessory muscle use. SpO2<97> CARDIOVASCULAR: Regular rate and rhythm without noted murmurs ABDOMEN: Soft, non-tender, non-distended with bowel sounds. MUSCULOSKELETAL: No tenderness, deformities, or effusions noted on gross inspection. EXTREMITIES: No cyanosis, clubbing or edema. SKIN: Inspection of the skin reveals no rashes NEUROLOGIC: Alert and oriented x 3. Strength and sensation to light touch were grossly intact x 4. Medical Decision Making Medical Decision Making MDM Narrative: 21-year-old female appears to be slightly intoxicated and was exhibiting obnoxious behavior and pelvic setting will pursue toxicology, EKG, and provide oral intake. I reviewed all investigations and my interpretation is that patient is mildly intoxicated and on re-evaluation she states that she feels ready to go home but her mother will not be picking her up until 1st thing in the morning. She continues to deny SI/HI. Differential Diagnosis Differential Diagnoses: The differential diagnosis associated with the presentation includes Please see the discussion above Lab Data Labs: Lab Results 04/14/22 04/14/22 Range/Units 22:40 23:30 Ethyl Alcohol 163 mg/dL COVID-19 (BRENDA) Negative (Negative) COVID-19 Clin Com See Note Independent Interpretation I performed an independent interpretation of an: EKG Interpretation: Sinus tachycardia, HR -101, no STEMI, TN/QRS/QTC is within normal limits. Discharge Plan Discharge Clinical Impression: Alcohol intoxication Patient Disposition: Still a Patient Prescriptions: No Action multivitamin [Daily-Ioana] Tablet 1 tab PO DAILY Qty: 30 0RF olanzapine 10 mg Tablet 20 mg PO BEDTIME Qty: 30 0RF thiamine mononitrate (vit B1) 100 mg Tablet 100 mg PO DAILY Qty: 30 0RF clonidine HCl 0.1 mg tablet 1 tab PO BID Qty: 60 0RF trazodone 100 mg tablet 1 tab PO BEDTIME PRN (Reason: insomnia) Qty: 30 0RF nitrofurantoin monohyd/m-cryst [Macrobid] 100 mg capsule 100 mg PO Q12H 5 Days Qty: 10 0RF Rx Instructions: must administer with a meal/food nitrofurantoin monohyd/m-cryst [Macrobid] 100 mg capsule 100 mg PO Q12H 5 Days Qty: 10 0RF Rx Instructions: must administer with a meal/food albuterol sulfate 90 mcg/actuation HFA aerosol inhaler 1 inh inhalation QID PRN (Reason: shortness of breath or wheezing) Qty: 6.7 0RF
--- NOTE | 2022-04-14 22:26 | ECG_ITS ---
Test Reason : psych medications Blood Pressure : / mmHG Vent. Rate : 101 BPM Atrial Rate : 101 BPM P-R Int : 176 ms QRS Dur : 080 ms QT Int : 328 ms P-R-T Axes : 041 068 031 degrees QTc Int : 425 ms Sinus tachycardia Otherwise normal ECG When compared with ECG of 11-FEB-2022 14:38, No significant change was found Referred By: Lisette Reed Electronically Signed By:Juan Ramon Alvarado
[2022-04-14 23:11] LABS: Ethanol 163 mg/dL
[2022-04-14 23:24] VITALS: BP 99/57; PULSE 55; RESP 16; TEMP 36.8; O2SAT 97
--- NOTE | 2022-04-14 23:25 | MHC.EDTECH ---
Unable to collect urine sample for PT. PT states too tired to go to bathroom Pt made aware that a sample is needed and instructed to ring call vasquez when she is ready Dai Bermudez made aware
[2022-04-14 23:58] LABS: COVID-19 Test Negative (Negative); IDNOW Serial# BCCEAD1C
[2022-04-15 02:12] VITALS: BP 89/54; PULSE 95; RESP 17; TEMP 36.7; O2SAT 95
--- NOTE | 2022-04-15 02:15 | MHC.EDTECH ---
PT given liquids. PT reminded that a urine sample is still needed. PT stated no i'm tired . Dai Bermudez made aware
--- NOTE | 2022-04-15 02:45 | PC.NURSE ---
mom called and states she is sick and is unable to pick her up at this time but will try to find someone in the morning.
--- NOTE | 2022-04-15 03:29 | PC.NURSE ---
pt called her mom and she will pick her up in the morning. unable to give her a ride home at this time.
--- NOTE | 2022-04-15 03:29 | MHC.EDTECH ---
Pt has had 4 can of [place] and 2 cups of water. PT requesting more liquids. PT reminded that a urine sample is needed but is refusing to attempt to urinate. Dai Bermudez made aware
[2022-04-15 06:41] VITALS: BP 99/62; PULSE 100; RESP 17; TEMP 36.7; O2SAT 96
[2022-04-15 08:03] VITALS: PULSE 68; RESP 16; O2SAT 97
== END 2022-04-15 08:06 | disposition home or self-care (01) ==
PROVIDERS: Emergency Provider Student in an Organized Health Care Education/Training Program
DX: F10.920 Alcohol use, unspecified with intoxication, uncomplicated (principal); Y90.6 Blood alcohol level of 120-199 mg/100 ml; Z20.822 Contact with and (suspected) exposure to COVID-19; F25.0 Schizoaffective disorder, bipolar type; F12.90 Cannabis use, unspecified, uncomplicated; F17.210 Nicotine dependence, cigarettes, uncomplicated; Z79.899 Other long term (current) drug therapy
CPT/HCPCS: 36415; 82077; 87635; 93005; 99284; 99285

== ENCOUNTER 2022-04-21 00:16 | Emergency (ER) | payer MEDICAID, SELFPAY ==
[2022-04-21 00:26] VITALS: BP 110/74; BP 96/68; PULSE 82; PULSE 86; RESP 18; TEMP 36.3; O2SAT 97; O2SAT 98; BMI 33.6
--- NOTE | 2022-04-21 00:53 | ED_ITS ---
HPI - Alcohol General Chief Complaint: ETOH/Substance Use Stated Complaint: etoh Time Seen by Provider: 04/21/22 00:50 Source: EMS Mode of arrival: EMS Limitations: other (Intoxication) History of Present Illness HPI narrative: 21-year-old female presents with acute alcohol intoxication. [place] She admitted to drinking alcohol. She was seen on April 14 of this year with alcohol intoxication as well. There were no reports of suicidal or homicidal ideation. Patient is unable to provide additional history at this time due to acute alcohol intoxication. Related Data Previous Rx's Medication Instructions Recorded clonidine HCl 0.1 mg tablet 1 tab PO BID #60 tabs 12/12/21 multivitamin (Daily-Ioana tablet) 1 tab PO DAILY #30 tabs 12/12/21 olanzapine 10 mg tablet 20 mg PO BEDTIME #30 tabs 12/12/21 thiamine mononitrate (vit B1) 100 100 mg PO DAILY #30 tabs 12/12/21 mg tablet trazodone 100 mg tablet 1 tab PO BEDTIME PRN insomnia #30 12/12/21 tabs nitrofurantoin 100 mg PO Q12H 5 days #10 caps 01/10/22 monohydrate/macrocrystals 100 mg capsule (Macrobid) nitrofurantoin 100 mg PO Q12H 5 days #10 caps 02/11/22 monohydrate/macrocrystals 100 mg capsule (Macrobid) albuterol sulfate 90 mcg/actuation 1 inh inhalation QID PRN shortness 02/17/22 aerosol inhaler of breath or wheezing #6.7 grams Allergies Allergy/AdvReac Type Severity Reaction Status Date / Time No Known Allergies Allergy Verified 01/28/22 13:15 Review of Systems Review of Systems: Yes Unobtainable due to mental status [facility] Past Medical History Medical History Asthma Bipolar 1 disorder Bipolar disorder Cannabis use disorder Schizophrenia Social History Social History Household Members: None Household Members Other:: mother, sister Housing: Apartment Housing Other:: Current living situation will change as the apt has be condemned Do you presently have visiting nurse or other home services: No Unable to assess alcohol history related to: Refusing to respond Alcohol intake: current Alcohol intake frequency: a few times a month Alcohol type: hard liquor Patient Tobacco Use Status: Never used Tobacco Tobacco use type: Cigarette Cigarette Packs Per Day: 1 Cigarettes Per Day: 20.0 e-Cigarette/Vaping Use: Never Used Second Hand Smoke Exposure: No Substance Use Type: Marijuana Advance Directives: No Advance Directives Information Provided: Yes service: No Sexual orientation: Did not discuss Physical Exam ED Vital Signs: Vital Signs - 24 hr 04/21/22 00:26 04/21/22 01:17 04/21/22 02:14 Temperature 97.3 F 97.6 F Pulse Rate 82 70 76 Respiratory Rate 18 17 18 Blood Pressure 96/68 95/58 L 107/67 Pulse Oximetry 97 98 98 Oxygen Delivery Method Room Air Room Air Room Air 04/21/22 05:27 Temperature 97.7 F Pulse Rate 77 Respiratory Rate 18 Blood Pressure 105/64 Pulse Oximetry 97 Oxygen Delivery Method Room Air BMI result Body Mass Index 33.6 GEN: Well developed, intoxicated HEENT: Normocephalic, atraumatic, normal external ears, nose appears normal, no oropharyngeal edema or exudates Eyes: Normal to appearance Neck: Supple, no lymphadenopathy Respiratory: Talks in complete sentences, no respiratory distress, clear to auscultation bilaterally Cardiovascular: Regular rate and rhythm, no murmurs rubs or gallops Abdomen: Soft, nontender, nondistended, no guarding, no rebound Back: No CVA tenderness Extremities: No clubbing cyanosis or edema Neurologic: No focal neurologic deficits Skin: No rash Course Course Course Narrative: 21-year-old female presents with apparent alcohol intoxication. There are no reports of suicidal or homicidal ideation. Will obtain an alcohol level re- evaluate pending sobriety. There is no evidence of trauma. There is no evidence of head injury Reevaluation(s) Reevaluation #1: Patient was ambulatory with steady gait. She was able tolerate oral intake. Will keep an eye on her for an additional 1/2 hour and then discharged. Time: 04:41 Reevaluation #2: Patient is awake and alert. She will contact her mom to try to get a ride home. Time: 05:39 Medical Decision Making Medical Decision Making MDM Narrative: 21-year-old female presents with apparent alcohol intoxication. There are no reports of suicidal or homicidal ideation. Will obtain an alcohol level re- evaluate pending sobriety. Differential Diagnosis Differential Diagnoses: The differential diagnosis associated with the presentation includes (Alcohol intoxication, drug abuse, psychiatric illness) Admission/Observation Consideration of admission/observation: Escalation of care including admission/observation considered Lab Data MDM Lab Attestation statement: I reviewed the patient's lab results. Labs: Lab Results 04/21/22 Range/Units 01:02 Ethyl Alcohol 206 mg/dL Independent Historian Clinical information obtained from an independent historian. History obtained from or confirmed by: EMS External Record Review External record reviewed: Inpatient record Psychiatric discharge 12/12/2021 Prescription Management I considered prescription management with: Other (Alcohol withdrawal medications) Chronic Conditions Patient?s care impacted by: Other (Psychiatric history) Discharge Plan Discharge Clinical Impression: Alcoholic intoxication Patient Disposition: Home, Self-Care Instructions: Alcohol Intoxication (ED), Abuse of Alcohol (ED) Prescriptions: No Action multivitamin [Daily-Ioana] Tablet 1 tab PO DAILY Qty: 30 0RF olanzapine 10 mg Tablet 20 mg PO BEDTIME Qty: 30 0RF thiamine mononitrate (vit B1) 100 mg Tablet 100 mg PO DAILY Qty: 30 0RF clonidine HCl 0.1 mg tablet 1 tab PO BID Qty: 60 0RF trazodone 100 mg tablet 1 tab PO BEDTIME PRN (Reason: insomnia) Qty: 30 0RF nitrofurantoin monohyd/m-cryst [Macrobid] 100 mg capsule 100 mg PO Q12H 5 Days Qty: 10 0RF Rx Instructions: must administer with a meal/food nitrofurantoin monohyd/m-cryst [Macrobid] 100 mg capsule 100 mg PO Q12H 5 Days Qty: 10 0RF Rx Instructions: must administer with a meal/food albuterol sulfate 90 mcg/actuation HFA aerosol inhaler 1 inh inhalation QID PRN (Reason: shortness of breath or wheezing) Qty: 6.7 0RF Referrals: Katherine Ryan MD [Physician] - 2 days
--- NOTE | 2022-04-21 01:13 | PC.NURSE ---
Pt. lying in bed, sleeping. Respirations are even and unlabored. No distress noted. Will continue to monitor.
[2022-04-21 01:17] VITALS: BP 95/58; PULSE 70; RESP 17; TEMP 36.4; O2SAT 98
[2022-04-21 01:25] LABS: Ethanol 206 mg/dL
[2022-04-21 02:14] VITALS: BP 107/67; PULSE 76; RESP 18; O2SAT 98
--- NOTE | 2022-04-21 03:44 | PC.NURSE ---
Pt. sleeping, respirations even and unlabored, no distress noted. Will continue to monitor.
[2022-04-21 05:27] VITALS: BP 105/64; PULSE 77; RESP 18; TEMP 36.5; O2SAT 97
== END 2022-04-21 06:25 | disposition home or self-care (01) ==
PROVIDERS: Emergency Provider Emergency Medicine
DX: F10.220 Alcohol dependence with intoxication, uncomplicated (principal); Y90.7 Blood alcohol level of 200-239 mg/100 ml; F25.0 Schizoaffective disorder, bipolar type; F12.90 Cannabis use, unspecified, uncomplicated; F17.210 Nicotine dependence, cigarettes, uncomplicated; Z79.899 Other long term (current) drug therapy
CPT/HCPCS: 36415; 82077; 99283; 99284

== ENCOUNTER 2022-05-11 01:08 | Emergency (ER) | payer MEDICAID, SELFPAY ==
[2022-05-11 01:11] VITALS: BP 109/70; PULSE 89; O2SAT 94
[2022-05-11 01:15] VITALS: BP 108/73; PULSE 75; RESP 16; TEMP 36.6; O2SAT 94; BMI 31.0
--- NOTE | 2022-05-11 01:33 | ECG_ITS ---
Test Reason : DIZZINESS Blood Pressure : / mmHG Vent. Rate : 079 BPM Atrial Rate : 079 BPM P-R Int : 178 ms QRS Dur : 082 ms QT Int : 360 ms P-R-T Axes : 022 080 030 degrees QTc Int : 412 ms Normal sinus rhythm Normal ECG When compared with ECG of 14-APR-2022 22:41, No significant change was found Referred By: Elin Villarreal Electronically Signed By:KAREN GONZALEZ MD
--- NOTE | 2022-05-11 01:37 | ED_ITS ---
HPI - Dizziness General Chief Complaint: Dizziness Stated Complaint: dizziness Time Seen by Provider: 05/11/22 01:17 History of Present Illness HPI Narrative: Patient is a 21-year-old female with a previous history of alcohol abuse. History of schizoaffective disorder. She presents today with having dizziness. Patient claims dizziness started approximately 10 minutes ago. No specific trigger. No fever no chills no chest pain or diaphoresis. No focal weakness. No new medication. No sudden in the family. No history of diabetes, hypertension, high cholesterol,migraine. Related Data Previous Rx's Medication Instructions Recorded clonidine HCl 0.1 mg tablet 1 tab PO BID #60 tabs 12/12/21 multivitamin (Daily-Ioana tablet) 1 tab PO DAILY #30 tabs 12/12/21 olanzapine 10 mg tablet 20 mg PO BEDTIME #30 tabs 12/12/21 thiamine mononitrate (vit B1) 100 100 mg PO DAILY #30 tabs 12/12/21 mg tablet trazodone 100 mg tablet 1 tab PO BEDTIME PRN insomnia #30 12/12/21 tabs nitrofurantoin 100 mg PO Q12H 5 days #10 caps 01/10/22 monohydrate/macrocrystals 100 mg capsule (Macrobid) nitrofurantoin 100 mg PO Q12H 5 days #10 caps 02/11/22 monohydrate/macrocrystals 100 mg capsule (Macrobid) albuterol sulfate 90 mcg/actuation 1 inh inhalation QID PRN shortness 02/17/22 aerosol inhaler of breath or wheezing #6.7 grams Allergies Allergy/AdvReac Type Severity Reaction Status Date / Time No Known Allergies Allergy Verified 05/11/22 01:18 Review of Systems Review of Systems: No fever no chills no diaphoresis Yes all other systems are reviewed and are negative PMFSH Past Medical History Attestation statement: The following information was validated with the patient. Medical History Asthma Bipolar 1 disorder Bipolar disorder Cannabis use disorder Schizophrenia Social History Social History Household Members: None Household Members Other:: mother, sister Housing: Apartment Housing Other:: Current living situation will change as the apt has be condemned Do you presently have visiting nurse or other home services: No Unable to assess alcohol history related to: Refusing to respond Alcohol intake: current Alcohol intake frequency: holidays/special occasions only Alcohol type: hard liquor Patient Tobacco Use Status: Never used Tobacco Tobacco use type: Cigarette Cigarette Packs Per Day: 1 Cigarettes Per Day: 20.0 Smoked in Last 30 Days: No e-Cigarette/Vaping Use: Never Used Second Hand Smoke Exposure: No Use of substances other than those prescribed or required for medical reasons: No Substance Use Type: Marijuana Advance Directives: No Advance Directives Information Provided: Yes service: No Sexual orientation: Did not discuss Physical Exam Vital Signs: Vital Signs: Last Vital Signs Temp 98.2 F 05/11/22 02:32 Pulse 74 05/11/22 02:32 Resp 16 05/11/22 02:32 BP 112/70 05/11/22 02:32 Pulse Ox 94 05/11/22 02:32 O2 Del Method 05/11/22 02:32 BMI result Body Mass Index 31.0 Appearance: Alert. Oriented X3. No acute distress. Eyes: Pupils equal, round and reactive to light. ENT: Pharynx normal. Neck: Normal inspection. Neck supple. No lymph nodes noted. No crepitus CVS: Normal heart rate and rhythm. Pulses normal. Normal S1 and S2 Respiratory: No respiratory distress. Breath sounds normal. No Wheezing. No rales Abdomen: Soft and nontender. No rigidity. No distention. good BS x4 Skin: Skin warm and dry. Normal skin color. Normal skin turgor. Extremities: No lower extremity edema. Neurovascular intact to all extremities. No Lacerations. No Rash Neuro: Oriented X 3. No motor deficit. No sensory deficit. Moving all extermities. No slurred speech Medical Decision Making Medical Decision Making MDM Narrative: Patient's sugar was normal. No evidence for hypoglycemia. My interpretation of Patient's EKG showed a sinus pattern heart rate is 70 MS QRS QT within normal limits there is no acute ST segment elevations. No gross arrhythmia noted. Patient's troponin was negative. Has no cardiac risk factor. Patient's dizziness is extremely atypical. Neurologically intact. Urine was negative for infection. There is no evidence for of her test was negative. She is well-appearing neurologically intact. Symptom has resolved. Will discharge patient home. Differential Diagnosis Differential Diagnoses: The differential diagnosis associated with the presentation includes Dehydration, dizziness secondary to arrhythmia, hypoglycemia, anemia, cardiac causes Lab Data MDM Lab Attestation statement: I reviewed the patient's lab results. 05/11/22 01:45 05/11/22 01:45 Labs: Lab Results 05/11/22 05/11/22 05/11/22 Range/Units 01:45 01:45 01:45 WBC 9.7 (4.8-10.8) X10*3/uL RBC 5.30 (4.20-5.50) X10*6/uL Hgb 14.8 (12.0-16.0) g/dl Hct 44.9 (37.0-47.0) % MCV 84.7 (80.0-98.0) fL MCH 27.9 (27.0-33.0) pg MCHC 33.0 (31.0-35.0) g/dl RDW 14.2 (11.0-16.0) % Plt Count 192 (160-400) X10*3/uL MPV 10.0 (9.4-12.3) fL Immature Gran % (Auto) 0.1 (0.0-0.4) % Neut % (Auto) 60.3 (45-73) % Lymph % (Auto) 27.2 (20-40) % [place] % (Auto) 7.4 (2-11) % Eos % (Auto) 4.4 H (0-4) % Baso % (Auto) 0.6 (0-2) % Lymph # (Auto) 2.6 (1.2-4.9) X10*3/uL [place] # (Auto) 0.7 (0.1-1.2) X10*3/uL Eos # (Auto) 0.4 (0.0-0.4) X10*3/uL Baso # (Auto) 0.1 (0.0-0.2) X10*3/uL Abs Immat Gran (auto) 0.01 (0.00-0.03) X10*3/uL Absolute Neuts (auto) 5.8 (2.0-8.3) x10*3/uL Absolute Nucleated RBC 0.000 (0.0-0.012) X10*3/uL Nucleated RBC % (auto) 0.0 (0.0-0.2) /100WBC Sodium 140 (135-145) mmol/L Potassium 4.0 (3.3-5.1) mmol/L Chloride 108 (96-108) mmol/L Carbon Dioxide 21 L (22-29) mmol/L Anion Gap 15 (12-20) BUN 19 H (9-16) mg/dL Creatinine 0.77 (0.5-1.4) mg/dL Estim Creat Clear Calc 142.0 Estimated GFR > 60 Random Glucose 96 (60-115) mg/dL Calcium 9.6 (8.4-10.2) mg/dL Troponin I High Sens < 3.5 (<3.5-17.0) ng/L Urine Color Urine Appearance Urine pH (5.0-9.0) Ur Specific [place] (1.005-1.025) Urine Protein (Neg-Trace) mg/dL Urine Glucose (UA) (Negative) mg/dL Urine Ketones (Negative) mg/dL Urine Blood (Negative) Urine Nitrite (Negative) Ur Leukocyte Esterase (Negative) Urine RBC (0-2) /HPF Urine WBC (0-5) /HPF Ur Squamous Epith Cells (0-2) /HPF Urine Bacteria (None Seen) Hyaline Casts (0-2) /LPF Urine Test (NEGATIVE) Ethyl Alcohol < 10 mg/dL 05/11/22 05/11/22 Range/Units 02:21 02:21 WBC (4.8-10.8) X10*3/uL RBC (4.20-5.50) X10*6/uL Hgb (12.0-16.0) g/dl Hct (37.0-47.0) % MCV (80.0-98.0) fL MCH (27.0-33.0) pg MCHC (31.0-35.0) g/dl RDW (11.0-16.0) % Plt Count (160-400) X10*3/uL MPV (9.4-12.3) fL Immature Gran % (Auto) (0.0-0.4) % Neut % (Auto) (45-73) % Lymph % (Auto) (20-40) % [place] % (Auto) (2-11) % Eos % (Auto) (0-4) % Baso % (Auto) (0-2) % Lymph # (Auto) (1.2-4.9) X10*3/uL [place] # (Auto) (0.1-1.2) X10*3/uL Eos # (Auto) (0.0-0.4) X10*3/uL Baso # (Auto) (0.0-0.2) X10*3/uL Abs Immat Gran (auto) (0.00-0.03) X10*3/uL Absolute Neuts (auto) (2.0-8.3) x10*3/uL Absolute Nucleated RBC (0.0-0.012) X10*3/uL Nucleated RBC % (auto) (0.0-0.2) /100WBC Sodium (135-145) mmol/L Potassium (3.3-5.1) mmol/L Chloride (96-108) mmol/L Carbon Dioxide (22-29) mmol/L Anion Gap (12-20) BUN (9-16) mg/dL Creatinine (0.5-1.4) mg/dL Estim Creat Clear Calc Estimated GFR Random Glucose (60-115) mg/dL Calcium (8.4-10.2) mg/dL Troponin I High Sens (<3.5-17.0) ng/L Urine Color Dark Yellow Urine Appearance Clear Urine pH 5.5 (5.0-9.0) Ur Specific [place] >= 1.030 H (1.005-1.025) Urine Protein Trace (Neg-Trace) mg/dL Urine Glucose (UA) Negative (Negative) mg/dL Urine Ketones Trace (Negative) mg/dL Urine Blood Negative (Negative) Urine Nitrite Negative (Negative) Ur Leukocyte Esterase Small (1+) H (Negative) Urine RBC 0-2 (0-2) /HPF Urine WBC 0-5 (0-5) /HPF Ur Squamous Epith Cells 6-10 (0-2) /HPF Urine Bacteria 2+ (None Seen) Hyaline Casts 0-2 (0-2) /LPF Urine Test NEGATIVE (NEGATIVE) Ethyl Alcohol mg/dL Independent Interpretation I performed an independent interpretation of an: EKG Interpretation: EKG showed a sinus pattern heart rate is 70 MS QRS QTC within normal limits there is no acute ST segment elevation noted. External Record Review External record reviewed: Inpatient record Chronic Conditions Patient?s care impacted by: Other Schizoaffective disorder Discharge Plan Discharge Clinical Impression: Dizziness Patient Disposition: Home, Self-Care Instructions: Dizziness (ED) Prescriptions: No Action multivitamin [Daily-Ioana] Tablet 1 tab PO DAILY Qty: 30 0RF olanzapine 10 mg Tablet 20 mg PO BEDTIME Qty: 30 0RF thiamine mononitrate (vit B1) 100 mg Tablet 100 mg PO DAILY Qty: 30 0RF clonidine HCl 0.1 mg tablet 1 tab PO BID Qty: 60 0RF trazodone 100 mg tablet 1 tab PO BEDTIME PRN (Reason: insomnia) Qty: 30 0RF nitrofurantoin monohyd/m-cryst [Macrobid] 100 mg capsule 100 mg PO Q12H 5 Days Qty: 10 0RF Rx Instructions: must administer with a meal/food nitrofurantoin monohyd/m-cryst [Macrobid] 100 mg capsule 100 mg PO Q12H 5 Days Qty: 10 0RF Rx Instructions: must administer with a meal/food albuterol sulfate 90 mcg/actuation HFA aerosol inhaler 1 inh inhalation QID PRN (Reason: shortness of breath or wheezing) Qty: 6.7 0RF Referrals: [facility] [Primary Care Provider] -
[2022-05-11 01:49] LABS: MANUAL DIFF FLAG NO
[2022-05-11 01:50] LABS: Basophils Absolute Auto 0.1 X10*3/uL (0.0-0.2); Basophils Percent Auto 0.6 % (0-2); Eosinophils Absolute Auto 0.4 X10*3/uL (0.0-0.4); Eosinophils Percent Auto 4.4 % (0-4); Hematocrit 44.9 % (37.0-47.0); Hemoglobin 14.8 g/dl (12.0-16.0); Imm Gran Abs Auto 0.01 X10*3/uL (0.00-0.03); Imm Gran Pct Auto 0.1 % (0.0-0.4); Lymphocytes Absolute Auto 2.6 X10*3/uL (1.2-4.9); Lymphocytes Percent Auto 27.2 % (20-40); Mean Corpuscular Hemoglobin 27.9 pg (27.0-33.0); Mean Corpuscular Volume 84.7 fL (80.0-98.0); Monocytes Absolute Auto 0.7 X10*3/uL (0.1-1.2); Monocytes Percent Auto 7.4 % (2-11); Neutrophils Absolute Auto 5.8 x10*3/uL (2.0-8.3); Neutrophils Percent Auto 60.3 % (45-73); Platelet Count 192 X10*3/uL (160-400); Red Cell Distribution Width 14.2 % (11.0-16.0); White Blood Count 9.7 X10*3/uL (4.8-10.8)
[2022-05-11 02:13] LABS: Anion Gap 15 (12-20); Blood Urea Nitrogen 19 mg/dL (9-16); Calcium 9.6 mg/dL (8.4-10.2); Carbon Dioxide 21 mmol/L (22-29); Chloride 108 mmol/L (96-108); Estimated Glomerular Filt Rate > 60; Ethanol < 10 mg/dL; Glucose Random 96 mg/dL (60-115); Sodium 140 mmol/L (135-145); Troponin-I High Sensitivity < 3.5 ng/L (<3.5-17.0)
--- NOTE | 2022-05-11 02:26 | MHC.EDTECH ---
0150, pt taken to bathroom to obtain urine sample. Patient took an extremely long time. This ghost writer knocked on the door to ask if patient was ok. Patient started to laugh. stating I'll be right out. after another 5 minutes I knocked again this time I seemed to startle her. Again asked patient if she needed any help with no reply. I also instructed patient that I needed to perform EKG. Patient remained in bathroom. patient finally came out of bathroom and I escorted her to EKG. Patient started to giggle when I was affixing tabs and leads for EKG. patient now resting comfortably in 22H
[2022-05-11 02:27] LABS: Appearance Urine Clear; Color Urine Dark Yellow; Glucose Urine UA Negative (Negative); Leukocyte Esterase Urine Small (1+) (Negative); Nitrite Urine Negative (Negative); PH 5.5 (5.0-9.0); Specific Gravity - Urine >= 1.030 (1.005-1.025); UMIC TRIGGER UACC YES; Urine Blood Negative (Negative); Urine Ketones Trace mg/dL (Negative); Urine Protein Trace mg/dL (Neg-Trace)
[2022-05-11 02:29] LABS: UPreg QC Valid YES; Urine Pregnancy NEGATIVE (NEGATIVE)
[2022-05-11 02:32] VITALS: BP 112/70; PULSE 74; RESP 16; TEMP 36.8; O2SAT 94
[2022-05-11 02:37] LABS: Bacteria Urine 2+ (None Seen); Hyaline Casts Urine 0-2 /LPF (0-2); RBC Urine 0-2 /HPF (0-2); UACC Culture Trigger YES; WBC Urine 0-5 /HPF (0-5)
== END 2022-05-11 06:22 | disposition home or self-care (01) ==
PROVIDERS: Emergency Provider Emergency Medicine Emergency Medical Services
DX: R42 Dizziness and giddiness (principal); F25.9 Schizoaffective disorder, unspecified; Z79.899 Other long term (current) drug therapy; F17.210 Nicotine dependence, cigarettes, uncomplicated; Z71.6 Tobacco abuse counseling
CPT/HCPCS: 36415; 80048; 81001; 81025; 82077; 84484; 85025; 87086; 93005; 99283; 99285

== ENCOUNTER 2022-05-13 08:20 | Emergency (ER) | payer OTHER, MEDICAID, SELFPAY ==
[2022-05-13 08:32] VITALS: BP 114/72; BP 130/60; PULSE 70; PULSE 96; RESP 18; TEMP 36.8; O2SAT 98; BMI 25.9
--- NOTE | 2022-05-13 08:47 | ED.GENADULT ---
HPI - General Adult General Chief complaint: Psychiatric Symptoms Stated complaint: CRISIS per EMS Time Seen by Provider: 05/13/22 08:34 Source: patient, EMS and old records reviewed Mode of arrival: EMS Limitations: no limitations History of Present Illness HPI narrative: At 21-year-old female history of schizoaffective disorder, bipolar, cannabis use disorder brought in by ambulance after was found by bystander lying in the street. Patient stated she laid in the street because she fell dizzy. Patient declined SI or HI, patient declined using drugs or drinking alcohol. Patient declined SI or HI or auditory hallucination. Related Data Previous Rx's Medication Instructions Recorded clonidine HCl 0.1 mg tablet 1 tab PO BID #60 tabs 12/12/21 multivitamin (Daily-Ioana tablet) 1 tab PO DAILY #30 tabs 12/12/21 olanzapine 10 mg tablet 20 mg PO BEDTIME #30 tabs 12/12/21 thiamine mononitrate (vit B1) 100 100 mg PO DAILY #30 tabs 12/12/21 mg tablet trazodone 100 mg tablet 1 tab PO BEDTIME PRN insomnia #30 12/12/21 tabs nitrofurantoin 100 mg PO Q12H 5 days #10 caps 01/10/22 monohydrate/macrocrystals 100 mg capsule (Macrobid) nitrofurantoin 100 mg PO Q12H 5 days #10 caps 02/11/22 monohydrate/macrocrystals 100 mg capsule (Macrobid) albuterol sulfate 90 mcg/actuation 1 inh inhalation QID PRN shortness 02/17/22 aerosol inhaler of breath or wheezing #6.7 grams Allergies Allergy/AdvReac Type Severity Reaction Status Date / Time No Known Allergies Allergy Verified 05/13/22 08:41 Review of Systems Review of Systems: All other systems are reviewed and are negative Constitutional: Reports as per HPI and Reports no additional constitutional complaints Eyes: Reports as per HPI and Reports no additional eye complaints Reports system reviewed and no additional complaints, except as documented Cardiovascular: Reports as per HPI and Reports no additional cardiovascular complaints Respiratory: Reports as per HPI and Reports no additional respiratory complaints Gastrointestinal: Reports as per HPI and Reports no additional gastrointestinal complaints Genitourinary: Reports no additional female genitourinary complaints Musculoskeletal: Reports no additional musculoskeletal complaints Skin/Breast: Reports system reviewed and no additional complaints, except as docu Psychiatric: Reports no additional psychiatric complaints Endocrine: Reports no additional endocrine complaints Hematologic/Lymphatic: Reports no additional hematologic/lymphatic complaints Allergic/Immunologic: Reports no additional allergic/immunologic complaints Reports system reviewed and no additional complaints, except as documented and Reports Abnormal speech present [facility] Past Medical History Medical History Asthma Bipolar 1 disorder Bipolar disorder Cannabis use disorder Schizophrenia Social History Social History Household Members: None Household Members Other:: mother, sister Housing: Apartment Housing Other:: Current living situation will change as the apt has be condemned Do you presently have visiting nurse or other home services: No Unable to assess alcohol history related to: Refusing to respond Alcohol intake: current Alcohol intake frequency: holidays/special occasions only Alcohol type: hard liquor Patient Tobacco Use Status: Never used Tobacco Tobacco use type: Cigarette Cigarette Packs Per Day: 1 Cigarettes Per Day: 20.0 e-Cigarette/Vaping Use: Never Used Second Hand Smoke Exposure: No Substance Use Type: Marijuana Advance Directives: No Advance Directives Information Provided: No service: No Sexual orientation: Did not discuss Physical Exam ED Vital Signs: Vital Signs - 24 hr 05/13/22 08:32 Temperature 98.2 F Pulse Rate 70 Respiratory Rate 18 Blood Pressure 114/72 Pulse Oximetry 98 Oxygen Delivery Method Room Air BMI result Body Mass Index 25.9 Vital signs have been reviewed as appeared to be correct. Blood pressure normal. Heart rate normal. Respiration rate normal. Temperature normal. Oxygen saturation normal. Appearance: Alert. Oriented X3. No acute distress. Head: Normal external exam. Normocephalic. Atraumatic. No Serrano signs noted. No raccoon eyes noted Eyes: PERRLA. EOMI. Conjunctiva and sclera normal. Eyelids normal. ENT: TM's Normal. Pharynx normal. Uvula midline. Moist mucous membranes. No trismus noted. No drooling noted. No muffled voice noted. Neck: Normal inspection. Neck supple. FROM. No adenopathy. Thyroid Normal. No meningeal signs. No neck mass noted. CVS: Normal heart rate and rhythm. Heart sound normal. No murmurs noted. Pulses normal throughout. Respiratory: No respiratory distress. Painless inspiration. Breath sounds normal. No wheezes/rales/rhonchi noted. Chest nontender. No accessory muscle usage noted or decreased air movement noted. Abdomen: Soft and nontender. Bowel sounds normal in all 4 quadrants. No distention noted. No organomegaly noted. No visible injury noted. Back: No CVA tenderness. Full range of motion noted. Skin: Skin warm and dry. Normal skin color. Normal skin turgor. No rashes/lesions/lacerations noted. Extremities: No lower extremity edema. Extremities exhibit normal range of motion. Extremities nontender. Neuro: Oriented X 3. Cranial nerve exam: II-XII are grossly intact No motor deficit. No sensory deficit. Reflexes normal. Patient Orientation: Person, Place, Time and Situation, okay hygiene and grooming. Fair eye contact, attentive, no tics or tremors. Level of Consciousness: Awake, Appropriate and Alert Patient Behavior: Appropriate, Guarded, Cooperative and Anxious Mood Description: Constricted, Blunted and Apprehensive Affect Description: Constricted, Blunted and Apprehensive Patient Cognition Impaired: No Ability to Follow Directions: Excellent Speech Pattern: Clear, Appropriate and Spontaneous Speech, nonpressured, spontaneous with regular rate and rhythm, normal volume and prosody. No dysarthria. Memory Description: Intact, Immediate Intact and Short Term Intact Hallucinations: None Delusions: Not Present Thought Process: Intact Thought Content: positive for Intact, positive for Logical, denies Suicidal Ideation and denies Homicidal Ideation. Depressive Symptoms: Not present. Judgement and Insight: Limited but adequate. Course Course Course Narrative: No SI, no HI, no auditory hallucination, has been evaluated by care team agreed to discharge with mother who is coming to roll picker the patient. Patient feels safe to be discharged home. Medical Decision Making Differential Diagnosis Differential Diagnoses: The differential diagnosis associated with the presentation includes (Acute psychosis, alcohol intoxication, drug use.) Lab Data MDM Lab Attestation statement: I reviewed the patient's lab results. 05/13/22 11:29 05/13/22 11:29 Labs: Lab Results 05/13/22 05/13/22 05/13/22 Range/Units 09:42 09:42 09:42 WBC (4.8-10.8) X10*3/uL RBC (4.20-5.50) X10*6/uL Hgb (12.0-16.0) g/dl Hct (37.0-47.0) % MCV (80.0-98.0) fL MCH (27.0-33.0) pg MCHC (31.0-35.0) g/dl RDW (11.0-16.0) % Plt Count (160-400) X10*3/uL MPV (9.4-12.3) fL Immature Gran % (Auto) (0.0-0.4) % Neut % (Auto) (45-73) % Lymph % (Auto) (20-40) % Glenn % (Auto) (2-11) % Eos % (Auto) (0-4) % Baso % (Auto) (0-2) % Lymph # (Auto) (1.2-4.9) X10*3/uL Glenn # (Auto) (0.1-1.2) X10*3/uL Eos # (Auto) (0.0-0.4) X10*3/uL Baso # (Auto) (0.0-0.2) X10*3/uL Abs Immat Gran (auto) (0.00-0.03) X10*3/uL Absolute Neuts (auto) (2.0-8.3) x10*3/uL Absolute Nucleated RBC (0.0-0.012) X10*3/uL Nucleated RBC % (auto) (0.0-0.2) /100WBC Sodium (135-145) mmol/L Potassium (3.3-5.1) mmol/L Chloride (96-108) mmol/L Carbon Dioxide (22-29) mmol/L Anion Gap (12-20) BUN (9-16) mg/dL Creatinine (0.5-1.4) mg/dL Estim Creat Clear Calc Estimated GFR Random Glucose (60-115) mg/dL Calcium (8.4-10.2) mg/dL Total Bilirubin (0.0-1.0) mg/dL Direct Bilirubin (0.0-0.5) mg/dL AST (5-31) U/L ALT (0-31) U/L Alkaline Phosphatase (39-117) U/L Total Protein (6.5-8.0) g/dL Albumin (3.5-5.0) g/dL Lipase (8-78) U/L TSH (0.32-4.0) uIU/mL Urine Color Dark Yellow Urine Appearance Turbid Urine pH 5.5 (5.0-9.0) Ur Specific [place] >= 1.030 H (1.005-1.025) Urine Protein Trace (Neg-Trace) mg/dL Urine Glucose (UA) Negative (Negative) mg/dL Urine Ketones Negative (Negative) mg/dL Urine Blood Negative (Negative) Urine Nitrite Negative (Negative) Ur Leukocyte Esterase Moderate (2+) H (Negative) Urine RBC 0-2 (0-2) /HPF Urine WBC 0-5 (0-5) /HPF Ur Squamous Epith Cells 11-20 (0-2) /HPF Urine Bacteria 4+ (None Seen) Hyaline Casts 6-10 (0-2) /LPF Urine Test NEGATIVE (NEGATIVE) Urine Opiates Screen Not Detected (Not Detect) Urine Fentanyl Screen Not Detected (Not Detect) Ur Barbiturates Screen Not Detected (Not Detect) Ur Phencyclidine Scrn Not Detected (Not Detect) Ur Amphetamines Screen Not Detected (Not Detect) U Benzodiazepines Scrn Not Detected (Not Detect) Urine Cocaine Screen Not Detected (Not Detect) U Marijuana (THC) Screen POSITIVE H (Not Detect) Ethyl Alcohol mg/dL COVID-19 (BRENDA) (Negative) COVID-19 Clin Com 05/13/22 05/13/22 05/13/22 Range/Units 09:42 11:29 11:29 WBC 8.2 (4.8-10.8) X10*3/uL RBC 5.02 (4.20-5.50) X10*6/uL Hgb 14.0 (12.0-16.0) g/dl Hct 43.3 (37.0-47.0) % MCV 86.3 (80.0-98.0) fL MCH 27.9 (27.0-33.0) pg MCHC 32.3 (31.0-35.0) g/dl RDW 14.3 (11.0-16.0) % Plt Count 205 (160-400) X10*3/uL MPV 9.8 (9.4-12.3) fL Immature Gran % (Auto) 0.2 (0.0-0.4) % Neut % (Auto) 56.6 (45-73) % Lymph % (Auto) 31.3 (20-40) % Glenn % (Auto) 7.5 (2-11) % Eos % (Auto) 3.8 (0-4) % Baso % (Auto) 0.6 (0-2) % Lymph # (Auto) 2.6 (1.2-4.9) X10*3/uL Glenn # (Auto) 0.6 (0.1-1.2) X10*3/uL Eos # (Auto) 0.3 (0.0-0.4) X10*3/uL Baso # (Auto) 0.1 (0.0-0.2) X10*3/uL Abs Immat Gran (auto) 0.02 (0.00-0.03) X10*3/uL Absolute Neuts (auto) 4.7 (2.0-8.3) x10*3/uL Absolute Nucleated RBC 0.000 (0.0-0.012) X10*3/uL Nucleated RBC % (auto) 0.0 (0.0-0.2) /100WBC Sodium 141 (135-145) mmol/L Potassium 4.0 (3.3-5.1) mmol/L Chloride 109 H (96-108) mmol/L Carbon Dioxide 22 (22-29) mmol/L Anion Gap 14 (12-20) BUN 13 (9-16) mg/dL Creatinine 0.66 (0.5-1.4) mg/dL Estim Creat Clear Calc 152.4 Estimated GFR > 60 Random Glucose 92 (60-115) mg/dL Calcium 9.3 (8.4-10.2) mg/dL Total Bilirubin 0.5 (0.0-1.0) mg/dL Direct Bilirubin 0.2 (0.0-0.5) mg/dL AST 14 (5-31) U/L ALT 12 (0-31) U/L Alkaline Phosphatase 58 (39-117) U/L Total Protein 6.8 (6.5-8.0) g/dL Albumin 4.1 (3.5-5.0) g/dL Lipase 20 (8-78) U/L TSH 2.08 (0.32-4.0) uIU/mL Urine Color Urine Appearance Urine pH (5.0-9.0) Ur Specific [place] (1.005-1.025) Urine Protein (Neg-Trace) mg/dL Urine Glucose (UA) (Negative) mg/dL Urine Ketones (Negative) mg/dL Urine Blood (Negative) Urine Nitrite (Negative) Ur Leukocyte Esterase (Negative) Urine RBC (0-2) /HPF Urine WBC (0-5) /HPF Ur Squamous Epith Cells (0-2) /HPF Urine Bacteria (None Seen) Hyaline Casts (0-2) /LPF Urine Test (NEGATIVE) Urine Opiates Screen (Not Detect) Urine Fentanyl Screen (Not Detect) Ur Barbiturates Screen (Not Detect) Ur Phencyclidine Scrn (Not Detect) Ur Amphetamines Screen (Not Detect) U Benzodiazepines Scrn (Not Detect) Urine Cocaine Screen (Not Detect) U Marijuana (THC) Screen (Not Detect) Ethyl Alcohol mg/dL COVID-19 (BRENDA) Negative (Negative) COVID-19 Clin Com See Note 05/13/22 Range/Units 11:29 WBC (4.8-10.8) X10*3/uL RBC (4.20-5.50) X10*6/uL Hgb (12.0-16.0) g/dl Hct (37.0-47.0) % MCV (80.0-98.0) fL MCH (27.0-33.0) pg MCHC (31.0-35.0) g/dl RDW (11.0-16.0) % Plt Count (160-400) X10*3/uL MPV (9.4-12.3) fL Immature Gran % (Auto) (0.0-0.4) % Neut % (Auto) (45-73) % Lymph % (Auto) (20-40) % Glenn % (Auto) (2-11) % Eos % (Auto) (0-4) % Baso % (Auto) (0-2) % Lymph # (Auto) (1.2-4.9) X10*3/uL [place] # (Auto) (0.1-1.2) X10*3/uL Eos # (Auto) (0.0-0.4) X10*3/uL Baso # (Auto) (0.0-0.2) X10*3/uL Abs Immat Gran (auto) (0.00-0.03) X10*3/uL Absolute Neuts (auto) (2.0-8.3) x10*3/uL Absolute Nucleated RBC (0.0-0.012) X10*3/uL Nucleated RBC % (auto) (0.0-0.2) /100WBC Sodium (135-145) mmol/L Potassium (3.3-5.1) mmol/L Chloride (96-108) mmol/L Carbon Dioxide (22-29) mmol/L Anion Gap (12-20) BUN (9-16) mg/dL Creatinine (0.5-1.4) mg/dL Estim Creat Clear Calc Estimated GFR Random Glucose (60-115) mg/dL Calcium (8.4-10.2) mg/dL Total Bilirubin (0.0-1.0) mg/dL Direct Bilirubin (0.0-0.5) mg/dL AST (5-31) U/L ALT (0-31) U/L Alkaline Phosphatase (39-117) U/L Total Protein (6.5-8.0) g/dL Albumin (3.5-5.0) g/dL Lipase (8-78) U/L TSH (0.32-4.0) uIU/mL Urine Color Urine Appearance Urine pH (5.0-9.0) Ur Specific [place] (1.005-1.025) Urine Protein (Neg-Trace) mg/dL Urine Glucose (UA) (Negative) mg/dL Urine Ketones (Negative) mg/dL Urine Blood (Negative) Urine Nitrite (Negative) Ur Leukocyte Esterase (Negative) Urine RBC (0-2) /HPF Urine WBC (0-5) /HPF Ur Squamous Epith Cells (0-2) /HPF Urine Bacteria (None Seen) Hyaline Casts (0-2) /LPF Urine Test (NEGATIVE) Urine Opiates Screen (Not Detect) Urine Fentanyl Screen (Not Detect) Ur Barbiturates Screen (Not Detect) Ur Phencyclidine Scrn (Not Detect) Ur Amphetamines Screen (Not Detect) U Benzodiazepines Scrn (Not Detect) Urine Cocaine Screen (Not Detect) U Marijuana (THC) Screen (Not Detect) Ethyl Alcohol < 10 mg/dL COVID-19 (BRENDA) (Negative) COVID-19 Clin Com Discharge Plan Discharge Clinical Impression: Cannabis use disorder, Schizoaffective disorder, bipolar type, Bipolar disorder Patient Disposition: Home, Self-Care Instructions: Cannabis Abuse (ED), Bipolar Disorder (ED) Prescriptions: No Action multivitamin [Daily-Ioana] Tablet 1 tab PO DAILY Qty: 30 0RF olanzapine 10 mg Tablet 20 mg PO BEDTIME Qty: 30 0RF thiamine mononitrate (vit B1) 100 mg Tablet 100 mg PO DAILY Qty: 30 0RF clonidine HCl 0.1 mg tablet 1 tab PO BID Qty: 60 0RF trazodone 100 mg tablet 1 tab PO BEDTIME PRN (Reason: insomnia) Qty: 30 0RF nitrofurantoin monohyd/m-cryst [Macrobid] 100 mg capsule 100 mg PO Q12H 5 Days Qty: 10 0RF Rx Instructions: must administer with a meal/food nitrofurantoin monohyd/m-cryst [Macrobid] 100 mg capsule 100 mg PO Q12H 5 Days Qty: 10 0RF Rx Instructions: must administer with a meal/food albuterol sulfate 90 mcg/actuation HFA aerosol inhaler 1 inh inhalation QID PRN (Reason: shortness of breath or wheezing) Qty: 6.7 0RF Referrals: [facility] [Primary Care Provider] - Interventions: [place]-Suicide Risk Severity Scale Last Done: 05/13/22 08:40
--- NOTE | 2022-05-13 09:03 | PC.NURSE ---
PT A+O x4, DENIES PAIN, VSS. PT BROUGHT TO ED VIA EMS. BYSTANDER SAW PT LAYING ON SIDEWALK CALLED 911. PT REPORTS THAT SHE FELT DIZZY AND LAYED DOWN ON SIDEWALK. DENIES FALL/HS/LOC. PT CHANGED INTO HOSPITAL ATTIRE WITHOUT INCIDENT, BELONGINGS SECURED IN LOCKER 4. PT IN ROOM AT THIS TIME.
[2022-05-13 09:57] LABS: Appearance Urine Turbid; Color Urine Dark Yellow; Glucose Urine UA Negative (Negative); Leukocyte Esterase Urine Moderate (2+) (Negative); Nitrite Urine Negative (Negative); PH 5.5 (5.0-9.0); Specific Gravity - Urine >= 1.030 (1.005-1.025); UMIC TRIGGER UACC YES; Urine Blood Negative (Negative); Urine Ketones Negative (Negative); Urine Protein Trace mg/dL (Neg-Trace)
[2022-05-13 10:02] LABS: UPreg QC Valid YES; Urine Pregnancy NEGATIVE (NEGATIVE)
[2022-05-13 10:06] LABS: Bacteria Urine 4+ (None Seen); RBC Urine 0-2 /HPF (0-2); WBC Urine 0-5 /HPF (0-5)
[2022-05-13 10:09] LABS: Amphetamine Screen Urine Not Detected (Not Detect); Barbiturates, Urine Not Detected (Not Detect); Benzodiazepines Screen Urine Not Detected (Not Detect); Cannabinoid Screen Urine POSITIVE (Not Detect); Cocaine Screen Urine Not Detected (Not Detect); Fentanyl, urine Not Detected (Not Detect); Opiate Screen Urine Not Detected (Not Detect); Phencyclidine Screen Urine Not Detected (Not Detect)
[2022-05-13 10:10] LABS: COVID-19 Test Negative (Negative); IDNOW Serial# 16C4AD1C
--- NOTE | 2022-05-13 10:32 | MHC.CARE ---
CARE Team called Pts mother Veronica for collateral information: Pts mother reports she has been intermittently in contact with Pt as she has been isolating herself from the family as they recently moved out of the apartment due to roaches/ rats . She reported they have been staying in her car / with family. She reported Pt does not want to stay with her family and has been couch surfing. She reports that now that Pt is an adult she knows she can't control what she does but is worried about her though will always be there for a support for PT. She reported she is unsure if Pt is taking her medications.
[2022-05-13 11:49] LABS: MANUAL DIFF FLAG NO
[2022-05-13 12:03] LABS: Basophils Absolute Auto 0.1 X10*3/uL (0.0-0.2); Basophils Percent Auto 0.6 % (0-2); Eosinophils Absolute Auto 0.3 X10*3/uL (0.0-0.4); Eosinophils Percent Auto 3.8 % (0-4); Hematocrit 43.3 % (37.0-47.0); Imm Gran Abs Auto 0.02 X10*3/uL (0.00-0.03); Imm Gran Pct Auto 0.2 % (0.0-0.4); Lymphocytes Absolute Auto 2.6 X10*3/uL (1.2-4.9); Lymphocytes Percent Auto 31.3 % (20-40); Mean Corpuscular HGB Conc 32.3 g/dl (31.0-35.0); Mean Corpuscular Hemoglobin 27.9 pg (27.0-33.0); Mean Corpuscular Volume 86.3 fL (80.0-98.0); Mean Platelet Volume 9.8 fL (9.4-12.3); Monocytes Absolute Auto 0.6 X10*3/uL (0.1-1.2); Monocytes Percent Auto 7.5 % (2-11); Neutrophils Absolute Auto 4.7 x10*3/uL (2.0-8.3); Neutrophils Percent Auto 56.6 % (45-73); Platelet Count 205 X10*3/uL (160-400); Red Blood Count 5.02 X10*6/uL (4.20-5.50); Red Cell Distribution Width 14.3 % (11.0-16.0); White Blood Count 8.2 X10*3/uL (4.8-10.8)
[2022-05-13 12:09] LABS: Ethanol < 10 mg/dL
[2022-05-13 12:10] LABS: Alanine Aminotransferase 12 U/L (0-31); Albumin Level 4.1 g/dL (3.5-5.0); Alkaline Phosphatase 58 U/L (39-117); Anion Gap 14 (12-20); Aspartate Amino Transferase 14 U/L (5-31); Bilirubin Direct 0.2 mg/dL (0.0-0.5); Bilirubin Total 0.5 mg/dL (0.0-1.0); Blood Urea Nitrogen 13 mg/dL (9-16); Calcium 9.3 mg/dL (8.4-10.2); Carbon Dioxide 22 mmol/L (22-29); Chloride 109 mmol/L (96-108); Creatinine Clr Calc Pharmacy 152.4; Estimated Glomerular Filt Rate > 60; Glucose Random 92 mg/dL (60-115); Lipase 20 U/L (8-78); Sodium 141 mmol/L (135-145); Total Protein 6.8 g/dL (6.5-8.0)
[2022-05-13 12:43] LABS: Thyroid Stimulating Hormone 2.08 uIU/mL (0.32-4.0)
--- NOTE | 2022-05-13 12:49 | PC.NURSE ---
pt called her mother requesting to go home. she denies si/hi. denies both auditory and visual hallucinations. currently listening to music in her room.
[2022-05-13 14:29] VITALS: BP 112/67; PULSE 75; RESP 20; TEMP 36.6; O2SAT 100
== END 2022-05-13 16:29 | disposition home or self-care (01) ==
PROVIDERS: Emergency Provider Emergency Medicine
DX: F25.0 Schizoaffective disorder, bipolar type (principal); F12.10 Cannabis abuse, uncomplicated; Z20.822 Contact with and (suspected) exposure to COVID-19; Z20.828 Contact with and (suspected) exposure to other viral communicable diseases; F17.210 Nicotine dependence, cigarettes, uncomplicated; Z71.6 Tobacco abuse counseling; Z79.899 Other long term (current) drug therapy
CPT/HCPCS: 36415; 80048; 80076; 80307; 81001; 81025; 82077; 83690; 84443; 85025; 87635; 99284; S9485

== ENCOUNTER 2022-05-14 02:26 | Emergency (ER) | payer MEDICAID, SELFPAY ==
[2022-05-14 02:31] VITALS: BMI 29.0
[2022-05-14 02:34] VITALS: BP 106/70; PULSE 85; RESP 16; TEMP 36.5; O2SAT 98
[2022-05-14 04:24] LABS: Appearance Urine Cloudy; Color Urine Yellow; Glucose Urine UA Negative (Negative); Leukocyte Esterase Urine Small (1+) (Negative); Nitrite Urine Negative (Negative); PH 6.5 (5.0-9.0); Specific Gravity - Urine 1.025 (1.005-1.025); UMIC TRIGGER UACC YES; UPreg QC Valid YES; Urine Blood Negative (Negative); Urine Ketones Negative (Negative); Urine Pregnancy NEGATIVE (NEGATIVE); Urine Protein Negative (Neg-Trace)
[2022-05-14 04:32] LABS: Amphetamine Screen Urine Not Detected (Not Detect); Barbiturates, Urine Not Detected (Not Detect); Benzodiazepines Screen Urine Not Detected (Not Detect); Cannabinoid Screen Urine POSITIVE (Not Detect); Cocaine Screen Urine POSITIVE (Not Detect); Fentanyl, urine Not Detected (Not Detect); Opiate Screen Urine Not Detected (Not Detect); Phencyclidine Screen Urine Not Detected (Not Detect)
[2022-05-14 04:35] LABS: Bacteria Urine 4+ (None Seen); RBC Urine 0-2 /HPF (0-2); UACC Culture Trigger YES; WBC Urine 0-5 /HPF (0-5)
--- NOTE | 2022-05-14 05:04 | ED.GENADULT ---
HPI - General Adult General Chief complaint: Dizziness Stated complaint: Dizziness Time Seen by Provider: 05/14/22 02:59 Source: patient Mode of arrival: EMS History of Present Illness HPI narrative: 21-year-old female arrives via EMS complaints of dizziness for approximately 15 minutes after she was dancing and twirling around. She otherwise denies any fever, chills, shortness of breath, chest pain/palpitations. Related Data Previous Rx's Medication Instructions Recorded clonidine HCl 0.1 mg tablet 1 tab PO BID #60 tabs 12/12/21 multivitamin (Daily-Ioana tablet) 1 tab PO DAILY #30 tabs 12/12/21 olanzapine 10 mg tablet 20 mg PO BEDTIME #30 tabs 12/12/21 thiamine mononitrate (vit B1) 100 100 mg PO DAILY #30 tabs 12/12/21 mg tablet trazodone 100 mg tablet 1 tab PO BEDTIME PRN insomnia #30 12/12/21 tabs nitrofurantoin 100 mg PO Q12H 5 days #10 caps 01/10/22 monohydrate/macrocrystals 100 mg capsule (Macrobid) nitrofurantoin 100 mg PO Q12H 5 days #10 caps 02/11/22 monohydrate/macrocrystals 100 mg capsule (Macrobid) albuterol sulfate 90 mcg/actuation 1 inh inhalation QID PRN shortness 02/17/22 aerosol inhaler of breath or wheezing #6.7 grams Allergies Allergy/AdvReac Type Severity Reaction Status Date / Time No Known Allergies Allergy Verified 05/13/22 08:41 Review of Systems Review of Systems: Pertinent positives and negatives as stated in [facility] Past Medical History Source: nursing notes reviewed Medical History Asthma Bipolar 1 disorder Bipolar disorder Cannabis use disorder Schizophrenia Social History Social History Household Members: None Household Members Other:: mother, sister Housing: Apartment Housing Other:: Current living situation will change as the apt has be condemned Do you presently have visiting nurse or other home services: No Unable to assess alcohol history related to: Refusing to respond Alcohol intake: current Alcohol intake frequency: holidays/special occasions only Alcohol type: hard liquor Patient Tobacco Use Status: Never used Tobacco Tobacco use type: Cigarette Cigarette Packs Per Day: 1 Cigarettes Per Day: 20.0 e-Cigarette/Vaping Use: Never Used Second Hand Smoke Exposure: No Substance Use Type: Marijuana Advance Directives: No service: No Sexual orientation: Did not discuss Physical Exam ED Vital Signs: Vital Signs - 24 hr 05/14/22 02:34 Temperature 97.7 F Pulse Rate 85 Respiratory Rate 16 Blood Pressure 106/70 Pulse Oximetry 98 Oxygen Delivery Method Room Air BMI result Body Mass Index 29.0 VITAL SIGNS: Reviewed. GENERAL: Well developed, well nourished, in no acute distress. HEAD: Normocephalic/atraumatic EYES: PERRLA, EOMI, no nystagmus LUNGS: Good inspiratory effort with some expiratory wheeze noted but no tachypnea or hypoxia. SpO2<98> CARDIOVASCULAR: Regular rate and rhythm without noted murmurs ABDOMEN: Soft, non-tender, non-distended with bowel sounds. MUSCULOSKELETAL: No tenderness, deformities, or effusions noted on gross inspection. EXTREMITIES: No cyanosis, clubbing or edema. SKIN: Inspection of the skin reveals no rashes NEUROLOGIC: Alert and oriented x 4. Strength and sensation to light touch were grossly intact x 4. Medical Decision Making Medical Decision Making MDM Narrative: 21-year-old female with a history of bipolar and schizoaffective disorder in addition to substance use disorder presents with mild dizziness when she was dancing around. Patient has been worked up pretty thoroughly over the past 3 days and I do not feel that this is secondary to any acute infection or neurologic disorder. She does not wish to call her mother at this time as it is the middle the night but plans to contact her mom 1st thing in the morning. She is otherwise hemodynamically stable for discharge in the morning with a safe ride. I reviewed all investigations that I performed. Differential Diagnosis Please see the discussion above Lab Data Please see the discussion above Labs: Lab Results 05/14/22 05/14/22 05/14/22 Range/Units 04:17 04:17 04:17 Urine Color Yellow Urine Appearance Cloudy Urine pH 6.5 (5.0-9.0) Ur Specific [place] 1.025 (1.005-1.025) Urine Protein Negative (Neg-Trace) mg/dL Urine Glucose (UA) Negative (Negative) mg/dL Urine Ketones Negative (Negative) mg/dL Urine Blood Negative (Negative) Urine Nitrite Negative (Negative) Ur Leukocyte Esterase Small (1+) H (Negative) Urine RBC 0-2 (0-2) /HPF Urine WBC 0-5 (0-5) /HPF Ur Squamous Epith Cells 3-5 (0-2) /HPF Urine Bacteria 4+ (None Seen) Hyaline Casts 3-5 (0-2) /LPF Urine Test NEGATIVE (NEGATIVE) Urine Opiates Screen Not Detected (Not Detect) Urine Fentanyl Screen Not Detected (Not Detect) Ur Barbiturates Screen Not Detected (Not Detect) Ur Phencyclidine Scrn Not Detected (Not Detect) Ur Amphetamines Screen Not Detected (Not Detect) U Benzodiazepines Scrn Not Detected (Not Detect) Urine Cocaine Screen POSITIVE H (Not Detect) U Marijuana (THC) Screen POSITIVE H (Not Detect) External Record Review External record reviewed: Outpatient record and Prior outpatient labs Discharge Plan Discharge Clinical Impression: Schizoaffective disorder, bipolar type, Cannabis use disorder Patient Disposition: Still a Patient Additional Instructions: Please follow-up with your primary care provider in the next 2-3 days. Return to the ER for any worsening symptoms. Prescriptions: No Action multivitamin [Daily-Ioana] Tablet 1 tab PO DAILY Qty: 30 0RF olanzapine 10 mg Tablet 20 mg PO BEDTIME Qty: 30 0RF thiamine mononitrate (vit B1) 100 mg Tablet 100 mg PO DAILY Qty: 30 0RF clonidine HCl 0.1 mg tablet 1 tab PO BID Qty: 60 0RF trazodone 100 mg tablet 1 tab PO BEDTIME PRN (Reason: insomnia) Qty: 30 0RF nitrofurantoin monohyd/m-cryst [Macrobid] 100 mg capsule 100 mg PO Q12H 5 Days Qty: 10 0RF Rx Instructions: must administer with a meal/food nitrofurantoin monohyd/m-cryst [Macrobid] 100 mg capsule 100 mg PO Q12H 5 Days Qty: 10 0RF Rx Instructions: must administer with a meal/food albuterol sulfate 90 mcg/actuation HFA aerosol inhaler 1 inh inhalation QID PRN (Reason: shortness of breath or wheezing) Qty: 6.7 0RF
[2022-05-14 05:25] VITALS: RESP 14
--- NOTE | 2022-05-14 05:25 | PC.NURSE ---
Pt sleeping at the bedside in no apparent distress. Breaths are even and unlabored with equal chest rise. Will continue to monitor.
[2022-05-14 09:20] VITALS: BP 116/66; PULSE 64; RESP 13; TEMP 36.7; O2SAT 98
== END 2022-05-14 09:38 | disposition home or self-care (01) ==
PROVIDERS: Emergency Provider Student in an Organized Health Care Education/Training Program
DX: F25.0 Schizoaffective disorder, bipolar type (principal); F12.90 Cannabis use, unspecified, uncomplicated; R42 Dizziness and giddiness; F17.210 Nicotine dependence, cigarettes, uncomplicated; Z79.899 Other long term (current) drug therapy
CPT/HCPCS: 80307; 81001; 81025; 87086; 99283

== ENCOUNTER 2022-05-16 06:09 | Inpatient (IN) | payer OTHER, MEDICAID, SELFPAY ==
[2022-05-16 06:20] VITALS: BP 124/90; BP 166/78; PULSE 82; PULSE 96; RESP 16; TEMP 36.8; O2SAT 98; O2SAT 99; BMI 32.5
--- NOTE | 2022-05-16 06:44 | PC.NURSE ---
pt given hospital pants, gita pads and mesh panties. pt changed over and awaiting to be seen.
--- NOTE | 2022-05-16 06:55 | PC.NURSE ---
pt been redirected back in room several times.
--- NOTE | 2022-05-16 07:16 | PC.NURSE ---
Continues to wander around the emergency department, sitting in bed at this time in no apparent distress
--- NOTE | 2022-05-16 08:15 | ECG_ITS ---
Test Reason : DIZZINESS Blood Pressure : / mmHG Vent. Rate : 067 BPM Atrial Rate : 067 BPM P-R Int : 176 ms QRS Dur : 082 ms QT Int : 402 ms P-R-T Axes : 063 085 048 degrees QTc Int : 424 ms Normal sinus rhythm Normal ECG When compared with ECG of 11-MAY-2022 02:12, No significant change was found Referred By: Silvana Claros Electronically Signed By:LANNY MORA
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
[2022-05-16 08:46] LABS: MANUAL DIFF FLAG NO
[2022-05-16 08:57] LABS: Basophils Absolute Auto 0.1 X10*3/uL (0.0-0.2); Basophils Percent Auto 0.7 % (0-2); Eosinophils Absolute Auto 0.3 X10*3/uL (0.0-0.4); Eosinophils Percent Auto 4.3 % (0-4); Hematocrit 48.2 % (37.0-47.0); Hemoglobin 15.5 g/dl (12.0-16.0); Imm Gran Abs Auto 0.02 X10*3/uL (0.00-0.03); Imm Gran Pct Auto 0.3 % (0.0-0.4); Lymphocytes Absolute Auto 2.1 X10*3/uL (1.2-4.9); Lymphocytes Percent Auto 28.4 % (20-40); Mean Corpuscular HGB Conc 32.2 g/dl (31.0-35.0); Mean Corpuscular Hemoglobin 27.7 pg (27.0-33.0); Mean Corpuscular Volume 86.1 fL (80.0-98.0); Mean Platelet Volume 9.8 fL (9.4-12.3); Monocytes Absolute Auto 0.3 X10*3/uL (0.1-1.2); Monocytes Percent Auto 4.5 % (2-11); Neutrophils Absolute Auto 4.6 x10*3/uL (2.0-8.3); Neutrophils Percent Auto 61.8 % (45-73); Platelet Count 218 X10*3/uL (160-400); Red Cell Distribution Width 14.2 % (11.0-16.0); White Blood Count 7.5 X10*3/uL (4.8-10.8)
[2022-05-16 09:08] LABS: COVID-19 Test Negative (Negative); IDNOW Serial# 55D5AD1C
[2022-05-16 09:56] LABS: Anion Gap 13 (12-20)
[2022-05-16 10:02] LABS: Alanine Aminotransferase 13 U/L (0-31); Albumin Level 4.1 g/dL (3.5-5.0); Alkaline Phosphatase 61 U/L (39-117); Aspartate Amino Transferase 19 U/L (5-31); Bilirubin Direct < 0.2 mg/dL (0.0-0.5); Bilirubin Total 0.5 mg/dL (0.0-1.0); Blood Urea Nitrogen 13 mg/dL (9-16); Calcium 9.3 mg/dL (8.4-10.2); Carbon Dioxide 23 mmol/L (22-29); Chloride 110 mmol/L (96-108); Creatinine Clr Calc Pharmacy 151.1; Estimated Glomerular Filt Rate > 60; Glucose Random 90 mg/dL (60-115); Magnesium 1.9 mg/dL (1.6-2.6); Potassium 4.6 mmol/L (3.3-5.1); Sodium 141 mmol/L (135-145); Total Protein 7.2 g/dL (6.5-8.0)
[2022-05-16 11:03] VITALS: BP 105/74; PULSE 88; RESP 16; O2SAT 99
--- NOTE | 2022-05-16 13:26 | PHA.MEDREC ---
Pharmacy Consult ? Medication Reconciliation Pharmacy was not able to complete medication reconciliation. Went down to see patient x 3, patient did not respond to any attempts.
[2022-05-16 14:51] LABS: UPreg QC Valid YES; Urine Pregnancy NEGATIVE (NEGATIVE)
[2022-05-16 14:56] LABS: Amphetamine Screen Urine Not Detected (Not Detect); Barbiturates, Urine Not Detected (Not Detect); Benzodiazepines Screen Urine Not Detected (Not Detect); Cannabinoid Screen Urine POSITIVE (Not Detect); Cocaine Screen Urine Not Detected (Not Detect); Fentanyl, urine Not Detected (Not Detect); Opiate Screen Urine Not Detected (Not Detect); Phencyclidine Screen Urine Not Detected (Not Detect)
[2022-05-16 14:59] LABS: Appearance Urine Cloudy; Color Urine Orange; Glucose Urine UA Negative (Negative); Leukocyte Esterase Urine Moderate (2+) (Negative); Nitrite Urine Negative (Negative); Specific Gravity - Urine >= 1.030 (1.005-1.025); UMIC TRIGGER UACC YES; Urine Blood Large (3+) (Negative); Urine Ketones Trace mg/dL (Negative); Urine Protein 100 (2+) mg/dL (Neg-Trace)
[2022-05-16 15:00] LABS: Bacteria Urine 2+ (None Seen); Hyaline Casts Urine 0-2 /LPF (0-2); RBC Urine >20 /HPF (0-2); UACC Culture Trigger YES; WBC Urine >50 /HPF (0-5)
[2022-05-16 15:30] VITALS: RESP 16
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
--- NOTE | 2022-05-16 17:53 | MHC.CARE ---
Pt seen by CARE team, she is currently meeting inpatient level of care and is a bed search.
[2022-05-17 00:19] VITALS: BP 111/69; PULSE 68; RESP 18; TEMP 36.8; O2SAT 95
--- NOTE | 2022-05-17 06:02 | PC.NURSE ---
Patient slept through the night, no behavior concern at this time but unpredictable, thought content paranoid, disposition per care team is section 12 inpatient bed search, patient is of her medication for months, VSS, will continue to monitor
--- NOTE | 2022-05-17 10:58 | PC.NURSE ---
nurse to nurse given will be going to [facility].
[2022-05-17 11:08] VITALS: BP 100/54; PULSE 68; RESP 16; TEMP 36.9; O2SAT 98
--- NOTE | 2022-05-17 13:36 | PC.ADMIT ---
Pt arrived on unit at 12:15 and was placed on 15 minute safety checks. Pt [place] by MARC[facility] [place] [facility] Pt called ambulance on self for feeling dizzy, noted lack of self-care. In ED pt was wondering, requiring frequent redirection, responding to internal stimuli and confused. Pt not med compliant at home. Pt well known to [facility]. Pt currently A&Ox4. Pt is and thought blocking and clearly responding to internal stimuli throughout admission interview. Pt cooperated with entire admission process. Orders received, pt remains on 15 minute safety checks.
[2022-05-17 18:00] VITALS: BP 106/66; PULSE 106
[2022-05-17] MEDS: cloNIDine HCL 0.1 MG TABLET PO (20:11)
[2022-05-17] MEDS: OLANZapine 10 MG TABLET 20 MG PO (20:11)
--- NOTE | 2022-05-18 03:11 | PC.NURSE ---
Pt submitted a Three Day Notice on 05/17/2022 up on Saturday05/22/2022.
[2022-05-18 06:00] VITALS: BP 104/56; PULSE 80; RESP 14; TEMP 36.1; O2SAT 99
[2022-05-18] MEDS: Thiamine HCL 100 MG TABLET PO (09:12)
[2022-05-18] MEDS: Multivitamin TABLET 1 TAB PO (09:12)
[2022-05-18] MEDS: cloNIDine HCL 0.1 MG TABLET PO ×2 (09:12→21:10)
[2022-05-18 09:15] VITALS: BP 114/67; PULSE 115
[2022-05-18 09:18] LABS: Estimated Average Glucose 94 mg/dL; Hemoglobin A1c % 4.9 %
[2022-05-18 10:12] LABS: Alanine Aminotransferase 13 U/L (0-31); Albumin Level 3.7 g/dL (3.5-5.0); Alkaline Phosphatase 65 U/L (39-117); Aspartate Amino Transferase 20 U/L (5-31); Bilirubin Total 0.2 mg/dL (0.0-1.0); Blood Urea Nitrogen 16 mg/dL (9-16); Calcium 9.2 mg/dL (8.4-10.2); Cholesterol 187 mg/dL; Creatinine Clr Calc Pharmacy 155.4; Estimated Glomerular Filt Rate > 60; Folate 11.3 ng/mL (> or = 4.0); Glucose Fasting 91 mg/dL (60-99); HDL Cholesterol 38 mg/dL; LDL Cholesterol Calculated 119 mg/dl; Magnesium 1.7 mg/dL (1.6-2.6); Total Protein 6.6 g/dL (6.5-8.0); Triglycerides 150 mg/dL
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
[2022-05-18 11:42] LABS: Anion Gap 15 (12-20); Carbon Dioxide 19 mmol/L (22-29); Chloride 111 mmol/L (96-108); Potassium 4.7 mmol/L (3.3-5.1); Sodium 140 mmol/L (135-145)
[2022-05-18 12:01] LABS: Free T4 (Free Thyroxine) 0.78 ng/dL (0.71-1.85); Thyroid Stimulating Hormone 1.55 uIU/mL (0.32-4.0); Vitamin B12 292 pg/mL (200-900)
[2022-05-18 20:15] VITALS: BP 120/62; PULSE 66
[2022-05-18] MEDS: OLANZapine 10 MG TABLET 20 MG PO (21:10)
[2022-05-19 06:00] VITALS: BP 113/67; PULSE 80; RESP 16; TEMP 36.7; O2SAT 98
[2022-05-19] MEDS: Acetaminophen 325 MG TABLET 650 MG PO (09:35)
[2022-05-19] MEDS: Thiamine HCL 100 MG TABLET PO (09:36)
[2022-05-19] MEDS: cloNIDine HCL 0.1 MG TABLET PO ×2 (09:36→20:35)
[2022-05-19] MEDS: Multivitamin TABLET 1 TAB PO (09:36)
--- NOTE | 2022-05-19 10:04 | P.PNPSI_ITS ---
Subjective Subjective Date of Service: 05/19/22 Reason For Visit: Schizoaffective disorder Interim History: Met with patient; discussed with team Patient disorganized, standing in the hallway. On approach patient just looked at senior writer but would not answer and then turned around and ran down the bennett stopped turned around instead there. [employer] Prom[employer] Coordinator asked if patient wanted to not talk to which she nodded yes. Staff reports that patient has remained isolative, in behavioral control however internally preoccupied; taking medications Mental Status Exam Mental Status Exam Narrative: Pt is drowsy, but alert and oriented; behavior is guarded; disorganized; patient is not in distress; dressed in hospital attire with unkempt hair, marginal hygiene; mood is described as guarded and affect constricted; limited eye contact; Speech: did not speak; some psychomotor agitation present; thought process can be goal directed; Thought content is on on not disclose topics; would not discuss SI/HI. Internally preoccupied: Patients insight and judgment are impaired Diagnostics Vital Signs (24Hr): Vital Signs - 24 hr 05/18/22 20:15 05/19/22 06:00 Temperature 98.1 F Pulse Rate 66 80 Respiratory Rate 16 Blood Pressure 120/62 113/67 Pulse Oximetry 98 Oxygen Delivery Method Room Air BMI result Body Mass Index 32.5 Labs 05/16/22 08:39 05/18/22 10:11 Labs: Laboratory Results - last 48 hr 05/18/22 05/18/22 08:58 10:11 Sodium 140 Potassium 4.7 Chloride 111 H Carbon Dioxide 19 L Anion Gap 15 BUN 16 Creatinine 0.72 Estim Creat Clear Calc 155.4 Estimated GFR > 60 Fasting Glucose 91 Estimat Average Glucose 94 Hemoglobin A1c % 4.9 Calcium 9.2 Magnesium 1.7 Total Bilirubin 0.2 AST 20 ALT 13 Alkaline Phosphatase 65 Total Protein 6.6 Albumin 3.7 Triglycerides 150 Cholesterol 187 LDL Cholesterol, Calc 119 HDL Cholesterol 38 Vitamin B12 292 Folate 11.3 TSH 1.55 Free T4 0.78 Medications Medications Current Medications Acetaminophen (Acetaminophen 325 Mg Tablet) 650 mg PO Q6H PRN PRN Reason: Headache/Pain Mild Scale (1-3) Last Admin: 05/19/22 09:35 Dose: 650 mg Al Hydroxide/Mg Hydroxide (Magnesium Hydrox/Alum Hydrox 30 Ml Oral.Susp) 30 ml PO Q6H PRN PRN Reason: Heartburn/Nausea Clonidine HCl (Clonidine Hcl 0.1 Mg Tablet) 0.1 mg PO BID [facility]; Protocol Last Admin: 05/19/22 09:36 Dose: 0.1 mg Hydroxyzine HCl (Hydroxyzine Hcl 25 Mg Tablet) 25 mg PO Q6H PRN PRN Reason: Anxiety Magnesium Hydroxide (Milk Of Magnesia 30 Ml Oral.Susp) 30 ml PO DAILY PRN PRN Reason: Constipation Multivitamins/Vitamin C (Multivitamin Tablet) 1 tab PO DAILY [facility] Last Admin: 05/19/22 09:36 Dose: 1 tab Olanzapine (Olanzapine 10 Mg Tablet) 20 mg PO BEDTIME BELA Last Admin: 05/18/22 21:10 Dose: 20 mg Thiamine HCl (Thiamine Hcl 100 Mg Tablet) 100 mg PO DAILY [facility] Last Admin: 05/19/22 09:36 Dose: 100 mg Trazodone HCl (Trazodone Hcl 50 Mg Tablet) 50 mg PO BEDTIME MRX1 PRN PRN Reason: Insomnia Allergies Allergies Allergy/AdvReac Type Severity Reaction Status Date / Time No Known Allergies Allergy Verified 05/13/22 08:41 Assessment & Plan Assessment & Plan (1) Schizoaffective disorder, bipolar type: Status: Acute Code(s): F25.0 - Schizoaffective disorder, bipolar type (2) Cannabis use disorder: Status: Acute Code(s): F12.90 - Cannabis use, unspecified, uncomplicated Plan Patient is a 21-year-old female with history of psychotic illness who self presents to the ED complaining of dizziness, with psychotic symptoms in the face of being off her medication. Patient well known to this service. She reports she has been off her medications for months. Will admit for safety and stability; will restart home medications 05/19 patient more disorganized today, more guarded and clearly internally preoccupied; patient is adherent with medication. Will continue current regimen for now Plan: 3 day notice Q 15 minute checks Zyprexa 30 mg q.h.s. Clonidine 0.1 mg b.i.d. Patient educated on: diagnosis Informed Consent: does not understand Reason for contiued inpatient stay Substantial Risk for: rapid decompensation Time Spent With Patient Time: Total time managing care of this patient today ____ minutes.
--- NOTE | 2022-05-19 14:31 | PC.NURSE ---
Patient reported feeling dizzy at times. Blood pressure taken was 116/72. HR 82. Patient given water. notified.
[2022-05-19 18:00] VITALS: BP 107/79; PULSE 75; RESP 18; TEMP 36.6; O2SAT 99
[2022-05-19] MEDS: OLANZapine 10 MG TABLET 20 MG PO (20:35)
[2022-05-19] MEDS: traZODone HCL 50 MG TABLET PO (20:36)
[2022-05-20] MEDS: cloNIDine HCL 0.1 MG TABLET PO ×2 (09:23→20:57)
[2022-05-20] MEDS: Thiamine HCL 100 MG TABLET PO (09:23)
[2022-05-20] MEDS: Multivitamin TABLET 1 TAB PO (09:23)
[2022-05-20 09:25] VITALS: BP 107/60; PULSE 94; RESP 16; TEMP 36.6; O2SAT 98
--- NOTE | 2022-05-20 17:21 | P.PNPSI_ITS ---
Subjective Subjective Date of Service: 05/20/22 Reason For Visit: Schizoaffective disorder Interim History: Met with patient; discussed with nursing Patient more calm today. Also willing to engage with life underwriter. She has speech latency and is internally preoccupied however she is willing to standing talk with life underwriter. She denies any AVH; denies any SI/HI she says that her mood is good and that she is sleeping well. She also says that her dizziness is fading and no longer problematic. Patient said she would like to talk about discharge for next week and life underwriter agreed that all should be with social media manager on Saturday. Mental Status Exam Mental Status Exam Narrative: Pt is drowsy, but alert and oriented; behavior is cooperative and more calm, more organized; patient is not in distress; dressed in hospital attire with unkempt hair, marginal hygiene; mood is described as good with affect blunted; appropriate eye contact; Speech remains with latency however normal volume and rate when talking. No psychomotor agitation present; thought process goal directed; Thought content is on discharge; patient internally preoccupied; denies SI/HI. Internally preoccupied with thought blocking but denies AVH Patients insight and judgment are impaired but improving. Diagnostics Vital Signs (24Hr): Vital Signs - 24 hr 05/19/22 18:00 05/20/22 09:25 Temperature 97.8 F 97.8 F Pulse Rate 75 94 Respiratory Rate 18 16 Blood Pressure 107/79 107/60 Pulse Oximetry 99 98 Oxygen Delivery Method Room Air Room Air BMI result Body Mass Index 32.5 Labs 05/16/22 08:39 05/18/22 10:11 Medications Medications Current Medications Acetaminophen (Acetaminophen 325 Mg Tablet) 650 mg PO Q6H PRN PRN Reason: Headache/Pain Mild Scale (1-3) Last Admin: 05/19/22 09:35 Dose: 650 mg Al Hydroxide/Mg Hydroxide (Magnesium Hydrox/Alum Hydrox 30 Ml Oral.Susp) 30 ml PO Q6H PRN PRN Reason: Heartburn/Nausea Clonidine HCl (Clonidine Hcl 0.1 Mg Tablet) 0.1 mg PO BID [facility]; Protocol Last Admin: 05/20/22 09:23 Dose: 0.1 mg Hydroxyzine HCl (Hydroxyzine Hcl 25 Mg Tablet) 25 mg PO Q6H PRN PRN Reason: Anxiety Magnesium Hydroxide (Milk Of Magnesia 30 Ml Oral.Susp) 30 ml PO DAILY PRN PRN Reason: Constipation Multivitamins/Vitamin C (Multivitamin Tablet) 1 tab PO DAILY [facility] Last Admin: 05/20/22 09:23 Dose: 1 tab Olanzapine (Olanzapine 10 Mg Tablet) 20 mg PO BEDTIME [facility] Last Admin: 05/19/22 20:35 Dose: 20 mg Thiamine HCl (Thiamine Hcl 100 Mg Tablet) 100 mg PO DAILY [facility]A Last Admin: 05/20/22 09:23 Dose: 100 mg Trazodone HCl (Trazodone Hcl 50 Mg Tablet) 50 mg PO BEDTIME MRX1 PRN PRN Reason: Insomnia Last Admin: 05/19/22 20:36 Dose: 50 mg Allergies Allergies Allergy/AdvReac Type Severity Reaction Status Date / Time No Known Allergies Allergy Verified 05/13/22 08:41 Assessment & Plan Assessment & Plan (1) Schizoaffective disorder, bipolar type: Status: Acute Code(s): F25.0 - Schizoaffective disorder, bipolar type (2) Cannabis use disorder: Status: Acute Code(s): F12.90 - Cannabis use, unspecified, uncomplicated Plan Patient is a 21-year-old female with history of psychotic illness who self presents to the ED complaining of dizziness, with psychotic symptoms in the face of being off her medication. Patient well known to this service. She reports she has been off her medications for months. Will admit for safety and stability; will restart home medications 05/19 patient more disorganized today, more guarded and clearly internally preoccupied; patient is adherent with medication. Will continue current regimen for now 05/19 patient more organized today, willing to talk a little bit with life underwriter and not guarded. Denies AVH though Remains internally preoccupied; says her mood is good and would like to talk about discharge next week Plan: 3 day notice Q 15 minute checks Zyprexa 30 mg q.h.s. Clonidine 0.1 mg b.i.d. Patient educated on: diagnosis Informed Consent: further education needed Reason for contiued inpatient stay Substantial Risk for: med/psych decompensation Time Spent With Patient Time: Total time managing care of this patient today ____ minutes.
[2022-05-20 18:00] VITALS: BP 146/99; PULSE 103; RESP 20; TEMP 36.6; O2SAT 98
[2022-05-20] MEDS: OLANZapine 10 MG TABLET 20 MG PO (20:57)
[2022-05-20] MEDS: traZODone HCL 50 MG TABLET PO (20:58)
[2022-05-21] MEDS: Multivitamin TABLET 1 TAB PO (08:26)
[2022-05-21] MEDS: cloNIDine HCL 0.1 MG TABLET PO ×2 (08:26→21:03)
[2022-05-21] MEDS: Thiamine HCL 100 MG TABLET PO (08:26)
[2022-05-21 08:28] VITALS: BP 118/58; PULSE 93; RESP 16; TEMP 36.6; O2SAT 96
--- NOTE | 2022-05-21 10:25 | HO.PSYCHPN ---
Subjective Subjective Date of Service: 05/21/22 Reason For Visit: Schizoaffective disorder Interim History: Met with patient; discussed with team Patient reports doing well; she is much more clear minded and present during conversation, much less internally preoccupied, speech latency less and sentences longer, articulated and organized. Patient says she feels ready for discharge. She says she is sleeping and eating well. Denies any AVH; denies any SI or HI. Social work having trouble getting in touch with her family with whom she supposed to live. Mental Status Exam Mental Status Exam Narrative: Pt is drowsy, but alert and oriented; behavior is cooperative and more calm, more organized; patient is not in distress; dressed in hospital attire with unkempt hair, adequate hygiene; mood is described as good with affect more expressive; appropriate eye contact; Speech remains with latency however less; normal volume and rate when talking. No psychomotor agitation present; thought process goal directed; Thought content is on discharge; patient internally preoccupied, though denies aVH; denies SI/HI. Patients insight and judgment are impaired but improved and likely at baseline. Diagnostics Vital Signs (24Hr): Vital Signs - 24 hr 05/20/22 18:00 05/21/22 08:28 Temperature 97.8 F 98 F Pulse Rate 103 H 93 Respiratory Rate 20 16 Blood Pressure 146/99 H 118/58 L Pulse Oximetry 98 96 Oxygen Delivery Method Room Air Room Air BMI result Body Mass Index 32.5 Labs 05/16/22 08:39 05/18/22 10:11 Medications Medications Current Medications Acetaminophen (Acetaminophen 325 Mg Tablet) 650 mg PO Q6H PRN PRN Reason: Headache/Pain Mild Scale (1-3) Last Admin: 05/19/22 09:35 Dose: 650 mg Al Hydroxide/Mg Hydroxide (Magnesium Hydrox/Alum Hydrox 30 Ml Oral.Susp) 30 ml PO Q6H PRN PRN Reason: Heartburn/Nausea Clonidine HCl (Clonidine Hcl 0.1 Mg Tablet) 0.1 mg PO BID [facility]; Protocol Last Admin: 05/21/22 08:26 Dose: 0.1 mg Hydroxyzine HCl (Hydroxyzine Hcl 25 Mg Tablet) 25 mg PO Q6H PRN PRN Reason: Anxiety Magnesium Hydroxide (Milk Of Magnesia 30 Ml Oral.Susp) 30 ml PO DAILY PRN PRN Reason: Constipation Multivitamins/Vitamin C (Multivitamin Tablet) 1 tab PO DAILY [facility] Last Admin: 05/21/22 08:26 Dose: 1 tab Olanzapine (Olanzapine 10 Mg Tablet) 20 mg PO BEDTIME [facility] Last Admin: 05/20/22 20:57 Dose: 20 mg Thiamine HCl (Thiamine Hcl 100 Mg Tablet) 100 mg PO DAILY [facility] Last Admin: 05/21/22 08:26 Dose: 100 mg Trazodone HCl (Trazodone Hcl 50 Mg Tablet) 50 mg PO BEDTIME MRX1 PRN PRN Reason: Insomnia Last Admin: 05/20/22 20:58 Dose: 50 mg Allergies Allergies Allergy/AdvReac Type Severity Reaction Status Date / Time No Known Allergies Allergy Verified 05/13/22 08:41 Assessment & Plan Assessment & Plan (1) Schizoaffective disorder, bipolar type: Status: Acute Code(s): F25.0 - Schizoaffective disorder, bipolar type (2) Cannabis use disorder: Status: Acute Code(s): F12.90 - Cannabis use, unspecified, uncomplicated Plan Patient is a 21-year-old female with history of psychotic illness who self presents to the ED complaining of dizziness, with psychotic symptoms in the face of being off her medication. Patient well known to this service. She reports she has been off her medications for months. Will admit for safety and stability; will restart home medications 05/19 patient more disorganized today, more guarded and clearly internally preoccupied; patient is adherent with medication. Will continue current regimen for now 05/19 patient more organized today, willing to talk a little bit with creative writer and not guarded. Denies AVH though Remains internally preoccupied; says her mood is good and would like to talk about discharge next week 05/20 Patient reports doing well; she is much more clear minded and present during conversation, much less internally preoccupied, speech latency less and sentences longer, articulated and organized. Patient says she feels ready for discharge. She says she is sleeping and eating well. Denies any AVH; denies any SI or HI. -3 day notice is coming to however, Social work having trouble getting in touch with her family with whom she supposed to live Plan: 3 day notice Q 15 minute checks Zyprexa 30 mg q.h.s. Clonidine 0.1 mg b.i.d. Patient educated on: diagnosis and medication risk/benefits Informed Consent: understands Reason for contiued inpatient stay Substantial Risk for: stable for discharge Time Spent With Patient Time: Total time managing care of this patient today ____ minutes.
[2022-05-21] MEDS: OLANZapine 10 MG TABLET 20 MG PO (21:02)
[2022-05-21 21:05] VITALS: BP 104/66; PULSE 75; RESP 16; TEMP 36.5; O2SAT 99
[2022-05-22] MEDS: Thiamine HCL 100 MG TABLET PO (08:53)
[2022-05-22] MEDS: Multivitamin TABLET 1 TAB PO (08:53)
[2022-05-22] MEDS: cloNIDine HCL 0.1 MG TABLET PO ×2 (08:53→19:06)
[2022-05-22 08:56] VITALS: BP 91/61; PULSE 76; RESP 14; TEMP 36.3; O2SAT 98
--- NOTE | 2022-05-22 12:43 | P.PNPSI_ITS ---
Subjective Subjective Date of Service: 05/22/22 Reason For Visit: Schizoaffective disorder Interim History: met with patient; discussed with team Patient remains much more clear minded, able to engage and with goal oriented thought process. Patient says that she has good and looking forward to going home. She agreed to retractor 3 day and stay another day just to help set up her dispo location; social work discussed case with patient's mother who is setting up for patient to go to her sister's tomorrow. Patient reiterates to continuity writer that the plan is that she will definitely discharge tomorrow to which continuity writer agrees. Patient says dizziness has resolved and that she will continue taking her medication. Mental Status Exam Mental Status Exam Narrative: Pt is drowsy, but alert and oriented; behavior is cooperative and more calm, more organized; patient is not in distress; dressed in hospital attire with unkempt hair, adequate hygiene; mood is described as good with affect more expressive; appropriate eye contact; Speech remains with latency however less; normal volume and rate when talking. No psychomotor agitation present; thought process goal directed; Thought content is on discharge; patient internally preoccupied but with less thought blocking; denies aVH; denies SI/HI. Patients insight and judgment are impaired but improved and at baseline. Diagnostics Vital Signs (24Hr): Vital Signs - 24 hr 05/21/22 21:05 05/22/22 08:56 Temperature 97.7 F 97.4 F Pulse Rate 75 76 Respiratory Rate 16 14 Blood Pressure 104/66 91/61 Pulse Oximetry 99 98 Oxygen Delivery Method Room Air Room Air BMI result Body Mass Index 32.5 Labs 05/16/22 08:39 05/18/22 10:11 Medications Medications Current Medications Acetaminophen (Acetaminophen 325 Mg Tablet) 650 mg PO Q6H PRN PRN Reason: Headache/Pain Mild Scale (1-3) Last Admin: 05/19/22 09:35 Dose: 650 mg Al Hydroxide/Mg Hydroxide (Magnesium Hydrox/Alum Hydrox 30 Ml Oral.Susp) 30 ml PO Q6H PRN PRN Reason: Heartburn/Nausea Clonidine HCl (Clonidine Hcl 0.1 Mg Tablet) 0.1 mg PO BID [facility]; Protocol Last Admin: 05/22/22 08:53 Dose: 0.1 mg Hydroxyzine HCl (Hydroxyzine Hcl 25 Mg Tablet) 25 mg PO Q6H PRN PRN Reason: Anxiety Magnesium Hydroxide (Milk Of Magnesia 30 Ml Oral.Susp) 30 ml PO DAILY PRN PRN Reason: Constipation Multivitamins/Vitamin C (Multivitamin Tablet) 1 tab PO DAILY [facility] Last Admin: 05/22/22 08:53 Dose: 1 tab Olanzapine (Olanzapine 10 Mg Tablet) 20 mg PO BEDTIME [facility] Last Admin: 05/21/22 21:02 Dose: 20 mg Thiamine HCl (Thiamine Hcl 100 Mg Tablet) 100 mg PO DAILY [facility] Last Admin: 05/22/22 08:53 Dose: 100 mg Trazodone HCl (Trazodone Hcl 50 Mg Tablet) 50 mg PO BEDTIME MRX1 PRN PRN Reason: Insomnia Last Admin: 05/20/22 20:58 Dose: 50 mg Allergies Allergies Allergy/AdvReac Type Severity Reaction Status Date / Time No Known Allergies Allergy Verified 05/13/22 08:41 Assessment & Plan Assessment & Plan (1) Schizoaffective disorder, bipolar type: Status: Acute Code(s): F25.0 - Schizoaffective disorder, bipolar type (2) Cannabis use disorder: Status: Acute Code(s): F12.90 - Cannabis use, unspecified, uncomplicated Plan Patient is a 21-year-old female with history of psychotic illness who self presents to the ED complaining of dizziness, with psychotic symptoms in the face of being off her medication. Patient well known to this service. She reports she has been off her medications for months. Will admit for safety and stability; will restart home medications 05/19 patient more disorganized today, more guarded and clearly internally preoccupied; patient is adherent with medication. Will continue current regimen for now 05/19 patient more organized today, willing to talk a little bit with continuity writer and not guarded. Denies AVH though Remains internally preoccupied; says her mood is good and would like to talk about discharge next week 05/20 Patient reports doing well; she is much more clear minded and present during conversation, much less internally preoccupied, speech latency less and sentences longer, articulated and organized. Patient says she feels ready for discharge. She says she is sleeping and eating well. Denies any AVH; denies any SI or HI. -3 day notice is coming to however, Social work having trouble getting in touch with her family with whom she supposed to live 05/22 patient is at baseline; patient request discharge and though she rescinded her 3 day notice only for dispo planning, signed another 1, wanting to discharge tomorrow. She is not in imminent risk for harm to self or others and will be returning to live at her sister's house. Dizziness has resolved and patient said she will continue taking medications. Patient's request for discharge honored. Plan: Retracted 3 day notice; signed another 1 Q 15 minute checks Zyprexa 30 mg q.h.s. Clonidine 0.1 mg b.i.d. Patient educated on: diagnosis and medication risk/benefits Informed Consent: understands Reason for contiued inpatient stay Substantial Risk for: stable for discharge Time Spent With Patient Time: Total time managing care of this patient today ____ minutes.
[2022-05-22] MEDS: OLANZapine 10 MG TABLET 20 MG PO (19:06)
[2022-05-22] MEDS: traZODone HCL 50 MG TABLET PO (19:06)
[2022-05-22 19:16] VITALS: BP 100/61; PULSE 94
[2022-05-23] MEDS: cloNIDine HCL 0.1 MG TABLET PO (08:57)
[2022-05-23] MEDS: Thiamine HCL 100 MG TABLET PO (08:57)
[2022-05-23] MEDS: Multivitamin TABLET 1 TAB PO (08:57)
[2022-05-23 08:58] VITALS: BP 110/59; PULSE 113; RESP 16; TEMP 36.3; O2SAT 97
--- NOTE | 2022-05-23 10:15 | P.DS_ITS ---
DS: Providers Provider Date of Service: 05/23/22 Date of admission: 05/17/22 11:27 Date of discharge: 05/23/22 Primary care physician: [facility] Attending physician on admission: Amadou Khan Attending physician on discharge: Amadou Khan DS: Diagnosis Discharge Diagnosis (1) Schizoaffective disorder, bipolar type: Status: Acute (2) Cannabis use disorder: Status: Acute DS: Medications Discharge Medications Home Medications: Previous Rx's Medication Instructions Recorded clonidine HCl 0.1 mg tablet 0.1 mg PO BID 30 days #60 tabs 05/23/22 olanzapine 20 mg tablet 20 mg PO BEDTIME 30 days #30 tabs 05/23/22 Mental Status Exam Mental Status Exam Narrative: Pt is drowsy, but alert and oriented; behavior is cooperative and more calm, more organized; patient is not in distress; dressed in hospital attire with unkempt hair, adequate hygiene; mood is described as good with affect more expressive; appropriate eye contact; Speech remains with latency however less; normal volume and rate when talking. No psychomotor agitation present; thought process goal directed; Thought content is on discharge; patient internally preoccupied but with less thought blocking; denies aVH; denies SI/HI. Patients insight and judgment are impaired but improved and at baseline. Data Data Completed and Pending Completed studies during hospitalization [Text1]: 05/16/22 05/16/22 05/16/22 09:35 14:39 14:39 Sodium 141 Potassium 4.6 Chloride 110 H Carbon Dioxide 23 Anion Gap 13 BUN 13 Creatinine 0.74 Estim Creat Clear Calc 151.1 Estimated GFR > 60 Random Glucose 90 Fasting Glucose Estimat Average Glucose Hemoglobin A1c % Calcium 9.3 Magnesium 1.9 Total Bilirubin 0.5 Direct Bilirubin < 0.2 AST 19 ALT 13 Alkaline Phosphatase 61 Total Protein 7.2 Albumin 4.1 Triglycerides Cholesterol LDL Cholesterol, Calc HDL Cholesterol Vitamin B12 Folate TSH Free T4 Urine Color [place] A Urine Appearance Cloudy Urine pH 7.0 Ur Specific [place] >= 1.030 H Urine Protein 100 (2+) H Urine Glucose (UA) Negative Urine Ketones Trace Urine Blood Large (3+) H Urine Nitrite Negative Ur Leukocyte Esterase Moderate (2+) H Urine RBC >20 H Urine WBC >50 H Ur Squamous Epith Cells 6-10 Urine Bacteria 2+ Hyaline Casts 0-2 Urine Test NEGATIVE Urine Opiates Screen Urine Fentanyl Screen Ur Barbiturates Screen Ur Phencyclidine Scrn Ur Amphetamines Screen U Benzodiazepines Scrn Urine Cocaine Screen U Marijuana (THC) Screen 05/16/22 05/18/22 05/18/22 14:39 08:58 10:11 Sodium 140 Potassium 4.7 Chloride 111 H Carbon Dioxide 19 L Anion Gap 15 BUN 16 Creatinine 0.72 Estim Creat Clear Calc 155.4 Estimated GFR > 60 Random Glucose Fasting Glucose 91 Estimat Average Glucose 94 Hemoglobin A1c % 4.9 Calcium 9.2 Magnesium 1.7 Total Bilirubin 0.2 Direct Bilirubin AST 20 ALT 13 Alkaline Phosphatase 65 Total Protein 6.6 Albumin 3.7 Triglycerides 150 Cholesterol 187 LDL Cholesterol, Calc 119 HDL Cholesterol 38 Vitamin B12 292 Folate 11.3 TSH 1.55 Free T4 0.78 Urine Color Urine Appearance Urine pH Ur Specific [place] Urine Protein Urine Glucose (UA) Urine Ketones Urine Blood Urine Nitrite Ur Leukocyte Esterase Urine RBC Urine WBC Ur Squamous Epith Cells Urine Bacteria Hyaline Casts Urine Test Urine Opiates Screen Not Detected Urine Fentanyl Screen Not Detected Ur Barbiturates Screen Not Detected Ur Phencyclidine Scrn Not Detected Ur Amphetamines Screen Not Detected U Benzodiazepines Scrn Not Detected Urine Cocaine Screen Not Detected U Marijuana (THC) Screen POSITIVE H 05/16/22 Unknown Urine clean catch - Urine walls top Urine Culture - Final DS: Summary Hospital Course Hospital Course: HPI: Patient is a 21-year-old female with history of psychotic illness who self presents to the ED complaining of dizziness, with psychotic symptoms in the face of being off her medication. Patient well known to this service. She reports she has been off her medications for months. Hospital course: Patient was restarted on her home medications of clonidine 0.1 mg b.i.d. and Zyprexa 20 mg at bedtime. Initially she was with some disorganized behavior and guarded however this resolved and patient was more able to engage, able to talk about treatment (in concrete terms) and demonstrated good behavioral and impulse control. Patient was internally preoccupied however this is present at baseline and it was much less so than on admission. Patient also reported that dizziness had resolved. Patient signed a 3 day notice wanting to go home. Social work discussed case with her mother and patient was able to go and stay at her sister's house to which patient agreed. Patient had returned to [facility] [place]; she remained in good behavioral control, cooperative; patient eating and sleeping well. She agrees to continue taking medications. Patient refused DMH which she has at prior admissions; and she of course remains vulnerable to decompensation. However she is not in imminent risk for harm to self or others and does not rise to the level of involuntary commitment; she will be staying with her sister who is supportive and said she will continue taking medications. Patient's 3 day notice had come to. Her request for discharge honored. Time spent discussing smoking cessation with patient: 3 to 10 minutes Status at Discharge Functional status at discharge: independent ambulation Overall status at discharge: patient is back to baseline Time Spent with Patient Time attestation: Total time managing care of this patient today ____ minutes. Time spent: Less than 30 minutes Discharge Plan Discharge Anticipated Discharge Date/Time: 05/23/22 11:30 Patient Disposition: Home, Self-Care Discharge Diagnosis: schizoaffective disorder, bipolar type Referrals: [facility] [Primary Care Provider] - 06/08/22 10:30 am (IN OFFICE WITH DR. CANALES) Discharge Medications: New clonidine HCl 0.1 mg Tablet 0.1 mg PO BID 30 Days Qty: 60 1RF Protocol: Hold for SBP< HOLD for SBP < : 90 olanzapine 20 mg tablet 20 mg PO BEDTIME 30 Days Qty: 30 1RF Discharge Orders: Discharge Order (Routine); Ordered 05/23/22 Ordered By: Amadou Khan Diet: Regular diet Activity on Discharge: As tolerated Stand Alone Forms: Patient Portal Discharge page, Community Support Care Plan Goals: Maintain mood and safe behaviors Take medications as prescribed Continue to pursue sobriety from Cannabis Practice coping skills Continue with outpatient providers and reach out to them as needed Health Concerns: Mood stability and behaviors Plan of Treatment: Follow up with your Psychiatric provider and other outpatient providers regarding above concerns Take medications as prescribed Assessment: Risk assessment at time of discharge:? Patient was interviewed prior to discharge and found to be fully oriented and without any SI or HI. Patient has insight and demonstrates good judgment in terms of wanting to pursue treatment. Patient is not in imminent risk of harm to self or others and has a safety plan that includes presenting to the closest ER or calling 911 if feeling unsafe.? Patient has been observed closely by nursing and unit staff throughout admission; patient has not engaged in any behaviors that suggest dangerousness to self or others and has demonstrated appropriate behaviors and impulse control Discharge Date/Time: 05/23/22 11:32
== END 2022-05-23 11:32 | disposition home or self-care (01) | DRG 750 ==
LOC: HO.ED 05-17 10:57 → HO.PM5 05-17 11:32
PROVIDERS: Physician Assistant; Admitting Provider Clinical Nurse Specialist Psychiatric/Mental Health, Adult; Emergency Provider Emergency Medicine Emergency Medical Services; Visit Provider Psychiatry & Neurology Psychiatry
DX: F25.0 Schizoaffective disorder, bipolar type (principal); Z91.14 Patient's other noncompliance with medication regimen; F12.10 Cannabis abuse, uncomplicated; F17.210 Nicotine dependence, cigarettes, uncomplicated; J45.909 Unspecified asthma, uncomplicated; Z71.6 Tobacco abuse counseling; Z62.810 Personal history of physical and sexual abuse in childhood; Z20.822 Contact with and (suspected) exposure to COVID-19; Z79.899 Other long term (current) drug therapy
CPT/HCPCS: 36415; 80048; 80053; 80061; 80076; 80307; 81001; 81025; 82607; 82746; 83036; 83735; 84439; 84443; 85025; 87086; 87635; 93005; 99285; S9485

== ENCOUNTER 2022-05-29 22:46 | Emergency (ER) | payer MEDICAID, OTHER, SELFPAY ==
[2022-05-29 22:52] VITALS: BP 129/87; PULSE 95; O2SAT 97
[2022-05-29 22:54] VITALS: BP 119/76; PULSE 93; RESP 16; TEMP 36.6; O2SAT 98; BMI 36.9
[2022-05-29 23:15] VITALS: BP 147/75; PULSE 79; RESP 17; TEMP 36.4; O2SAT 98
--- NOTE | 2022-05-30 00:04 | MHC.EDTECH ---
t/w and BUSHRA Reich attempted to draw labs when we attempted to tie the tourniquet pt stated miss this is too tight we have to try later. RN MADE AWARE.
[2022-05-30 00:15] LABS: Amphetamine Screen Urine Not Detected (Not Detect); Barbiturates, Urine Not Detected (Not Detect); Benzodiazepines Screen Urine Not Detected (Not Detect); Cannabinoid Screen Urine POSITIVE (Not Detect); Cocaine Screen Urine Not Detected (Not Detect); Fentanyl, urine Not Detected (Not Detect); Opiate Screen Urine Not Detected (Not Detect); Phencyclidine Screen Urine Not Detected (Not Detect)
[2022-05-30 00:18] LABS: UPreg QC Valid YES; Urine Pregnancy NEGATIVE (NEGATIVE)
[2022-05-30 00:19] LABS: COVID-19 Test Negative (Negative); IDNOW Serial# 6674DD1D
--- NOTE | 2022-05-30 01:08 | ED.PSYCH ---
HPI - Psych General Chief Complaint: ETOH/Substance Use Stated Complaint: ETOH Time Seen by Provider: 05/30/22 00:59 Source: patient and EMS Mode of arrival: EMS Limitations: altered mental status (Psychosis) History of Present Illness HPI Narrative: 21-year-old female presents via EMS for calling the police while she was in a park drinking alcohol. complaint: other (Delusional) Onset (ago): unknown History of same: Yes Relieving factors: medication Exacerbating factors: alcohol, drug use and other (Medication noncompliance) Context: recent alcohol abuse, recent drug abuse and not taking psychiatric medications Associated psychiatric symptoms: delusions Related Data Home Medications Medication Instructions Recorded Confirmed No Known Home Meds 05/29/22 05/29/22 Allergies Allergy/AdvReac Type Severity Reaction Status Date / Time No Known Allergies Allergy Verified 05/29/22 22:55 Review of Systems Review of Systems: Yes Unobtainable due to mental status (Psychosis) PMFSH Past Medical History Attestation statement: The following information was validated with the patient. Source: old records reviewed Medical History Asthma Bipolar 1 disorder Bipolar disorder Cannabis use disorder Schizophrenia Social History Social History Household Members: Family Household Members Other:: Mom, sister Housing: Apartment Housing Other:: Current living situation will change as the apt has be condemned Do you presently have visiting nurse or other home services: No Unable to assess alcohol history related to: Refusing to respond Alcohol intake: unknown Patient Tobacco Use Status: Current everyday Tobacco user Tobacco use type: Cigarette Cigarette Packs Per Day: 1 Cigarettes Per Day: 2 Years Smoked: 1 e-Cigarette/Vaping Use: Never Used Second Hand Smoke Exposure: No Substance Use Type: Marijuana Advance Directives: No Advance Directives Information Provided: Yes service: No Sexual orientation: Don't Know Physical Exam Vital Signs: Vital Signs: Last Vital Signs Temp 97.9 F 05/29/22 22:54 Pulse 93 05/29/22 22:54 Resp 16 05/29/22 22:54 BP 119/76 05/29/22 22:54 Pulse Ox 98 05/29/22 22:54 O2 Del Method 05/29/22 22:54 BMI result Body Mass Index 36.9 Appearance: Alert. Moderate psychiatric distress. Eyes: Pupils equal, round and reactive to light. Neck: Normal inspection. Neck supple. CVS: Normal heart rate and rhythm. Pulses normal. Respiratory: No respiratory distress. Breath sounds normal. Skin: Skin warm and dry. Normal skin color. Extremities: Gait balance and coordinated. Neuro: No motor deficit. No sensory deficit. Cranial nerves 2-12 intact Course Course Course Narrative: 21-year-old female presents via EMS after the patient called the police while she was in the park. Patient was drinking alcohol, and stated to have psych issues. She only reports drinking 2 beers per EMS report. Patient has had multiple presentations to this facility in the past with multiple admissions to Psychiatry. Patient is usually manic and psychotic when she presents, does not answer questions appropriately and is a poor historian. Most of the history obtained by prior medical records, as patient is unable to answer questions appropriately at this time. Patient does not appear to be in any physical distress. Even unlabored respirations. Balanced steady gait. It is reported that patient is not taking her medications appropriately and consistent with her prior presentations. Will order labs, crisis consult. 01:50 patient continues to refuse lab values. Physician observation at this time. Most likely will be psychiatric admission based on presentation at this time. Medical Decision Making Differential Diagnosis Differential Diagnoses: The differential diagnosis associated with the presentation includes Elizabeth, psychosis, schizoaffective disorder, bipolar disorder Admission/Observation Consideration of admission/observation: Escalation of care including admission/observation considered May require M5 admission for stabilization Consult Healthcare Provider Management of the patient was discussed with: Behavioral Health Provider Lab Data MDM Lab Attestation statement: I reviewed the patient's lab results. Labs: Lab Results 05/29/22 05/29/22 05/29/22 Range/Units 23:34 23:34 23:35 Urine Test NEGATIVE (NEGATIVE) Urine Opiates Screen Not Detected (Not Detect) Urine Fentanyl Screen Not Detected (Not Detect) Ur Barbiturates Screen Not Detected (Not Detect) Ur Phencyclidine Scrn Not Detected (Not Detect) Ur Amphetamines Screen Not Detected (Not Detect) U Benzodiazepines Scrn Not Detected (Not Detect) Urine Cocaine Screen Not Detected (Not Detect) U Marijuana (THC) Screen POSITIVE H (Not Detect) COVID-19 (BRENDA) Negative (Negative) COVID-19 Clin Com See Note External Record Review External record reviewed: Inpatient record, Outpatient record, Prior outpatient labs and Prior outpatient radiology Social Determinants Patient?s care significantly limited by Social Determinants of Health including: Other Social Determinant of Health Discharge Plan Discharge Clinical Impression: Schizoaffective disorder, bipolar type, Psychosis Patient Disposition: Still a Patient Prescriptions: No Action No Known Home Meds
--- NOTE | 2022-05-30 05:29 | PC.NURSE ---
Patient slept through the night, no distress observed/reported, pending blood draw patient refused blood draw twice thus far we will approach again in the morning, med rec completed/patient is off her medication for months, care consult ordered/pending evaluation in the morning, will continue to monitor.
[2022-05-30 06:41] LABS: MANUAL DIFF FLAG NO
[2022-05-30 06:43] LABS: Basophils Percent Auto 0.4 % (0-2); Eosinophils Absolute Auto 0.4 X10*3/uL (0.0-0.4); Eosinophils Percent Auto 3.6 % (0-4); Hematocrit 36.7 % (37.0-47.0); Imm Gran Abs Auto 0.05 X10*3/uL (0.00-0.03); Imm Gran Pct Auto 0.5 % (0.0-0.4); Lymphocytes Absolute Auto 3.1 X10*3/uL (1.2-4.9); Lymphocytes Percent Auto 32.2 % (20-40); Mean Corpuscular HGB Conc 32.7 g/dl (31.0-35.0); Mean Corpuscular Hemoglobin 28.4 pg (27.0-33.0); Mean Platelet Volume 9.6 fL (9.4-12.3); Monocytes Absolute Auto 0.7 X10*3/uL (0.1-1.2); Monocytes Percent Auto 6.8 % (2-11); Neutrophils Absolute Auto 5.5 x10*3/uL (2.0-8.3); Neutrophils Percent Auto 56.5 % (45-73); Platelet Count 208 X10*3/uL (160-400); Red Blood Count 4.22 X10*6/uL (4.20-5.50); Red Cell Distribution Width 14.8 % (11.0-16.0); White Blood Count 9.7 X10*3/uL (4.8-10.8)
[2022-05-30 07:11] LABS: Alanine Aminotransferase 37 U/L (0-31); Alkaline Phosphatase 70 U/L (39-117); Anion Gap 9 (12-20); Aspartate Amino Transferase 15 U/L (5-31); Bilirubin Total 0.2 mg/dL (0.0-1.0); Blood Urea Nitrogen 15 mg/dL (9-16); Calcium 8.5 mg/dL (8.4-10.2); Carbon Dioxide 25 mmol/L (22-29); Chloride 113 mmol/L (96-108); Creatinine Clr Calc Pharmacy 170.7; Estimated Glomerular Filt Rate > 60; Ethanol < 10 mg/dL; Glucose Random 90 mg/dL (60-115); Sodium 143 mmol/L (135-145); Total Protein 5.4 g/dL (6.5-8.0)
--- NOTE | 2022-05-30 07:19 | PC.NURSE ---
patient appears to remain asleep at present respirations are even and unlabored patient appears in no distress
[2022-05-30 10:33] VITALS: BP 123/80; PULSE 84; RESP 19; TEMP 36.6; O2SAT 94
--- NOTE | 2022-05-30 11:52 | MHC.CARE ---
attempted to reach patient's mother, Veronica, , no answer, outgoing VM states that mailbox is full. Will try again.
== END 2022-05-30 13:16 | disposition home or self-care (01) ==
PROVIDERS: Emergency Provider Emergency Medicine Emergency Medical Services
DX: F25.0 Schizoaffective disorder, bipolar type (principal); F29 Unspecified psychosis not due to a substance or known physiological condition; Z20.822 Contact with and (suspected) exposure to COVID-19; F17.210 Nicotine dependence, cigarettes, uncomplicated; Z91.14 Patient's other noncompliance with medication regimen
CPT/HCPCS: 36415; 80053; 80307; 81025; 82077; 85025; 87635; 99284; S9485

== ENCOUNTER 2022-06-02 21:00 | Emergency (ER) | payer MEDICAID, SELFPAY ==
[2022-06-02 21:07] VITALS: BP 100/66; BP 120/70; PULSE 74; PULSE 76; RESP 18; TEMP 36.6; O2SAT 97; O2SAT 99; BMI 33.5
--- NOTE | 2022-06-02 21:58 | ED.ALCOHOL ---
HPI - Alcohol General Chief Complaint: ETOH/Substance Use Stated Complaint: ETOH Time Seen by Provider: 06/02/22 23:49 Source: patient Mode of arrival: ambulatory Limitations: no limitations History of Present Illness HPI narrative: This is a 21-year-old female history of cannabis use disorder, schizoaffective disorder bipolar type presenting to the emergency department for evaluation of nausea, vomiting, headache times a few hours. Patient was found outside by police vomiting in a park. Patient reports she drink 9 drinks of hard liquor, fireball and was smoking marijuana all day, states she was having a green party. Tells me her headache is diffuse in nature, no vision changes or dizziness. Patient denies any trauma or falls. Not on blood thinners. Patient alert and oriented x4 however dry heaving on history taking. Denies chest pain, shortness of breath, vision changes, dizziness, weakness, abdominal pain, diarrhea fevers and chills Related Data Previous Rx's Medication Instructions Recorded ondansetron 4 mg disintegrating 4 mg PO Q6H PRN nausea and 06/02/22 tablet vomiting #14 tabs Allergies Allergy/AdvReac Type Severity Reaction Status Date / Time No Known Allergies Allergy Verified 06/02/22 21:18 Review of Systems Review of Systems: Constitutional : No Weight loss, No Fever, No Chills, No Fatigue, No Malaise ENT/Mouth : No sore throat, No Rhinorrhea Eyes: No Eye Pain, No Swelling, No Redness Cardiovascular : No Chest Pain, No SOB, No Dyspnea on Exertion, No Orthopnea, No Edema, No Palpitations Respiratory : No Cough, No Sputum, No Wheezing Gastrointestinal : + Nausea, + Vomiting, No Diarrhea, No Constipation, No abdominal Pain, No Hematochezia, No Melena Genitourinary : No Dysuria, No Urinary Frequency, No Hematuria, Musculoskeletal : No joint pain, No Myalgias, No Joint Swelling Skin : No Skin Lesions, No rash Neuro : No Weakness, No Numbness, No Dizziness, + Headache Psych : No Anxiety/Panic, No Depression All other systems reviewed and are negative Yes all other systems are reviewed and are negative [facility] Past Medical History Attestation statement: The following information was validated with the patient. Source: old records reviewed and nursing notes reviewed Medical History Asthma Bipolar 1 disorder Bipolar disorder Cannabis use disorder Schizophrenia Social History Social History Household Members: Family Household Members Other:: Mom, sister Housing: Apartment Housing Other:: Current living situation will change as the apt has be condemned Do you presently have visiting nurse or other home services: No Unable to assess alcohol history related to: Refusing to respond Alcohol intake: unknown Patient Tobacco Use Status: Current everyday Tobacco user Tobacco use type: Cigarette Cigarette Packs Per Day: 1 Cigarettes Per Day: 2 Years Smoked: 1 e-Cigarette/Vaping Use: Never Used Second Hand Smoke Exposure: No Substance Use Type: Marijuana Advance Directives: No Advance Directives Information Provided: No service: No Sexual orientation: Don't Know Physical Exam ED Vital Signs: Vital Signs - 24 hr 06/02/22 21:07 06/02/22 23:03 Temperature 97.9 F Pulse Rate 76 76 Respiratory Rate 18 18 Blood Pressure 100/66 101/56 L Pulse Oximetry 97 96 Oxygen Delivery Method Room Air Room Air BMI result Body Mass Index 33.5 vss Appearance: Alert.? Oriented X3.? No acute distress.? Patient dry heaving throughout my exam. Covered in vomit Head: Normocephalic, atraumatic, no step-offs or deformities Eyes: Pupils equal, round and reactive to light.? ENT: Pharynx normal.? Neck: Normal inspection.? Neck supple.? CVS: Normal heart rate and rhythm.? Pulses normal.? Respiratory: No respiratory distress.? Breath sounds normal.? Abdomen: Soft and nontender.? Skin: Skin warm and dry.? Normal skin color.? Normal skin turgor.? Extremities: No lower extremity edema.? No calf ttp. 5/5 strength to bilateral upper and lower extremities Neuro: Oriented X 3.? No motor deficit.? No sensory deficit. CN 2-12 intact . Ambulatory with steady gait normal coordination. Normal rapid alternating movements. Course Reevaluation(s) Reevaluation #1: Patient is comfortably resting. Not vomiting. Will hold on obtaining labs until patient is awake. Time: 23:02 Reevaluation #2: Patient woke up requesting a sandwich, tolerating p.o.. Feeling better. Labs were obtained IV place, fluids and Zofran given. Labs pending. Time: 00:29 Reevaluation #3: CBC with no acute findings. Chemistry unremarkable. No acute electrolyte abnormalities requiring intervention. Ethanol level 107. UA clean for infection. Patient ambulating around the department without difficulty trying to find a sober ride A&O X4. Patient denying SI and HI. Educated patient on diagnosis and treatment plan, answered all question, patient verbalizes understanding. At this time patient will be discharged home, advised to return with new or worsening symptoms. Educated on worrisome signs and symptoms and when to return. At this time I feel comfortable discharge home. Time: 00:59 Medical Decision Making Medical Decision Making [facility] Narrative: 2129 21-year-old female presents with nausea, vomiting, headache status post heavy alcohol consumption and marijuana. Found in park vomiting by police. Alert and oriented x4. Denies SI next Physical examination benign. Abdominal tenderness. Patient hemodynamically stable. Likely alcohol toxicity or cyclic vomiting syndrome. Unlikely stroke, posterior stroke, obstruction, acute abdomen. Will rule out electrolyte abnormalities. Plan at this time basic labs, urine, ethanol Differential Diagnosis Differential Diagnoses: The differential diagnosis associated with the presentation includes Likely alcohol toxicity or cyclic vomiting syndrome. Unlikely stroke, posterior stroke, obstruction, acute abdomen. Will rule out electrolyte abnormalities. Admission/Observation Consideration of admission/observation: Escalation of care including admission/observation considered Lab Data [facility] Lab Attestation statement: I reviewed the patient's lab results. 06/03/22 00:32 06/03/22 00:32 Labs: Lab Results 06/03/22 06/03/22 06/03/22 Range/Units 00:32 00:32 00:32 WBC 7.3 (4.8-10.8) X10*3/uL RBC 4.97 (4.20-5.50) X10*6/uL Hgb 14.0 (12.0-16.0) g/dl Hct 42.7 (37.0-47.0) % MCV 85.9 (80.0-98.0) fL MCH 28.2 (27.0-33.0) pg MCHC 32.8 (31.0-35.0) g/dl RDW 15.2 (11.0-16.0) % Plt Count 265 D (160-400) X10*3/uL MPV 9.5 (9.4-12.3) fL Immature Gran % (Auto) 0.7 H (0.0-0.4) % Neut % (Auto) 69.2 (45-73) % Lymph % (Auto) 24.1 (20-40) % [place] % (Auto) 4.1 (2-11) % Eos % (Auto) 1.5 (0-4) % Baso % (Auto) 0.4 (0-2) % Lymph # (Auto) 1.8 (1.2-4.9) X10*3/uL [place] # (Auto) 0.3 (0.1-1.2) X10*3/uL Eos # (Auto) 0.1 (0.0-0.4) X10*3/uL Baso # (Auto) 0.0 (0.0-0.2) X10*3/uL Abs Immat Gran (auto) 0.05 H (0.00-0.03) X10*3/uL Absolute Neuts (auto) 5.0 (2.0-8.3) x10*3/uL Absolute Nucleated RBC 0.000 (0.0-0.012) X10*3/uL Nucleated RBC % (auto) 0.0 (0.0-0.2) /100WBC Sodium 143 (135-145) mmol/L Potassium 4.8 (3.3-5.1) mmol/L Chloride 111 H (96-108) mmol/L Carbon Dioxide 19 L (22-29) mmol/L Anion Gap 18 (12-20) BUN 10 (9-16) mg/dL Creatinine 0.63 (0.5-1.4) mg/dL Estim Creat Clear Calc 180.4 Estimated GFR > 60 Random Glucose 94 (60-115) mg/dL Calcium 9.0 (8.4-10.2) mg/dL Magnesium 2.1 (1.6-2.6) mg/dL Total Bilirubin 0.3 (0.0-1.0) mg/dL AST 23 (5-31) U/L ALT 27 (0-31) U/L Alkaline Phosphatase 64 (39-117) U/L Total Protein 6.8 (6.5-8.0) g/dL Albumin 3.7 (3.5-5.0) g/dL Lipase 15 (8-78) U/L Urine Color Urine Appearance Urine pH (5.0-9.0) Ur Specific [place] (1.005-1.025) Urine Protein (Neg-Trace) mg/dL Urine Glucose (UA) (Negative) mg/dL Urine Ketones (Negative) mg/dL Urine Blood (Negative) Urine Nitrite (Negative) Ur Leukocyte Esterase (Negative) Ethyl Alcohol 107 mg/dL 06/03/22 Range/Units 00:52 WBC (4.8-10.8) X10*3/uL RBC (4.20-5.50) X10*6/uL Hgb (12.0-16.0) g/dl Hct (37.0-47.0) % MCV (80.0-98.0) fL MCH (27.0-33.0) pg MCHC (31.0-35.0) g/dl RDW (11.0-16.0) % Plt Count (160-400) X10*3/uL MPV (9.4-12.3) fL Immature Gran % (Auto) (0.0-0.4) % Neut % (Auto) (45-73) % Lymph % (Auto) (20-40) % [place] % (Auto) (2-11) % Eos % (Auto) (0-4) % Baso % (Auto) (0-2) % Lymph # (Auto) (1.2-4.9) X10*3/uL [place] # (Auto) (0.1-1.2) X10*3/uL Eos # (Auto) (0.0-0.4) X10*3/uL Baso # (Auto) (0.0-0.2) X10*3/uL Abs Immat Gran (auto) (0.00-0.03) X10*3/uL Absolute Neuts (auto) (2.0-8.3) x10*3/uL Absolute Nucleated RBC (0.0-0.012) X10*3/uL Nucleated RBC % (auto) (0.0-0.2) /100WBC Sodium (135-145) mmol/L Potassium (3.3-5.1) mmol/L Chloride (96-108) mmol/L Carbon Dioxide (22-29) mmol/L Anion Gap (12-20) BUN (9-16) mg/dL Creatinine (0.5-1.4) mg/dL Estim Creat Clear Calc Estimated GFR Random Glucose (60-115) mg/dL Calcium (8.4-10.2) mg/dL Magnesium (1.6-2.6) mg/dL Total Bilirubin (0.0-1.0) mg/dL AST (5-31) U/L ALT (0-31) U/L Alkaline Phosphatase (39-117) U/L Total Protein (6.5-8.0) g/dL Albumin (3.5-5.0) g/dL Lipase (8-78) U/L Urine Color Yellow Urine Appearance Clear Urine pH 5.5 (5.0-9.0) Ur Specific [place] 1.015 (1.005-1.025) Urine Protein Negative (Neg-Trace) mg/dL Urine Glucose (UA) Negative (Negative) mg/dL Urine Ketones Negative (Negative) mg/dL Urine Blood Negative (Negative) Urine Nitrite Negative (Negative) Ur Leukocyte Esterase Trace H (Negative) Ethyl Alcohol mg/dL Core Measures AMI core measures followed: Yes Measure exclusions: not indicated Critical Care Time Critical Care Time Critical Care Time: No Discharge Plan Discharge Clinical Impression: Alcoholic intoxication, Cannabis use disorder, Nausea & vomiting Patient Disposition: Still a Patient Instructions: Alcohol Intoxication (ED), Abuse of Alcohol (ED), Acute Nausea and Vomiting (ED), Cannabis Abuse (ED), Alcohol Use Disorder (ED) Additional Instructions: Take your medications as prescribed. If you were prescribed antibiotics today, it is important that you take your medication to their entirety, do not skip any doses, do not finish them early. Follow-up with your primary care provider this week. Return to the emergency department with new or worsening symptoms. Such as fevers, chills, chest pain, shortness of breath, nausea, vomiting, dizziness, headache, vision changes, lethargy In case of emergency call 911 Use caution with alcohol, your symptoms today were likely related to alcohol toxicity. Also marijuana can cause something called cyclic vomiting which you are likely experiencing Prescriptions: New ondansetron 4 mg tablet,disintegrating 4 mg PO Q6H PRN (Reason: nausea and vomiting) Qty: 14 0RF Referrals: Physician,Unknown J [Primary Care Provider] - 2 days
--- NOTE | 2022-06-02 22:08 | PC.NURSE ---
pt sleeping, vss, per provider ok to hold labs/meds/urine to allow pt to sleep.
--- NOTE | 2022-06-02 22:35 | MHC.EDTECH ---
NOBLE Capellan told this press writer to hold off on bloodwork due to patient sleeping will contince to monitor
[2022-06-02 23:03] VITALS: BP 101/56; PULSE 76; RESP 18; O2SAT 96
[2022-06-03 00:36] LABS: MANUAL DIFF FLAG NO
[2022-06-03 00:37] LABS: Basophils Percent Auto 0.4 % (0-2); Eosinophils Absolute Auto 0.1 X10*3/uL (0.0-0.4); Eosinophils Percent Auto 1.5 % (0-4); Hematocrit 42.7 % (37.0-47.0); Imm Gran Abs Auto 0.05 X10*3/uL (0.00-0.03); Imm Gran Pct Auto 0.7 % (0.0-0.4); Lymphocytes Absolute Auto 1.8 X10*3/uL (1.2-4.9); Lymphocytes Percent Auto 24.1 % (20-40); Mean Corpuscular HGB Conc 32.8 g/dl (31.0-35.0); Mean Corpuscular Hemoglobin 28.2 pg (27.0-33.0); Mean Corpuscular Volume 85.9 fL (80.0-98.0); Mean Platelet Volume 9.5 fL (9.4-12.3); Monocytes Absolute Auto 0.3 X10*3/uL (0.1-1.2); Monocytes Percent Auto 4.1 % (2-11); Neutrophils Percent Auto 69.2 % (45-73); Platelet Count 265 X10*3/uL (160-400); Red Blood Count 4.97 X10*6/uL (4.20-5.50); Red Cell Distribution Width 15.2 % (11.0-16.0); White Blood Count 7.3 X10*3/uL (4.8-10.8)
[2022-06-03 00:53] LABS: Ethanol 107 mg/dL
[2022-06-03 00:57] LABS: Alanine Aminotransferase 27 U/L (0-31); Albumin Level 3.7 g/dL (3.5-5.0); Alkaline Phosphatase 64 U/L (39-117); Anion Gap 18 (12-20); Aspartate Amino Transferase 23 U/L (5-31); Bilirubin Total 0.3 mg/dL (0.0-1.0); Blood Urea Nitrogen 10 mg/dL (9-16); Carbon Dioxide 19 mmol/L (22-29); Chloride 111 mmol/L (96-108); Creatinine Clr Calc Pharmacy 180.4; Estimated Glomerular Filt Rate > 60; Glucose Random 94 mg/dL (60-115); Lipase 15 U/L (8-78); Magnesium 2.1 mg/dL (1.6-2.6); Potassium 4.8 mmol/L (3.3-5.1); Sodium 143 mmol/L (135-145); Total Protein 6.8 g/dL (6.5-8.0)
[2022-06-03 01:01] LABS: Appearance Urine Clear; Color Urine Yellow; Glucose Urine UA Negative (Negative); Leukocyte Esterase Urine Trace (Negative); Nitrite Urine Negative (Negative); PH 5.5 (5.0-9.0); Specific Gravity - Urine 1.015 (1.005-1.025); UMIC TRIGGER UACC YES; Urine Blood Negative (Negative); Urine Ketones Negative (Negative); Urine Protein Negative (Neg-Trace)
[2022-06-03 01:06] LABS: Bacteria Urine Trace (None Seen); Hyaline Casts Urine 0-2 /LPF (0-2); RBC Urine 0-2 /HPF (0-2); Squamous Epithelial Cell Urine 0-2 /HPF (0-2); WBC Urine 0-5 /HPF (0-5)
[2022-06-03 01:16] LABS: Amphetamine Screen Urine Not Detected (Not Detect); Barbiturates, Urine Not Detected (Not Detect); Benzodiazepines Screen Urine Not Detected (Not Detect); Cannabinoid Screen Urine POSITIVE (Not Detect); Cocaine Screen Urine Not Detected (Not Detect); Fentanyl, urine Not Detected (Not Detect); Opiate Screen Urine Not Detected (Not Detect); Phencyclidine Screen Urine Not Detected (Not Detect)
--- NOTE | 2022-06-03 01:21 | PC.NURSE ---
Pt has been up out of bed, ambulating around ed with even and steady gait while attempting to set up her transportation home. The pt remains awake and alert without distress noted. RN to review discharge instructions with patient per PA
== END 2022-06-03 02:16 | disposition still patient (30) ==
PROVIDERS: Physician Assistant; Emergency Provider Emergency Medicine
DX: F10.220 Alcohol dependence with intoxication, uncomplicated (principal); Y90.5 Blood alcohol level of 100-119 mg/100 ml; F12.99 Cannabis use, unspecified with unspecified cannabis-induced disorder; R11.2 Nausea with vomiting, unspecified; F25.0 Schizoaffective disorder, bipolar type; F17.210 Nicotine dependence, cigarettes, uncomplicated
CPT/HCPCS: 36415; 80053; 80307; 81001; 81003; 82077; 83690; 83735; 85025; 99284

== ENCOUNTER 2022-06-09 14:35 | Emergency (ER) | payer MEDICAID, SELFPAY ==
[2022-06-09 14:48] VITALS: BP 102/64; BP 116/70; PULSE 67; PULSE 79; RESP 16; TEMP 36.1; O2SAT 95; O2SAT 96; BMI 27.2
--- NOTE | 2022-06-09 15:11 | ED_ITS ---
HPI - Alcohol General Chief Complaint: ETOH/Substance Use Stated Complaint: ETOH per EMS Time Seen by Provider: 06/09/22 15:05 Source: patient and EMS Mode of arrival: EMS Limitations: no limitations History of Present Illness HPI narrative: 21-year-old female with history of schizoaffective disorder reportedly was found outside. Patient states she drank too nips. Patient denies additional substance use. Patient with no physical complaints. Patient denies SI or HI Related Data Previous Rx's Medication Instructions Recorded ondansetron 4 mg disintegrating 4 mg PO Q6H PRN nausea and 06/02/22 tablet vomiting #14 tabs Allergies Allergy/AdvReac Type Severity Reaction Status Date / Time No Known Allergies Allergy Verified 06/02/22 21:18 Review of Systems Review of Systems: Yes all other systems are reviewed and are negative Constitutional: Constitutional: Reports no additional constitutional complaints, Denies body ache(s), Denies chills, Denies fever(s), Denies headach e(s) and Denies weakness Eyes: Eyes: Reports no additional eye complaints and Denies change in vision ENT: Reports system reviewed and no additional complaints, except as documented, Denies dizziness, Denies headache(s), Denies nasal congestion, Denies nasal discharge and Denies neck pain Cardiovascular: Cardiovascular: Reports no additional cardiovascular com plaints, Denies chest pain, Denies leg edema and Denies dyspnea Respiratory: Respiratory: Reports no additional respiratory complaints, Denies cough and Denies dyspnea Gastrointestinal: Gastrointestinal: Reports no additional gastrointestinal complaints, Denies abdominal pain, Denies diarrhea, Denies nausea and Denies vomiting Genitourinary: Genitourinary: Reports no additional female genitourinary complaints and Denies urinary incontinence Musculoskeletal: Musculoskeletal: Reports no additional musculoskeletal complaints, Denies back pain, Denies arthralgias, Denies joint swelling, Denies neck pain, Denies numbness and Denies tingling Integumentary/Breasts: Skin/Breast: Reports system reviewed and no additional complaints, except as docu and Denies rash Neurologic: Reports system reviewed and no additional complaints, except as documented, Denies dizziness, Denies headache(s), Denies numbness, Denies tingling and Denies weakness [facility] Past Medical History Attestation statement: The following information was validated with the patient. Source: old records reviewed and nursing notes reviewed Medical History Asthma Bipolar 1 disorder Bipolar disorder Cannabis use disorder Schizophrenia Social History Social History Household Members: Family Household Members Other:: Mom, sister Housing: Apartment Housing Other:: Current living situation will change as the apt has be condemned Do you presently have visiting nurse or other home services: No Unable to assess alcohol history related to: Refusing to respond Alcohol intake: unknown Patient Tobacco Use Status: Current everyday Tobacco user Tobacco use type: Cigarette Cigarette Packs Per Day: 1 Cigarettes Per Day: 2 Years Smoked: 1 e-Cigarette/Vaping Use: Never Used Second Hand Smoke Exposure: No Substance Use Type: Marijuana Advance Directives: No Advance Directives Information Provided: No service: No Sexual orientation: Don't Know Physical Exam ED Vital Signs: Vital Signs - 24 hr 06/09/22 14:48 Temperature 97.0 F Pulse Rate 67 Respiratory Rate 16 Blood Pressure 102/64 Pulse Oximetry 96 Oxygen Delivery Method Room Air BMI result Body Mass Index 27.2 Const Other: +sleeping General: cooperative Orientation/consciousness: patient oriented x3 HENMT Head: Yes normal to inspection, No Serrano's sign and No raccoon eyes Ears: hearing grossly normal bilaterally Eyes General: appearance normal, both eyes and all related structures Pupils: Equal, round and reactive pupils present Neck Neck: Yes normal visual inspection Chest Chest palpation & inspection: normal inspection of the chest Resp Effort & Inspection: normal respiratory effort Cardio Peripheral pulses: Peripheral pulses 2+ throughout GI Inspection: Yes normal to inspection Skin General skin exam: no rashes or lesions noted Neuro General: patient oriented x3 and moves all extremities Cranial nerves: Yes Equal, round and reactive pupils present Course Course Course Narrative: 1700-Sign out to Vane DOMINGUEZ pending ambulation assessment, sober ride home Medical Decision Making Medical Decision Making [facility] Narrative: 21-year-old female here after drinking several alcoholic beverages. No concern for acute ingestion or trauma. Will obtain labs alcohol level, labs Patient will need sober eval and ride home once awake Differential Diagnosis Differential Diagnoses: The differential diagnosis associated with the presentation includes Lab Data [facility] Lab Attestation statement: I reviewed the patient's lab results. 06/09/22 15:41 06/09/22 15:41 Labs: Lab Results 06/09/22 06/09/22 Range/Units 15:41 15:41 WBC 7.6 (4.8-10.8) X10*3/uL RBC 5.55 H (4.20-5.50) X10*6/uL Hgb 15.2 (12.0-16.0) g/dl Hct 47.3 H (37.0-47.0) % MCV 85.2 (80.0-98.0) fL MCH 27.4 (27.0-33.0) pg MCHC 32.1 (31.0-35.0) g/dl RDW 14.7 (11.0-16.0) % Plt Count 242 (160-400) X10*3/uL MPV 9.5 (9.4-12.3) fL Immature Gran % (Auto) 0.1 (0.0-0.4) % Neut % (Auto) 68.8 (45-73) % Lymph % (Auto) 24.1 (20-40) % [place] % (Auto) 4.7 (2-11) % Eos % (Auto) 1.8 (0-4) % Baso % (Auto) 0.5 (0-2) % Lymph # (Auto) 1.8 (1.2-4.9) X10*3/uL [place] # (Auto) 0.4 (0.1-1.2) X10*3/uL Eos # (Auto) 0.1 (0.0-0.4) X10*3/uL Baso # (Auto) 0.0 (0.0-0.2) X10*3/uL Abs Immat Gran (auto) 0.01 (0.00-0.03) X10*3/uL Absolute Neuts (auto) 5.2 (2.0-8.3) x10*3/uL Absolute Nucleated RBC 0.000 (0.0-0.012) X10*3/uL Nucleated RBC % (auto) 0.0 (0.0-0.2) /100WBC Sodium 143 (135-145) mmol/L Potassium 3.6 D (3.3-5.1) mmol/L Chloride 113 H (96-108) mmol/L Carbon Dioxide 18 L (22-29) mmol/L Anion Gap 16 (12-20) BUN 12 (9-16) mg/dL Creatinine 0.69 (0.5-1.4) mg/dL Estim Creat Clear Calc 153.9 Estimated GFR > 60 Random Glucose 100 (60-115) mg/dL Calcium 9.2 (8.4-10.2) mg/dL Ethyl Alcohol 159 mg/dL Discharge Plan Discharge Clinical Impression: Alcoholic intoxication Patient Disposition: Still a Patient Instructions: Alcohol Intoxication (ED) Prescriptions: No Action ondansetron 4 mg tablet,disintegrating 4 mg PO Q6H PRN (Reason: nausea and vomiting) Qty: 14 0RF Referrals: Physician,Unknown J [Primary Care Provider] -
[2022-06-09 15:44] LABS: MANUAL DIFF FLAG NO
[2022-06-09 15:47] LABS: Basophils Percent Auto 0.5 % (0-2); Eosinophils Absolute Auto 0.1 X10*3/uL (0.0-0.4); Eosinophils Percent Auto 1.8 % (0-4); Hematocrit 47.3 % (37.0-47.0); Hemoglobin 15.2 g/dl (12.0-16.0); Imm Gran Abs Auto 0.01 X10*3/uL (0.00-0.03); Imm Gran Pct Auto 0.1 % (0.0-0.4); Lymphocytes Absolute Auto 1.8 X10*3/uL (1.2-4.9); Lymphocytes Percent Auto 24.1 % (20-40); Mean Corpuscular HGB Conc 32.1 g/dl (31.0-35.0); Mean Corpuscular Hemoglobin 27.4 pg (27.0-33.0); Mean Corpuscular Volume 85.2 fL (80.0-98.0); Mean Platelet Volume 9.5 fL (9.4-12.3); Monocytes Absolute Auto 0.4 X10*3/uL (0.1-1.2); Monocytes Percent Auto 4.7 % (2-11); Neutrophils Absolute Auto 5.2 x10*3/uL (2.0-8.3); Neutrophils Percent Auto 68.8 % (45-73); Platelet Count 242 X10*3/uL (160-400); Red Blood Count 5.55 X10*6/uL (4.20-5.50); Red Cell Distribution Width 14.7 % (11.0-16.0); White Blood Count 7.6 X10*3/uL (4.8-10.8)
[2022-06-09 16:00] LABS: Anion Gap 16 (12-20); Blood Urea Nitrogen 12 mg/dL (9-16); Calcium 9.2 mg/dL (8.4-10.2); Carbon Dioxide 18 mmol/L (22-29); Chloride 113 mmol/L (96-108); Creatinine Clr Calc Pharmacy 153.9; Estimated Glomerular Filt Rate > 60; Ethanol 159 mg/dL; Glucose Random 100 mg/dL (60-115); Potassium 3.6 mmol/L (3.3-5.1); Sodium 143 mmol/L (135-145)
== END 2022-06-09 18:55 | disposition home or self-care (01) ==
PROVIDERS: Nurse Practitioner Family; Emergency Provider Emergency Medicine
DX: F10.220 Alcohol dependence with intoxication, uncomplicated (principal); Y90.6 Blood alcohol level of 120-199 mg/100 ml; F25.0 Schizoaffective disorder, bipolar type; F12.90 Cannabis use, unspecified, uncomplicated; F17.210 Nicotine dependence, cigarettes, uncomplicated; Z79.899 Other long term (current) drug therapy
CPT/HCPCS: 36415; 80048; 82077; 85025; 99282; 99283

== ENCOUNTER 2022-06-11 12:16 | Emergency (ER) | payer MEDICAID, SELFPAY ==
[2022-06-11 12:40] VITALS: BP 108/84; PULSE 78; RESP 18; TEMP 36.4; O2SAT 98; BMI 31.9
--- NOTE | 2022-06-11 12:44 | ED_ITS ---
HPI - Dizziness General Chief Complaint: Dizziness <ABBY Bray - Last Filed: 06/11/22 12:48> Stated Complaint: dizzy <ABBY Bray - Last Filed: 06/11/22 12:48> Time Seen by Provider: 06/11/22 16:04 <ABBY Bray - Last Filed: 06/11/22 12:48> Source: patient <Vane Mccoy NP - Last Filed: 06/11/22 20:19> Mode of arrival: ambulatory <Vane Mccoy NP - Last Filed: 06/11/22 20:19> Limitations: no limitations <Vane Mccoy NP - Last Filed: 06/11/22 20:19> History of Present Illness HPI Narrative: 21-year-old female presents with an episode of dizziness that started this morning. Stated that she can not eat or drink because of this dizziness. She does not report any other concerns at this time. <Vane Mccoy NP - Last Filed: 06/11/22 20:19> MD elicited complaint: dizziness <Vane Mccoy NP - Last Filed: 06/11/22 20:19> Onset (ago): hour(s) (For an hour today) <Vane Mccoy NP - Last Filed: 06/11/22 20:19> Timing: intermittent <Vane Mccoy NP - Last Filed: 06/11/22 20:19> Severity: mild <Vane Mccoy NP - Last Filed: 06/11/22 20:19> Description: room spinning <Vnae Mccoy NP - Last Filed: 06/11/22 20:19> History of similar symptoms: Yes <Vane Mccoy NP - Last Filed: 06/11/22 20:19> Relieving factors: other (Resolved) <Vane Mccoy NP - Last Filed: 06/11/22 20:19> Associated symptoms: denies other symptoms <Vane Mccoy NP - Last Filed: 06/11/22 20:19> Related Data Home Medications: Previous Rx's Medication Instructions Recorded ondansetron 4 mg disintegrating 4 mg PO Q6H PRN nausea and 06/02/22 tablet vomiting #14 tabs <Patt Renschler, PA - Last Filed: 06/11/22 12:48> Allergies/Adverse Reactions: Allergies Allergy/AdvReac Type Severity Reaction Status Date / Time No Known Allergies Allergy Verified 06/02/22 21:18 <ABBY Bray - Last Filed: 06/11/22 12:48> Review of Systems Review of Systems: Constitutional: No Fever, No Chills Cardiovascular: No Chest Pain, No SOB Respiratory: No Cough, No Dyspnea Gastrointestinal: No Nausea, No Vomiting, No Diarrhea, No abdominal Pain Genitourinary: No Dysuria, No Hematuria Musculoskeletal: How joint pain, No Myalgias, No Joint Swelling Skin: No Skin lacerations, No rash Neuro: No Weakness, No Numbness, No Paresthesias, No Loss of Consciousness, positive Dizziness, No Headache Psych: No Anxiety/Panic, No Depression <Vane Mccoy NP - Last Filed: 06/11/22 20:19> Yes all other systems are reviewed and are negative <Vane Mccoy NP - Last Filed: 06/11/22 20:19> [facility] Past Medical History Attestation statement: The following information was validated with the patient. <Vane Mccoy NP - Last Filed: 06/11/22 20:19> Source: old records reviewed <Vane Mccoy NP - Last Filed: 06/11/22 20:19> Medical History: Medical History Asthma Bipolar 1 disorder Bipolar disorder Cannabis use disorder Schizophrenia <ABBY Bray - Last Filed: 06/11/22 12:48> Social History Social History: Social History Household Members: Family Household Members Other:: Mom, sister Housing: Apartment Housing Other:: Current living situation will change as the apt has be condemned Do you presently have visiting nurse or other home services: No Unable to assess alcohol history related to: Refusing to respond Alcohol intake: unknown Patient Tobacco Use Status: Current everyday Tobacco user Tobacco use type: Cigarette Cigarette Packs Per Day: 1 Cigarettes Per Day: 2 Years Smoked: 1 e-Cigarette/Vaping Use: Never Used Second Hand Smoke Exposure: No Substance Use Type: Marijuana Advance Directives: No Advance Directives Information Provided: No service: No Sexual orientation: Don't Know <ABBY Bray - Last Filed: 06/11/22 12:48> Physical Exam Vital Signs: Vital Signs: Last Vital Signs Temp 97.5 F 06/11/22 12:40 Pulse 78 06/11/22 12:40 Resp 18 06/11/22 12:40 BP 108/84 06/11/22 12:40 Pulse Ox 98 06/11/22 12:40 O2 Del Method Room Air 06/11/22 12:40 BMI result Body Mass Index 31.9 <ABBY Bray - Last Filed: 06/11/22 12:48> Vital Signs: Last Vital Signs Temp 97.5 F 06/11/22 12:40 Pulse 78 06/11/22 12:40 Resp 18 06/11/22 12:40 BP 108/84 06/11/22 12:40 Pulse Ox 98 06/11/22 12:40 O2 Del Method Room Air 06/11/22 12:40 BMI result Body Mass Index 31.9 <Vane Mccoy NP - Last Filed: 06/11/22 20:19> Appearance: Alert. Oriented X3. No acute distress. Eyes: Pupils equal, round and reactive to light. Neck: Normal inspection. Neck supple. CVS: Normal heart rate and rhythm. Pulses normal. Respiratory: No respiratory distress. Breath sounds normal. Skin: Skin warm and dry. Normal skin color. Normal skin turgor. Extremities: Gait well balanced well coordinated. Neuro: No motor deficit. No sensory deficit. Cranial nerves 2-12 intact. <Vane Mccoy NP - Last Filed: 06/11/22 20:19> Course Course Course Narrative: RME - 21 yo female with history of schizoaffective disorder, etoh abuse who presents to the ER for evaluation of dizziness that started this morning. denies ETOH this morning. admits to not eating or drinking yet today plan: given ham sandwich and apple juice in triage - basic labs <ABBY Bray - Last Filed: 06/11/22 12:48> RME - 21 yo female with history of schizoaffective disorder, etoh abuse who presents to the ER for evaluation of dizziness that started this morning. denies ETOH this morning. admits to not eating or drinking yet today plan: given ham sandwich and apple juice in triage - basic labs 16:05 patient presents for dizziness, reports that she could not eat or drink this morning because of the dizziness. She was given a sandwich and apple juice while in the ED waiting room after being evaluated by the provider in triage, labs drawn, all of which are within this patient's normal limits. Patient is alert oriented at this time, cooperative, laughing after every question asked and answered. Patient appears to be psychologically stable at this time. Patient does have significant presentations for psychiatric evaluation, and has had multiple psychiatric admissions in the past. At this time, patient denies suicidal homicidal ideation. Urinalysis is pending. Patient requested a sandwich and vanilla pudding with fuentes pierre, given to her by this [employer]. 17:03 after multiple attempts to obtain urine, patient stated that she urinated in the toilet, and did not want to give us a urine sample. Patient is able to tolerate p.o. fluids and food. Patient will be discharged home. <Vane Mccoy NP - Last Filed: 06/11/22 20:19> Medical Decision Making Differential Diagnosis Differential Diagnoses: The differential diagnosis associated with the presentation includes <Vane Mccoy NP - Last Filed: 06/11/22 20:19> Dizziness, UTI, , marijuana abuse <Vane Mccoy NP - Last Filed: 06/11/22 20:19> Lab Data MDM Lab Attestation statement: I reviewed the patient's lab results. <Vane Mccoy NP - Last Filed: 06/11/22 20:19> Result Diagrams: 06/11/22 14:55 06/11/22 14:55 <ABBY Bray - Last Filed: 06/11/22 12:48> Labs: Lab Results 06/11/22 06/11/22 Range/Units 14:55 14:55 WBC 8.3 (4.8-10.8) X10*3/uL RBC 5.40 (4.20-5.50) X10*6/uL Hgb 15.1 (12.0-16.0) g/dl Hct 46.2 (37.0-47.0) % MCV 85.6 (80.0-98.0) fL MCH 28.0 (27.0-33.0) pg MCHC 32.7 (31.0-35.0) g/dl RDW 14.6 (11.0-16.0) % Plt Count 256 (160-400) X10*3/uL MPV 9.3 L (9.4-12.3) fL Immature Gran % (Auto) 0.2 (0.0-0.4) % Neut % (Auto) 60.0 (45-73) % Lymph % (Auto) 30.0 (20-40) % Osborne % (Auto) 6.7 (2-11) % Eos % (Auto) 2.6 (0-4) % Baso % (Auto) 0.5 (0-2) % Lymph # (Auto) 2.5 (1.2-4.9) X10*3/uL Osborne # (Auto) 0.6 (0.1-1.2) X10*3/uL Eos # (Auto) 0.2 (0.0-0.4) X10*3/uL Baso # (Auto) 0.0 (0.0-0.2) X10*3/uL Abs Immat Gran (auto) 0.02 (0.00-0.03) X10*3/uL Absolute Neuts (auto) 5.0 (2.0-8.3) x10*3/uL Absolute Nucleated RBC 0.000 (0.0-0.012) X10*3/uL Nucleated RBC % (auto) 0.0 (0.0-0.2) /100WBC Sodium 138 (135-145) mmol/L Potassium 4.1 (3.3-5.1) mmol/L Chloride 105 (96-108) mmol/L Carbon Dioxide 26 (22-29) mmol/L Anion Gap 11 L (12-20) BUN 15 (9-16) mg/dL Creatinine 0.85 (0.5-1.4) mg/dL Estim Creat Clear Calc 126.3 Estimated GFR > 60 Random Glucose 110 (60-115) mg/dL Calcium 9.6 (8.4-10.2) mg/dL Magnesium 1.8 (1.6-2.6) mg/dL Total Bilirubin 1.2 H (0.0-1.0) mg/dL Direct Bilirubin 0.2 (0.0-0.5) mg/dL AST 11 (5-31) U/L ALT 11 (0-31) U/L Alkaline Phosphatase 69 (39-117) U/L Total Protein 7.4 (6.5-8.0) g/dL Albumin 4.2 (3.5-5.0) g/dL Beta HCG, Quant < 2 mIU/mL Ethyl Alcohol < 10 mg/dL <ABBY Bray - Last Filed: 06/11/22 12:48> Lab Results 06/11/22 06/11/22 Range/Units 14:55 14:55 WBC 8.3 (4.8-10.8) X10*3/uL RBC 5.40 (4.20-5.50) X10*6/uL Hgb 15.1 (12.0-16.0) g/dl Hct 46.2 (37.0-47.0) % MCV 85.6 (80.0-98.0) fL MCH 28.0 (27.0-33.0) pg MCHC 32.7 (31.0-35.0) g/dl RDW 14.6 (11.0-16.0) % Plt Count 256 (160-400) X10*3/uL MPV 9.3 L (9.4-12.3) fL Immature Gran % (Auto) 0.2 (0.0-0.4) % Neut % (Auto) 60.0 (45-73) % Lymph % (Auto) 30.0 (20-40) % Osborne % (Auto) 6.7 (2-11) % Eos % (Auto) 2.6 (0-4) % Baso % (Auto) 0.5 (0-2) % Lymph # (Auto) 2.5 (1.2-4.9) X10*3/uL Osborne # (Auto) 0.6 (0.1-1.2) X10*3/uL Eos # (Auto) 0.2 (0.0-0.4) X10*3/uL Baso # (Auto) 0.0 (0.0-0.2) X10*3/uL Abs Immat Gran (auto) 0.02 (0.00-0.03) X10*3/uL Absolute Neuts (auto) 5.0 (2.0-8.3) x10*3/uL Absolute Nucleated RBC 0.000 (0.0-0.012) X10*3/uL Nucleated RBC % (auto) 0.0 (0.0-0.2) /100WBC Sodium 138 (135-145) mmol/L Potassium 4.1 (3.3-5.1) mmol/L Chloride 105 (96-108) mmol/L Carbon Dioxide 26 (22-29) mmol/L Anion Gap 11 L (12-20) BUN 15 (9-16) mg/dL Creatinine 0.85 (0.5-1.4) mg/dL Estim Creat Clear Calc 126.3 Estimated GFR > 60 Random Glucose 110 (60-115) mg/dL Calcium 9.6 (8.4-10.2) mg/dL Magnesium 1.8 (1.6-2.6) mg/dL Total Bilirubin 1.2 H (0.0-1.0) mg/dL Direct Bilirubin 0.2 (0.0-0.5) mg/dL AST 11 (5-31) U/L ALT 11 (0-31) U/L Alkaline Phosphatase 69 (39-117) U/L Total Protein 7.4 (6.5-8.0) g/dL Albumin 4.2 (3.5-5.0) g/dL Beta HCG, Quant < 2 mIU/mL Ethyl Alcohol < 10 mg/dL <Vaen Mccoy NP - Last Filed: 06/11/22 20:19> External Record Review External record reviewed: Inpatient record, Outpatient record and Prior outpatient labs <Vane Mccoy NP - Last Filed: 06/11/22 20:19> Social Determinants Patient?s care significantly limited by Social Determinants of Health including: Other Social Determinant of Health <Vane Mccoy NP - Last Filed: 06/11/22 20:19> Discharge Plan Discharge Clinical Impression: Cannabis use disorder, Dizziness <ABBY Bray - Last Filed: 06/11/22 12:48> Patient Disposition: Home, Self-Care <ABBY Bray - Last Filed: 06/11/22 12:48> Instructions: Dizziness (ED) <ABBY Bray - Last Filed: 06/11/22 12:48> Additional Instructions: You were evaluated for dizziness. You were evaluated for dizziness. Your lab values are within your normal limits. Drink plenty of fluids. Thank you for choosing this emergency department for evaluation. Please follow-up with primary care physician as needed. Return to the emergency department for any new, concerning, or worsening symptoms. <ABBY Bray - Last Filed: 06/11/22 12:48> Prescriptions: No Action ondansetron 4 mg tablet,disintegrating 4 mg PO Q6H PRN (Reason: nausea and vomiting) Qty: 14 0RF <ABBY Bray - Last Filed: 06/11/22 12:48> Interventions: ED Discharge Assessment Last Done: 06/11/22 17:34 <ABBY Bray - Last Filed: 06/11/22 12:48> Discharge Date/Time: 06/11/22 17:34 <ABBY Bray - Last Filed: 06/11/22 12:48>
[2022-06-11 15:02] LABS: Basophils Percent Auto 0.5 % (0-2); Eosinophils Absolute Auto 0.2 X10*3/uL (0.0-0.4); Eosinophils Percent Auto 2.6 % (0-4); Hematocrit 46.2 % (37.0-47.0); Hemoglobin 15.1 g/dl (12.0-16.0); Imm Gran Abs Auto 0.02 X10*3/uL (0.00-0.03); Imm Gran Pct Auto 0.2 % (0.0-0.4); Lymphocytes Absolute Auto 2.5 X10*3/uL (1.2-4.9); MANUAL DIFF FLAG NO; Mean Corpuscular HGB Conc 32.7 g/dl (31.0-35.0); Mean Corpuscular Volume 85.6 fL (80.0-98.0); Mean Platelet Volume 9.3 fL (9.4-12.3); Monocytes Absolute Auto 0.6 X10*3/uL (0.1-1.2); Monocytes Percent Auto 6.7 % (2-11); Platelet Count 256 X10*3/uL (160-400); Red Cell Distribution Width 14.6 % (11.0-16.0); White Blood Count 8.3 X10*3/uL (4.8-10.8)
[2022-06-11 15:33] LABS: Alanine Aminotransferase 11 U/L (0-31); Albumin Level 4.2 g/dL (3.5-5.0); Alkaline Phosphatase 69 U/L (39-117); Anion Gap 11 (12-20); Aspartate Amino Transferase 11 U/L (5-31); Bilirubin Direct 0.2 mg/dL (0.0-0.5); Bilirubin Total 1.2 mg/dL (0.0-1.0); Blood Urea Nitrogen 15 mg/dL (9-16); Calcium 9.6 mg/dL (8.4-10.2); Carbon Dioxide 26 mmol/L (22-29); Chloride 105 mmol/L (96-108); Creatinine Clr Calc Pharmacy 126.3; Estimated Glomerular Filt Rate > 60; Ethanol < 10 mg/dL; Glucose Random 110 mg/dL (60-115); Magnesium 1.8 mg/dL (1.6-2.6); Potassium 4.1 mmol/L (3.3-5.1); Sodium 138 mmol/L (135-145); Total Protein 7.4 g/dL (6.5-8.0)
--- NOTE | 2022-06-11 17:33 | PC.NURSE ---
Patient seen by provider, asked to take a urine sample. Pt stated she would, when in bathroom did not collect urine, provider made aware. D/C placed. No IV present, pt given food while here. Denied vitals. ambulated out independently.
[2022-06-11 17:49] LABS: HCG Quantitative < 2 mIU/mL
== END 2022-06-11 17:34 | disposition home or self-care (01) ==
PROVIDERS: Nurse Practitioner Family; Physician Assistant; Emergency Provider Emergency Medicine
DX: R42 Dizziness and giddiness (principal); F17.210 Nicotine dependence, cigarettes, uncomplicated; Z71.6 Tobacco abuse counseling; Z79.899 Other long term (current) drug therapy; F12.90 Cannabis use, unspecified, uncomplicated
CPT/HCPCS: 36415; 80048; 80076; 82077; 83735; 84702; 85025; 99282; 99283

== ENCOUNTER 2022-06-17 18:05 | Emergency (ER) | payer MEDICAID, SELFPAY ==
[2022-06-17 18:25] VITALS: PULSE 76; RESP 16; O2SAT 98; BMI 36.6
--- NOTE | 2022-06-17 18:34 | ED.GENADULT ---
HPI - General Adult General Chief complaint: ETOH/Substance Use Stated complaint: ETOH US,[place] BY PD PER EMS Time Seen by Provider: 06/17/22 18:29 Source: patient, EMS, RN notes reviewed and old records reviewed Mode of arrival: EMS Limitations: other (Acute alcohol intoxication) History of Present Illness HPI narrative: 21-year-old female presents for evaluation ?I was outside. ? Patient has a history of alcohol abuse, schizoaffective disorder She reports that she was outside today and she ?drank 10 nips. ? She has no complaints Denies any falls or injuries She states that she feels well pain No abdominal pain, nausea, vomiting Denies any pain Related Data Previous Rx's Medication Instructions Recorded ondansetron 4 mg disintegrating 4 mg PO Q6H PRN nausea and 06/02/22 tablet vomiting #14 tabs Allergies Allergy/AdvReac Type Severity Reaction Status Date / Time No Known Allergies Allergy Verified 06/02/22 21:18 Review of Systems Constitutional: Constitutional: Reports as per HPI, Denies chills, Denies fatigue, Denies fever(s) and Denies headache(s) ENT: Denies headache(s) Cardiovascular: Cardiovascular: Denies chest pain and Denies dyspnea Respiratory: Respiratory: Denies cough and Denies dyspnea Gastrointestinal: Gastrointestinal: Denies abdominal pain, Denies constipation and Denies vomiting Genitourinary: Genitourinary: Denies dysuria Neurologic: Denies headache(s) and Denies focal weakness Endocrine: Endocrine: Denies fatigue PMFSH Past Medical History Medical History Asthma Bipolar 1 disorder Bipolar disorder Cannabis use disorder Schizophrenia Social History Social History Household Members: Family Household Members Other:: Mom, sister Housing: Apartment Housing Other:: Current living situation will change as the apt has be condemned Do you presently have visiting nurse or other home services: No Unable to assess alcohol history related to: Refusing to respond Alcohol intake: unknown Patient Tobacco Use Status: Current everyday Tobacco user Tobacco use type: Cigarette Cigarette Packs Per Day: 1 Cigarettes Per Day: 2 Years Smoked: 1 e-Cigarette/Vaping Use: Never Used Second Hand Smoke Exposure: No Substance Use Type: Marijuana Advance Directives: No Advance Directives Information Provided: Yes service: No Sexual orientation: Don't Know Physical Exam ED Vital Signs: Vital Signs - 24 hr 06/17/22 18:25 06/17/22 18:37 Pulse Rate 76 71 Respiratory Rate 16 Blood Pressure 106/76 Pulse Oximetry 98 Oxygen Delivery Method Room Air BMI result Body Mass Index 36.6 Const General: healthy appearing, comfortable, no acute distress, alert and awake Nutritional Appearance: well nourished Orientation/consciousness: patient oriented x3 HENMT Head: Yes normocephalic and Yes atraumatic Throat: Yes posterior oropharynx normal Eyes Eyelids: Yes eyelids normal Conjunctivae: conjunctivae normal Sclerae: sclerae normal Corneas: corneas normal Pupils: Equal, round and reactive pupils present EOM: EOMs intact bilaterally Neck Neck: Yes full ROM Resp Effort & Inspection: normal respiratory effort, able to speak in complete sentences, no audible wheezes and not labored Auscultation: clear to auscultation bilaterally Cardio Rate: regular rate Rhythm: regular rhythm GI Inspection: No distended Palpation (GI): Soft to palpation, not firm, nontender, no guarding and not rigid Auscultation: normoactive bowel sounds Skin General skin exam: no rashes or lesions noted and elasticity normal Neuro General: patient oriented x3 Cranial nerves: Yes CN's II-XII intact bilaterally, Yes Equal, round and reactive pupils present and Yes Bilaterally intact EOM present Cognition (Neuro): normal cognition Extrem Other: Moving all extremities well without any obvious deformities Course Reevaluation(s) Reevaluation #1: Patient is ambulating around the department this study, even gait, she has been to and from the bathroom without difficulty. Will attempt to get the patient a sober ride home as she is ready for discharge Time: 19:18 Medical Decision Making Medical Decision Making MDM Narrative: Patient arrives clinically intoxicated, she admits to drinking alcohol. We have not checked in with the patient yet, but she has slurred speech. Patient did, no evidence of traumatic injuries to her body. Plan for dialysis observation metabolize to sobriety. Differential Diagnosis Acute alcohol intoxication alcohol abuse Polysubstance abuse Schizoaffective disorder Discharge Plan Discharge Clinical Impression: Acute alcohol intoxication Patient Disposition: Home, Self-Care Instructions: Abuse of Alcohol (ED) Prescriptions: No Action ondansetron 4 mg tablet,disintegrating 4 mg PO Q6H PRN (Reason: nausea and vomiting) Qty: 14 0RF
[2022-06-17 18:37] VITALS: BP 106/76; PULSE 71
--- NOTE | 2022-06-17 18:37 | PC.NURSE ---
Pt changed with this RN and security, belongings taken to decon by security. Pt eating. VSS. 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
--- NOTE | 2022-06-17 19:21 | PC.NURSE ---
assumed care of patient at 1900 - patient ambulating around unit saying i want my phone and i want to go home provider aware and will D/C if patient has a sober ride home. patient's mom called and coming to scrap picker patient.
--- NOTE | 2022-06-17 19:41 | MHC.RECOVSUP ---
? Reason for consult: Recovery Support o?Current location:ED 09 o?Identified substance use concern: JOSE? ? 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
--- NOTE | 2022-06-17 21:03 | PC.NURSE ---
patient's mom here to pick patient up. patient ambulated with steady gait with this RN out to waiting room to meet her mother.
== END 2022-06-17 21:09 | disposition home or self-care (01) ==
PROVIDERS: Emergency Provider Internal Medicine
DX: F10.129 Alcohol abuse with intoxication, unspecified (principal); Y90.9 Presence of alcohol in blood, level not specified; F17.210 Nicotine dependence, cigarettes, uncomplicated; Z71.6 Tobacco abuse counseling; Z71.41 Alcohol abuse counseling and surveillance of alcoholic
CPT/HCPCS: 99282

== ENCOUNTER 2022-06-18 00:47 | Emergency (ER) | payer MEDICAID, SELFPAY ==
[2022-06-18 00:57] VITALS: BP 110/70; BP 128/71; PULSE 78; PULSE 85; RESP 18; TEMP 36.3; O2SAT 96; O2SAT 97; BMI 31.1
--- NOTE | 2022-06-18 01:00 | ECG_ITS ---
Test Reason : DIZINESS Blood Pressure : / mmHG Vent. Rate : 083 BPM Atrial Rate : 083 BPM P-R Int : 166 ms QRS Dur : 082 ms QT Int : 362 ms P-R-T Axes : 021 075 026 degrees QTc Int : 425 ms Normal sinus rhythm Normal ECG When compared with ECG of 16-MAY-2022 08:29, No significant change was found Referred By: Medina Ritter Electronically Signed By:KAREN GONZALEZ MD
[2022-06-18 01:22] LABS: MANUAL DIFF FLAG NO
[2022-06-18 01:24] LABS: Basophils Percent Auto 0.5 % (0-2); Eosinophils Absolute Auto 0.2 X10*3/uL (0.0-0.4); Eosinophils Percent Auto 2.7 % (0-4); Hematocrit 43.3 % (37.0-47.0); Hemoglobin 14.1 g/dl (12.0-16.0); Imm Gran Abs Auto 0.03 X10*3/uL (0.00-0.03); Imm Gran Pct Auto 0.3 % (0.0-0.4); Lymphocytes Absolute Auto 2.8 X10*3/uL (1.2-4.9); Lymphocytes Percent Auto 31.8 % (20-40); Mean Corpuscular HGB Conc 32.6 g/dl (31.0-35.0); Mean Corpuscular Hemoglobin 28.1 pg (27.0-33.0); Mean Corpuscular Volume 86.3 fL (80.0-98.0); Mean Platelet Volume 9.8 fL (9.4-12.3); Monocytes Absolute Auto 0.6 X10*3/uL (0.1-1.2); Monocytes Percent Auto 6.5 % (2-11); Neutrophils Absolute Auto 5.1 x10*3/uL (2.0-8.3); Neutrophils Percent Auto 58.2 % (45-73); Platelet Count 229 X10*3/uL (160-400); Red Blood Count 5.02 X10*6/uL (4.20-5.50); Red Cell Distribution Width 14.5 % (11.0-16.0); White Blood Count 8.7 X10*3/uL (4.8-10.8)
--- NOTE | 2022-06-18 01:24 | ED_ITS ---
HPI - General Adult General Chief complaint: Dizziness Stated complaint: dizzy Time Seen by Provider: 06/18/22 01:02 Source: patient Mode of arrival: EMS Limitations: no limitations History of Present Illness HPI narrative: Patient comes again to the emergency room complaining of dizziness. Patient describes the dizziness as feeling unsteady. Patient was here earlier today, patient was intoxicated. Discharged with her mother approximately 4 hours ago. Patient states that when they got home, she smokes cigarette, then started feeling unsteady, got scared, call 911. At this time, patient asymptomatic. Patient states that earlier today in the afternoon approximately 10 hours ago she drank a large amount of vodka. Denies SI or HI Related Data Previous Rx's Medication Instructions Recorded ondansetron 4 mg disintegrating 4 mg PO Q6H PRN nausea and 06/02/22 tablet vomiting #14 tabs Allergies Allergy/AdvReac Type Severity Reaction Status Date / Time No Known Allergies Allergy Verified 06/02/22 21:18 Review of Systems Review of Systems: Constitutional : No Weight loss, No Fever, No Chills, No Night Sweats, No Fatigue, No Malaise ENT/Mouth : No Hearing loss, No Ear Pain, No Nasal Congestion, No Sinus Pain, No Hoarseness, No sore throat, No Rhinorrhea, No Swallowing Difficulty Eyes: No Eye Pain, No Swelling, No Redness, No Foreign Body, No Discharge, No Vision Changes Cardiovascular : No Chest Pain, No SOB, No Dyspnea on Exertion, No Orthopnea, No Edema, No Palpitations Respiratory : No Cough, No Sputum, No Wheezing, No Smoke Exposure, No Dyspnea Gastrointestinal : No Nausea, No Vomiting, No Diarrhea, No Constipation, No abdominal Pain, No Hematochezia, No Melena Genitourinary : no irregular bleeding, No Dysuria, No Urinary Frequency, No Hematuria, No Urinary Incontinence, No Urgency, No Flank Pain, No Urinary Flow Changes, No Hesitancy Musculoskeletal : No joint pain, No Myalgias, No Joint Swelling Skin : No Skin Lesions, No rash Neuro : No Weakness, No Numbness, No Paresthesias, No Loss of Consciousness, No Dizziness, No Headache complaining of unsteady gait, admits to drinking alcohol Psych : No Anxiety/Panic, No Depression, No SI/HI/AH/VH, No Social Issues, Heme/Lymph: No Bruising, No Bleeding,No Lymphadenopathy Endocrine : No Polyuria, No Polydipsia, No Temperature Intolerance [facility] Past Medical History Medical History Asthma Bipolar 1 disorder Bipolar disorder Cannabis use disorder Schizophrenia Social History Social History Household Members: Family Household Members Other:: Mom, sister Housing: Apartment Housing Other:: Current living situation will change as the apt has be condemned Do you presently have visiting nurse or other home services: No Unable to assess alcohol history related to: Refusing to respond Alcohol intake: unknown Patient Tobacco Use Status: Current everyday Tobacco user Tobacco use type: Cigarette Cigarette Packs Per Day: 1 Cigarettes Per Day: 2 Years Smoked: 1 e-Cigarette/Vaping Use: Never Used Second Hand Smoke Exposure: No Substance Use Type: Marijuana Advance Directives: No Advance Directives Information Provided: Yes service: No Sexual orientation: Don't Know Physical Exam ED Vital Signs: Vital Signs - 24 hr 06/18/22 00:57 Temperature 97.4 F Pulse Rate 85 Respiratory Rate 18 Blood Pressure 110/70 Pulse Oximetry 97 Oxygen Delivery Method Room Air BMI result Body Mass Index 31.1 Const Other: Appearance: Alert. Oriented X3. No acute distress. Eyes: Pupils equal, round and reactive to light. ENT: Pharynx normal. Neck: Normal inspection. Neck supple. No lymph nodes noted. No crepitus CVS: Normal heart rate and rhythm. Pulses normal. Normal S1 and S2 Respiratory: No respiratory distress. Breath sounds normal. No Wheezing. No rales Abdomen: Soft and nontender. No rigidity. No distention. Skin: Skin warm and dry. Normal skin color. Normal skin turgor. Extremities: No lower extremity edema. No Lacerations. No Rash Neuro: Oriented X 3. No motor deficit. No sensory deficit. Moving all extremities. No slurred speech. CN 2 through 12 grossly intact Psych: calm, cooperative, normal affect Course Course Course Narrative: -labs and EKG pending Medical Decision Making Medical Decision Making [facility] Narrative: -patient is clinically sober -troponin negative, EKG my interpretation: Sinus rhythm, heart rate 83, no ST segment depression elevation, no T-wave inversion, QTC 425 Differential Diagnosis Differential Diagnoses: The differential diagnosis associated with the presentation includes (Anxiety, dizziness, alcohol intoxication) Lab Data 06/18/22 01:18 06/18/22 01:18 Labs: Lab Results 06/18/22 06/18/22 06/18/22 Range/Units 01:18 01:18 01:18 WBC 8.7 (4.8-10.8) X10*3/uL RBC 5.02 (4.20-5.50) X10*6/uL Hgb 14.1 (12.0-16.0) g/dl Hct 43.3 (37.0-47.0) % MCV 86.3 (80.0-98.0) fL MCH 28.1 (27.0-33.0) pg MCHC 32.6 (31.0-35.0) g/dl RDW 14.5 (11.0-16.0) % Plt Count 229 (160-400) X10*3/uL MPV 9.8 (9.4-12.3) fL Immature Gran % (Auto) 0.3 (0.0-0.4) % Neut % (Auto) 58.2 (45-73) % Lymph % (Auto) 31.8 (20-40) % [place] % (Auto) 6.5 (2-11) % Eos % (Auto) 2.7 (0-4) % Baso % (Auto) 0.5 (0-2) % Lymph # (Auto) 2.8 (1.2-4.9) X10*3/uL [place] # (Auto) 0.6 (0.1-1.2) X10*3/uL Eos # (Auto) 0.2 (0.0-0.4) X10*3/uL Baso # (Auto) 0.0 (0.0-0.2) X10*3/uL Abs Immat Gran (auto) 0.03 (0.00-0.03) X10*3/uL Absolute Neuts (auto) 5.1 (2.0-8.3) x10*3/uL Absolute Nucleated RBC 0.000 (0.0-0.012) X10*3/uL Nucleated RBC % (auto) 0.0 (0.0-0.2) /100WBC Sodium 144 (135-145) mmol/L Potassium 4.6 (3.3-5.1) mmol/L Chloride 110 H (96-108) mmol/L Carbon Dioxide 24 (22-29) mmol/L Anion Gap 15 (12-20) BUN 13 (9-16) mg/dL Creatinine 1.02 (0.5-1.4) mg/dL Estim Creat Clear Calc 107.3 Estimated GFR > 60 Random Glucose 83 (60-115) mg/dL Calcium 8.9 D (8.4-10.2) mg/dL Troponin I High Sens < 2.7 (<3.5-17.0) ng/L Beta HCG, Quant mIU/mL Ethyl Alcohol mg/dL 06/18/22 Range/Units 01:18 WBC (4.8-10.8) X10*3/uL RBC (4.20-5.50) X10*6/uL Hgb (12.0-16.0) g/dl Hct (37.0-47.0) % MCV (80.0-98.0) fL MCH (27.0-33.0) pg MCHC (31.0-35.0) g/dl RDW (11.0-16.0) % Plt Count (160-400) X10*3/uL MPV (9.4-12.3) fL Immature Gran % (Auto) (0.0-0.4) % Neut % (Auto) (45-73) % Lymph % (Auto) (20-40) % [place] % (Auto) (2-11) % Eos % (Auto) (0-4) % Baso % (Auto) (0-2) % Lymph # (Auto) (1.2-4.9) X10*3/uL [place] # (Auto) (0.1-1.2) X10*3/uL Eos # (Auto) (0.0-0.4) X10*3/uL Baso # (Auto) (0.0-0.2) X10*3/uL Abs Immat Gran (auto) (0.00-0.03) X10*3/uL Absolute Neuts (auto) (2.0-8.3) x10*3/uL Absolute Nucleated RBC (0.0-0.012) X10*3/uL Nucleated RBC % (auto) (0.0-0.2) /100WBC Sodium (135-145) mmol/L Potassium (3.3-5.1) mmol/L Chloride (96-108) mmol/L Carbon Dioxide (22-29) mmol/L Anion Gap (12-20) BUN (9-16) mg/dL Creatinine (0.5-1.4) mg/dL Estim Creat Clear Calc Estimated GFR Random Glucose (60-115) mg/dL Calcium (8.4-10.2) mg/dL Troponin I High Sens (<3.5-17.0) ng/L Beta HCG, Quant < 2 mIU/mL Ethyl Alcohol 22 mg/dL Discharge Plan Discharge Clinical Impression: Dizziness Patient Disposition: Home, Self-Care Instructions: Dizziness (ED) Additional Instructions: Please follow-up with your primary care physician tomorrow. If you have any worsening or new symptoms, please return to the emergency room or call 911 Prescriptions: No Action ondansetron 4 mg tablet,disintegrating 4 mg PO Q6H PRN (Reason: nausea and vomiting) Qty: 14 0RF
[2022-06-18 01:35] LABS: Ethanol 22 mg/dL
[2022-06-18 01:36] LABS: Anion Gap 15 (12-20); Blood Urea Nitrogen 13 mg/dL (9-16); Calcium 8.9 mg/dL (8.4-10.2); Carbon Dioxide 24 mmol/L (22-29); Chloride 110 mmol/L (96-108); Creatinine Clr Calc Pharmacy 107.3; Estimated Glomerular Filt Rate > 60; Glucose Random 83 mg/dL (60-115); Potassium 4.6 mmol/L (3.3-5.1); Sodium 144 mmol/L (135-145)
[2022-06-18 01:53] LABS: HCG Quantitative < 2 mIU/mL; Troponin-I High Sensitivity < 2.7 ng/L (<3.5-17.0)
== END 2022-06-18 02:52 | disposition home or self-care (01) ==
PROVIDERS: Emergency Provider Emergency Medicine
DX: R42 Dizziness and giddiness (principal); R94.31 Abnormal electrocardiogram [ECG] [EKG]; F17.210 Nicotine dependence, cigarettes, uncomplicated; Z71.6 Tobacco abuse counseling; Z79.899 Other long term (current) drug therapy
CPT/HCPCS: 36415; 80048; 82077; 84484; 84702; 85025; 93005; 99283

== ENCOUNTER 2022-06-21 23:19 | Emergency (ER) | payer MEDICAID, OTHER, SELFPAY ==
[2022-06-21 23:28] VITALS: BP 110/76; PULSE 83; RESP 17; TEMP 36.6; O2SAT 95; BMI 31.0
--- NOTE | 2022-06-21 23:48 | ECG_ITS ---
Test Reason : MEDICAL CLEARANCE Blood Pressure : / mmHG Vent. Rate : 071 BPM Atrial Rate : 071 BPM P-R Int : 200 ms QRS Dur : 088 ms QT Int : 400 ms P-R-T Axes : 071 085 056 degrees QTc Int : 434 ms Normal sinus rhythm Normal ECG When compared with ECG of 18-JUN-2022 00:58, No significant change was found Referred By: Medina Ritter Electronically Signed By:KAREN GONZALEZ MD
[2022-06-22 00:51] LABS: Appearance Urine Clear; Color Urine Yellow; Glucose Urine UA Negative (Negative); Leukocyte Esterase Urine Trace (Negative); Nitrite Urine Negative (Negative); Specific Gravity - Urine >= 1.030 (1.005-1.025); UMIC TRIGGER UA YES; Urine Blood Negative (Negative); Urine Ketones Negative (Negative); Urine Protein Negative (Neg-Trace)
[2022-06-22 00:55] LABS: Bacteria Urine 2+ (None Seen); Hyaline Casts Urine 0-2 /LPF (0-2); RBC Urine 0-2 /HPF (0-2); WBC Urine 0-5 /HPF (0-5)
[2022-06-22 01:00] LABS: Amphetamine Screen Urine Not Detected (Not Detect); Barbiturates, Urine Not Detected (Not Detect); Benzodiazepines Screen Urine Not Detected (Not Detect); Cannabinoid Screen Urine POSITIVE (Not Detect); Cocaine Screen Urine Not Detected (Not Detect); Fentanyl, urine Not Detected (Not Detect); Opiate Screen Urine Not Detected (Not Detect); Phencyclidine Screen Urine Not Detected (Not Detect)
[2022-06-22 01:09] LABS: COVID-19 Test Negative (Negative); IDNOW Serial# 6674DD1D
--- NOTE | 2022-06-22 01:23 | ED_ITS ---
HPI - General Adult General Chief complaint: General Medical Stated complaint: crisis? dizziness Time Seen by Provider: 06/21/22 23:43 Source: patient Mode of arrival: ambulatory Limitations: no limitations History of Present Illness HPI narrative: Emergency room via ambulance complaining of dizziness. Patient does not specify what dizziness, denies head spinning, denies lightheadedness. Patient states that at this moment she feels well and tired. Patient denies using drugs. Denies SI or HI. Related Data Home Medications Medication Instructions Recorded Confirmed No Known Home Meds 06/21/22 06/21/22 Allergies Allergy/AdvReac Type Severity Reaction Status Date / Time No Known Allergies Allergy Verified 06/02/22 21:18 Review of Systems Review of Systems: Constitutional : No Weight loss, No Fever, No Chills, No Night Sweats, No Fatigue, No Malaise ENT/Mouth : No Hearing loss, No Ear Pain, No Nasal Congestion, No Sinus Pain, No Hoarseness, No sore throat, No Rhinorrhea, No Swallowing Difficulty Eyes: No Eye Pain, No Swelling, No Redness, No Foreign Body, No Discharge, No Vision Changes Cardiovascular : No Chest Pain, No SOB, No Dyspnea on Exertion, No Orthopnea, No Edema, No Palpitations Respiratory : No Cough, No Sputum, No Wheezing, No Smoke Exposure, No Dyspnea Gastrointestinal : No Nausea, No Vomiting, No Diarrhea, No Constipation, No abdominal Pain, No Hematochezia, No Melena Genitourinary : no irregular bleeding, No Dysuria, No Urinary Frequency, No Hematuria, No Urinary Incontinence, No Urgency, No Flank Pain, No Urinary Flow Changes, No Hesitancy Musculoskeletal : No joint pain, No Myalgias, No Joint Swelling Skin : No Skin Lesions, No rash Neuro : No Weakness, No Numbness, No Paresthesias, No Loss of Consciousness, complaining of dizziness which self-resolved, no headache Psych : No Anxiety/Panic, No Depression, No SI/HI/AH/VH, No Social Issues, Heme/Lymph: No Bruising, No Bleeding,No Lymphadenopathy Endocrine : No Polyuria, No Polydipsia, No Temperature Intolerance PMFSH Past Medical History Medical History Asthma Bipolar 1 disorder Bipolar disorder Cannabis use disorder Schizophrenia Social History Social History Household Members: Family Household Members Other:: Mom, sister Housing: Apartment Housing Other:: Current living situation will change as the apt has be condemned Do you presently have visiting nurse or other home services: No Unable to assess alcohol history related to: Refusing to respond Alcohol intake: unknown Patient Tobacco Use Status: Current everyday Tobacco user Tobacco use type: Cigarette Cigarette Packs Per Day: 1 Cigarettes Per Day: 2 Years Smoked: 1 e-Cigarette/Vaping Use: Never Used Second Hand Smoke Exposure: No Substance Use Type: Marijuana Advance Directives: No Advance Directives Information Provided: Yes service: No Sexual orientation: Don't Know Physical Exam ED Vital Signs: Vital Signs - 24 hr 06/21/22 23:28 Temperature 97.8 F Pulse Rate 83 Respiratory Rate 17 Blood Pressure 110/76 Pulse Oximetry 95 Oxygen Delivery Method Room Air BMI result Body Mass Index 31.0 Const Other: Appearance: Alert. Oriented X3. No acute distress. Eyes: Pupils equal, round and reactive to light. ENT: Pharynx normal. Neck: Normal inspection. Neck supple. No lymph nodes noted. No crepitus CVS: Normal heart rate and rhythm. Pulses normal. Normal S1 and S2 Respiratory: No respiratory distress. Breath sounds normal. No Wheezing. No rales Abdomen: Soft and nontender. No rigidity. No distention. Skin: Skin warm and dry. Normal skin color. Normal skin turgor. Extremities: No lower extremity edema. No Lacerations. No Rash Neuro: Oriented X 3. No motor deficit. No sensory deficit. Moving all extremities. No slurred speech. CN 2 through 12 grossly intact Psych: calm, cooperative, normal affect Medical Decision Making Medical Decision Making MDM Narrative: -patient is calm, cooperative. Denies SI or HI. -labs were attempted but they were unable to obtain it. They will try again soon. -patient's nurse states that he is concerned that the patient is sick compensating and is more notorious throughout the last few weeks. Patient's nurse knows well the patient. Patient's nurse requesting a care team evaluation. As mentioned above, not SI, no HI, patient is not on a Section 12 Differential Diagnosis Differential Diagnoses: The differential diagnosis associated with the presentation includes (Anxiety, depression, ACS, dizziness) Lab Data Labs: Lab Results 06/22/22 06/22/22 06/22/22 Range/Units 00:41 00:41 00:41 Urine Color Yellow Urine Appearance Clear Urine pH 6.0 (5.0-9.0) Ur Specific [place] >= 1.030 H (1.005-1.025) Urine Protein Negative (Neg-Trace) mg/dL Urine Glucose (UA) Negative (Negative) mg/dL Urine Ketones Negative (Negative) mg/dL Urine Blood Negative (Negative) Urine Nitrite Negative (Negative) Ur Leukocyte Esterase Trace H (Negative) Urine RBC 0-2 (0-2) /HPF Urine WBC 0-5 (0-5) /HPF Ur Squamous Epith Cells 6-10 (0-2) /HPF Urine Bacteria 2+ (None Seen) Hyaline Casts 0-2 (0-2) /LPF Urine Opiates Screen Not Detected (Not Detect) Urine Fentanyl Screen Not Detected (Not Detect) Ur Barbiturates Screen Not Detected (Not Detect) Ur Phencyclidine Scrn Not Detected (Not Detect) Ur Amphetamines Screen Not Detected (Not Detect) U Benzodiazepines Scrn Not Detected (Not Detect) Urine Cocaine Screen Not Detected (Not Detect) U Marijuana (THC) Screen POSITIVE H (Not Detect) COVID-19 (BRENDA) Negative (Negative) COVID-19 Clin Com See Note Discharge Plan Discharge Clinical Impression: Dizziness Patient Disposition: Still a Patient Prescriptions: No Action No Known Home Meds
--- NOTE | 2022-06-22 02:20 | MHC.EDTECH ---
PATIENT REQUESTED TO HAVE SECOND ATTEMPT OF BLOOD DRAW DONE IN THE MORNING AFTER THE PATIENTS SLEEPS. PT IS SLEEPING AT THIS TIME.
--- NOTE | 2022-06-22 04:26 | PC.NURSE ---
Patient slept through the night, no distress observed/reported, med rec completed/patient off her medication for months, care consult ordered for possible decompensation/pending evaluation, EKG completed/unremarkable, labs completed except blood work which patient refused/provider made aware/okayed to attempt later when awake, VSS, will continue to monitor.
[2022-06-22 07:49] LABS: Ethanol < 10 mg/dL
[2022-06-22 08:06] LABS: HCG Quantitative < 2 mIU/mL; Troponin-I High Sensitivity < 2.7 ng/L (<3.5-17.0)
== END 2022-06-22 09:53 | disposition home or self-care (01) ==
PROVIDERS: Emergency Provider Emergency Medicine
DX: R42 Dizziness and giddiness (principal); R94.31 Abnormal electrocardiogram [ECG] [EKG]; F17.210 Nicotine dependence, cigarettes, uncomplicated; Z71.6 Tobacco abuse counseling; Z20.822 Contact with and (suspected) exposure to COVID-19; Z20.828 Contact with and (suspected) exposure to other viral communicable diseases; Z79.899 Other long term (current) drug therapy
CPT/HCPCS: 36415; 80307; 81001; 82077; 84484; 84702; 87635; 93005; 99284; S9485

== ENCOUNTER 2022-06-26 22:48 | Emergency (ER) | payer MEDICAID, SELFPAY ==
[2022-06-26 22:58] VITALS: BP 114/72; PULSE 76; RESP 16; TEMP 36.7; O2SAT 97; BMI 32.5
--- NOTE | 2022-06-26 23:08 | ED_ITS ---
HPI - General Adult General Chief complaint: ETOH/Substance Use <Hayden Elizondo Last Filed: 06/27/22 01:38> Stated complaint: etoh <Hayden Elizondo Last Filed: 06/27/22 01:38> Time Seen by Provider: 06/26/22 22:58 <Hayden Elizondo Last Filed: 06/27/22 01:38> Source: patient, EMS, RN notes reviewed and old records reviewed <Hayden Elizondoy - Last Filed: 06/27/22 01:38> Mode of arrival: EMS <Hayden Elizondo Last Filed: 06/27/22 01:38> Limitations: other (Acute alcohol intoxication) <Hayden [place] - Last Filed: 06/27/22 01:38> History of Present Illness HPI narrative: 21-year-old female presents for evaluation of ?dizziness. Patient is a poor historian. She is unable to elaborate on how long she has been dizzy or to describe her dizziness. She admits to drinking alcohol ?vodka nips today. She has frequent ER presentations for alcohol abuse Denies any falls or injuries She also has a history of schizoaffective disorder bipolar type The patient denies any depression or suicidal ideation today. <Hayden Messer Last Filed: 06/27/22 01:38> Related Data Home medications: Home Medications Medication Instructions Recorded Confirmed No Known Home Meds 06/26/22 06/26/22 <Hayden RomeChacho - Last Filed: 06/27/22 01:38> Allergies/adverse reactions: Allergies Allergy/AdvReac Type Severity Reaction Status Date / Time No Known Allergies Allergy Verified 06/02/22 21:18 <Hayden Elizondo Last Filed: 06/27/22 01:38> Review of Systems Constitutional: Constitutional: Reports as per HPI, Denies chills, Denies fatigue, Denies fever(s) and Denies headache(s) <Hayden Elizondo Last Filed: 06/27/22 01:38> ENT: Denies headache(s) <Hayden Elizondo Last Filed: 06/27/22 01:38> Cardiovascular: Cardiovascular: Denies chest pain and Denies dyspnea <Hayden Elizondoy - Last Filed: 06/27/22 01:38> Respiratory: Respiratory: Denies cough and Denies dyspnea <Hayden Elizondo Last Filed: 06/27/22 01:38> Gastrointestinal: Gastrointestinal: Denies abdominal pain, Denies constipation and Denies vomiting <Hayden RomeKauai - Last Filed: 06/27/22 01:38> Genitourinary: Genitourinary: Denies dysuria <Hayden OChacho - Last Filed: 06/27/22 01:38> Neurologic: Denies headache(s) and Denies focal weakness <Hayden OChacho - Last Filed: 06/27/22 01:38> Psychiatric: Psychiatric: Denies suicidal ideation <Hayden [place] Filed: 06/27/22 01:38> Endocrine: Endocrine: Denies fatigue <Hayden OChacho - Last Filed: 06/27/22 01:38> PMF Past Medical History Medical History: Medical History Asthma Bipolar 1 disorder Bipolar disorder Cannabis use disorder Schizophrenia <Hayden OChacho - Last Filed: 06/27/22 01:38> Social History Social History: Social History Household Members: Family Household Members Other:: Mom, sister Housing: Apartment Housing Other:: Current living situation will change as the apt has be condemned Do you presently have visiting nurse or other home services: No Unable to assess alcohol history related to: Refusing to respond Alcohol intake: unknown Patient Tobacco Use Status: Current everyday Tobacco user Tobacco use type: Cigarette Cigarette Packs Per Day: 1 Cigarettes Per Day: 2 Years Smoked: 1 e-Cigarette/Vaping Use: Never Used Second Hand Smoke Exposure: No Substance Use Type: Marijuana Advance Directives: No Advance Directives Information Provided: No service: No Sexual orientation: Don't Know <Hayden Messer Last Filed: 06/27/22 01:38> Physical Exam ED Vital Signs: Vital Signs - 24 hr 06/26/22 22:58 06/27/22 06:41 Temperature 98.1 F 97.5 F Pulse Rate 76 71 Respiratory Rate 16 17 Blood Pressure 114/72 111/77 Pulse Oximetry 97 97 Oxygen Delivery Method Room Air Room Air BMI result Body Mass Index 32.5 <Hayden RomeKauai - Last Filed: 06/27/22 01:38> Vital Signs - 24 hr 06/26/22 22:58 06/27/22 06:41 Temperature 98.1 F 97.5 F Pulse Rate 76 71 Respiratory Rate 16 17 Blood Pressure 114/72 111/77 Pulse Oximetry 97 97 Oxygen Delivery Method Room Air Room Air BMI result Body Mass Index 32.5 <Brian Antony MD - Last Filed: 06/27/22 07:53> Const General: healthy appearing, comfortable, no acute distress, alert and awake <Hayden [place] - Last Filed: 06/27/22 01:38> Nutritional Appearance: well nourished <Hayden O - Last Filed: 06/27/22 01:38> Orientation/consciousness: patient oriented x3 <Hayden O - Last Filed: 06/27/22 01:38> HENMT Head: Yes normocephalic and Yes atraumatic < Last Filed: 06/27/22 01:38> Throat: Yes posterior oropharynx normal <Hayden - Last Filed: 06/27/22 01:38> Eyes Eyelids: Yes eyelids normal <Hayden Last Filed: 06/27/22 01:38> Conjunctivae: conjunctivae normal <Hayden O Last Filed: 06/27/22 01:38> Sclerae: sclerae normal < Last Filed: 06/27/22 01:38> Corneas: corneas normal <Hayden O Last Filed: 06/27/22 01:38> Pupils: Equal, round and reactive pupils present <Hayden Latricia Last Filed: 06/27/22 01:38> EOM: EOMs intact bilaterally <Hayden O Last Filed: 06/27/22 01:38> Neck Neck: Yes full ROM <Hayden O Last Filed: 06/27/22 01:38> Resp Effort & Inspection: normal respiratory effort, able to speak in complete sentences, no audible wheezes and not labored <Hayden Messer Last Filed: 06/27/22 01:38> Auscultation: clear to auscultation bilaterally <Hayden Messer Last Filed: 06/27/22 01:38> Cardio Rate: regular rate <Haydenoscar Elizondo Last Filed: 06/27/22 01:38> Rhythm: regular rhythm <Haydenoscar Elizondo Last Filed: 06/27/22 01:38> GI Inspection: No distended <Haydenoscar Elizondo Last Filed: 06/27/22 01:38> Palpation (GI): Soft to palpation, not firm, nontender, no guarding and not rigid <Haydenoscar Elizondo Last Filed: 06/27/22 01:38> Auscultation: normoactive bowel sounds <Haydenoscar Elizondo Last Filed: 06/27/22 01:38> Skin General skin exam: no rashes or lesions noted and elasticity normal <Haydenoscar Elizondo Last Filed: 06/27/22 01:38> Neuro General: patient oriented x3 <Haydenoscar Elizondo Last Filed: 06/27/22 01:38> Cranial nerves: Yes CN's II-XII intact bilaterally, Yes Equal, round and reactive pupils present and Yes Bilaterally intact EOM present <Hayden Messer Last Filed: 06/27/22 01:38> Extrem Other: Moving all extremities well without any obvious deformities <Hayedn Messer Last Filed: 06/27/22 01:38> Course Reevaluation(s) Reevaluation #1: Patient's alcohol level actually came back undetectable. When I explained to the patient that her labs are reassuring she reports that she feels much better. UA does not appear to be infected. She is not depressed or suicidal. Unfortunately due to her psychiatric illness, but did not feel that it is safe to discharge the patient at the middle night without a safe ride. The the patient will likely be will be discharged in the morning unless her mother can come pick her up tonight. <Hayden Messer Last Filed: 06/27/22 01:38> Time: 00:15 <Hayden Albert Last Filed: 06/27/22 01:38> Reevaluation #2: The patient was evaluated for dizziness hospital alcohol intoxication. Patient's workup was unremarkable and her ETOH was below detectable limits. Patient did not feel safe being discharged overnight therefore she was kept in the emergency department. The patient had no complaints this morning when I spoke to her. She states that she does want to go home after she eats breakfast. Therefore the patient will be discharged. <Brian Antony MD - Last Filed: 06/27/22 07:53> Time: 07:48 <Brian Antony MD - Last Filed: 06/27/22 07:53> Medical Decision Making Medical Decision Making [facility] Narrative: 21-year-old female presents for evaluation of dizziness. She appears clinically intoxicated admits to drinking alcohol today. Will check labs, an ETOH level. Denies any other substance abuse. The patient is currently denying any depression or suicidal ideation. <Hayden Messer - Last Filed: 06/27/22 01:38> Differential Diagnosis Dizziness Peripheral vertigo Alcohol abuse Polysubstance abuse Schizoaffective disorder <Hayden Messer - Last Filed: 06/27/22 01:38> Lab Data [facility] Lab Attestation statement: I reviewed the patient's lab results. <Hayden Messer - Last Filed: 06/27/22 01:38> Result Diagrams: 06/26/22 23:33 06/26/22 23:33 <Hayden Messer - Last Filed: 06/27/22 01:38> Labs: Lab Results 06/26/22 06/26/22 06/26/22 Range/Units 23:22 23:22 23:22 WBC (4.8-10.8) X10*3/uL RBC (4.20-5.50) X10*6/uL Hgb (12.0-16.0) g/dl Hct (37.0-47.0) % MCV (80.0-98.0) fL MCH (27.0-33.0) pg MCHC (31.0-35.0) g/dl RDW (11.0-16.0) % Plt Count (160-400) X10*3/uL MPV (9.4-12.3) fL Immature Gran % (Auto) (0.0-0.4) % Neut % (Auto) (45-73) % Lymph % (Auto) (20-40) % [place] % (Auto) (2-11) % Eos % (Auto) (0-4) % Baso % (Auto) (0-2) % Lymph # (Auto) (1.2-4.9) X10*3/uL [place] # (Auto) (0.1-1.2) X10*3/uL Eos # (Auto) (0.0-0.4) X10*3/uL Baso # (Auto) (0.0-0.2) X10*3/uL Abs Immat Gran (auto) (0.00-0.03) X10*3/uL Absolute Neuts (auto) (2.0-8.3) x10*3/uL Absolute Nucleated RBC (0.0-0.012) X10*3/uL Nucleated RBC % (auto) (0.0-0.2) /100WBC Sodium (135-145) mmol/L Potassium (3.3-5.1) mmol/L Chloride (96-108) mmol/L Carbon Dioxide (22-29) mmol/L Anion Gap (12-20) BUN (9-16) mg/dL Creatinine (0.5-1.4) mg/dL Estim Creat Clear Calc Estimated GFR Random Glucose (60-115) mg/dL Calcium (8.4-10.2) mg/dL Total Bilirubin (0.0-1.0) mg/dL AST (5-31) U/L ALT (0-31) U/L Alkaline Phosphatase (39-117) U/L Total Protein (6.5-8.0) g/dL Albumin (3.5-5.0) g/dL Urine Color Yellow Urine Appearance Clear Urine pH 7.0 (5.0-9.0) Ur Specific [place] 1.025 (1.005-1.025) Urine Protein Negative (Neg-Trace) mg/dL Urine Glucose (UA) Negative (Negative) mg/dL Urine Ketones Negative (Negative) mg/dL Urine Blood Negative (Negative) Urine Nitrite Negative (Negative) Ur Leukocyte Esterase Trace H (Negative) Urine RBC 0-2 (0-2) /HPF Urine WBC 0-5 (0-5) /HPF Ur Squamous Epith Cells 0-2 (0-2) /HPF Urine Bacteria Trace (None Seen) Hyaline Casts 0-2 (0-2) /LPF Urine Test NEGATIVE (NEGATIVE) Urine Opiates Screen (Not Detect) Urine Fentanyl Screen (Not Detect) Ur Barbiturates Screen (Not Detect) Ur Phencyclidine Scrn (Not Detect) Ur Amphetamines Screen (Not Detect) U Benzodiazepines Scrn (Not Detect) Urine Cocaine Screen (Not Detect) U Marijuana (THC) Screen (Not Detect) Ethyl Alcohol mg/dL COVID-19 (BRENDA) Negative (Negative) COVID-19 Clin Com See Note 06/26/22 06/26/22 06/26/22 Range/Units 23:22 23:33 23:33 WBC 11.9 H (4.8-10.8) X10*3/uL RBC 4.82 (4.20-5.50) X10*6/uL Hgb 13.6 (12.0-16.0) g/dl Hct 42.8 (37.0-47.0) % MCV 88.8 (80.0-98.0) fL MCH 28.2 (27.0-33.0) pg MCHC 31.8 (31.0-35.0) g/dl RDW 14.6 (11.0-16.0) % Plt Count 219 (160-400) X10*3/uL MPV 9.6 (9.4-12.3) fL Immature Gran % (Auto) 0.6 H (0.0-0.4) % Neut % (Auto) 65.1 (45-73) % Lymph % (Auto) 24.4 (20-40) % [place] % (Auto) 7.2 (2-11) % Eos % (Auto) 2.4 (0-4) % Baso % (Auto) 0.3 (0-2) % Lymph # (Auto) 2.9 (1.2-4.9) X10*3/uL [place] # (Auto) 0.9 (0.1-1.2) X10*3/uL Eos # (Auto) 0.3 (0.0-0.4) X10*3/uL Baso # (Auto) 0.0 (0.0-0.2) X10*3/uL Abs Immat Gran (auto) 0.07 H (0.00-0.03) X10*3/uL Absolute Neuts (auto) 7.7 (2.0-8.3) x10*3/uL Absolute Nucleated RBC 0.000 (0.0-0.012) X10*3/uL Nucleated RBC % (auto) 0.0 (0.0-0.2) /100WBC Sodium 143 (135-145) mmol/L Potassium 4.3 (3.3-5.1) mmol/L Chloride 111 H (96-108) mmol/L Carbon Dioxide 26 (22-29) mmol/L Anion Gap 10 L (12-20) BUN 16 (9-16) mg/dL Creatinine 0.80 (0.5-1.4) mg/dL Estim Creat Clear Calc 139.8 Estimated GFR > 60 Random Glucose 68 (60-115) mg/dL Calcium 8.9 (8.4-10.2) mg/dL Total Bilirubin 0.2 (0.0-1.0) mg/dL AST 15 (5-31) U/L ALT 14 (0-31) U/L Alkaline Phosphatase 64 (39-117) U/L Total Protein 6.4 L (6.5-8.0) g/dL Albumin 3.7 (3.5-5.0) g/dL Urine Color Urine Appearance Urine pH (5.0-9.0) Ur Specific [place] (1.005-1.025) Urine Protein (Neg-Trace) mg/dL Urine Glucose (UA) (Negative) mg/dL Urine Ketones (Negative) mg/dL Urine Blood (Negative) Urine Nitrite (Negative) Ur Leukocyte Esterase (Negative) Urine RBC (0-2) /HPF Urine WBC (0-5) /HPF Ur Squamous Epith Cells (0-2) /HPF Urine Bacteria (None Seen) Hyaline Casts (0-2) /LPF Urine Test (NEGATIVE) Urine Opiates Screen Not Detected (Not Detect) Urine Fentanyl Screen Not Detected (Not Detect) Ur Barbiturates Screen Not Detected (Not Detect) Ur Phencyclidine Scrn Not Detected (Not Detect) Ur Amphetamines Screen Not Detected (Not Detect) U Benzodiazepines Scrn Not Detected (Not Detect) Urine Cocaine Screen Not Detected (Not Detect) U Marijuana (THC) Screen POSITIVE H (Not Detect) Ethyl Alcohol mg/dL COVID-19 (BRENDA) (Negative) COVID-19 Clin Com 06/26/22 Range/Units 23:33 WBC (4.8-10.8) X10*3/uL RBC (4.20-5.50) X10*6/uL Hgb (12.0-16.0) g/dl Hct (37.0-47.0) % MCV (80.0-98.0) fL MCH (27.0-33.0) pg MCHC (31.0-35.0) g/dl RDW (11.0-16.0) % Plt Count (160-400) X10*3/uL MPV (9.4-12.3) fL Immature Gran % (Auto) (0.0-0.4) % Neut % (Auto) (45-73) % Lymph % (Auto) (20-40) % [place] % (Auto) (2-11) % Eos % (Auto) (0-4) % Baso % (Auto) (0-2) % Lymph # (Auto) (1.2-4.9) X10*3/uL [place] # (Auto) (0.1-1.2) X10*3/uL Eos # (Auto) (0.0-0.4) X10*3/uL Baso # (Auto) (0.0-0.2) X10*3/uL Abs Immat Gran (auto) (0.00-0.03) X10*3/uL Absolute Neuts (auto) (2.0-8.3) x10*3/uL Absolute Nucleated RBC (0.0-0.012) X10*3/uL Nucleated RBC % (auto) (0.0-0.2) /100WBC Sodium (135-145) mmol/L Potassium (3.3-5.1) mmol/L Chloride (96-108) mmol/L Carbon Dioxide (22-29) mmol/L Anion Gap (12-20) BUN (9-16) mg/dL Creatinine (0.5-1.4) mg/dL Estim Creat Clear Calc Estimated GFR Random Glucose (60-115) mg/dL Calcium (8.4-10.2) mg/dL Total Bilirubin (0.0-1.0) mg/dL AST (5-31) U/L ALT (0-31) U/L Alkaline Phosphatase (39-117) U/L Total Protein (6.5-8.0) g/dL Albumin (3.5-5.0) g/dL Urine Color Urine Appearance Urine pH (5.0-9.0) Ur Specific [place] (1.005-1.025) Urine Protein (Neg-Trace) mg/dL Urine Glucose (UA) (Negative) mg/dL Urine Ketones (Negative) mg/dL Urine Blood (Negative) Urine Nitrite (Negative) Ur Leukocyte Esterase (Negative) Urine RBC (0-2) /HPF Urine WBC (0-5) /HPF Ur Squamous Epith Cells (0-2) /HPF Urine Bacteria (None Seen) Hyaline Casts (0-2) /LPF Urine Test (NEGATIVE) Urine Opiates Screen (Not Detect) Urine Fentanyl Screen (Not Detect) Ur Barbiturates Screen (Not Detect) Ur Phencyclidine Scrn (Not Detect) Ur Amphetamines Screen (Not Detect) U Benzodiazepines Scrn (Not Detect) Urine Cocaine Screen (Not Detect) U Marijuana (THC) Screen (Not Detect) Ethyl Alcohol < 10 mg/dL COVID-19 (BRENDA) (Negative) COVID-19 Clin Com <Hayden Messer - Last Filed: 06/27/22 01:38> Lab Results 06/26/22 06/26/22 06/26/22 Range/Units 23:22 23:22 23:22 WBC (4.8-10.8) X10*3/uL RBC (4.20-5.50) X10*6/uL Hgb (12.0-16.0) g/dl Hct (37.0-47.0) % MCV (80.0-98.0) fL MCH (27.0-33.0) pg MCHC (31.0-35.0) g/dl RDW (11.0-16.0) % Plt Count (160-400) X10*3/uL MPV (9.4-12.3) fL Immature Gran % (Auto) (0.0-0.4) % Neut % (Auto) (45-73) % Lymph % (Auto) (20-40) % [place] % (Auto) (2-11) % Eos % (Auto) (0-4) % Baso % (Auto) (0-2) % Lymph # (Auto) (1.2-4.9) X10*3/uL [place] # (Auto) (0.1-1.2) X10*3/uL Eos # (Auto) (0.0-0.4) X10*3/uL Baso # (Auto) (0.0-0.2) X10*3/uL Abs Immat Gran (auto) (0.00-0.03) X10*3/uL Absolute Neuts (auto) (2.0-8.3) x10*3/uL Absolute Nucleated RBC (0.0-0.012) X10*3/uL Nucleated RBC % (auto) (0.0-0.2) /100WBC Sodium (135-145) mmol/L Potassium (3.3-5.1) mmol/L Chloride (96-108) mmol/L Carbon Dioxide (22-29) mmol/L Anion Gap (12-20) BUN (9-16) mg/dL Creatinine (0.5-1.4) mg/dL Estim Creat Clear Calc Estimated GFR Random Glucose (60-115) mg/dL Calcium (8.4-10.2) mg/dL Total Bilirubin (0.0-1.0) mg/dL AST (5-31) U/L ALT (0-31) U/L Alkaline Phosphatase (39-117) U/L Total Protein (6.5-8.0) g/dL Albumin (3.5-5.0) g/dL Urine Color Yellow Urine Appearance Clear Urine pH 7.0 (5.0-9.0) Ur Specific [place] 1.025 (1.005-1.025) Urine Protein Negative (Neg-Trace) mg/dL Urine Glucose (UA) Negative (Negative) mg/dL Urine Ketones Negative (Negative) mg/dL Urine Blood Negative (Negative) Urine Nitrite Negative (Negative) Ur Leukocyte Esterase Trace H (Negative) Urine RBC 0-2 (0-2) /HPF Urine WBC 0-5 (0-5) /HPF Ur Squamous Epith Cells 0-2 (0-2) /HPF Urine Bacteria Trace (None Seen) Hyaline Casts 0-2 (0-2) /LPF Urine Test NEGATIVE (NEGATIVE) Urine Opiates Screen (Not Detect) Urine Fentanyl Screen (Not Detect) Ur Barbiturates Screen (Not Detect) Ur Phencyclidine Scrn (Not Detect) Ur Amphetamines Screen (Not Detect) U Benzodiazepines Scrn (Not Detect) Urine Cocaine Screen (Not Detect) U Marijuana (THC) Screen (Not Detect) Ethyl Alcohol mg/dL COVID-19 (BRENDA) Negative (Negative) COVID-19 Clin Com See Note 06/26/22 06/26/22 06/26/22 Range/Units 23:22 23:33 23:33 WBC 11.9 H (4.8-10.8) X10*3/uL RBC 4.82 (4.20-5.50) X10*6/uL Hgb 13.6 (12.0-16.0) g/dl Hct 42.8 (37.0-47.0) % MCV 88.8 (80.0-98.0) fL MCH 28.2 (27.0-33.0) pg MCHC 31.8 (31.0-35.0) g/dl RDW 14.6 (11.0-16.0) % Plt Count 219 (160-400) X10*3/uL MPV 9.6 (9.4-12.3) fL Immature Gran % (Auto) 0.6 H (0.0-0.4) % Neut % (Auto) 65.1 (45-73) % Lymph % (Auto) 24.4 (20-40) % [place] % (Auto) 7.2 (2-11) % Eos % (Auto) 2.4 (0-4) % Baso % (Auto) 0.3 (0-2) % Lymph # (Auto) 2.9 (1.2-4.9) X10*3/uL [place] # (Auto) 0.9 (0.1-1.2) X10*3/uL Eos # (Auto) 0.3 (0.0-0.4) X10*3/uL Baso # (Auto) 0.0 (0.0-0.2) X10*3/uL Abs Immat Gran (auto) 0.07 H (0.00-0.03) X10*3/uL Absolute Neuts (auto) 7.7 (2.0-8.3) x10*3/uL Absolute Nucleated RBC 0.000 (0.0-0.012) X10*3/uL Nucleated RBC % (auto) 0.0 (0.0-0.2) /100WBC Sodium 143 (135-145) mmol/L Potassium 4.3 (3.3-5.1) mmol/L Chloride 111 H (96-108) mmol/L Carbon Dioxide 26 (22-29) mmol/L Anion Gap 10 L (12-20) BUN 16 (9-16) mg/dL Creatinine 0.80 (0.5-1.4) mg/dL Estim Creat Clear Calc 139.8 Estimated GFR > 60 Random Glucose 68 (60-115) mg/dL Calcium 8.9 (8.4-10.2) mg/dL Total Bilirubin 0.2 (0.0-1.0) mg/dL AST 15 (5-31) U/L ALT 14 (0-31) U/L Alkaline Phosphatase 64 (39-117) U/L Total Protein 6.4 L (6.5-8.0) g/dL Albumin 3.7 (3.5-5.0) g/dL Urine Color Urine Appearance Urine pH (5.0-9.0) Ur Specific [place] (1.005-1.025) Urine Protein (Neg-Trace) mg/dL Urine Glucose (UA) (Negative) mg/dL Urine Ketones (Negative) mg/dL Urine Blood (Negative) Urine Nitrite (Negative) Ur Leukocyte Esterase (Negative) Urine RBC (0-2) /HPF Urine WBC (0-5) /HPF Ur Squamous Epith Cells (0-2) /HPF Urine Bacteria (None Seen) Hyaline Casts (0-2) /LPF Urine Test (NEGATIVE) Urine Opiates Screen Not Detected (Not Detect) Urine Fentanyl Screen Not Detected (Not Detect) Ur Barbiturates Screen Not Detected (Not Detect) Ur Phencyclidine Scrn Not Detected (Not Detect) Ur Amphetamines Screen Not Detected (Not Detect) U Benzodiazepines Scrn Not Detected (Not Detect) Urine Cocaine Screen Not Detected (Not Detect) U Marijuana (THC) Screen POSITIVE H (Not Detect) Ethyl Alcohol mg/dL COVID-19 (BRENDA) (Negative) COVID-19 Clin Com 06/26/22 Range/Units 23:33 WBC (4.8-10.8) X10*3/uL RBC (4.20-5.50) X10*6/uL Hgb (12.0-16.0) g/dl Hct (37.0-47.0) % MCV (80.0-98.0) fL MCH (27.0-33.0) pg MCHC (31.0-35.0) g/dl RDW (11.0-16.0) % Plt Count (160-400) X10*3/uL MPV (9.4-12.3) fL Immature Gran % (Auto) (0.0-0.4) % Neut % (Auto) (45-73) % Lymph % (Auto) (20-40) % [place] % (Auto) (2-11) % Eos % (Auto) (0-4) % Baso % (Auto) (0-2) % Lymph # (Auto) (1.2-4.9) X10*3/uL [place] # (Auto) (0.1-1.2) X10*3/uL Eos # (Auto) (0.0-0.4) X10*3/uL Baso # (Auto) (0.0-0.2) X10*3/uL Abs Immat Gran (auto) (0.00-0.03) X10*3/uL Absolute Neuts (auto) (2.0-8.3) x10*3/uL Absolute Nucleated RBC (0.0-0.012) X10*3/uL Nucleated RBC % (auto) (0.0-0.2) /100WBC Sodium (135-145) mmol/L Potassium (3.3-5.1) mmol/L Chloride (96-108) mmol/L Carbon Dioxide (22-29) mmol/L Anion Gap (12-20) BUN (9-16) mg/dL Creatinine (0.5-1.4) mg/dL Estim Creat Clear Calc Estimated GFR Random Glucose (60-115) mg/dL Calcium (8.4-10.2) mg/dL Total Bilirubin (0.0-1.0) mg/dL AST (5-31) U/L ALT (0-31) U/L Alkaline Phosphatase (39-117) U/L Total Protein (6.5-8.0) g/dL Albumin (3.5-5.0) g/dL Urine Color Urine Appearance Urine pH (5.0-9.0) Ur Specific [place] (1.005-1.025) Urine Protein (Neg-Trace) mg/dL Urine Glucose (UA) (Negative) mg/dL Urine Ketones (Negative) mg/dL Urine Blood (Negative) Urine Nitrite (Negative) Ur Leukocyte Esterase (Negative) Urine RBC (0-2) /HPF Urine WBC (0-5) /HPF Ur Squamous Epith Cells (0-2) /HPF Urine Bacteria (None Seen) Hyaline Casts (0-2) /LPF Urine Test (NEGATIVE) Urine Opiates Screen (Not Detect) Urine Fentanyl Screen (Not Detect) Ur Barbiturates Screen (Not Detect) Ur Phencyclidine Scrn (Not Detect) Ur Amphetamines Screen (Not Detect) U Benzodiazepines Scrn (Not Detect) Urine Cocaine Screen (Not Detect) U Marijuana (THC) Screen (Not Detect) Ethyl Alcohol < 10 mg/dL COVID-19 (BRENDA) (Negative) COVID-19 Clin Com <Brian Antony MD - Last Filed: 06/27/22 07:53> Discharge Plan Discharge Clinical Impression: Schizoaffective disorder, bipolar type <Hayden Messer - Last Filed: 06/27/22 01:38> Patient Disposition: Still a Patient <Hayden Messer - Last Filed: 06/27/22 01:38> Instructions: Schizoaffective Disorder (ED) <Hayden Messer - Last Filed: 06/27/22 01:38> Additional Instructions: Your workup in the emergency department was reassuring. Avoid excessive alcohol consumption. Take all of your medications as prescribed Follow-up with your primary doctor <Hayden Messer - Last Filed: 06/27/22 01:38> Prescriptions: No Action No Known Home Meds <Hayden Messer - Last Filed: 06/27/22 01:38>
[2022-06-26 23:33] LABS: Appearance Urine Clear; Color Urine Yellow; Glucose Urine UA Negative (Negative); Leukocyte Esterase Urine Trace (Negative); Nitrite Urine Negative (Negative); Specific Gravity - Urine 1.025 (1.005-1.025); UMIC TRIGGER UA YES; Urine Blood Negative (Negative); Urine Ketones Negative (Negative); Urine Protein Negative (Neg-Trace)
[2022-06-26 23:36] LABS: UPreg QC Valid YES; Urine Pregnancy NEGATIVE (NEGATIVE)
[2022-06-26 23:38] LABS: MANUAL DIFF FLAG NO
[2022-06-26 23:39] LABS: Basophils Percent Auto 0.3 % (0-2); Eosinophils Absolute Auto 0.3 X10*3/uL (0.0-0.4); Eosinophils Percent Auto 2.4 % (0-4); Hematocrit 42.8 % (37.0-47.0); Hemoglobin 13.6 g/dl (12.0-16.0); Imm Gran Abs Auto 0.07 X10*3/uL (0.00-0.03); Imm Gran Pct Auto 0.6 % (0.0-0.4); Lymphocytes Absolute Auto 2.9 X10*3/uL (1.2-4.9); Lymphocytes Percent Auto 24.4 % (20-40); Mean Corpuscular HGB Conc 31.8 g/dl (31.0-35.0); Mean Corpuscular Hemoglobin 28.2 pg (27.0-33.0); Mean Corpuscular Volume 88.8 fL (80.0-98.0); Mean Platelet Volume 9.6 fL (9.4-12.3); Monocytes Absolute Auto 0.9 X10*3/uL (0.1-1.2); Monocytes Percent Auto 7.2 % (2-11); Neutrophils Absolute Auto 7.7 x10*3/uL (2.0-8.3); Neutrophils Percent Auto 65.1 % (45-73); Platelet Count 219 X10*3/uL (160-400); Red Blood Count 4.82 X10*6/uL (4.20-5.50); Red Cell Distribution Width 14.6 % (11.0-16.0); White Blood Count 11.9 X10*3/uL (4.8-10.8)
[2022-06-26 23:40] LABS: Amphetamine Screen Urine Not Detected (Not Detect); Barbiturates, Urine Not Detected (Not Detect); Benzodiazepines Screen Urine Not Detected (Not Detect); Cannabinoid Screen Urine POSITIVE (Not Detect); Cocaine Screen Urine Not Detected (Not Detect); Fentanyl, urine Not Detected (Not Detect); Opiate Screen Urine Not Detected (Not Detect); Phencyclidine Screen Urine Not Detected (Not Detect)
[2022-06-26 23:45] LABS: Bacteria Urine Trace (None Seen); Hyaline Casts Urine 0-2 /LPF (0-2); RBC Urine 0-2 /HPF (0-2); Squamous Epithelial Cell Urine 0-2 /HPF (0-2); WBC Urine 0-5 /HPF (0-5)
[2022-06-26 23:46] LABS: COVID-19 Test Negative (Negative); IDNOW Serial# 16C4AD1C
[2022-06-26 23:55] LABS: Alanine Aminotransferase 14 U/L (0-31); Albumin Level 3.7 g/dL (3.5-5.0); Alkaline Phosphatase 64 U/L (39-117); Anion Gap 10 (12-20); Aspartate Amino Transferase 15 U/L (5-31); Bilirubin Total 0.2 mg/dL (0.0-1.0); Blood Urea Nitrogen 16 mg/dL (9-16); Calcium 8.9 mg/dL (8.4-10.2); Carbon Dioxide 26 mmol/L (22-29); Chloride 111 mmol/L (96-108); Creatinine Clr Calc Pharmacy 139.8; Estimated Glomerular Filt Rate > 60; Glucose Random 68 mg/dL (60-115); Potassium 4.3 mmol/L (3.3-5.1); Sodium 143 mmol/L (135-145); Total Protein 6.4 g/dL (6.5-8.0)
[2022-06-26 23:56] LABS: Ethanol < 10 mg/dL
[2022-06-27 06:41] VITALS: BP 111/77; PULSE 71; RESP 17; TEMP 36.4; O2SAT 97
--- NOTE | 2022-06-27 06:54 | PC.NURSE ---
Patient slept through the night, no distress observed/reported, seen by provider/cleared for discharge in the morning, VSS, will continue to monitor.
== END 2022-06-27 08:46 | disposition home or self-care (01) ==
PROVIDERS: Physician Assistant; Emergency Provider Emergency Medicine Emergency Medical Services
DX: F25.0 Schizoaffective disorder, bipolar type (principal); R42 Dizziness and giddiness; Z20.822 Contact with and (suspected) exposure to COVID-19; F17.210 Nicotine dependence, cigarettes, uncomplicated; F12.90 Cannabis use, unspecified, uncomplicated; F10.10 Alcohol abuse, uncomplicated; Y90.0 Blood alcohol level of less than 20 mg/100 ml
CPT/HCPCS: 36415; 80053; 80307; 81001; 81025; 82077; 85025; 87635; 99284

== ENCOUNTER 2022-07-01 16:47 | Emergency (ER) | payer MEDICAID, SELFPAY ==
[2022-07-01 17:04] VITALS: BP 116/73; PULSE 70; PULSE 81; RESP 16; TEMP 36.7; O2SAT 97; BMI 31.0
--- NOTE | 2022-07-01 17:06 | PC.NURSE ---
Pt denies SI/HI/Worsening AH/VH from baseline. Admits to ETOH use. Pt changed over for safety and belongings locked up in [address]
[2022-07-01 17:11] VITALS: BP 116/73; PULSE 70; RESP 16
--- NOTE | 2022-07-01 18:09 | PC.NURSE ---
Contact made to recovery team about patient' increase in ETOH use and subsequent visits. Plan to have contact prior to d/c.
--- NOTE | 2022-07-01 19:09 | ED.GENADULT ---
HPI - General Adult General Chief complaint: ETOH/Substance Use Stated complaint: etoh Time Seen by Provider: 07/01/22 17:03 Source: patient Mode of arrival: ambulatory Limitations: no limitations History of Present Illness HPI narrative: 21-year-old female presents to ED for alcohol on breath. Patient admits to drinking 2 nips of alcohol. Patient denies any trauma. Patient states she is not suicidal homicidal. Patient denies taking any other drugs per Related Data Home Medications Medication Instructions Recorded Confirmed No Known Home Meds 06/26/22 07/01/22 Allergies Allergy/AdvReac Type Severity Reaction Status Date / Time No Known Allergies Allergy Verified 07/01/22 17:11 Review of Systems Review of Systems: Drinking alcohol Yes all other systems are reviewed and are negative PMFSH Past Medical History Medical History Asthma Bipolar 1 disorder Bipolar disorder Cannabis use disorder Schizophrenia Social History Social History Household Members: Family Household Members Other:: Mom, sister Housing: Apartment Housing Other:: Current living situation will change as the apt has be condemned Do you presently have visiting nurse or other home services: No Unable to assess alcohol history related to: Refusing to respond Alcohol intake: current Alcohol intake frequency: 3 or more drinks per day Alcohol type: hard liquor Patient Tobacco Use Status: Current everyday Tobacco user Tobacco use type: Cigarette Cigarette Packs Per Day: 1 Cigarettes Per Day: 2 Years Smoked: 1 Smoked in Last 30 Days: Yes e-Cigarette/Vaping Use: Never Used Second Hand Smoke Exposure: No Use of substances other than those prescribed or required for medical reasons: No Substance Use Type: Marijuana Advance Directives: No Advance Directives Information Provided: No service: No Sexual orientation: Don't Know Physical Exam ED Vital Signs: Vital Signs - 24 hr 07/01/22 17:04 07/01/22 17:11 Temperature 98.1 F Pulse Rate 70 70 Respiratory Rate 16 16 Blood Pressure 116/73 116/73 Pulse Oximetry 97 Oxygen Delivery Method Room Air BMI result Body Mass Index 31.0 Const Other: ALcohol on breath General: cooperative, healthy appearing, comfortable, no acute distress, well developed, alert, awake and Physically active Orientation/consciousness: oriented to person, oriented to place, oriented to time and patient oriented x3 HENMT Head: Yes normal to inspection, Yes No palpable skull fracture present, Yes normocephalic, Yes atraumatic and No abrasion Ears: hearing grossly normal bilaterally, external ears normal, TM's normal bilaterally, TM normal on the right, EAC's normal, mastoids normal and no periauricular adenopathy General nose exam: Normal external nose present, Normal nares present and No nasal polyps present Eyes General: appearance normal, both eyes and all related structures Neck Neck: Yes normal visual inspection, Yes full ROM, Yes no lymphadenopathy, Yes no meningeal signs, Yes trachea midline, Yes supple, No anterior neck swelling and No tender Chest Chest palpation & inspection: normal inspection of the chest and normal palpation of entire chest wall Resp Effort & Inspection: normal respiratory effort and able to speak in complete sentences Auscultation: clear to auscultation bilaterally Cardio Jugular venous distension: no JVD Heart sounds: S1 normal heart sound present and S2 normal heart sound present GI Inspection: Yes normal to inspection and No abdominal wall ecchymosis Palpation (GI): Soft to palpation, not firm, nontender, no guarding and not rigid General: No CVA tenderness and Yes no CVA tenderness Back/Spine/Pelvis Back: no CVA tenderness, No CVA tenderness and No back tenderness Skin General skin exam: no rashes or lesions noted and elasticity normal Neuro General: oriented to person, oriented to place, oriented to time, patient oriented x3, gait normal, tone normal, moves all extremities, Normal light touch and pain sensation, no meningeal signs, no focal motor deficits, CN's II-XI intact bilaterally and normal sensation to monofilament Extrem General: Yes normal to inspection and Yes full ROM Psych Appearance: grossly normal, well kempt and not disheveled Course Course Course Narrative: Patient has alcohol on breath. No signs of trauma. Patient was sleep of alcohol per Reevaluation(s) Reevaluation #1: Patient alert oriented x3 and ready for discharge Time: 11:31 Medical Decision Making Medical Decision Making [facility] Narrative: 1-year-old female with alcohol on breath intoxicated drinking alcohol. No signs of trauma. Patient is safe to be discharged. Patient alert oriented x3 with normal gait Differential Diagnosis Differential Diagnoses: The differential diagnosis associated with the presentation includes (Alcohol intoxication. Substance abuse) Discharge Plan Discharge Clinical Impression: Alcohol use Patient Disposition: Home, Self-Care Instructions: Alcohol Intoxication (ED) Additional Instructions: You were seen in the ER for alcohol intoxication. He is followed with primary care provider. Return to the ED for any suicidal/homicidal ideation, abdominal pain, headache, chest pain, shortness of breath, vomiting, or any other concerning symptoms. Prescriptions: No Action No Known Home Meds Interventions: ED Discharge Assessment Last Done: 07/02/22 00:02 Print Language: Belarusian
--- NOTE | 2022-07-01 19:28 | PC.NURSE ---
This greeting card writer assumed care of this Pt at 1900. Pt awake sitting at edge of bed eating, Pt states Im ready to leave, I need my belongings . excellence coach notified and at bedside. Provider Ever dai.
--- NOTE | 2022-07-01 19:28 | MHC.RECOVSUP ---
? Reason for consult: Recovery Support o Current location: ED16? o Identified substance use concern: JOSE ? - Support ? Additional information:?Patient consult with the medical team before entry. Patient is not interested in support from the Field Foreman at this time.
== END 2022-07-02 01:55 | disposition home or self-care (01) ==
PROVIDERS: Emergency Provider Internal Medicine
DX: F10.10 Alcohol abuse, uncomplicated (principal); Y90.9 Presence of alcohol in blood, level not specified; F17.210 Nicotine dependence, cigarettes, uncomplicated; Z71.6 Tobacco abuse counseling
CPT/HCPCS: 99283; 99285

== ENCOUNTER 2022-07-08 21:39 | Emergency (ER) | payer MEDICAID, SELFPAY ==
--- NOTE | ~2022-07-08 | CT_ITS ---
EXAMINATION: CT HEAD WITHOUT CONTRAST CLINICAL INFORMATION: Fall. EtOH. COMPARISON: 10/07/2013 TECHNIQUE: Contiguous axial imaging was performed from the skull base to vertex without intravenous contrast. This CT examination was performed using dose optimization techniques as appropriate, variously including the following: * Automated exposure control * Adjustment of mA and/or kV according to patient size (this includes techniques or standardized protocols for targeted exams where dose is matched to indication/reason for exam; i.e. extremities or head) Use of iterative reconstruction technique DLP: 609 mGy-cm. FINDINGS: There is no evidence of acute intracranial hemorrhage or territorial infarction. No abnormal mass effect or midline shift is seen. [place] to white matter differentiation is well preserved. No extra-axial fluid collections are identified. No hydrocephalus. No significant volume loss. There is no abnormal attenuation within the brain parenchyma. The osseous structures and soft tissues are normal. The mastoid air cells and visualized portions of the paranasal sinuses are well aerated. CT/CT head/brain wo IV con IMPRESSION: No acute intracranial pathology.
--- NOTE | ~2022-07-08 | XR_ITS ---
EXAMINATION: XR CHEST CLINICAL INFORMATION: Fall, chest trauma COMPARISON: 02/17/2022 TECHNIQUE: Frontal view of the chest was obtained. FINDINGS: The lungs are hypoinflated and appear clear without focal consolidation. No evidence of pneumothorax, pleural effusion, or pulmonary edema. The cardiomediastinal contour is unremarkable. No acute osseous findings are seen. XR/XR chest 1V IMPRESSION: Low lung volumes without acute findings.
[2022-07-08 21:56] VITALS: BP 122/80; PULSE 66; O2SAT 99
[2022-07-08 22:04] VITALS: PULSE 61; RESP 16; O2SAT 96; BMI 31.9
[2022-07-08 22:13] VITALS: BP 96/62; PULSE 62; RESP 17; TEMP 36.6; O2SAT 95
[2022-07-09 00:08] LABS: MANUAL DIFF FLAG NO
[2022-07-09 00:09] LABS: Basophils Absolute Auto 0.1 X10*3/uL (0.0-0.2); Basophils Percent Auto 0.6 % (0-2); Eosinophils Absolute Auto 0.3 X10*3/uL (0.0-0.4); Eosinophils Percent Auto 2.8 % (0-4); Hematocrit 47.1 % (37.0-47.0); Hemoglobin 15.3 g/dl (12.0-16.0); Imm Gran Abs Auto 0.07 X10*3/uL (0.00-0.03); Imm Gran Pct Auto 0.7 % (0.0-0.4); Lymphocytes Absolute Auto 2.4 X10*3/uL (1.2-4.9); Lymphocytes Percent Auto 23.4 % (20-40); Mean Corpuscular HGB Conc 32.5 g/dl (31.0-35.0); Mean Corpuscular Volume 86.1 fL (80.0-98.0); Mean Platelet Volume 9.4 fL (9.4-12.3); Monocytes Absolute Auto 0.4 X10*3/uL (0.1-1.2); Monocytes Percent Auto 3.7 % (2-11); Neutrophils Absolute Auto 7.1 x10*3/uL (2.0-8.3); Neutrophils Percent Auto 68.8 % (45-73); Platelet Count 246 X10*3/uL (160-400); Red Blood Count 5.47 X10*6/uL (4.20-5.50); Red Cell Distribution Width 14.2 % (11.0-16.0); White Blood Count 10.4 X10*3/uL (4.8-10.8)
--- NOTE | 2022-07-09 00:22 | PC.NURSE ---
patient ambulatory to and from bathroom with steady gait, requesting sandwich and fuentes pierre
[2022-07-09 00:25] LABS: Ethanol 138 mg/dL
--- NOTE | 2022-07-09 00:25 | ED.ALCOHOL ---
HPI - Alcohol General Chief Complaint: ETOH/Substance Use Stated Complaint: ETOH Time Seen by Provider: 07/08/22 21:57 Source: patient and EMS Mode of arrival: EMS Limitations: other (Patient very intoxicated) History of Present Illness HPI narrative: 21-year-old female history of cannabis use disorder, schizoaffective disorder bipolar type and alcohol abuse presents for evaluation of acute alcohol intoxication was found on the ground in the rain, drinking. Was brought in by EMS. Not suicidal not homicidal. Patient too intoxicated to provide me with a history and unable to answer my review of systems. No evidence of trauma on exam. Patient appears comfortable. Related Data Home Medications Medication Instructions Recorded Confirmed No Known Home Meds 06/26/22 07/01/22 Allergies Allergy/AdvReac Type Severity Reaction Status Date / Time No Known Allergies Allergy Verified 07/01/22 17:11 Review of Systems Review of Systems: Yes Unobtainable due to mental status PMFSH Past Medical History Attestation statement: The following information was validated with the patient. Source: old records reviewed and nursing notes reviewed Medical History Asthma Bipolar 1 disorder Bipolar disorder Cannabis use disorder Schizophrenia Social History Social History Household Members: Family Household Members Other:: Mom, sister Housing: Apartment Housing Other:: Current living situation will change as the apt has be condemned Do you presently have visiting nurse or other home services: No Unable to assess alcohol history related to: Refusing to respond Alcohol intake: current Alcohol intake frequency: 3 or more drinks per day Alcohol type: hard liquor Patient Tobacco Use Status: Current everyday Tobacco user Tobacco use type: Cigarette Cigarette Packs Per Day: 1 Cigarettes Per Day: 2 Years Smoked: 1 e-Cigarette/Vaping Use: Never Used Second Hand Smoke Exposure: No Substance Use Type: Marijuana Advance Directives: No Advance Directives Information Provided: No service: No Sexual orientation: Don't Know Physical Exam ED Vital Signs: Vital Signs - 24 hr 07/08/22 22:04 07/08/22 22:13 07/09/22 01:10 Temperature 97.8 F Pulse Rate 61 62 68 Respiratory Rate 16 17 16 Blood Pressure 96/62 94/56 L Pulse Oximetry 96 95 98 Oxygen Delivery Method Room Air Room Air Room Air BMI result Body Mass Index 31.9 Vital signs stable Appearance: Alert.? Oriented X3.? No acute distress.? Head: Normocephalic, atraumatic, no step-offs or deformities Eyes: Pupils equal, round and reactive to light.? Neck: Normal inspection.? Neck supple.? CVS: Normal heart rate and rhythm.? Pulses normal.? Respiratory: No respiratory distress.? Breath sounds normal.? Abdomen: Soft and nontender.? Skin: Skin warm and dry.? Normal skin color.? Normal skin turgor.? Extremities: No lower extremity edema.? No calf ttp. 5/5 strength to bilateral upper and lower extremities Neuro: Oriented X 3.? No motor deficit.? No sensory deficit. CN 2-12 intact Course Reevaluation(s) Reevaluation #1: CBC within normal limits. Chemistry without acute findings requiring intervention. Beta-hCG negative. Ethanol level 138. Head CT is no acute findings. Chest x-ray unremarkable. At this time patient will be placed in observation to allow more time for sobriety and safe ride home. Is not interested in detox. Denies SI and HI. Time: 01:35 Medical Decision Making Medical Decision Making MDM Narrative: 21-year-old female presents with acute alcohol intoxication. Unable to answer questions. Physical exam patient very intoxicated however alert and oriented x3. Likely alcohol intoxication versus polysubstance abuse. Unlikely stroke, posterior stroke, intracranial hemorrhage. Will rule out electrolyte abnormalities in UTI. Plan labs, medical clearance and head CT Differential Diagnosis Differential Diagnoses: The differential diagnosis associated with the presentation includes Likely alcohol intoxication versus polysubstance abuse. Unlikely stroke, posterior stroke, intracranial hemorrhage. Will rule out electrolyte abnormalities in UTI. Admission/Observation Consideration of admission/observation: Escalation of care including admission/observation considered Lab Data [facility] Lab Attestation statement: I reviewed the patient's lab results. 07/09/22 00:03 07/09/22 00:03 Labs: Lab Results 07/09/22 07/09/22 07/09/22 Range/Units 00:03 00:03 00:03 WBC 10.4 (4.8-10.8) X10*3/uL RBC 5.47 (4.20-5.50) X10*6/uL Hgb 15.3 (12.0-16.0) g/dl Hct 47.1 H (37.0-47.0) % MCV 86.1 (80.0-98.0) fL MCH 28.0 (27.0-33.0) pg MCHC 32.5 (31.0-35.0) g/dl RDW 14.2 (11.0-16.0) % Plt Count 246 (160-400) X10*3/uL MPV 9.4 (9.4-12.3) fL Immature Gran % (Auto) 0.7 H (0.0-0.4) % Neut % (Auto) 68.8 (45-73) % Lymph % (Auto) 23.4 (20-40) % [place] % (Auto) 3.7 (2-11) % Eos % (Auto) 2.8 (0-4) % Baso % (Auto) 0.6 (0-2) % Lymph # (Auto) 2.4 (1.2-4.9) X10*3/uL [place] # (Auto) 0.4 (0.1-1.2) X10*3/uL Eos # (Auto) 0.3 (0.0-0.4) X10*3/uL Baso # (Auto) 0.1 (0.0-0.2) X10*3/uL Abs Immat Gran (auto) 0.07 H (0.00-0.03) X10*3/uL Absolute Neuts (auto) 7.1 (2.0-8.3) x10*3/uL Absolute Nucleated RBC 0.000 (0.0-0.012) X10*3/uL Nucleated RBC % (auto) 0.0 (0.0-0.2) /100WBC Sodium 143 (135-145) mmol/L Potassium 4.1 (3.3-5.1) mmol/L Chloride 113 H (96-108) mmol/L Carbon Dioxide 22 (22-29) mmol/L Anion Gap 12 (12-20) BUN 11 (9-16) mg/dL Creatinine 0.70 (0.5-1.4) mg/dL Estim Creat Clear Calc 153.3 Estimated GFR > 60 Random Glucose 84 (60-115) mg/dL Calcium 9.2 (8.4-10.2) mg/dL Total Bilirubin 0.2 (0.0-1.0) mg/dL AST 14 (5-31) U/L ALT 14 (0-31) U/L Alkaline Phosphatase 67 (39-117) U/L Total Protein 7.1 (6.5-8.0) g/dL Albumin 3.9 (3.5-5.0) g/dL Beta HCG, Quant < 2 mIU/mL Ethyl Alcohol 138 mg/dL Core Measures AMI core measures followed: Yes Measure exclusions: not indicated Critical Care Time Critical Care Time Critical Care Time: No Discharge Plan Discharge Clinical Impression: Cannabis use disorder, Alcoholic intoxication Patient Disposition: Still a Patient Prescriptions: No Action No Known Home Meds
[2022-07-09 00:35] LABS: Alanine Aminotransferase 14 U/L (0-31); Albumin Level 3.9 g/dL (3.5-5.0); Alkaline Phosphatase 67 U/L (39-117); Anion Gap 12 (12-20); Aspartate Amino Transferase 14 U/L (5-31); Bilirubin Total 0.2 mg/dL (0.0-1.0); Blood Urea Nitrogen 11 mg/dL (9-16); Calcium 9.2 mg/dL (8.4-10.2); Carbon Dioxide 22 mmol/L (22-29); Chloride 113 mmol/L (96-108); Creatinine Clr Calc Pharmacy 153.3; Estimated Glomerular Filt Rate > 60; Glucose Random 84 mg/dL (60-115); HCG Quantitative < 2 mIU/mL; Potassium 4.1 mmol/L (3.3-5.1); Sodium 143 mmol/L (135-145); Total Protein 7.1 g/dL (6.5-8.0)
[2022-07-09 01:10] VITALS: BP 94/56; PULSE 68; RESP 16; O2SAT 98
[2022-07-09 03:23] VITALS: RESP 16
--- NOTE | 2022-07-09 05:39 | PC.NURSE ---
pt sleeping comfortably on stretcher, respirations even and unlabored, no apparent distress. call vasquez within reach. will CTM
[2022-07-09 06:18] VITALS: BP 131/78; PULSE 74; RESP 16; TEMP 36.4; O2SAT 96
--- NOTE | 2022-07-09 08:32 | PC.NURSE ---
pt sleeping but easily arousable, respirations even and unlabored, skin appropriate for ethnicity, pt reports being ready to go to home-phone provided to call for a ride home
[2022-07-09 08:38] VITALS: BP 86/64; PULSE 68; RESP 18; TEMP 36.3; O2SAT 97
== END 2022-07-09 09:17 | disposition home or self-care (01) ==
PROVIDERS: Physician Assistant; Emergency Provider Internal Medicine
DX: F10.129 Alcohol abuse with intoxication, unspecified (principal); Y90.6 Blood alcohol level of 120-199 mg/100 ml; R51.9 Headache, unspecified; R07.89 Other chest pain; F12.19 Cannabis abuse with unspecified cannabis-induced disorder; F17.210 Nicotine dependence, cigarettes, uncomplicated; Z71.6 Tobacco abuse counseling; Z79.899 Other long term (current) drug therapy
CPT/HCPCS: 36415; 70450; 71045; 80053; 82077; 84702; 85025; 99285

== ENCOUNTER 2022-08-15 19:19 | Emergency (ER) | payer MEDICAID, SELFPAY ==
--- NOTE | 2022-08-15 19:32 | ED_ITS ---
HPI - General Adult General Chief complaint: General Medical Stated complaint: drowsy Related Data Previous Rx's Medication Instructions Recorded albuterol sulfate 90 mcg/actuation 2 puff inhalation RQ6H PRN 09/04/22 aerosol inhaler (Ventolin HFA) Wheezing 30 days #1 inhaler olanzapine 20 mg tablet 20 mg PO BEDTIME 30 days #30 tabs 09/04/22 Allergies Allergy/AdvReac Type Severity Reaction Status Date / Time No Known Allergies Allergy Verified 08/15/22 19:30 [facility] Past Medical History Medical History Asthma Bipolar 1 disorder Bipolar disorder Cannabis use disorder Schizophrenia Social History Social History Household Members: Family Household Members Other:: mother and sister - living in motel/ long term Housing: Other Housing Other:: long term Do you presently have visiting nurse or other home services: No Unable to assess alcohol history related to: Refusing to respond Alcohol intake: current Alcohol intake frequency: 3 or more drinks per day Alcohol type: hard liquor Patient Tobacco Use Status: Current everyday Tobacco user Tobacco use type: Cigarette Cigarette Packs Per Day: 1 Cigarettes Per Day: 3 Years Smoked: 1 e-Cigarette/Vaping Use: Never Used Second Hand Smoke Exposure: No Substance Use Type: Marijuana service: No Sexual orientation: Don't Know Physical Exam ED Vital Signs: BMI result Body Mass Index 34.8 Course Course Course Narrative: 22-year-old female with past medical history significant for alcohol abuse, schizoaffective disorder, bipolar type presents for evaluation of ?drowsiness. ? Patient has no complaints. She admits to using marijuana today. Plan for labs and drug screen Medical Decision Making Lab Data 08/15/22 19:54 08/15/22 19:54 Labs: Lab Results 08/15/22 Range/Units 19:54 WBC 9.9 (4.8-10.8) X10*3/uL RBC 5.14 (4.20-5.50) X10*6/uL Hgb 14.4 (12.0-16.0) g/dl Hct 44.4 (37.0-47.0) % MCV 86.4 (80.0-98.0) fL MCH 28.0 (27.0-33.0) pg MCHC 32.4 (31.0-35.0) g/dl RDW 14.0 (11.0-16.0) % Plt Count 228 (160-400) X10*3/uL MPV 9.5 (9.4-12.3) fL Immature Gran % (Auto) 0.3 (0.0-0.4) % Neut % (Auto) 64.9 (45-73) % Lymph % (Auto) 27.9 (20-40) % [place] % (Auto) 5.2 (2-11) % Eos % (Auto) 1.3 (0-4) % Baso % (Auto) 0.4 (0-2) % Lymph # (Auto) 2.8 (1.2-4.9) X10*3/uL [place] # (Auto) 0.5 (0.1-1.2) X10*3/uL Eos # (Auto) 0.1 (0.0-0.4) X10*3/uL Baso # (Auto) 0.0 (0.0-0.2) X10*3/uL Abs Immat Gran (auto) 0.03 (0.00-0.03) X10*3/uL Absolute Neuts (auto) 6.4 (2.0-8.3) x10*3/uL Absolute Nucleated RBC 0.000 (0.0-0.012) X10*3/uL Nucleated RBC % (auto) 0.0 (0.0-0.2) /100WBC Sodium 143 (135-145) mmol/L Potassium 3.8 (3.3-5.1) mmol/L Chloride 112 H (96-108) mmol/L Carbon Dioxide 21 L (22-29) mmol/L Anion Gap 14 (12-20) BUN 13 (9-16) mg/dL Creatinine 0.79 (0.5-1.4) mg/dL Estim Creat Clear Calc 145.4 Estimated GFR > 60 Random Glucose 89 (60-115) mg/dL Calcium 9.5 (8.4-10.2) mg/dL Total Bilirubin 0.2 (0.0-1.0) mg/dL AST 16 (5-31) U/L ALT 19 (0-31) U/L Alkaline Phosphatase 93 (39-117) U/L Total Protein 7.4 (6.5-8.0) g/dL Albumin 4.0 (3.5-5.0) g/dL Lipase 18 (8-78) U/L Urine Opiates Screen Not Detected (Not Detect) Urine Fentanyl Screen Not Detected (Not Detect) Ur Barbiturates Screen Not Detected (Not Detect) Ur Phencyclidine Scrn Not Detected (Not Detect) Ur Amphetamines Screen Not Detected (Not Detect) U Benzodiazepines Scrn Not Detected (Not Detect) Urine Cocaine Screen Not Detected (Not Detect) U Marijuana (THC) Screen POSITIVE H (Not Detect) Ethyl Alcohol 167 mg/dL Discharge Plan Discharge Clinical Impression: Schizoaffective disorder, bipolar type Patient Disposition: Elopement Prescriptions: No Action albuterol sulfate [Ventolin HFA] 90 mcg/actuation Hfa Aerosol Inhaler 2 puff inhalation RQ6H PRN (Reason: Wheezing) 30 Days Qty: 1 0RF olanzapine 20 mg tablet 20 mg PO BEDTIME 30 Days Qty: 30 0RF Discharge Date/Time: 08/15/22 20:35
[2022-08-15 19:37] VITALS: BP 107/73; PULSE 99; RESP 17; TEMP 35.8; O2SAT 96; BMI 34.8
[2022-08-15 20:00] LABS: MANUAL DIFF FLAG NO
[2022-08-15 20:02] LABS: Basophils Percent Auto 0.4 % (0-2); Eosinophils Absolute Auto 0.1 X10*3/uL (0.0-0.4); Eosinophils Percent Auto 1.3 % (0-4); Hematocrit 44.4 % (37.0-47.0); Hemoglobin 14.4 g/dl (12.0-16.0); Imm Gran Abs Auto 0.03 X10*3/uL (0.00-0.03); Imm Gran Pct Auto 0.3 % (0.0-0.4); Lymphocytes Absolute Auto 2.8 X10*3/uL (1.2-4.9); Lymphocytes Percent Auto 27.9 % (20-40); Mean Corpuscular HGB Conc 32.4 g/dl (31.0-35.0); Mean Corpuscular Volume 86.4 fL (80.0-98.0); Mean Platelet Volume 9.5 fL (9.4-12.3); Monocytes Absolute Auto 0.5 X10*3/uL (0.1-1.2); Monocytes Percent Auto 5.2 % (2-11); Neutrophils Absolute Auto 6.4 x10*3/uL (2.0-8.3); Neutrophils Percent Auto 64.9 % (45-73); Platelet Count 228 X10*3/uL (160-400); Red Blood Count 5.14 X10*6/uL (4.20-5.50); White Blood Count 9.9 X10*3/uL (4.8-10.8)
[2022-08-15 20:15] LABS: Amphetamine Screen Urine Not Detected (Not Detect); Barbiturates, Urine Not Detected (Not Detect); Benzodiazepines Screen Urine Not Detected (Not Detect); Cannabinoid Screen Urine POSITIVE (Not Detect); Cocaine Screen Urine Not Detected (Not Detect); Fentanyl, urine Not Detected (Not Detect); Opiate Screen Urine Not Detected (Not Detect); Phencyclidine Screen Urine Not Detected (Not Detect)
[2022-08-15 20:20] LABS: Alanine Aminotransferase 19 U/L (0-31); Alkaline Phosphatase 93 U/L (39-117); Anion Gap 14 (12-20); Aspartate Amino Transferase 16 U/L (5-31); Bilirubin Total 0.2 mg/dL (0.0-1.0); Blood Urea Nitrogen 13 mg/dL (9-16); Calcium 9.5 mg/dL (8.4-10.2); Carbon Dioxide 21 mmol/L (22-29); Chloride 112 mmol/L (96-108); Creatinine Clr Calc Pharmacy 145.4; Estimated Glomerular Filt Rate > 60; Ethanol 167 mg/dL; Glucose Random 89 mg/dL (60-115); Lipase 18 U/L (8-78); Potassium 3.8 mmol/L (3.3-5.1); Sodium 143 mmol/L (135-145); Total Protein 7.4 g/dL (6.5-8.0)
== END 2022-08-15 20:35 | disposition left against medical advice (07) ==
PROVIDERS: Physician Assistant; Emergency Provider Emergency Medicine
DX: R40.0 Somnolence (principal); F12.90 Cannabis use, unspecified, uncomplicated; F10.10 Alcohol abuse, uncomplicated; Y90.6 Blood alcohol level of 120-199 mg/100 ml; F25.0 Schizoaffective disorder, bipolar type; F17.210 Nicotine dependence, cigarettes, uncomplicated
CPT/HCPCS: 36415; 80053; 80307; 83690; 85025; 99282; 99283

== ENCOUNTER 2022-09-02 12:37 | Inpatient (IN) | payer OTHER, SELFPAY ==
--- NOTE | 2022-09-02 13:09 | P.CONHOSP_ITS ---
History of Present Illness Data of Consult Service Date: 09/02/22 Primary Care Provider: Suzan Conde MD [facility] Reason for consult: Admission H&P Pt is a 22-year-old female with a PMH significant for?asthma, marijuana use disorder, and schizoaffective disorder bipolar type who is admitted to psychiatry unit for evaluation of acute psychosis. Medical consult for admission H&P. Records indicate that patient was complaining of lightheadedness earlier while at [facility], but the patient says she is currently feeling better. Has no acute medical complaints. Denies fever, chills, nausea, vomiting, abdominal pain, diarrhea. No chest pain/pressure, palpitations. Denies shortness of breath. Patient states she smokes 3 cigarettes daily. Patient reports having asthma?but does not know the last time she used her inhaler. Review of Systems Review of Systems: Patient has no acute medical complaints at this time REPLACED BY [facility] Medical History Asthma Bipolar 1 disorder Bipolar disorder Cannabis use disorder Schizophrenia Social History Household Members: Family Household Members Other:: mother and sister - living in motel/ alf Housing: Other Housing Other:: alf Do you presently have visiting nurse or other home services: No Unable to assess alcohol history related to: Refusing to respond Alcohol intake: current Alcohol intake frequency: 3 or more drinks per day Alcohol type: hard liquor Patient Tobacco Use Status: Current everyday Tobacco user Tobacco use type: Cigarette Cigarette Packs Per Day: 1 Cigarettes Per Day: 3 Years Smoked: 1 Smoked in Last 30 Days: Yes e-Cigarette/Vaping Use: Never Used Patient Interested in Nicotine Replacement: Yes Patient Given Instructions on How to Stop Smoking: No Second Hand Smoke Exposure: No Use of substances other than those prescribed or required for medical reasons: Yes Substance Use Type: Marijuana Substance Use Frequency: Weekly Last Used Substance: Days (ago) Last Used Substance Other:: 2 Currently Displaying Signs/Symptoms of Drug Intoxication Withdrawal: No Any prior treatment program specific to substance use: No Have you been hit, kicked, punched, or otherwise hurt by someone within the past year? If so, by whom?: No Do you feel safe in your current relationship?: No Current Relationship Is there a partner from a previous relationship who is making you feel unsafe now?: No Are you made to feel afraid or neglected: No Advance Directives: No Advance Directives Information Provided: No Do you have thoughts of harming others: None Do you have a plan to hurt others: No Plan Recently lost weight without trying: No Eating poorly because of decreased appetite: No Nutrition Risks: No Nutritional Risk Patient : No : No Poor oral hygiene: No service: No Sexual orientation: Don't Know Meds Allergies Allergy/AdvReac Type Severity Reaction Status Date / Time No Known Allergies Allergy Verified 08/15/22 19:30 Active Medications: Current Medications Acetaminophen (Acetaminophen 325 Mg Tablet) 650 mg PO Q6H PRN PRN Reason: Headache/Pain Mild Scale (1-3) Al Hydroxide/Mg Hydroxide (Magnesium Hydrox/Alum Hydrox 30 Ml Oral.Susp) 30 ml PO Q6H PRN PRN Reason: Heartburn/Nausea Hydroxyzine HCl (Hydroxyzine Hcl 25 Mg Tablet) 25 mg PO Q6H PRN PRN Reason: Anxiety Magnesium Hydroxide (Milk Of Magnesia 30 Ml Oral.Susp) 30 ml PO DAILY PRN PRN Reason: Constipation Nicotine Polacrilex (Nicotine Polacrilex 2 Mg Gum) 4 mg BUCCAL Q2H PRN PRN Reason: Nicotine Cravings Trazodone HCl (Trazodone Hcl 50 Mg Tablet) 50 mg PO BEDTIME MRX1 PRN PRN Reason: Insomnia Home Medications Medication Instructions Recorded Confirmed Last Taken Type No Known Home Meds 06/26/22 07/01/22 Unknown History Physical Exam Vital Signs and Narrative: Constitutional: Alert, in no acute distress. Mental Status: Oriented to person, place and time. Eyes: Pupils are equal, round, and reactive to light. Ear, Nose, and Throat: Oropharynx clear, mucous membranes moist. Ears and nose without deformities. Trachea midline. Respiratory: Mild diffuse expiratory wheezing. Cardiovascular: S1, S2 regular. No murmurs, rubs, or gallops. Gastrointestinal: Abdomen soft, non-tender, non-distended. Normal bowel sounds. Neurologic: Cranial nerves II-XII are grossly intact bilaterally. No focal neurological deficits. Moves all extremities spontaneously. Skin: No rashes or lesions noted. Musculoskeletal: No cyanosis or clubbing. Extremities: No edema. Psychiatric: Slow to respond, occasional inappropriate giggling. Assessment and Plan (1) Routine history and physical examination of adult: Status: Acute Plan Pt is a 22-year-old female with a PMH significant for?asthma, marijuana use disorder, and schizoaffective disorder bipolar type who is admitted to [facility] sychiatry unit for evaluation of acute psychosis. Medical consult for admission H&P. Records indicate that patient was complaining of lightheadedness earlier while at [facility], but the patient says she is currently feeling better. Has no acute medical complaints. Mood disorder Plan as per Psychiatry Mild intermittent asthma Patient with mild wheezing on exam Albuterol inhaler p.r.n. Thank you for allowing us to participate in the care of this patient. Signing off at this time. Please let us know if there are any acute complaints or questions. Time Spent With Patient Time: Total time managing care of this patient today ____ minutes.
[2022-09-02 13:30] VITALS: BP 114/71; PULSE 87; RESP 16; TEMP 36.7; O2SAT 98
[2022-09-02 14:40] VITALS: BMI 35.6
--- NOTE | 2022-09-02 15:31 | PC.NURSE ---
Eleni was admitted to at 1245 from [facility] ED on CV for treatment of schizophrenia. She presented to [facility] ED with c/o dizziness but mother reported she was threatening to kill herself and talking to herself at home. Eleni signed a 3 day notice after arriving on the unit. Eleni has had multiple IPLOCs and has not followed through after discharge with outpt providers. She has been off all meds in the community. On arrival to the unit she is responding to internal stimuli but denies ah and vh. She exhibits thought blocking with delayed responses to questions and requests. She is alert, oriented to place but not day, date, time. Eleni is calm and cooperative with admission process including contraband check. She describes her mood as fine Affect is restricted for the most part. She has exhibited inappropriate laughter at times. She denies ideation, plan or intent to harm self or others. Appetite and sleep are good per patient report. Focus is fair. Substance Issues include 3 cigarettes per day, marijuana several times per week and alcohol weekly or less. Eleni continues to report dizziness. VSS. Hospitalist auscultated wheeze on physical exam. Eleni denies other physical complaint. Eleni is on 15 minute checks for safety. Eleni says her goal of admission is to restart zyprexa and get connected with supports in the community.
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
[2022-09-02 18:00] VITALS: BP 104/74; PULSE 68; RESP 18; TEMP 36.3; O2SAT 98
[2022-09-02] MEDS: OLANZapine 10 MG TABLET 20 MG PO (21:08)
[2022-09-03 08:15] VITALS: BP 108/68; PULSE 68; RESP 18; TEMP 36.7
[2022-09-03 09:01] LABS: MANUAL DIFF FLAG NO
[2022-09-03 09:08] LABS: Basophils Percent Auto 0.5 % (0-2); Eosinophils Absolute Auto 0.2 X10*3/uL (0.0-0.4); Eosinophils Percent Auto 2.7 % (0-4); Hematocrit 42.2 % (37.0-47.0); Hemoglobin 13.8 g/dl (12.0-16.0); Imm Gran Abs Auto 0.01 X10*3/uL (0.00-0.03); Imm Gran Pct Auto 0.2 % (0.0-0.4); Lymphocytes Absolute Auto 2.2 X10*3/uL (1.2-4.9); Lymphocytes Percent Auto 38.8 % (20-40); Mean Corpuscular HGB Conc 32.7 g/dl (31.0-35.0); Mean Corpuscular Hemoglobin 27.8 pg (27.0-33.0); Mean Corpuscular Volume 84.9 fL (80.0-98.0); Mean Platelet Volume 9.6 fL (9.4-12.3); Monocytes Absolute Auto 0.3 X10*3/uL (0.1-1.2); Monocytes Percent Auto 5.5 % (2-11); Neutrophils Percent Auto 52.3 % (45-73); Platelet Count 201 X10*3/uL (160-400); Red Blood Count 4.97 X10*6/uL (4.20-5.50); Red Cell Distribution Width 13.9 % (11.0-16.0); White Blood Count 5.6 X10*3/uL (4.8-10.8)
[2022-09-03 09:40] LABS: Estimated Average Glucose 94 mg/dL; Hemoglobin A1c % 4.9 %
[2022-09-03 10:09] LABS: Alanine Aminotransferase 14 U/L (0-31); Albumin Level 3.5 g/dL (3.5-5.0); Alkaline Phosphatase 69 U/L (39-117); Anion Gap 12 (12-20); Aspartate Amino Transferase 15 U/L (5-31); Bilirubin Direct 0.1 mg/dL (0.0-0.5); Bilirubin Total 0.4 mg/dL (0.0-1.0); Blood Urea Nitrogen 15 mg/dL (9-16); Calcium 9.5 mg/dL (8.4-10.2); Carbon Dioxide 23 mmol/L (22-29); Chloride 108 mmol/L (96-108); Cholesterol 207 mg/dL; Creatinine Clr Calc Pharmacy 163.1; Estimated Glomerular Filt Rate > 60; Glucose Fasting 85 mg/dL (60-99); HDL Cholesterol 49 mg/dL; LDL Cholesterol Calculated 136 mg/dl; Potassium 4.1 mmol/L (3.3-5.1); Sodium 139 mmol/L (135-145); Total Protein 6.7 g/dL (6.5-8.0); Triglycerides 112 mg/dL
[2022-09-03 10:26] LABS: Free T4 (Free Thyroxine) 0.91 ng/dL (0.71-1.85); Thyroid Stimulating Hormone 1.64 uIU/mL (0.32-4.0)
[2022-09-03 10:38] LABS: Folate 9.4 ng/mL (> or = 4.0); Vitamin B12 196 pg/mL (200-900)
--- NOTE | 2022-09-03 16:00 | P.PNPSI_ITS ---
Subjective Subjective Date of Service: 09/03/22 Reason For Visit: Unspecified Schizophrenia Interim History: increased RAF, thought-blocking, appearing distracted. standing and staring. s aying she wants to leave the hospital. denies any problems with meds. 3-day notice up wed. per staff, ate breakfast seated on the floor. otherwise no notable events. behaviors as described above. Mental Status Exam Mental Status Exam Narrative: dressed in hospital johnnies, unkempt. cooperative. general PMR. speech is soft, decr amount, incr latency, decr rate. thoughts linear and logical in response to questions, spontaneously bizarre and tangential. affect constricted, hypo-intense, non-labile. mood OK. no SI/HI/AVH expressed. Diagnostics Vital Signs (24Hr): Vital Signs - 24 hr 09/02/22 18:00 09/03/22 08:15 Temperature 97.4 F 98.1 F Pulse Rate 68 68 Respiratory Rate 18 18 Blood Pressure 104/74 108/68 Pulse Oximetry 98 Oxygen Delivery Method Room Air Room Air BMI result Body Mass Index 35.6 Labs 09/03/22 08:42 09/03/22 08:42 Labs: Laboratory Results - last 48 hr 09/03/22 09/03/22 09/03/22 08:42 08:42 08:42 WBC 5.6 RBC 4.97 Hgb 13.8 Hct 42.2 MCV 84.9 MCH 27.8 MCHC 32.7 RDW 13.9 Plt Count 201 MPV 9.6 Immature Gran % (Auto) 0.2 Neut % (Auto) 52.3 Lymph % (Auto) 38.8 [place] % (Auto) 5.5 Eos % (Auto) 2.7 Baso % (Auto) 0.5 Lymph # (Auto) 2.2 [place] # (Auto) 0.3 Eos # (Auto) 0.2 Baso # (Auto) 0.0 Abs Immat Gran (auto) 0.01 Absolute Neuts (auto) 3.0 Absolute Nucleated RBC 0.000 Nucleated RBC % (auto) 0.0 Sodium 139 Potassium 4.1 Chloride 108 Carbon Dioxide 23 Anion Gap 12 BUN 15 Creatinine 0.69 Estim Creat Clear Calc 163.1 Estimated GFR > 60 Fasting Glucose 85 Estimat Average Glucose 94 Hemoglobin A1c % 4.9 Calcium 9.5 Total Bilirubin 0.4 Direct Bilirubin 0.1 AST 15 ALT 14 Alkaline Phosphatase 69 Total Protein 6.7 Albumin 3.5 Triglycerides 112 Cholesterol 207 LDL Cholesterol, Calc 136 HDL Cholesterol 49 Vitamin B12 Folate TSH 1.64 Free T4 0.91 09/03/22 08:42 WBC RBC Hgb Hct MCV MCH MCHC RDW Plt Count MPV Immature Gran % (Auto) Neut % (Auto) Lymph % (Auto) [place] % (Auto) Eos % (Auto) Baso % (Auto) Lymph # (Auto) [place] # (Auto) Eos # (Auto) Baso # (Auto) Abs Immat Gran (auto) Absolute Neuts (auto) Absolute Nucleated RBC Nucleated RBC % (auto) Sodium Potassium Chloride Carbon Dioxide Anion Gap BUN Creatinine Estim Creat Clear Calc Estimated GFR Fasting Glucose Estimat Average Glucose Hemoglobin A1c % Calcium Total Bilirubin Direct Bilirubin AST ALT Alkaline Phosphatase Total Protein Albumin Triglycerides Cholesterol LDL Cholesterol, Calc HDL Cholesterol Vitamin B12 196 L Folate 9.4 TSH Free T4 Medications Medications Current Medications Acetaminophen (Acetaminophen 325 Mg Tablet) 650 mg PO Q6H PRN PRN Reason: Headache/Pain Mild Scale (1-3) Al Hydroxide/Mg Hydroxide (Magnesium Hydrox/Alum Hydrox 30 Ml Oral.Susp) 30 ml PO Q6H PRN PRN Reason: Heartburn/Nausea Albuterol Sulfate (Albuterol Sulfate 90 Mcg 8 Gm Inhaler) 2 puff INHALE RQ6H PRN PRN Reason: Wheezing Hydroxyzine HCl (Hydroxyzine Hcl 25 Mg Tablet) 25 mg PO Q6H PRN PRN Reason: Anxiety Magnesium Hydroxide (Milk Of Magnesia 30 Ml Oral.Susp) 30 ml PO DAILY PRN PRN Reason: Constipation Nicotine Polacrilex (Nicotine Polacrilex 2 Mg Gum) 4 mg BUCCAL Q2H PRN PRN Reason: Nicotine Cravings Olanzapine (Olanzapine 10 Mg Tablet) 20 mg PO BEDTIME BELA Last Admin: 09/02/22 21:08 Dose: 20 mg Trazodone HCl (Trazodone Hcl 50 Mg Tablet) 50 mg PO BEDTIME MRX1 PRN PRN Reason: Insomnia Allergies Allergies Allergy/AdvReac Type Severity Reaction Status Date / Time No Known Allergies Allergy Verified 08/15/22 19:30 Assessment & Plan Assessment & Plan (1) Schizoaffective disorder, bipolar type: Status: Acute Code(s): F25.0 - Schizoaffective disorder, bipolar type (2) Cannabis use disorder: Status: Acute Code(s): F12.90 - Cannabis use, unspecified, uncomplicated (3) Tobacco abuse disorder: Status: Acute Code(s): Z72.0 - Tobacco use (4) Routine history and physical examination of adult: Status: Acute Code(s): Z00.00 - Encounter for general adult medical examination without abnormal findings Plan 09/02: start zyprexa 20 mg QHS per pt request. T/C mood stabilizer as clinically indicated. 09/03: maringal improvement from yesterday. med-compliant. 3-day up . continue current mgmt. Reason for continued inpatient stay Substantial Risk for: inability to function and rapid decompensation Time Spent With Patient Time: Total time managing care of this patient today ____ minutes.
[2022-09-03 20:15] VITALS: BP 137/72; PULSE 64; RESP 18; TEMP 36.6; O2SAT 99
[2022-09-03] MEDS: OLANZapine 10 MG TABLET 20 MG PO (20:57)
[2022-09-04 09:19] VITALS: BP 107/72; PULSE 68; RESP 20; TEMP 36.8; O2SAT 98
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
[2022-09-04] MEDS: OLANZapine 10 MG TABLET 20 MG PO (20:30)
[2022-09-04 20:32] VITALS: BP 113/64; PULSE 72; TEMP 36.4; O2SAT 97
[2022-09-05 08:00] VITALS: BP 112/71; PULSE 93; RESP 18; TEMP 36.7; O2SAT 98
--- NOTE | 2022-09-05 16:05 | PC.NURSE ---
0936 Pt is ready and aware of discharge. She denies SI/Hi/AH/VH at this time. Discharged instructions reviewed with Pt she verbalized understanding. She was escorted to front lobby where her mother picked her up.
== END 2022-09-05 15:45 | disposition home or self-care (01) | DRG 750 ==
PROVIDERS: Admitting Provider Psychiatry & Neurology Psychiatry; PCP Family Medicine; Visit Provider Psychiatry & Neurology Psychiatry
DX: F25.0 Schizoaffective disorder, bipolar type (principal); F12.10 Cannabis abuse, uncomplicated; F17.210 Nicotine dependence, cigarettes, uncomplicated; J45.909 Unspecified asthma, uncomplicated; Z71.6 Tobacco abuse counseling; Z79.899 Other long term (current) drug therapy
CPT/HCPCS: 36415; 80053; 80061; 80076; 82607; 82746; 83036; 84439; 84443; 85025

== ENCOUNTER 2022-12-11 16:37 | Emergency (ER) | payer MEDICAID, SELFPAY ==
--- NOTE | 2022-12-11 16:52 | ED.GENADULT ---
HPI - General Adult General Chief complaint: Dizziness Stated complaint: Dizziness Time Seen by Provider: 12/11/22 17:18 Source: patient, RN notes reviewed and old records reviewed History of Present Illness HPI narrative: 22-year-old female with a past medical history of cannabis use disorder, schizoaffective bipolar type, ETOH abuse, presenting to the ED requesting blood work due to feeling lightheaded x 2 days. Denies symptoms at present, reports she is back at baseline. Denies other associated symptoms including headache, neck/back pain, CP/SOB, abdominal pain, nausea/vomiting, numbness/tingling, denies room spinning dizziness. Admits to ETOH use, about 3 nips daily, last drink yesterday. Denies drug use. Onset (ago): day(s) Related Data Previous Rx's Medication Instructions Recorded albuterol sulfate 90 mcg/actuation 2 puff inhalation RQ6H PRN 09/04/22 aerosol inhaler (Ventolin HFA) Wheezing 30 days #1 inhaler olanzapine 20 mg tablet 20 mg PO BEDTIME 30 days #30 tabs 09/04/22 Allergies Allergy/AdvReac Type Severity Reaction Status Date / Time No Known Allergies Allergy Verified 12/11/22 16:55 Review of Systems Review of Systems: Constitutional: No Fever, No Chills,No Fatigue, No Malaise ENT/Mouth: No Ear Pain, No Nasal Congestion, No sore throat, No Rhinorrhea, No Swallowing Difficulty Eyes: No Eye Pain, No Swelling, No Redness, No Vision Changes Cardiovascular: No Chest Pain, No SOB Respiratory: No Cough, No Sputum, No Dyspnea Gastrointestinal: No Nausea, No Vomiting, No Abdominal pain Genitourinary: No Dysuria, No Urinary Frequency, No Hematuria, No Flank Pain Musculoskeletal: No joint pain, No Myalgias, No Joint Swelling Skin: No Skin Lesions, No rash Neuro: No Weakness, No Numbness, No Paresthesias, No Loss of Consciousness, + lightheaded, No Headache Yes all other systems are reviewed and are negative; No Other Constitutional: Constitutional: Reports as per HPI Neurologic: Denies Abnormal speech present [facility] Past Medical History Attestation statement: The following information was validated with the patient. Source: old records reviewed Medical History Routine history and physical examination of adult Cannabis use disorder Bipolar disorder Schizophrenia Bipolar 1 disorder Asthma Social History Social History Household Members: Family Household Members Other:: mother and sister - living in motel/ [facility] Housing: Other Housing Other:: [facility] Do you presently have visiting nurse or other home services: No Unable to assess alcohol history related to: Refusing to respond Alcohol intake: current Alcohol intake frequency: 3 or more drinks per day Alcohol type: hard liquor Patient Tobacco Use Status: Current everyday Tobacco user Tobacco use type: Cigarette Cigarette Packs Per Day: 1 Cigarettes Per Day: 3 Years Smoked: 1 e-Cigarette/Vaping Use: Never Used Second Hand Smoke Exposure: No Substance Use Type: Marijuana Advance Directives: No Advance Directives Information Provided: No service: No Sexual orientation: Don't Know Physical Exam ED Vital Signs: Vital Signs - 24 hr 12/11/22 16:55 12/11/22 18:08 12/11/22 18:08 Temperature 96.5 F L Pulse Rate 89 83 83 Respiratory Rate 18 13 Blood Pressure 132/85 114/78 114/78 Pulse Oximetry 96 97 Oxygen Delivery Method Room Air Room Air 12/11/22 18:09 12/11/22 18:09 Temperature Pulse Rate 92 100 Respiratory Rate Blood Pressure 113/79 124/81 Pulse Oximetry Oxygen Delivery Method BMI result Body Mass Index 32.5 Const General: cooperative, healthy appearing, no acute distress, alert and awake Orientation/consciousness: patient oriented x3 Limitations: no limitations HENMT Head: Yes normal to inspection and Yes atraumatic Ears: hearing grossly normal bilaterally General nose exam: Normal external nose present Face and sinus: Yes normal facial exam Throat: Yes posterior oropharynx normal Eyes General: appearance normal, both eyes and all related structures EOM: EOMs intact bilaterally Neck Neck: Yes normal visual inspection and Yes no meningeal signs Resp Effort & Inspection: normal respiratory effort and no respiratory distress Auscultation: clear to auscultation bilaterally, no crackles and no wheezes Cardio Rate: regular rate Heart sounds: S1 normal heart sound present and S2 normal heart sound present GI Inspection: Yes normal to inspection Palpation (GI): Soft to palpation, nontender, no guarding and not rigid Skin Rashes: no rashes Wounds: no wounds Neuro General: patient oriented x3, gait normal, tone normal, moves all extremities, no meningeal signs, no focal motor deficits and CN's II-XI intact bilaterally Cranial nerves: Yes CN's II-XII intact bilaterally Cognition (Neuro): normal cognition Speech: No Abnormal speech present Gait exam (Neuro): Normal gait present Motor exam (neuro): 5/5 motor strength present throughout, no tremor noted and no asterixis Extrem General: Yes normal to inspection Course Course Course Narrative: This is an RME: Additional HPI, ROS, PE not included below will be deferred to primary provider. 22 y o female presenting for request of blood work. States she feels a little dizzy x2 days. History of alcohol use disorder, last drink yesterday, states she has been cutting back. No CP, SOB, nausea, syncope, numbness/tingling Plan -- labs, EKG -1742--mild leukocytosis of 11.7. H&H stable -1802--labs otherwise unremarkable. UA not infected. negative. Ethanol negative -orthostatic vital signs negative Results discussed with patient including worrisome signs and symptoms and strict return precautions, and when to return to the emergency department. They verbalized understanding and feel safe for discharge at this time. Medical Decision Making Medical Decision Making MDM Narrative: 22-year-old female with a past medical history of cannabis use disorder, schizoaffective bipolar type, ETOH abuse, presenting to the ED requesting blood work due to feeling lightheaded x 2 days. On exam vital signs stable, NAD, nontoxic appearing, ambulating with steady gait, no focal neuro deficits, lungs CTA. Patient is asymptomatic at present. Concern for ETOH abuse. Rule out and metabolic abnormalities. Lower suspicion for infectious etiology. Unlikely CVA/TIA Plan: Labs, tox screen, UA, test, orthostatics Please refer to course for remaining clinical decision making, interpretation of labs/imaging results, and discussions with consultants and/or family members. Differential Diagnosis Differential Diagnoses: The differential diagnosis associated with the presentation includes As above Admission/Observation Consideration of admission/observation: Escalation of care including admission/observation considered Lab Data [facility] Lab Attestation statement: I reviewed the patient's lab results. 12/11/22 17:22 12/11/22 17:22 Labs: Lab Results 12/11/22 12/11/22 Range/Units 17:22 17:38 WBC 11.7 H (4.8-10.8) X10*3/uL RBC 5.54 H (4.20-5.50) X10*6/uL Hgb 15.6 (12.0-16.0) g/dl Hct 47.3 H (37.0-47.0) % MCV 85.4 (80.0-98.0) fL MCH 28.2 (27.0-33.0) pg MCHC 33.0 (31.0-35.0) g/dl RDW 15.1 (11.0-16.0) % Plt Count 243 (160-400) X10*3/uL MPV 9.8 (9.4-12.3) fL Immature Gran % (Auto) 0.5 H (0.0-0.4) % Neut % (Auto) 67.5 (45-73) % Lymph % (Auto) 23.4 (20-40) % [place]ombs % (Auto) 6.3 (2-11) % Eos % (Auto) 2.0 (0-4) % Baso % (Auto) 0.3 (0-2) % Lymph # (Auto) 2.7 (1.2-4.9) X10*3/uL [place] # (Auto) 0.7 (0.1-1.2) X10*3/uL Eos # (Auto) 0.2 (0.0-0.4) X10*3/uL Baso # (Auto) 0.0 (0.0-0.2) X10*3/uL Abs Immat Gran (auto) 0.06 H (0.00-0.03) X10*3/uL Absolute Neuts (auto) 7.9 (2.0-8.3) x10*3/uL Absolute Nucleated RBC 0.000 (0.0-0.012) X10*3/uL Nucleated RBC % (auto) 0.0 (0.0-0.2) /100WBC Sodium 141 (135-145) mmol/L Potassium 3.8 (3.3-5.1) mmol/L Chloride 109 H (96-108) mmol/L Carbon Dioxide 22 (22-29) mmol/L Anion Gap 14 (12-20) BUN 12 (9-16) mg/dL Creatinine 0.79 (0.5-1.4) mg/dL Estim Creat Clear Calc 140.4 Estimated GFR > 60 Random Glucose 90 (60-115) mg/dL Calcium 10.2 D (8.4-10.2) mg/dL Total Bilirubin 0.5 (0.0-1.0) mg/dL AST 27 (5-31) U/L ALT 27 (0-31) U/L Alkaline Phosphatase 77 (39-117) U/L Total Protein 8.0 (6.5-8.0) g/dL Albumin 4.3 (3.5-5.0) g/dL Lipase 15 (8-78) U/L Urine Color Dark Yellow Urine Appearance Clear Urine pH 6.5 (5.0-9.0) Ur Specific [place] >= 1.030 H (1.005-1.025) Urine Protein Trace (Neg-Trace) mg/dL Urine Glucose (UA) Negative (Negative) mg/dL Urine Ketones Trace (Negative) mg/dL Urine Blood Negative (Negative) Urine Nitrite Negative (Negative) Ur Leukocyte Esterase Trace H (Negative) Urine RBC 0-2 (0-2) /HPF Urine WBC 0-5 (0-5) /HPF Ur Squamous Epith Cells 6-10 (0-2) /HPF Urine Bacteria 3+ (None Seen) Hyaline Casts 0-2 (0-2) /LPF Urine Test NEGATIVE (NEGATIVE) Urine Opiates Screen Not Detected (Not Detect) Urine Fentanyl Screen Not Detected (Not Detect) Ur Barbiturates Screen Not Detected (Not Detect) Ur Phencyclidine Scrn Not Detected (Not Detect) Ur Amphetamines Screen Not Detected (Not Detect) U Benzodiazepines Scrn Not Detected (Not Detect) Urine Cocaine Screen Not Detected (Not Detect) U Marijuana (THC) Screen POSITIVE H (Not Detect) Ethyl Alcohol < 10 mg/dL Radiology Impression Discussion of test interpretation with radiology: I have reviewed the radiologist's reading. External Record Review External record reviewed: Inpatient record, Office record, Outpatient record, Prior outpatient labs, Prior outpatient radiology, Primary care record and Outside ED record Tests considered The following testing was considered but not selected: As above Chronic Conditions Patient?s care impacted by: Other Social Determinants Patient?s care significantly limited by Social Determinants of Health including: Inadequate housing, Low income, Alcoholism and drug addiction in family, Problems related to primary support group and Unemployment Discharge Plan Discharge Clinical Impression: Lightheadedness Patient Disposition: Home, Self-Care Instructions: Lightheadedness (ED) Additional Instructions: Your blood work and urine were reassuring Her was negative Please follow-up with her doctor Stay hydrated If symptoms persist or worsen return to the ED Prescriptions: No Action albuterol sulfate [Ventolin HFA] 90 mcg/actuation Hfa Aerosol Inhaler 2 puff inhalation RQ6H PRN (Reason: Wheezing) 30 Days Qty: 1 0RF olanzapine 20 mg tablet 20 mg PO BEDTIME 30 Days Qty: 30 0RF Referrals: [facility] [Primary Care Provider] -
[2022-12-11 16:55] VITALS: BP 132/85; PULSE 89; RESP 18; TEMP 35.8; O2SAT 96; BMI 32.5
--- NOTE | 2022-12-11 16:55 | ECG_ITS ---
Test Reason : dizziness Blood Pressure : / mmHG Vent. Rate : 087 BPM Atrial Rate : 087 BPM P-R Int : 152 ms QRS Dur : 078 ms QT Int : 354 ms P-R-T Axes : 028 076 024 degrees QTc Int : 425 ms Normal sinus rhythm Normal ECG When compared with ECG of 22-JUN-2022 01:33, No significant change was found Referred By: Dalia Montilla Electronically Signed By:ABE PRINCE
[2022-12-11 17:35] LABS: MANUAL DIFF FLAG NO
[2022-12-11 17:37] LABS: Basophils Percent Auto 0.3 % (0-2); Eosinophils Absolute Auto 0.2 X10*3/uL (0.0-0.4); Hematocrit 47.3 % (37.0-47.0); Hemoglobin 15.6 g/dl (12.0-16.0); Imm Gran Abs Auto 0.06 X10*3/uL (0.00-0.03); Imm Gran Pct Auto 0.5 % (0.0-0.4); Lymphocytes Absolute Auto 2.7 X10*3/uL (1.2-4.9); Lymphocytes Percent Auto 23.4 % (20-40); Mean Corpuscular Hemoglobin 28.2 pg (27.0-33.0); Mean Corpuscular Volume 85.4 fL (80.0-98.0); Mean Platelet Volume 9.8 fL (9.4-12.3); Monocytes Absolute Auto 0.7 X10*3/uL (0.1-1.2); Monocytes Percent Auto 6.3 % (2-11); Neutrophils Absolute Auto 7.9 x10*3/uL (2.0-8.3); Neutrophils Percent Auto 67.5 % (45-73); Platelet Count 243 X10*3/uL (160-400); Red Blood Count 5.54 X10*6/uL (4.20-5.50); Red Cell Distribution Width 15.1 % (11.0-16.0); White Blood Count 11.7 X10*3/uL (4.8-10.8)
[2022-12-11 17:48] LABS: UPreg QC Valid YES; Urine Pregnancy NEGATIVE (NEGATIVE)
[2022-12-11 17:49] LABS: Appearance Urine Clear; Color Urine Dark Yellow; Glucose Urine UA Negative (Negative); PH 6.5 (5.0-9.0)
[2022-12-11 17:50] LABS: Leukocyte Esterase Urine Trace (Negative); Nitrite Urine Negative (Negative); Specific Gravity - Urine >= 1.030 (1.005-1.025); UMIC TRIGGER UACC YES; Urine Blood Negative (Negative); Urine Ketones Trace mg/dL (Negative); Urine Protein Trace mg/dL (Neg-Trace)
[2022-12-11 17:55] LABS: Bacteria Urine 3+ (None Seen); Hyaline Casts Urine 0-2 /LPF (0-2); RBC Urine 0-2 /HPF (0-2); WBC Urine 0-5 /HPF (0-5)
[2022-12-11 17:55] LABS: Alanine Aminotransferase 27 U/L (0-31); Albumin Level 4.3 g/dL (3.5-5.0); Alkaline Phosphatase 77 U/L (39-117); Anion Gap 14 (12-20); Aspartate Amino Transferase 27 U/L (5-31); Bilirubin Total 0.5 mg/dL (0.0-1.0); Blood Urea Nitrogen 12 mg/dL (9-16); Calcium 10.2 mg/dL (8.4-10.2); Carbon Dioxide 22 mmol/L (22-29); Chloride 109 mmol/L (96-108); Creatinine Clr Calc Pharmacy 140.4; Estimated Glomerular Filt Rate > 60; Ethanol < 10 mg/dL; Glucose Random 90 mg/dL (60-115); Lipase 15 U/L (8-78); Potassium 3.8 mmol/L (3.3-5.1); Sodium 141 mmol/L (135-145)
[2022-12-11 18:08] VITALS: BP 114/78; PULSE 83; RESP 13; O2SAT 97
[2022-12-11 18:09] VITALS: BP 113/79; BP 124/81; PULSE 100; PULSE 92
[2022-12-11 18:10] LABS: Amphetamine Screen Urine Not Detected (Not Detect); Barbiturates, Urine Not Detected (Not Detect); Benzodiazepines Screen Urine Not Detected (Not Detect); Cannabinoid Screen Urine POSITIVE (Not Detect); Cocaine Screen Urine Not Detected (Not Detect); Fentanyl, urine Not Detected (Not Detect); Opiate Screen Urine Not Detected (Not Detect); Phencyclidine Screen Urine Not Detected (Not Detect)
[2022-12-11 18:27] VITALS: TEMP 36.1
--- NOTE | 2022-12-11 18:31 | PC.NURSE ---
aox4. reports no dizziness at this time. resting calmly. no distress. sitting on side of bed talking
== END 2022-12-11 18:33 | disposition home or self-care (01) ==
PROVIDERS: Physician Assistant; Emergency Provider Student in an Organized Health Care Education/Training Program
DX: R42 Dizziness and giddiness (principal); F17.210 Nicotine dependence, cigarettes, uncomplicated; F12.90 Cannabis use, unspecified, uncomplicated; F25.0 Schizoaffective disorder, bipolar type; Z79.899 Other long term (current) drug therapy
CPT/HCPCS: 36415; 80053; 80307; 81001; 81025; 83690; 85025; 93005; 99284; 99285

== ENCOUNTER 2023-02-03 12:11 | Emergency (ER) | payer MEDICAID, SELFPAY ==
[2023-02-03 13:07] VITALS: BP 125/87; PULSE 78; RESP 18; TEMP 36.9; O2SAT 98; BMI 36.7
--- NOTE | 2023-02-03 13:07 | ED_ITS ---
HPI - General Adult General Chief complaint: General Medical Stated complaint: Requesting blood work (?) Time Seen by Provider: 02/03/23 13:12 Source: patient, RN notes reviewed and old records reviewed Mode of arrival: ambulatory History of Present Illness HPI narrative: 22-year-old female with a past medical history of cannabis use disorder, schizoaffective bipolar type, ETOH abuse, presenting to the ED requesting blood work due to localized itching to right antecubital region. Admits recently had labs in our ED, and wants more labs to check rash. Denies recent/new exposures, tick/insect bites, known exposures, fever, chills, SOB, throat closing sensation. Related Data Previous Rx's Medication Instructions Recorded albuterol sulfate 90 mcg/actuation 2 puff inhalation RQ6H PRN 09/04/22 aerosol inhaler (Ventolin HFA) Wheezing 30 days #1 inhaler olanzapine 20 mg tablet 20 mg PO BEDTIME 30 days #30 tabs 09/04/22 hydrocortisone 1 % topical cream 1 appl topical BID PRN itching 02/03/23 (Anti-Itch (hydrocortisone)) #28.35 grams Allergies Allergy/AdvReac Type Severity Reaction Status Date / Time No Known Allergies Allergy Verified 12/11/22 16:55 Review of Systems Review of Systems: Constitutional: No Fever, No Chills ENT/Mouth: No Ear Pain, No Nasal Congestion, No Hoarseness, No sore throat, No Rhinorrhea, No Swallowing Difficulty Cardiovascular: No Chest Pain, No SOB Respiratory: No Cough, No Sputum, No Wheezing Gastrointestinal: No Nausea, No Vomiting, No Diarrhea, No Constipation, No Abdominal pain Musculoskeletal: No joint pain, No Myalgias, No Joint Swelling Skin: No Skin Lesions, +rash Neuro: No Weakness, No Numbness, No Paresthesias Yes all other systems are reviewed and are negative Constitutional: Constitutional: Reports as per [facility] Past Medical History Attestation statement: The following information was validated with the patient. Source: old records reviewed Medical History Routine history and physical examination of adult Cannabis use disorder Bipolar disorder Schizophrenia Bipolar 1 disorder Asthma Social History Household Members: Family Household Members Other:: mother and sister - living in motel/ residential Housing: Other Housing Other:: residential Do you presently have visiting nurse or other home services: No Unable to assess alcohol history related to: Refusing to respond Alcohol intake: current Alcohol intake frequency: 3 or more drinks per day Alcohol type: hard liquor Patient Tobacco Use Status: Current everyday Tobacco user Tobacco use type: Cigarette Cigarette Packs Per Day: 1 Cigarettes Per Day: 3 Years Smoked: 1 e-Cigarette/Vaping Use: Never Used Second Hand Smoke Exposure: No Substance Use Type: Marijuana Advance Directives: No Advance Directives Information Provided: No service: No Sexual orientation: Don't Know Physical Exam ED Vital Signs: Vital Signs - 24 hr 02/03/23 13:07 Temperature 98.4 F Pulse Rate 78 Respiratory Rate 18 Blood Pressure 125/87 Pulse Oximetry 98 Oxygen Delivery Method Room Air BMI result Body Mass Index 36.7 Const General: cooperative, healthy appearing and no acute distress Orientation/consciousness: patient oriented x3 Limitations: no limitations HENMT Head: Yes normal to inspection and Yes atraumatic Ears: hearing grossly normal bilaterally General nose exam: Normal external nose present Face and sinus: Yes normal facial exam Eyes General: appearance normal, both eyes and all related structures EOM: EOMs intact bilaterally Neck Neck: Yes normal visual inspection and Yes no meningeal signs Resp Effort & Inspection: normal respiratory effort, no grunting, not labored, no nasal flaring, no respiratory distress and no stridor Cardio Rate: regular rate General: Yes no CVA tenderness Back/Spine/Pelvis Back: no CVA tenderness Skin Other: No appreciable rash. No palm/sole or mucous membrane involvement. + faint erythema to right antecubital area from self induced scratching. No warmth. Not circumferential. No fluctuance/induration Wounds: no wounds Neuro General: patient oriented x3, tone normal and no meningeal signs Cranial nerves: Yes CN's II-XII intact bilaterally Gait exam (Neuro): Normal gait present Extrem General: Yes normal to inspection Medical Decision Making Medical Decision Making MDM Narrative: 22-year-old female with a past medical history of cannabis use disorder, schizoaffective bipolar type, ETOH abuse, presenting to the ED requesting blood work due to localized itching to right antecubital region. On exam VSS, NAD, nontoxic appearing, PE as above. No appreciable rash. No respiratory compromise or distress. Low suspicion for SJS/TENS, allergic reaction Plan: Topical steroid, PCP f/u Results discussed with patient including worrisome signs and symptoms and strict return precautions, and when to return to the emergency department. They verbalized understanding and feel safe for discharge at this time. Differential Diagnosis Differential Diagnoses: The differential diagnosis associated with the presentation includes As above External Record Review External record reviewed: Inpatient record, Office record, Outpatient record, Prior outpatient labs, Prior outpatient radiology, Primary care record and Outside ED record Tests considered The following testing was considered but not selected: As above Social Determinants Patient?s care significantly limited by Social Determinants of Health including: Low income and Alcoholism and drug addiction in family Discharge Plan Discharge Clinical Impression: Itching Patient Disposition: Home, Self-Care Instructions: Itchy Skin (ED) Additional Instructions: Hydrocortisone is a topical steroid, apply to rash only You may also take Benadryl and Zyrtec at home as needed Follow-up with your doctor If you develop a rash, fever/chills, difficulty or inability to swallow return to the ED Prescriptions: New hydrocortisone [Anti-Itch (HC)] 1 % cream 1 appl topical BID PRN (Reason: itching) Qty: 28.35 0RF Rx Instructions: Avoid application to face, hands, feet, genital region No Action albuterol sulfate [Ventolin HFA] 90 mcg/actuation Hfa Aerosol Inhaler 2 puff inhalation RQ6H PRN (Reason: Wheezing) 30 Days Qty: 1 0RF olanzapine 20 mg tablet 20 mg PO BEDTIME 30 Days Qty: 30 0RF Referrals: Physician,Unknown J [Primary Care Provider] - Interventions: ED Discharge Assessment Last Done: 02/03/23 13:20 Discharge Date/Time: 02/03/23 13:21
== END 2023-02-03 13:21 | disposition home or self-care (01) ==
PROVIDERS: Emergency Provider Emergency Medicine
DX: L29.9 Pruritus, unspecified (principal); F25.9 Schizoaffective disorder, unspecified; F17.210 Nicotine dependence, cigarettes, uncomplicated; F12.10 Cannabis abuse, uncomplicated; Z71.6 Tobacco abuse counseling
CPT/HCPCS: 99282; 99283

== ENCOUNTER 2024-04-28 11:42 | Outpatient (REF) | payer MEDICAID, SELFPAY | END 2024-04-28 11:43 | disposition home or self-care (01) | LOC: HO.HHCL 11:42 | PROVIDERS: Visit Provider Nurse Practitioner | DX: Z13.89 Encounter for screening for other disorder (principal) ==

== ENCOUNTER 2024-04-30 09:27 | Outpatient (REF) | payer MEDICAID, SELFPAY ==
[2024-04-30 11:43] LABS: MANUAL DIFF FLAG NO
[2024-04-30 11:49] LABS: Basophils Absolute Auto 0.1 X10*3/uL (0.0-0.2); Basophils Percent Auto 0.5 % (0-2); Eosinophils Absolute Auto 0.3 X10*3/uL (0.0-0.4); Eosinophils Percent Auto 3.1 % (0-4); Hematocrit 44.1 % (37.0-47.0); Imm Gran Abs Auto 0.03 X10*3/uL (0.00-0.03); Imm Gran Pct Auto 0.3 % (0.0-0.4); Lymphocytes Absolute Auto 2.3 X10*3/uL (1.2-4.9); Lymphocytes Percent Auto 24.4 % (20-40); Mean Corpuscular HGB Conc 31.7 g/dl (31.0-35.0); Mean Corpuscular Hemoglobin 26.7 pg (27.0-33.0); Mean Platelet Volume 10.7 fL (9.4-12.3); Monocytes Absolute Auto 0.8 X10*3/uL (0.1-1.2); Monocytes Percent Auto 8.2 % (2-11); Neutrophils Percent Auto 63.5 % (45-73); Platelet Count 255 X10*3/uL (160-400); Red Blood Count 5.25 X10*6/uL (4.20-5.50); Red Cell Distribution Width 15.2 % (11.0-16.0); White Blood Count 9.4 X10*3/uL (4.8-10.8)
== END 2024-04-30 09:28 | disposition home or self-care (01) ==
LOC: HO.HHCL 09:27
PROVIDERS: Visit Provider Nurse Practitioner
DX: L81.9 Disorder of pigmentation, unspecified (principal)
CPT/HCPCS: 36415; 85025

== ENCOUNTER 2024-09-10 11:38 | Emergency (ER) | payer MEDICAID, SELFPAY ==
[2024-09-10 11:43] VITALS: BP 132/104; PULSE 97; O2SAT 95
[2024-09-10 11:44] VITALS: BP 97/49; PULSE 94; RESP 18; O2SAT 95; BMI 26.6
--- NOTE | 2024-09-10 11:47 | ED_ITS ---
HPI - General Adult General Chief complaint: ETOH/Substance Use Stated complaint: PT FOUND OUTSIDE-ETOH Time Seen by Provider: 09/10/24 11:46 Source: patient, EMS, RN notes reviewed and old records reviewed Mode of arrival: EMS Limitations: altered mental status History of Present Illness ED Provider: Faustino HPI narrative: Patient is a 24-year-old female with history of schizoaffective disorder, bipolar type, cannabis use disorder, tobacco use disorder presenting to the emergency department via EMS after being found urinating on the ground outside with her pants around her ankles. Mother reported to EMS that patient has not been taking her psychiatric medications. Patient does admit to drinking alcohol today, denies drug use. States that she is not interested in assistance with detox from alcohol. Denies history of withdrawal seizures. Denies suicidal or homicidal ideation, auditory or visual hallucinations. MD complaint: Alcohol intoxication Related Data Previous Rx's ?Medication ?Instructions ?Recorded albuterol sulfate 90 mcg/actuation 2 puff inhalation R Q6H PRN 09/04/22 aerosol inhaler (Ventolin HFA) Wheezing 30 days #1 inh aler olanzapine 20 mg tablet 20 mg PO BEDTIME 30 days #30 tabs 09/04/22 hydrocortisone 1 % topical cream 1 appl topical BID CA N itching 02/03/23 (Anti-Itch (hydrocortisone)) #28.35 grams Allergies Allergy/AdvReac Type Severity Reaction Status Date / Time No Known Allergies Allergy Verified 09/10/24 11:51 Review of Systems 2 Review of Systems: As per HPI. Yes all other systems are reviewed and are negative Constitutional: Constitutional: Reports as per HPI [facility] Past Medical History Medical History Routine history and physical examination of adult Cannabis use disorder Bipolar disorder Schizophrenia Bipolar 1 disorder Asthma Social History Social History Household Members: Family Household Members Other:: mother and sister - living in motel/ group home Housing: Other Housing Other:: group home Do you presently have visiting nurse or other home services: No Unable to assess alcohol history related to: Refusing to respond Alcohol intake: current Alcohol intake frequency: 3 or more drinks per day Alcohol type: hard liquor Patient Tobacco Use Status: Current everyday Tobacco user Tobacco use type: Cigarette Cigarette Packs Per Day: 1 Cigarettes Per Day: 3 Years Smoked: 1 e-Cigarette/Vaping Use: Never Used Second Hand Smoke Exposure: No Substance Use Type: Marijuana Advance Directives: No Advance Directives Information Provided: Yes Do you have a plan to hurt others: No Plan service: No Sexual orientation: Don't Know Physical Exam ED Vital Signs: Vital Signs - 24 hr 09/10/24 11:44 09/10/24 14:42 09/10/24 17:24 Temperature 97.9 F Pulse Rate 94 81 Respiratory Rate 18 16 18 Blood Pressure 97/49 L 113/64 Pulse Oximetry 95 97 Oxygen Delivery Method Room Air Room Air BMI result Body Mass Index 26.6 Vital signs have been reviewed and appear to be correct. Blood pressure normal. Heart rate normal. Respiratory rate normal. Temperature normal. Oxygen saturation normal. Const General: cooperative, no acute distress and intoxicated appearing Nutritional Appearance: overweight Orientation/consciousness: oriented to person, oriented to place, oriented to time and patient oriented x3 Limitations: altered mental status HENMT Head: Yes normocephalic and Yes atraumatic Ears: external ears normal General nose exam: Normal external nose present Face and sinus: Yes face symmetric Mouth: oropharynx normal and moist mucous membranes Throat: Yes uvula midline Eyes Pupils: Equal, round and reactive pupils present Neck Neck: Yes normal visual inspection and Yes supple Resp Effort & Inspection: normal respiratory effort and able to speak in complete sentences Auscultation: clear to auscultation bilaterally Cardio Rate: regular rate Rhythm: regular rhythm Heart sounds: S1 normal heart sound present and S2 normal heart sound present GI Palpation (GI): Soft to palpation and nontender Auscultation: normoactive bowel sounds General: Yes no CVA tenderness Back/Spine/Pelvis Back: no CVA tenderness Skin General skin exam: elasticity normal and turgor normal Neuro General: oriented to person, oriented to place, oriented to time, patient oriented x3, moves all extremities, no focal motor deficits and CN's II-XI intact bilaterally Cranial nerves: Yes Equal, round and reactive pupils present Cognition (Neuro): normal cognition Extrem General: Yes full ROM, Yes no pedal edema and Yes no calf tenderness Psych Appearance: disheveled Mental Status: mental status grossly normal Speech and movement: Other speech and movement exam findings present (Psych) (appears to be responding to internal stimuli) Affect: Labile affect present Attitude: cooperative Thought content: suicidality, no homicidality and no hallucinations Insight: Limited insight present (Psych) Judgement: Limited judgement present (Psych) Course Reevaluation(s) Reevaluation #1: Patient now clinically sober. States she is not interested in speaking with the CARE team. Continues to deny suicidal or homicidal ideation, auditory or visual hallucinations. No longer appears to be responding to internal stimuli, this was likely due to alcohol intoxication earlier. Patient also not interested in assistance with detox. Time: 19:00 Medical Decision Making Medical Decision Making [facility] Narrative: Patient is a 24-year-old female with history of schizoaffective disorder, bipolar type, cannabis use disorder, tobacco use disorder presenting to the emergency department via EMS after being found urinating on the ground outside with her pants around her ankles. On exam patient is awake, A+Ox3, VS WNL, afebrile, normal neurological exam without focal deficits, physical exam findings as above. Given reported symptoms and physical exam findings, initial differential includes but is not limited to drug or alcohol intoxication or withdrawal, schizoaffective disorder. Labs unremarkable, ethanol 270. Will require re-evaluation after she is clinically sober to determine if she still appears to be responding to internal stimuli. See course for remainder of clinical decision making. Differential Diagnosis Differential Diagnoses: The differential diagnosis associated with the presentation includes As per [facility] Admission/Observation Consideration of admission/observation: Escalation of care including admission/observation considered Patient would have been admitted to the hospital had their work up had any findings where hospital admission was appropriate and their clinical presentation warranted hospital admission. Lab Data [facility] Lab Attestation statement: I reviewed the patient's lab results. As per [facility] 09/10/24 12:17 09/10/24 12:17 Labs: Lab Results 09/10/24 Range/Units 12:17 WBC 7.1 (4.8-10.8) X10*3/uL RBC 4.71 (4.20-5.50) X10*6/uL Hgb 13.2 (12.0-16.0) g/dl Hct 39.7 (37.0-47.0) % MCV 84.3 (80.0-98.0) fL MCH 28.0 (27.0-33.0) pg MCHC 33.2 (31.0-35.0) g/dl RDW 16.1 H (11.0-16.0) % Plt Count 201 (160-400) X10*3/uL MPV 9.8 (9.4-12.3) fL Immature Gran % (Auto) 0.3 (0.0-0.4) % Neut % (Auto) 57.3 (45-73) % Lymph % (Auto) 31.6 (20-40) % [place] % (Auto) 7.2 (2-11) % Eos % (Auto) 3.0 (0-4) % Baso % (Auto) 0.6 (0-2) % Lymph # (Auto) 2.2 (1.2-4.9) X10*3/uL [place] # (Auto) 0.5 (0.1-1.2) X10*3/uL Eos # (Auto) 0.2 (0.0-0.4) X10*3/uL Baso # (Auto) 0.0 (0.0-0.2) X10*3/uL Abs Immat Gran (auto) 0.02 (0.00-0.03) X10*3/uL Absolute Neuts (auto) 4.0 (2.0-8.3) x10*3/uL Absolute Nucleated RBC 0.000 (0.0-0.012) X10*3/uL Nucleated RBC % (auto) 0.0 (0.0-0.2) /100WBC Sodium 143 (135-145) mmol/L Potassium 3.3 (3.3-5.1) mmol/L Chloride 113 H (96-108) mmol/L Carbon Dioxide 21 L (22-29) mmol/L Anion Gap 12 (12-20) BUN 11 (9-16) mg/dL Creatinine 0.61 (0.5-1.4) mg/dL Estim Creat Clear Calc 162.4 Estimated GFR > 60 Random Glucose 89 (60-115) mg/dL Calcium 8.7 D (8.4-10.2) mg/dL Total Bilirubin 0.4 (0.0-1.0) mg/dL AST 29 (5-31) U/L ALT 41 H (0-31) U/L Alkaline Phosphatase 61 (39-117) U/L Total Protein 6.6 (6.5-8.0) g/dL Albumin 3.7 (3.5-5.0) g/dL Beta HCG, Quant < 2 mIU/mL Ethyl Alcohol 270 mg/dL External Record Review External record reviewed: Inpatient record, Office record and Outpatient record Discharge Plan Discharge Clinical Impression: Alcoholic intoxication Patient Disposition: Home, Self-Care Instructions: Alcohol Intoxication (DC) Additional Instructions: Alcohol use disorder You were seen in the Emergency Department today for alcohol intoxication.? If you would like to cut down or stop your alcohol use please consider calling our outpatient Addiction Treatment office:? [facility] (M-F [id number]) [address] [place] [address] [phone] ? You have also been given a list of treatment providers in the area that can assist as well.? If you experience seizures, vomiting blood, black stools, falls, severe headache, chest pain, fevers, trouble breathing, hallucinations or any other concerns you need to call 911 or seek immediate care. Please stay hydrated. Prescriptions: No Action albuterol sulfate [Ventolin HFA] 90 mcg/actuation Hfa Aerosol Inhaler 2 puff inhalation RQ6H PRN (Reason: Wheezing) 30 Days Qty: 1 0RF olanzapine 20 mg tablet 20 mg PO BEDTIME 30 Days Qty: 30 0RF hydrocortisone [Anti-Itch (HC)] 1 % cream 1 appl topical BID PRN (Reason: itching) Qty: 28.35 0RF Rx Instructions: Avoid application to face, hands, feet, genital region Print Language: Serbian
[2024-09-10 12:23] LABS: MANUAL DIFF FLAG NO
[2024-09-10 12:26] LABS: Hematocrit 39.7 % (37.0-47.0); Hemoglobin 13.2 g/dl (12.0-16.0); Imm Gran Abs Auto 0.02 X10*3/uL (0.00-0.03); Imm Gran Pct Auto 0.3 % (0.0-0.4); Lymphocytes Absolute Auto 2.2 X10*3/uL (1.2-4.9); Mean Corpuscular HGB Conc 33.2 g/dl (31.0-35.0); Mean Corpuscular Hemoglobin 28.0 pg (27.0-33.0); Mean Corpuscular Volume 84.3 fL (80.0-98.0); NRBC Abs Auto 0.000 X10*3/uL (0.0-0.012); NRBC Pct Auto 0.0 /100WBC (0.0-0.2); Platelet Count 201 X10*3/uL (160-400); Red Blood Count 4.71 X10*6/uL (4.20-5.50); White Blood Count 7.1 X10*3/uL (4.8-10.8)
[2024-09-10 12:54] LABS: Alanine Aminotransferase 41 U/L (0-31); Albumin Level 3.7 g/dL (3.5-5.0); Alkaline Phosphatase 61 U/L (39-117); Anion Gap 12 (12-20); Aspartate Amino Transferase 29 U/L (5-31); Blood Urea Nitrogen 11 mg/dL (9-16); Calcium 8.7 mg/dL (8.4-10.2); Carbon Dioxide 21 mmol/L (22-29); Chloride 113 mmol/L (96-108); Creatinine Clr Calc Pharmacy 162.4; Estimated Glomerular Filt Rate > 60; Potassium 3.3 mmol/L (3.3-5.1); Sodium 143 mmol/L (135-145); Total Protein 6.6 g/dL (6.5-8.0)
--- OUTSIDE RECORDS SUMMARY | 2024-09-10 13:50 | XMS_ITS | Encounter Summary ---
Author Organization [facility] Address [address] [place] [address] [address] [place] [address] Care Team Providers Care Whipped Topping Mixer Name Role Phone Charlene Shay Primary Care Provider [phone] Charlotte Candelario LCSW Unavailable [phone] Encounter Details Date Type Department Care Team (Late st Contact Info) Description 03/23/2022 Orders Only [facility] [address] [place] [id number] Kati Ramon RN Social History Tobacco Use Types Packs/Day Years Used Date Smoking Tobacco: Never Assessed Comments Unknown Sex and Gender Information Value Date Recorded Sex Assigned at Female 01/08/2022 10:16 AM EDT Legal Sex Female 10:16 AM EDT Gender Identity Female 01/08/2022 10:16 AM EDT Sexual Orientation Straight 01/08/2022 10 :16 AM EDT documented as of this encounter Plan of Treatment Upcoming Encounters Date Type Department Care Team (Late st Contact Info) Description 11/17/2024 9:15 AM EDT Office Visit [facility] [address] [place] [id number] Charlene Shay ANP [address] [place] [id number] documented as of this encounter Visit Diagnoses Not on filedocumented in this encounter Care Teams Whipped Topping Mixer Relationship Specialty Start Date End Date Charlene Shay ANP [address] [place] [id number] PCP - General Family Medicine 05/08/21 Charlotte Candelario LCSW [facility] [employer] [facility] 07/23/24 08/10/24 documented as of this encounter
--- NOTE | 2024-09-10 14:39 | PC.NURSE ---
Pt was sleepy when she came in via EMS. Approx 1415 pt woke up very hungry and was given food. Pt then began to stand up, take her breasts out and making phone calls to random numbers. She was walking around singing loudly. Pt was redirected to her bed multiple times. Provider was made aware and plan is for her to be sobered up before referring to psych/care team. Pt was moved from bennett bed to 8. Once in the room pt calmed down and fell back asleep
[2024-09-10 14:42] VITALS: RESP 16
[2024-09-10 17:24] VITALS: BP 113/64; PULSE 81; RESP 18; TEMP 36.6; O2SAT 97
--- NOTE | 2024-09-10 19:30 | PC.NURSE ---
d/c by previous rn pt ambulatory with steady gait
== END 2024-09-10 19:30 | disposition home or self-care (01) ==
PROVIDERS: Registered Nurse Emergency; Emergency Provider Emergency Medicine Emergency Medical Services
DX: F10.129 Alcohol abuse with intoxication, unspecified (principal); R45.851 Suicidal ideations; F17.210 Nicotine dependence, cigarettes, uncomplicated; F25.9 Schizoaffective disorder, unspecified; Z51.81 Encounter for therapeutic drug level monitoring; Y90.8 Blood alcohol level of 240 mg/100 ml or more; Z79.899 Other long term (current) drug therapy
CPT/HCPCS: 36415; 80053; 80307; 84702; 85025; 99283; 99284

== ENCOUNTER 2024-09-16 11:24 | Outpatient (REF) | payer MEDICAID, SELFPAY ==
--- OUTSIDE RECORDS SUMMARY | 2024-09-16 12:35 | XMS_ITS | Clinical Summary ---
Author Organization [facility] Address [address] [place] [address] Phone Care Team Providers Care Gripper Attacher Name Role Phone Physician, Pcp Unknown Primary Care Provider Nancie vailable Allergies No known active allergies Medications cyanocobalamin (VITAMIN B-12) 1,000 mcg tablet Take 1 tablet (1,000 mcg total) by mouth 1 (one) time each day. 5 Active hydrOXYzine pamoate (VISTARIL) 50 mg capsule Take 1 capsule (50 mg total) by mouth Every 4 hours as needed. 5 Active melatonin 3 mg tablet Take 1 tablet (3 mg total) by mouth once daily as needed. 5 Active OLANZapine (ZyPREXA) 15 mg tablet Take 1 tablet (15 mg total) by mouth 2 (two) times a day. 5 Active OLANZapine (ZyPREXA ZYDIS) 10 mg disintegrating tablet Take 1 tablet (10 mg total) by mouth at bedtime. Active Encounters Date Type Department Care Team Description 07/20/2024 11:14 PM EDT - 07/22/2024 8:58 AM EDT Emergency [facility] Emergency [address] [place] [address] Judah Servin MD Cauchon, Matthew C, DO Goebel, Mathew, MD Millay, Scot A, MD Kenton, Mark A, MD Schizophrenia, unspecified type (CMS/[facility] V24, CMS/[facility] V28) (Primary Dx) Discharge Disposition: [facility] Hospital from Last 3 Months Social History Tobacco Use Types Packs/Day Years Used Date Smoking Tobacco: Never Assessed Comments Unknown Sex and Gender Information Value Date Recorded Sex Assigned at Not on file Legal Sex Female 8:48 AM EST Gender Identity Not on file Sexual Orientation Not on file Last Filed Vital Signs Vital Sign Reading Time Taken Comments Blood Pressure 135/88 07/22/2024 4:19 AM EDT Pulse 80 07/22/2024 4:19 AM EDT Temperature 37.1 C (98.7 F) 07/22/2024 4:19 AM EDT Respiratory Rate 17 07/22/2024 4:19 AM EDT Oxygen Saturation 98% 07/22/2024 4:19 AM EDT Inhaled Oxygen Concentration - - Weight 113 kg (250 lb) 07/22/2024 4:19 AM EDT Height 182.9 cm (6') 07/22/2024 4:19 AM EDT Body Mass Index 33.91 07/22/2024 4:19 AM EDT Plan of Treatment Health Maintenance Due Date Last Done Comments Gonorrhea/Chlamydia Screening 2000 Cervical Cancer Screening: Pap Smear 2021 DTaP,Tdap,and Td Vaccines (6 - Td or Tdap) 10/22/2021 10/23/2011, 05/13/2002, 01/22/2001, Additional history exists COVID-19 Vaccine ( season) 2023 Cholesterol Screening (Lipid Panel) 07/21/2024 Depression Screening 07/21/2024 Hepatitis C Screening 07/21/2024 Social Influencers of Health Screening 07/21/2024 Influenza Vaccine (#1) 2024 6, 01/20/2015, 01/20/2014, Additional history exists Hepatitis B Vaccines Completed 01/22/2001, 2000, 2000 HIB Vaccines Completed 10/31/2001, 01/09, 2000, Additional history exists Pneumococcal Vaccine: Pediatrics (0 to 5 Years) and At-Risk Patients (6 to 49 Years) Completed 10/31/2001, 01/22/2001, 2000, Additional history exists IPV Vaccines Completed 09/19/2005, 05/10, 2000, Additional history exists MMR Vaccines Completed 09/19/2005, 07/23/2001 Varicella Vaccines Completed 08/24/2009, 07/23/2001 HPV Vaccines Completed 01/20/2015, 2013, 10/23/2011 Hepatitis A Vaccines Completed 01/24/2016, 01/21/20 15 Meningococcal ACWY Vaccine Completed 08/19/2017, HIV Screening Completed 06/20/2020 Meningococcal B Vaccine Aged Out No l onger eligible based on patient's age to complete this topic RSV Immunization Patients Under 20 months Aged Out No longer eligible based on patient's age to complete this topic Procedures Procedure Name Priority Date/Time Associated Diagnosis Comments FALCON URINE CULTURE TUBE STAT 07/22/2024 4:18 AM EDT URINALYSIS WITH REFLEX MICROSCOPIC AND CULTURE STAT 07/22/2024 4:18 AM EDT DRUG ABUSE SCREEN 8A PANEL, URINE STAT 07/22/2024 4:18 AM EDT URINALYSIS WITH REFLEX MICROSCOPIC AND CULTURE STAT 07/22/2024 4:18 AM EDT CULTURE URINE STAT 07/22/2024 4:18 AM EDT CBC WITH AUTO DIFFERENTIAL STAT 07/21/2024 12:45 AM EDT SALICYLATE LEVEL STAT 07/21/2024 12:4 5 AM EDT ACETAMINOPHEN LEVEL STAT 07/21/2024 1 2:45 AM EDT ETHANOL STAT 07/21/2024 12:45 AM EDT THYROID STIMULATING HORMONE WITH REFLEX TO FREE T4 AND FREE T3 STAT 07/21/2024 12:45 AM EDT COMPREHENSIVE METABOLIC PANEL STAT 07/21/2024 12:45 AM EDT CBC AND DIFFERENTIAL STAT 07/21/2024 12:45 AM EDT from Last 3 Months Results * (ABNORMAL) Urinalysis with reflex microscopic and culture (07/22/2024 4:18 AM EDT) [facility] Specific [place] Urine 1.026 1.003 - 1.030 LAB URINALYSIS - AUTOMATED METHOD 07/22/2024 5:46 AM [facility] pH, Urine 7.5 5.0 - 8.0 pH LAB URINALYSIS - AUTOMATED METHOD 07/22/2024 5:46 AM [facility] Leukocytes, Urine Small(A) Negative LAB URINALYSIS - AUTOMATED METHOD 07/22/2024 5:46 AM [facility] Nitrite, Urine Negative Negative LAB URINALYSIS - AUTOMATED METHOD 07/22/2024 5:46 AM [facility] Protein, Urine 100(A) <=Trace mg/dL LAB URINALYSIS - AUTOMATED METHOD 07/22/2024 5:46 AM [facility] Glucose, Urine Negative Negative mg/dL LAB URINALYSIS - AUTOMATED METHOD 07/22/2024 5:46 AM [facility] Ketones, Urine Trace(A) Negative mg/dL LAB URINALYSIS - AUTOMATED METHOD 07/22/2024 5:46 AM [facility] Urobilinogen , Urine 1.0 0.2 - 1.0 mg/dL LAB URINALYSIS - AUTOMATED METHOD 07/22/2024 5:46 AM [facility] Bilirubin, Urine Negative Negative LAB URINALYSIS - AUTOMATED METHOD 07/22/2024 5:46 AM [facility] Blood, Urine Large(A) Negative LAB URINALYSIS - AUTOMATED METHOD 07/22/2024 5:46 AM [facility] RBC, Urine 1,185.2(H) 0 - 4 /HPF LAB URINALYSIS - AUTOMATED METHOD 07/22/2024 5:46 AM [facility] WBC, Urine 46.9(H) 0 - 4 /HPF LAB URINALYSIS - AUTOMATED METHOD 07/22/2024 5:46 AM [facility] Squamous Epithelial, Urine >100(H) 0 - 60 /LPF LAB URINALYSIS - AUTOMATED METHOD 07/22/2024 5:46 AM EDT [facility] Bacteria, Urine Negative Negative /HPF LAB URINALYSIS - AUTOMATED METHOD 07/22/2024 5:46 AM EDT [facility] Hyaline Casts, Urine 6.5(H) 0 - 3 /LPF LAB URINALYSIS - AUTOMATED METHOD 07/22/2024 5:46 AM EDT [facility] Urine Urine specimen obtained by clean catch procedure / Unknown Non-blood Collection / Unknown 07/22/2024 4:18 AM EDT 07/22/2024 5:17 AM EDT [facility] URINE ORDERABLES Final Result Performing Organization Address City/[facility] [address]/ZIP Co de Phone Number [facility] [address] [place] [address], [place] [phone] * Falcon urine culture tube (07/22/2024 4:18 AM EDT) Extra Tube Hold for add-ons. 07/22/2024 7:01 AM EDT [facility] Comment:Auto resulted. Urine Urine specimen obtained by clean catch procedure / Unknown Non-blood Collection / Unknown 07/22/2024 4:18 AM EDT 07/22/2024 5:17 AM EDT [facility] URINE ORDERABLES Final Result Performing Organization Address [facility] [address]/ZIP Co de Phone Number [facility] [address] [place] [address], [place] [phone] * (ABNORMAL) Drug abuse screen 8a panel, urine (07/22/2024 4:18 AM EDT) Amphetamine Screen, Ur Negative Negative LAB CHEMISTRY METHOD 5:45 AM EDT [facility] Comment:Certain OTC medicati ons containing ephedrine, phenylephrine, pseudoephedrine and phenylpropanolamine can cause false positive results. Barbiturate Screen, Ur Negative Negative LAB CHEMISTRY METHOD 5 5:45 AM EDT [facility] Benzodiazepine Screen, Ur Negative Negative LAB CHEMISTRY METHOD 5 5:45 AM EDT [facility] Cocaine Screen, Ur Negative Negative LAB CHEMISTRY METHOD 5 5:45 AM EDT [facility] Opiate Screen, Ur Negative Negative LAB CHEMISTRY METHOD 5 5:45 AM T [facility] Cannabinoid (THC) Screen, Ur Positive(A ) Negative LAB CHEMISTRY METHOD 5 5:45 AM T [facility] Comment:Specimens from patie nts taking pantoprazole sodium (Protonix) have been shown to produce false positive results. Oxycodone Screen, Ur Negative Negative LAB CHEMISTRY METHOD 5 5:45 AM T [facility] Fentanyl, Ur Negative Negative LAB CHEMISTRY METHOD 5 5:45 AM [facility] Urine Urine specimen obtained by clean catch procedure / Unknown Non-blood Collection / Unknown 07/22/2024 4:18 AM EDT 07/22/2024 5:17 AM EDT Narrative [facility] - 07/22/2024 5:45 AM EDT Assay cutoffs: Amphetamines 1000 ng/mL Barbiturates 200 ng/mL Benzodiazepines 200 ng/mL Cocaine 300 ng/mL Fentanyl 1 ng/mL Opiates 300 ng/mL Oxycodone 100 ng/mL THC 50 ng/mL Semi-quantitative assay for screening purposes only. Unconfirmed screening result should not be used for non-medical purposes. *ALTERNATE METHOD CONFIRMATION DONE UPON REQUEST ONLY* us [facility] URINE ORDERABLES Final Result [facility] [address] [place] [address], [place] [phone] * Culture urine (07/22/2024 4:18 AM EDT) [facility] Culture, Urine >100,000 CFU/mL Mixed bacterial morphotypes present suggestive of possible contamination during collection. Suggest appropriate recollection if clinically indicated. 07/23/2024 10:13 AM EDT [facility] Urine Urine specimen obtained by clean catch procedure / Unknown Non-blood Collection / Unknown 07/22/2024 4:18 AM EDT 07/22/2024 5:46 AM EDT [facility] MICROBIOLOGY - GENERAL ORDERABLES Final Result Performing Organization Address [facility] [address]/ZIP Co de Phone Number [facility] [address] [place] [address], [place] [phone] * Thyroid stimulating hormone with reflex to free t4 and free t3 (07/21/2024 12:45 AM EDT) [facility] TSH 3.57 0.40 - 4.00 mcIU/mL LAB CHEMISTRY METHOD 07/21/2024 2:10 AM EDT [facility] Blood Venous blood specimen / Unknown Venipuncture / Unknown 07/21/2024 12:45 AM EDT 07/21/2024 12:53 AM EDT us [facility] BLOOD ORDERABLES Final Result [facility] [address] [place] [address], [place] [phone] * (ABNORMAL) CBC auto differential (07/21/2024 12:45 AM EDT) [facility] WBC 9.2 4.8 - 10.8 K/mcL LAB HEMETOLOGY METHOD 07/21/2024 12:57 AM EDT [facility] RBC 4.60 3.80 - 4.80 M/mcL LAB HEMETOLOGY METHOD 07/21/2024 12:57 AM [facility] Hemoglobin 12.5 11.5 - 16.0 g/dL LAB HEMETOLOGY METHOD 07/21/2024 12:57 AM [facility] Hematocrit 39.6 35.0 - 47.0 % LAB HEMETOLOGY METHOD 07/21/2024 12:57 AM [facility] MCV 87.0 79.0 - 98.0 FL LAB HEMETOLOGY METHOD 07/21/2024 12:57 AM [facility] MCH 27.5 27.0 - 32.0 pcg LAB HEMETOLOGY METHOD 07/21/2024 12:57 AM [facility] MCHC 31.6(L) 32.0 - 37.0 g/dL LAB HEMETOLOGY METHOD 07/21/2024 12:57 AM [facility] RDW 15.9(H) 11.0 - 15.0 % LAB HEMETOLOGY METHOD 07/21/2024 12:57 AM [facility] Platelets 248 130 - 400 K/mcL LAB HEMETOLOGY METHOD 07/21/2024 12:57 AM [facility] MPV 9.4 7.0 - 11.0 FL LAB HEMETOLOGY METHOD 07/21/2024 12:57 AM [facility] NRBC 0.0 <1.0 % LAB HEMETOLOGY METHOD 07/21/2024 12:57 AM [facility] NRBC Absolute 0.00 <0.10 K/mcL LAB HEMETOLOGY METHOD 07/21/2024 12:57 AM [facility] Neutrophils Relative 52.8 % LAB HEMETOLOGY METHOD 07/21/2024 12:57 AM [facility] Lymphocytes Relative 37.1 % LAB HEMETOLOGY METHOD 07/21/2024 12:57 AM [facility] Monocytes Relative 5.5 % LAB HEMETOLOGY METHOD 07/21/2024 12:57 AM [facility] Eosinophils Relative 3.1 % LAB HEMETOLOGY METHOD 07/21/2024 12:57 AM [facility] Basophils Relative 0.5 % LAB HEMETOLOGY METHOD 07/21/2024 12:57 AM [facility] Immature Granulocytes Relative 1.0 % LAB HEMETOLOGY METHOD 07/21/2024 12:57 AM [facility] Neutrophils Absolute 4.85 1.50 - 7.00 K/mcL LAB HEMETOLOGY METHOD 07/21/2024 12:57 AM [facility] Lymphocytes Absolute 3.42 1.00 - 5.00 K/mcL LAB HEMETOLOGY METHOD 07/21/2024 12:57 AM [facility] Monocytes Absolute 0.51 0.20 - 1.00 K/mcL LAB HEMETOLOGY METHOD 07/21/2024 12:57 AM [facility] Eosinophils Absolute 0.29 0.00 - 0.50 K/mcL LAB HEMETOLOGY METHOD 07/21/2024 12:57 AM [facility] Basophils Absolute 0.05 0.00 - 0.20 K/mcL LAB HEMETOLOGY METHOD 07/21/2024 12:57 AM [facility] Immature Granulocytes Absolute 0.09(H) 0.00 - 0.03 K/mcL LAB HEMETOLOGY METHOD 07/21/2024 12:57 AM [facility] Blood Venous blood specimen / Unknown Venipuncture / Unknown 07/21/2024 12:45 AM EDT 07/21/2024 12:53 AM EDT us [facility] BLOOD ORDERABLES Final Result [facility] [address] [place] [address], [place] [phone] * (ABNORMAL) Ethanol (07/21/2024 12:45 AM EDT) Ethanol Level 282(H) 0 - 10 mg/dL LAB CHEMISTRY METHOD 07/21/2024 1:21 AM EDT [facility] Blood Venous blood specimen / Unknown Venipuncture / Unknown 07/21/2024 12:45 AM EDT 07/21/2024 12:53 AM EDT [facility] BLOOD ORDERABLES Final Result Performing Organization Address City/[facility] [address]/ZIP Co de Phone Number [facility] [address] [place] [address], [place] [phone] * (ABNORMAL) Acetaminophen level (07/21/2024 12:45 AM EDT) Acetaminophen Level <2.0(L) 10.0 - 30.0 mcg/mL LAB CHEMISTRY METHOD 07/21/2024 1:21 AM EDT [facility] Blood Venous blood specimen / Unknown Venipuncture / Unknown 07/21/2024 12:45 AM EDT 07/21/2024 12:53 AM EDT [facility] BLOOD ORDERABLES Final Result [facility] [address] [place] [address], [place] [phone] * (ABNORMAL) Salicylate level (07/21/2024 12:45 AM EDT) Salicylate Level 1.9(L) 2.0 - 29.0 mg/dL LAB CHEMISTRY METHOD 07/21/2024 1:21 AM [facility] Blood Venous blood specimen / Unknown Venipuncture / Unknown 07/21/2024 12:45 AM EDT 07/21/2024 12:53 AM EDT us Tere [facility] BLOOD ORDERABLES Final Result [facility] [address] [place] [address], * (ABNORMAL) Comprehensive metabolic panel (07/21/2024 12:45 AM EDT) Sodium 145 133 - 145 mmol/L LAB CHEMISTRY METHOD 07/21/2024 1:21 AM [facility] Potassium 3.7 3.5 - 5.5 mmol/L LAB CHEMISTRY METHOD 07/21/2024 1:21 AM [facility] Comment:Hemolysis present Chloride 114(H) 96 - 110 mmol/L LAB CHEMISTRY METHOD 07/21/2024 1:21 AM [facility] CO2 24 21 - 32 mmol/L LAB CHEMISTRY METHOD 07/21/2024 1:21 AM [facility] Anion Gap 7 3 - 11 LAB CHEMISTRY METHOD 07/21/2024 1:21 AM [facility] Glucose 122(H) 70 - 100 mg/dL LAB CHEMISTRY METHOD 07/21/2024 1:21 AM [facility] BUN 10 5 - 25 mg/dL LAB CHEMISTRY METHOD 07/21/2024 1:21 AM [facility] Creatinine 0.56 0.50 - 1.10 mg/dL LAB CHEMISTRY METHOD 07/21/2024 1:21 AM [facility] eGFR 131 >=60 mL/min/1. 73m2 LAB CHEMISTRY METHOD 07/21/2024 1:21 AM EDT [facility] Comment:Calculation based on the Chronic Kidney Disease Epidemiology Collaboration (CKD-EPI) equation refit without adjustment for race. BUN/Creatinine Ratio 17.9 LAB CHEMISTRY METHOD 07/21/2024 1:21 AM [facility] Calcium 7.9(L) 8.5 - 10.5 mg/dL LAB CHEMISTRY METHOD 07/21/2024 1:21 AM [facility] AST (SGOT) 31 10 - 42 unit/L LAB CHEMISTRY METHOD 07/21/2024 1:21 AM [facility] Comment:Hemolysis present ALT (SGPT) 63(H) 10 - 60 unit/L LAB CHEMISTRY METHOD 07/21/2024 1:21 AM [facility] Alkaline Phosphatase 87 42 - 121 unit/L LAB CHEMISTRY METHOD 07/21/2024 1:21 AM [facility] Total Protein 6.1 6.0 - 8.0 g/dL LAB CHEMISTRY METHOD 07/21/2024 1:21 AM [facility] Albumin 2.9(L) 3.2 - 5.0 g/dL LAB CHEMISTRY METHOD 07/21/2024 1:21 AM [facility] Total Bilirubin 0.2 0.0 - 1.4 mg/dL LAB CHEMISTRY METHOD 07/21/2024 1:21 AM [facility] Blood Venous blood specimen / Unknown Venipuncture / Unknown 07/21/2024 12:45 AM EDT 07/21/2024 12:53 AM EDT us Tere [facility] BLOOD ORDERABLES Final Result [facility] [address] [place] [address], from Last 3 Months Insurance MEDICAID - [place] Care Teams Gripper Attacher Relationship Specialty Start Date End Date Physician, Pcp Unknown PCP - General 07/20/24
--- OUTSIDE RECORDS SUMMARY | 2024-09-16 12:35 | XMS_ITS | Encounter Summary ---
Author Organization [employer] [facility] Address [address] [place] [address] [address] [place] [address] Care Team Providers Care Food Science Technician Name Role Phone Charlene Shay Primary Care Provider [phone] Charlotte Candelario LCSW Unavailable [phone] Encounter Details Date Type Department Care Team (Late st Contact Info) Description 03/23/2022 Orders Only [facility] [address] [place] [phone] Kati Ramon RN Social History Tobacco Use [...] Description 11/17/2024 9:15 AM EDT Office Visit [facility] [address] [place] [phone] Charlene Shay ANP [address] [place] [phone] documented as of this encounter Visit Diagnoses Not on filedocumented in this encounter Care Teams Food Science Technician Relationship Specialty Start Date End Date Charlene Shay ANP [address] [place] [phone] PCP - General Family Medicine 05/08/21 Charlotte Candelario LCSW Project Reservoir Engineer Behavioral Health 07/23/24 08/10/24 documented as of this encounter
[2024-09-16 16:30] LABS: MANUAL DIFF FLAG NO
[2024-09-16 16:36] LABS: Hematocrit 43.6 % (37.0-47.0); Hemoglobin 14.5 g/dl (12.0-16.0); Imm Gran Abs Auto 0.03 X10*3/uL (0.00-0.03); Imm Gran Pct Auto 0.3 % (0.0-0.4); Lymphocytes Absolute Auto 2.4 X10*3/uL (1.2-4.9); Mean Corpuscular HGB Conc 33.3 g/dl (31.0-35.0); Mean Corpuscular Hemoglobin 28.1 pg (27.0-33.0); Mean Corpuscular Volume 84.5 fL (80.0-98.0); NRBC Abs Auto 0.000 X10*3/uL (0.0-0.012); NRBC Pct Auto 0.0 /100WBC (0.0-0.2); Platelet Count 274 X10*3/uL (160-400); Red Blood Count 5.16 X10*6/uL (4.20-5.50); White Blood Count 9.4 X10*3/uL (4.8-10.8)
[2024-09-16 16:51] LABS: Hemoglobin A1C 124.0103 umol/L; Total Hemoglobin (HGBA1C) 3807.5714 umol/L
[2024-09-16 16:53] LABS: Alanine Aminotransferase 62 U/L (0-31); Albumin Level 4.3 g/dL (3.5-5.0); Alkaline Phosphatase 67 U/L (39-117); Anion Gap 10 (12-20); Aspartate Amino Transferase 44 U/L (5-31); Blood Urea Nitrogen 11 mg/dL (9-16); Calcium 9.6 mg/dL (8.4-10.2); Carbon Dioxide 26 mmol/L (22-29); Chloride 108 mmol/L (96-108); Cholesterol 231 mg/dL (<200); Estimated Glomerular Filt Rate > 60; HDL Cholesterol 46 mg/dL (>40); Potassium 4.3 mmol/L (3.3-5.1); Sodium 140 mmol/L (135-145); Total Protein 7.7 g/dL (6.5-8.0); Triglycerides 142 mg/dL (<150)
[2024-09-16 17:10] LABS: Vitamin B12 280 pg/mL (200-900)
[2024-09-17 06:36] LABS: HIV Num 1 0.05 S/CO (0.00-0.99); ~HepC Num1 0.12 S/CO (0.00-0.79); ~Hepatitis C Antibody Nonreactive (Nonreactive)
== END 2024-09-16 11:25 | disposition home or self-care (01) ==
LOC: HO.HHCL 11:24
PROVIDERS: PCP Nurse Practitioner Primary Care; Visit Provider Nurse Practitioner Primary Care
DX: F20.9 Schizophrenia, unspecified (principal); Z11.3 Encounter for screening for infections with a predominantly sexual mode of transmission; F10.90 Alcohol use, unspecified, uncomplicated; E66.813 Obesity, class 3; Z68.41 Body mass index [BMI] 40.0-44.9, adult
CPT/HCPCS: 36415; 80053; 80061; 82607; 83036; 85025; 86803; 87389

== ENCOUNTER 2024-10-10 12:51 | Emergency (ER) | payer MEDICAID, SELFPAY ==
[2024-10-10 13:13] VITALS: BP 105/68; BP 120/84; PULSE 101; PULSE 94; RESP 16; TEMP 36.4; O2SAT 93; O2SAT 95; BMI 29.5
--- NOTE | 2024-10-10 13:22 | ED_ITS ---
HPI - Alcohol General Chief Complaint: ETOH/Substance Use Stated Complaint: ETOH Time Seen by Provider: 10/10/24 13:10 Source: patient, EMS and RN notes reviewed Mode of arrival: EMS Limitations: no limitations History of Present Illness ED Provider: Bhavin Moreira PA-C HPI narrative: 24-year-old female with medical history of alcohol use disorder, cannabis use disorder, bipolar I disorder, schizophrenia, asthma, presents to the ED by EMS due to alcohol intoxication. Patient states she was drinking 3 nips today, when mother bought her Rankin[employer]. Patient states she began to argue, it is unclear what exactly happened with the mother but mother became upset and called ambulance on her due to her drinking. Patient states she does not want help with care team for detox from alcohol. Patient denies history of alcohol withdrawal seizures, SI/HI, visual/auditory/tactile hallucinations. Patient does not have any physical complaints. MD complaint: alcohol intoxication Related Data Previous Rx's ?Medication ?Instructions ?Recorded albuterol sulfate 90 mcg/actuation 2 puff inhalation R Q6H PRN 09/04/22 aerosol inhaler (Ventolin HFA) Wheezing 30 days #1 inh aler olanzapine 20 mg tablet 20 mg PO BEDTIME 30 days #30 tabs 09/04/22 hydrocortisone 1 % topical cream 1 appl topical BID [place] N itching 02/03/23 (Anti-Itch (hydrocortisone)) #28.35 grams Allergies Allergy/AdvReac Type Severity Reaction Status Date / Time No Known Allergies Allergy Verified 10/10/24 13:15 Review of Systems 2 Review of Systems: CONST: Negative for fever, body aches and chills. HENT: Negative for neck pain/stiffness, headache, congestion, sore throat, swelling. EYES: Negative for discharge/pain or vision changes. RESP: Negative for cough/hemoptysis and shortness of breath. CV: Negative chest pain, difficulty breathing, palpitations. ABD: Negative pain, nausea, vomiting. : Negative increase frequency, dysuria, blood in urine or stool. MUSC: Negative for muscle aches, edema. SKIN: Negative rash, lesions/sores. NEURO: Negative headache, dizziness, weakness. Yes all other systems are reviewed and are negative PMFSH Past Medical History Attestation statement: The following information was validated with the patient. Source: old records reviewed and nursing notes reviewed Medical History Routine history and physical examination of adult Cannabis use disorder Bipolar disorder Schizophrenia Bipolar 1 disorder Asthma Social History Social History Household Members: Family Household Members Other:: mother and sister - living in motel/ skilled nursing Housing: Other Housing Other:: skilled nursing Do you presently have visiting nurse or other home services: No Unable to assess alcohol history related to: Refusing to respond Alcohol intake: current Alcohol intake frequency: 3 or more drinks per day Alcohol type: hard liquor Patient Tobacco Use Status: Current everyday Tobacco user Tobacco use type: Cigarette Cigarette Packs Per Day: 1 Cigarettes Per Day: 3 Years Smoked: 1 e-Cigarette/Vaping Use: Never Used Second Hand Smoke Exposure: No Substance Use Type: Marijuana Advance Directives: No Advance Directives Information Provided: Yes service: No Sexual orientation: Don't Know Physical Exam ED Vital Signs: Vital Signs - 24 hr 10/10/24 13:13 Temperature 97.6 F Pulse Rate 94 Respiratory Rate 16 Blood Pressure 105/68 Pulse Oximetry 95 BMI result Body Mass Index 29.5 GENERAL APPEARANCE: ?AxOx4, intoxicated appearing, mildly slurred speech, alcohol odor on breath, no acute distress. HEENT: ?NC, AT. MMM. EOMI, clear conjunctiva, oropharynx clear. NECK: ?Supple without lymphadenopathy.? No stiffness or restricted ROM. HEART:? Normal rate and regular rhythm, normal S1/S1, no m/r/g LUNGS:? CTAB, moving air well. No crackles or wheezes are heard. ABDOMEN: ?Soft, nontender, nondistended with good bowel sounds heard. EXTREMITIES: ?Without cyanosis, clubbing or edema. NEUROLOGICAL: ?Grossly nonfocal. Alert and oriented, moving all 4 extremities. Observed to ambulate with unsteady gait. Skin: ?Warm and dry without any rash. Medical Decision Making Medical Decision Making MDM Narrative: 24-year-old female with medical history of alcohol use disorder, cannabis use disorder, bipolar I disorder, schizophrenia, asthma, presents to the ED by EMS due to alcohol intoxication. Patient states she was drinking 3 nips today, when mother bought her [employer]in[employer]. Patient states she began to argue, it is unclear what exactly happened with the mother but mother became upset and called ambulance on her due to her drinking. Patient states she does not want help with care team for detox from alcohol. Patient denies history of alcohol withdrawal seizures, SI/HI, visual/auditory/tactile hallucinations. Patient does not have any physical complaints. VSS, BP 105/68, pulse rate 94 beats per minute, afebrile, O2 saturation 95% on room air. On physical exam Patient is intoxicated, with alcohol odor on breath, mild speech slurring, ambulating with mildly unsteady gait. Abdomen is soft, nondistended nontender, lungs clear to auscultation bilaterally, cardiac exam with normal rate and rhythm, no murmurs/rubs/gallops. Patient does not want to meet for care team for any assistance on detox from ETOH. Patient states she feels safe at home. Patient not in withdrawal, CIWA score of 0. Plan for labs, ETOH, metabolize to freedom for discharge home. Course 14:55- labs unremarkable, ETOH 164. patient eating lunch tray, drinking [place], singing and dancing around department. Patient states she would like to go home, isn't a dull and can ?take care of myself, I have money?. Patient called sober friend on the phone for ride home, friend should be in the department within an hour to take patient home. Patient in no acute distress, still denying care team consult for detox of ETOH. No SI/HI, no auditory/visual/tactile hallucinations. We will discharge patient with her friend when I physically see him sober in the department. Differential Diagnosis Differential Diagnoses: The differential diagnosis associated with the presentation includes Alcohol intoxication Alcohol withdrawal Electrolyte abnormality Admission/Observation Consideration of admission/observation: Escalation of care including admission/observation considered Lab Data [facility] Lab Attestation statement: I reviewed the patient's lab results. 10/10/24 13:56 10/10/24 13:56 Labs: Lab Results 10/10/24 Range/Units 13:56 WBC 6.4 (4.8-10.8) X10*3/uL RBC 5.04 (4.20-5.50) X10*6/uL Hgb 14.2 (12.0-16.0) g/dl Hct 43.2 (37.0-47.0) % MCV 85.7 (80.0-98.0) fL MCH 28.2 (27.0-33.0) pg MCHC 32.9 (31.0-35.0) g/dl RDW 15.9 (11.0-16.0) % Plt Count 246 (160-400) X10*3/uL MPV 9.8 (9.4-12.3) fL Immature Gran % (Auto) 0.3 (0.0-0.4) % Neut % (Auto) 65.2 (45-73) % Lymph % (Auto) 26.3 (20-40) % Teller % (Auto) 4.5 (2-11) % Eos % (Auto) 3.1 (0-4) % Baso % (Auto) 0.6 (0-2) % Lymph # (Auto) 1.7 (1.2-4.9) X10*3/uL Teller # (Auto) 0.3 (0.1-1.2) X10*3/uL Eos # (Auto) 0.2 (0.0-0.4) X10*3/uL Baso # (Auto) 0.0 (0.0-0.2) X10*3/uL Abs Immat Gran (auto) 0.02 (0.00-0.03) X10*3/uL Absolute Neuts (auto) 4.2 (2.0-8.3) x10*3/uL Absolute Nucleated RBC 0.000 (0.0-0.012) X10*3/uL Nucleated RBC % (auto) 0.0 (0.0-0.2) /100WBC Sodium 143 (135-145) mmol/L Potassium 4.0 (3.3-5.1) mmol/L Chloride 113 H (96-108) mmol/L Carbon Dioxide 22 (22-29) mmol/L Anion Gap 12 (12-20) BUN 11 (9-16) mg/dL Creatinine 0.70 (0.5-1.4) mg/dL Estim Creat Clear Calc 148.7 Estimated GFR > 60 Random Glucose 108 (60-115) mg/dL Calcium 9.2 (8.4-10.2) mg/dL Magnesium 2.0 (1.6-2.6) mg/dL Total Bilirubin 0.2 (0.0-1.0) mg/dL AST 68 H (5-31) U/L ALT 102 H (0-31) U/L Alkaline Phosphatase 75 (39-117) U/L Total Protein 7.3 (6.5-8.0) g/dL Albumin 4.0 (3.5-5.0) g/dL Ethyl Alcohol 164 mg/dL External Record Review External record reviewed: Inpatient record, Office record and Outpatient record Chronic Conditions Patient?s care impacted by: Other (Alcohol use disorder, bipolar 1 disorder, schizophrenia,) Discharge Plan Discharge Clinical Impression: Alcoholic intoxication Patient Disposition: Home, Self-Care Instructions: Abuse of Alcohol (ED), At-Risk Alcohol Use (ED) Additional Instructions: You were evaluated in the emergency department today after being brought by the ambulance due to alcohol intoxication. Your labs were unremarkable. Your vital signs were stable. Alcohol use disorder You were seen in the Emergency Department today for treatment of alcohol use disorder.? You may have been given medications to help with your withdrawal symptoms.? Please do not drink alcohol with them. This is very dangerous and can cause respiratory depression or other adverse reactions depending on the medication. If you would like to cut down or stop your alcohol use please consider calling our outpatient Addiction Treatment office:? [facility] (M-F [id number]) [address] [place] [address] ? You have also been given a list of treatment providers in the area that can assist as well.? If you experience seizures, vomiting blood, black stools, falls, severe headache, chest pain, fevers, trouble breathing, hallucinations or any other concerns you need to call 911 or seek immediate care. Please stay hydrated. Prescriptions: No Action albuterol sulfate [Ventolin HFA] 90 mcg/actuation Hfa Aerosol Inhaler 2 puff inhalation RQ6H PRN (Reason: Wheezing) 30 Days Qty: 1 0RF olanzapine 20 mg tablet 20 mg PO BEDTIME 30 Days Qty: 30 0RF hydrocortisone [Anti-Itch (HC)] 1 % cream 1 appl topical BID PRN (Reason: itching) Qty: 28.35 0RF Rx Instructions: Avoid application to face, hands, feet, genital region Print Language: Guatemalan
--- NOTE | 2024-10-10 13:39 | PC.NURSE ---
Pt given a tray for lunch; pt seen taking other people's lunch trays; pt walking around ER demanding food
--- NOTE | 2024-10-10 13:41 | MHC.EDTECH ---
Patient asking for food. The nurse gave her another patient tray, then the patient went and grabbed another patient tray. She said she is going to make a complaint with the hospital about we are not feeding her even though she had a tray, crackers, sandwich, and some of another patient tray.
--- NOTE | 2024-10-10 13:43 | PC.NURSE ---
Pt's mother contacted at pt's request; parent refuses to come to ER to talk with daughter or to bring her home, stating she has to get help. I can't have her here.
[2024-10-10 14:01] LABS: MANUAL DIFF FLAG NO
[2024-10-10 14:05] LABS: Hematocrit 43.2 % (37.0-47.0); Hemoglobin 14.2 g/dl (12.0-16.0); Imm Gran Abs Auto 0.02 X10*3/uL (0.00-0.03); Imm Gran Pct Auto 0.3 % (0.0-0.4); Lymphocytes Absolute Auto 1.7 X10*3/uL (1.2-4.9); Mean Corpuscular HGB Conc 32.9 g/dl (31.0-35.0); Mean Corpuscular Hemoglobin 28.2 pg (27.0-33.0); Mean Corpuscular Volume 85.7 fL (80.0-98.0); NRBC Abs Auto 0.000 X10*3/uL (0.0-0.012); NRBC Pct Auto 0.0 /100WBC (0.0-0.2); Platelet Count 246 X10*3/uL (160-400); Red Blood Count 5.04 X10*6/uL (4.20-5.50); White Blood Count 6.4 X10*3/uL (4.8-10.8)
[2024-10-10 14:25] LABS: Alanine Aminotransferase 102 U/L (0-31); Albumin Level 4.0 g/dL (3.5-5.0); Alkaline Phosphatase 75 U/L (39-117); Anion Gap 12 (12-20); Aspartate Amino Transferase 68 U/L (5-31); Blood Urea Nitrogen 11 mg/dL (9-16); Calcium 9.2 mg/dL (8.4-10.2); Carbon Dioxide 22 mmol/L (22-29); Chloride 113 mmol/L (96-108); Creatinine Clr Calc Pharmacy 148.7; Estimated Glomerular Filt Rate > 60; Magnesium 2.0 mg/dL (1.6-2.6); Potassium 4.0 mmol/L (3.3-5.1); Sodium 143 mmol/L (135-145); Total Protein 7.3 g/dL (6.5-8.0)
--- NOTE | 2024-10-10 15:29 | MHC.RECOVRN ---
Briefly met with Eleni in ED17H, pt stating she is doing good , affect is expansive, smiling not appropriate to situation, and potentially responding to internal stimuli. Pt declined having any addiction/recovery needs at the moment, plans to just go home following discharge soon. Pt did not wish to discuss her alcohol consumption further and declined educational materials on harm reduction for alcohol consumption.
[2024-10-10 15:44] VITALS: BP 105/68; PULSE 94; RESP 16; TEMP 36.4; O2SAT 95
== END 2024-10-10 15:45 | disposition home or self-care (01) ==
PROVIDERS: Emergency Provider Emergency Medicine; PCP Nurse Practitioner Primary Care
DX: F10.129 Alcohol abuse with intoxication, unspecified (principal); Y90.6 Blood alcohol level of 120-199 mg/100 ml; F17.210 Nicotine dependence, cigarettes, uncomplicated; Z51.81 Encounter for therapeutic drug level monitoring
CPT/HCPCS: 36415; 80053; 80307; 83735; 85025; 99283

== ENCOUNTER 2024-11-01 13:25 | Emergency (ER) | payer MEDICAID, SELFPAY ==
[2024-11-01 13:51] VITALS: BP 131/83; PULSE 96; RESP 18; TEMP 36.9; O2SAT 99; BMI 38.9
--- NOTE | 2024-11-01 13:51 | ED_ITS ---
HPI - General Adult General Chief complaint: General Medical Stated complaint: wants blood drawn Time Seen by Provider: 11/01/24 14:06 Source: patient, RN notes reviewed and old records reviewed Mode of arrival: ambulatory Limitations: no limitations History of Present Illness ED Provider: Ayde WEBSTER narrative: 24-year-old female with a past medical history significant for schizoaffective disorder, bipolar type, substance abuse presents for evaluation of ?I would like my blood drawn. ? The patient denies any complaints or concerns pain Denies any fevers, chills, cough, pain. She is requesting routine blood work. ? The patient denies any depression or suicidal ideation. She reports that she has a safe place to stay Related Data Previous Rx's ?Medication ?Instructions ?Recorded albuterol sulfate 90 mcg/actuation 2 puff inhalation R Q6H PRN 09/04/22 aerosol inhaler (Ventolin HFA) Wheezing 30 days #1 inh aler olanzapine 20 mg tablet 20 mg PO BEDTIME 30 days #30 tabs 09/04/22 hydrocortisone 1 % topical cream 1 appl topical BID [place] N itching 02/03/23 (Anti-Itch (hydrocortisone)) #28.35 grams Allergies Allergy/AdvReac Type Severity Reaction Status Date / Time No Known Allergies Allergy Verified 11/01/24 13:57 Review of Systems 2 Constitutional: Constitutional: Denies body ache(s), Denies chills, Denies fatigue and Denies fever(s) Eyes: Eyes: Denies blurry vision ENT: Denies vertigo and Denies dizziness Cardiovascular: Cardiovascular: Denies chest pain and Denies dyspnea on exertion Respiratory: Respiratory: Denies cough and Denies dyspnea on exertion Gastrointestinal: Gastrointestinal: Denies abdominal pain, Denies nausea and Denies vomiting Musculoskeletal: Musculoskeletal: Denies back pain Integumentary/Breasts: Skin/Breast: Denies rash Neurologic: Denies vertigo and Denies dizziness Endocrine: Endocrine: Denies fatigue PMFSH Past Medical History Medical History Routine history and physical examination of adult Cannabis use disorder Bipolar disorder Schizophrenia Bipolar 1 disorder Asthma Social History Social History Household Members: Family Household Members Other:: mother and sister - living in motel/ [facility] Housing: Other Housing Other:: [facility] Do you presently have visiting nurse or other home services: No Unable to assess alcohol history related to: Refusing to respond Alcohol intake: current Alcohol intake frequency: 3 or more drinks per day Alcohol type: hard liquor Patient Tobacco Use Status: Current everyday Tobacco user Tobacco use type: Cigarette Cigarette Packs Per Day: 1 Cigarettes Per Day: 3 Years Smoked: 1 e-Cigarette/Vaping Use: Never Used Second Hand Smoke Exposure: No Substance Use Type: Marijuana Advance Directives: No Advance Directives Information Provided: No Do you have a plan to hurt others: No Plan service: No Sexual orientation: Don't Know Physical Exam ED Vital Signs: Vital Signs - 24 hr 11/01/24 13:51 Temperature 98.4 F Pulse Rate 96 Respiratory Rate 18 Blood Pressure 131/83 Pulse Oximetry 99 Oxygen Delivery Method Room Air BMI result Body Mass Index 38.9 Const General: healthy appearing, comfortable, no acute distress, alert and awake Nutritional Appearance: well nourished Orientation/consciousness: patient oriented x3 HENMT Head: Yes normocephalic and Yes atraumatic Eyes Eyelids: Yes eyelids normal Conjunctivae: conjunctivae normal Sclerae: sclerae normal Corneas: corneas normal Pupils: Equal, round and reactive pupils present EOM: EOMs intact bilaterally Neck Neck: Yes full ROM Resp Effort & Inspection: normal respiratory effort, able to speak in complete sentences, no audible wheezes and not labored Auscultation: clear to auscultation bilaterally Cardio Rate: regular rate Rhythm: regular rhythm GI Inspection: No distended Palpation (GI): Soft to palpation, not firm, nontender, no guarding and not rigid Skin General skin exam: elasticity normal Neuro General: patient oriented x3 Cranial nerves: Yes Equal, round and reactive pupils present and Yes Bilaterally intact EOM present Cognition (Neuro): normal cognition Extrem Other: Moving all extremities well without any obvious deformities Course Course Course Narrative: RME, this is a rapid medical exam performed by Surendra Messer please refer to primary provider for complete H&P- 24 year old female presents for evaluation I was hoping to get blood drawn. The patient reports overall feeling well without any pain. She is requesting routine check. She denies any depression, SI, HI. She feels safe at home. Plan for basic labs and . The patient denies any recent alcohol or drug use Medical Decision Making Medical Decision Making MDM Narrative: 24-year-old female with past medical history as above presents for evaluation of a blood draw check. The patient appears quite well in no distress, she has no somatic complaints, vital signs are stable. Denies any depression or suicidal ideation, denies any recent alcohol or substance abuse. I ordered some routine labs which did not show any concerning abnormalities. The patient is not . She is safe for discharge Differential Diagnosis Differential Diagnoses: The differential diagnosis associated with the presentation includes Wellness visit Schizophrenia Bipolar disorder Substance abuse Lab Data 11/01/24 14:03 11/01/24 14:03 Labs: Lab Results 11/01/24 Range/Units 14:03 WBC 9.8 (4.8-10.8) X10*3/uL RBC 4.60 (4.20-5.50) X10*6/uL Hgb 13.3 (12.0-16.0) g/dl Hct 38.9 (37.0-47.0) % MCV 84.6 (80.0-98.0) fL MCH 28.9 (27.0-33.0) pg MCHC 34.2 (31.0-35.0) g/dl RDW 15.6 (11.0-16.0) % Plt Count 226 (160-400) X10*3/uL MPV 9.9 (9.4-12.3) fL Immature Gran % (Auto) 0.4 (0.0-0.4) % Neut % (Auto) 63.9 (45-73) % Lymph % (Auto) 26.3 (20-40) % Prentiss % (Auto) 7.4 (2-11) % Eos % (Auto) 1.6 (0-4) % Baso % (Auto) 0.4 (0-2) % Lymph # (Auto) 2.6 (1.2-4.9) X10*3/uL Prentiss # (Auto) 0.7 (0.1-1.2) X10*3/uL Eos # (Auto) 0.2 (0.0-0.4) X10*3/uL Baso # (Auto) 0.0 (0.0-0.2) X10*3/uL Abs Immat Gran (auto) 0.04 H (0.00-0.03) X10*3/uL Absolute Neuts (auto) 6.3 (2.0-8.3) x10*3/uL Absolute Nucleated RBC 0.000 (0.0-0.012) X10*3/uL Nucleated RBC % (auto) 0.0 (0.0-0.2) /100WBC Sodium 142 (135-145) mmol/L Potassium 4.2 (3.3-5.1) mmol/L Chloride 110 H (96-108) mmol/L Carbon Dioxide 23 (22-29) mmol/L Anion Gap 13 (12-20) BUN 14 (9-16) mg/dL Creatinine 0.68 (0.5-1.4) mg/dL Estim Creat Clear Calc 176.3 Estimated GFR > 60 Random Glucose 92 (60-115) mg/dL Calcium 8.9 (8.4-10.2) mg/dL Total Bilirubin 0.2 (0.0-1.0) mg/dL AST 32 H (5-31) U/L ALT 39 H (0-31) U/L Alkaline Phosphatase 73 (39-117) U/L Total Protein 6.9 (6.5-8.0) g/dL Albumin 3.9 (3.5-5.0) g/dL Beta HCG, Quant < 2 mIU/mL Discharge Plan Discharge Clinical Impression: Adult wellness visit Patient Disposition: Home, Self-Care Instructions: Normal Exam (ED) Additional Instructions: Your blood work today was reassuring. Follow up with your primary doctor, return for any new symptoms Prescriptions: No Action albuterol sulfate [Ventolin HFA] 90 mcg/actuation Hfa Aerosol Inhaler 2 puff inhalation RQ6H PRN (Reason: Wheezing) 30 Days Qty: 1 0RF olanzapine 20 mg tablet 20 mg PO BEDTIME 30 Days Qty: 30 0RF hydrocortisone [Anti-Itch (HC)] 1 % cream 1 appl topical BID PRN (Reason: itching) Qty: 28.35 0RF Rx Instructions: Avoid application to face, hands, feet, genital region Print Language: Guatemalan
--- OUTSIDE RECORDS SUMMARY | 2024-11-01 14:07 | XMS_ITS | Encounter Summary ---
Author Organization [employer] [facility] Address [address] [place] [address] [address] [place] [address] Care Team Providers Care Referral Nurse Name Role Phone Charlene Shay Primary Care Provider [phone] Charlotte Candelario LCSW Unavailable [phone] Encounter Details Date Type Department Care Team (Late st Contact Info) Description 03/23/2022 Orders Only [facility] [address] [place] [phone] Kati Ramon RN Social History Tobacco Use [...] Description 11/17/2024 9:15 AM EDT Office Visit [facility] [address] [place] [id number] Charlene Shay ANP [address] [place] [phone] documented as of this encounter Visit Diagnoses Not on filedocumented in this encounter Care Teams Referral Nurse Relationship Specialty Start Date End Date Charlene Shay ANP [address] [place] [phone] PCP - General Family Medicine 05/08/21 Charlotte Candelario LCSW Outside Sales Representative Behavioral Health 07/23/24 08/10/24 documented as of this encounter
--- OUTSIDE RECORDS SUMMARY | 2024-11-01 14:07 | XMS_ITS | Clinical Summary ---
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 melatonin 5 mg Tab Take 1 tablet (5 mg total) by mouth nightly at bedtime as needed (trouble with sleep). 30 tablet 5 Active cholecalciferol (VITAMIN D3) 2,000 unit tablet Take 1 tablet (2,000 Units total) by mouth daily. 30 tablet 5 Active risperiDONE (RISPERDAL) 0.5 MG tablet Take 4 tablets (2 mg total) by mouth nightly at bedtime. 30 tablet 5 Active melatonin 3 mg Tab Take 3 mg by mouth nightly at bedtime as needed (trouble sleeping). 10/31/19 Discontinu ed(Stop Taking at Discharge) OLANZapine (ZYPREXA) 10 MG tablet Take 10 mg by mouth nightly at bedtime. 10/31/19 Discontinu ed(Stop Taking at Discharge) hydrOXYzine (VISTARIL) 50 MG capsule Take 50 mg by mouth 3 (three) times a day as needed for anxiety. 10/31/19 Discontinu ed(Stop Taking at Discharge) omeprazole (PRILOSEC) 20 MG tablet Take 20 mg by mouth daily. 10/31/19 Discontinu ed(Stop Taking at Discharge) Active Problems Problem Noted Date Diagnosed Date Mental health problem 10/27/2024 Schizophrenia 10/26/2024 Social History Tobacco Use Types Packs/Day Years Used Date Smoking Tobacco: Every Day Cigarettes 0.3 1 Started: 10/28/2023 Passive Smoke Exposure: Past Smokeless Tobacco: Never Tobacco Cessation:Ready to Q uit: Not Asked; Counseling Given: No Education Answer Date Recorded Are you interested in more education? Not on ignacio e 10/26/2024 Are you concerned about learning? Not on file 10/26/2024 No 10/26/2024 No 10/26/2024 Food Answer Date Recorded Within the past 6 months we worried whether our food would run out before we got money to buy more. I choose not to answer 10/26/2024 Within the past 6 months the food we bought just didn't last and we didn't have enough money to get more. I choose not to answer 10/26/2024 Residential Stability Answer Date Recor ded What is your housing situation today? I choose n ot to answer 10/26/2024 How many times have you move d in the past 12 months? I choose not to answer 10/26/2024 Paying for Meds Answer Date Recorded Do you have trouble paying for medicines? I irwin se not to answer 10/26/2024 Paying Utility Bills Answer Date Record ed Do you have trouble paying y our heating or electricity bill? I choose not to answer 10/26/2024 Transportation Answer Date Recorded Has the lack of transportati on kept you from medical appointments or from getting medications? I choose not to answer 10/26/2024 Digital Access Answer Date Recorded No 10/26/2024 No 10/26/2024 Do you have reliable internet access at home? I choose not to answer 10/26/2024 Do you have a device (e.g., phone, tablet, computer) with a working camera? I choose not to answer 10/26/2024 Intimate Partner Violence Answer Date R ecorded Are you denied basic needs s uch as food, clothing, or medical care? No 10/27/2024 In the past 12 months have y ou been in a relationship with a person who hurts, threatens, or tries to control you? No 10/27/2024 Are you denied basic needs s uch as food, clothing, or medical care? No 10/27/2024 In the past 12 months have y ou been in a relationship with a person who hurts, threatens, or tries to control you? No 10/27/2024 Comments No Sex and Gender Information Value Date Recorded Sex Assigned at Female 10/27/2024 3:06 PM EDT Legal Sex Female 11:38 PM EDT Gender Identity Female 10/27/2024 3:06 PM EDT Sexual Orientation Straight 10/27/2024 3: 06 PM EDT Last Filed Vital Signs Vital Sign Reading Time Taken Comments Blood Pressure 115/70 10/30/2024 9:00 AM EDT Pulse 95 10/30/2024 9:00 AM EDT Temperature 36.7 C (98.1 F) 10/30/2024 9:00 AM EDT Respiratory Rate 17 10/29/2024 8:33 AM EDT Oxygen Saturation 97% 10/30/2024 9:00 AM EDT Inhaled Oxygen Concentration - - Weight 117.1 kg (258 lb 3.2 oz) 10/27/2024 3:46 PM EDT Height 175.3 cm (5' 9 ) 10/27/2024 3:46 PM EDT Body Mass Index 38.13 10/27/2024 3:46 PM EDT Plan of Treatment Health Maintenance Due Date Last Done Comments Adult Td,Tdap Booster 2000 DEPRESSION SCREENING 2012 HPV VACCINES (1 - 3-dose series) 07/20/2015 CHLAMYDIA SCREENING 2016 HEPATITIS C SCREENING 2018 HIV ONE-TIME SCREENING (18-6 5 YEARS) 2018 PNEUMOCOCCAL VACCINES (0-49 years) (1 of 2 - PCV) 07/20/2019 PAP SMEAR 2021 COVID-19 VACCINE ( - 2023-2 5 season) 2023 SMOKING Hx and SMOKELESS TOB ACCO SCREENING 10/27/2025 10/27/2024 HEPATITIS A VACCINES Aged Out No long er eligible based on patient's age to complete this topic HIB VACCINES Aged Out No longer eligi ble based on patient's age to complete this topic MENINGOCOCCAL VACCINES (ACWY) Aged Out No longer eligible based on patient's age to complete this topic MENINGOCOCCAL VACCINES (B) Aged Out N o longer eligible based on patient's age to complete this topic Medical Devices Not on file Procedures Procedure Name Priority Date/Time Associated Diagnosis Comments FREE T4 Routine 10/28/2024 7:23 AM EDT 25-OH VITAMIN D Routine 10/28/2024 7:23 AM EDT HEMOGLOBIN A1C Routine 10/28/2024 7:23 AM EDT LIPID PANEL Routine 10/28/2024 7:23 AM EDT FOLATE Routine 10/28/2024 7:23 AM EDT TSH WITH REFLEX Routine 10/28/2024 7:23 AM EDT VITAMIN B12 Routine 10/28/2024 7:23 AM EDT TOXICOLOGY SCREEN, URINE STAT 10/26/2024 4:07 PM EDT HCG, SERUM QUALITATIVE STAT 10/26/2024 12:59 AM EDT ETHANOL, BLOOD STAT 10/26/2024 12:59 AM EDT LFTS (HEPATIC PANEL) STAT 10/26/2024 12:59 AM EDT BASIC METABOLIC PANEL STAT 10/26/2024 12:59 AM EDT CBC AND DIFFERENTIAL STAT 10/26/2024 12:59 AM EDT from Last 3 Months Results * (ABNORMAL) TSH with reflex (10/28/2024 7:23 AM EDT) TSH 4.52(H) 0.27 - 4.20 uIU/mL [facility] Blood 10/28/2024 7:23 AM EDT 10/28/2024 7:34 AM EDT Sotero Garcia PMHN- LAB BLOOD ORDERABLES Fatou whalen Result [facility] [address] [place] [address] * (ABNORMAL) 25-OH vitamin D (10/28/2024 7:23 AM EDT) 25 OH VIT D (TOTAL) 23(L) 30 - 60 ng/mL [facility] Blood 10/28/2024 7:23 AM EDT 10/28/2024 7:34 AM EDT Sotero Nayana Jose PMHNP-BC LAB BLOOD ORDERABLES Fatou l Result Performing Organization Address City/[facility]/ZIP Co de Phone Number [address] [address] * Free T4 (10/28/2024 7:23 AM EDT) FREE T4 1.2 0.9 - 1.7 ng/dL [facility] 10/28/2024 7:23 AM EDT 10/28/2024 7:34 AM EDT Stoero Kraus Jose PMHNP-BC LAB BLOOD ORDERABLES Fatou l Result Performing Organization Address [facility]/ZIP Co de Phone Number [address] [address] * Hemoglobin A1c (10/28/2024 7:23 AM EDT) HEMOGLOBIN A1C 5.2 4.3 - 5.8 % [facility] Blood 10/28/2024 7:23 AM EDT 10/28/2024 7:34 AM EDT Sotero Nayana Jose PMHNP-BC LAB BLOOD ORDERABLES Fatou l Result Performing Organization Address City/[facility]/ZIP Co de Phone Number [address] [address] * Folate (10/28/2024 7:23 AM EDT) FOLIC ACID 4.9 4.2 - 19.9 ng/mL [facility] Blood 10/28/2024 7:23 AM EDT 10/28/2024 7:34 AM EDT Sotero Garcia PMHNP-BC LAB BLOOD ORDERABLES Fatou l Result [address] [address] * Vitamin B12 (10/28/2024 7:23 AM EDT) VITAMIN B12 277 232 - 1,245 pg/mL [facility] Blood 10/28/2024 7:23 AM EDT 10/28/2024 7:34 AM EDT Sotero Garcia PMHNP-BC LAB BLOOD ORDERABLES Fatou l Result Performing Organization Address City/[facility] Co de Phone Number [address] [address] * (ABNORMAL) Lipid panel (10/28/2024 7:23 AM EDT) HDL 36 mg/dL [facility] Comment: Interpretation <40 mg/dL: Low HDL cholesterol (major risk factor for CHD) Greater than or equal to 60 mg/dL: High HDL cholesterol ( negative risk factor for CHD) HDL - cholesterol is affected by a number of factors, e.g. smoking, excerise, hormones, sex and age. CHOLESTEROL 194 0 - 240 mg/dL [facility] TRIGLYCERIDES 203(H) 30 - 160 mg/dL [facility] LDL 117 50 - 129 mg/dL [facility] Comment: LDL levels in terms of risk for coronary heart disease: <100 mg/dL: Optimal 100-129 mg/dL: Near or above optimal 130-159 mg/dL: Borderline high 160-189 mg/dL: High >190 mg/dL: Very High CARDIAC RISK RATIO 5.4(H) 3.3 - 4.4 C [facility] Blood 10/28/2024 7:23 AM EDT 10/28/2024 7:35 AM EDT Sotero Garcia PMHNP-BC LAB BLOOD ORDERABLES Fatou l Result Performing Organization Address City/[facility]/ZIP Co de Phone Number [address] [address] * (ABNORMAL) Toxicology screen, urine (10/26/2024 4:07 PM EDT) URINE CANNABINOIDS Positive(A) NONE DETECTED [facility] Comment:Cutoff: 50 ng/mL URINE COCAINE METAB NONE DETECTED NONE DETECTED [facility] Comment:Cutoff: 300 ng/mL URINE AMPHETAMINES NONE DETECTED NONE DETECTED [facility] Comment:Cutoff: 1000 ng/mL URINE METHADONE NONE DETECTED NONE DETECTED [facility] Comment:Cutoff: 300 ng/mL URINE OPIATES NONE DETECTED NONE DETECTED [facility] Comment:Cutoff: 300 ng/mL URINE PHENCYCLIDINE NONE DETECTED NONE DETECTED [facility] Comment:Cutoff: 25 ng/mL URINE OXYCODONE NONE DETECTED NONE DETECTED [facility] Comment:Cutoff: 300 ng/mL URINE BARBITURATES NONE DETECTED NONE DETECTED [facility] Comment:Cutoff: 200 ng/mL URINE BENZODIAZEPINE NONE DETECTED NONE DETECTED [facility] Comment:Cutoff: 200 ng/mL URINE BUPRENORPHINE NONE DETECTED NONE DETECTED [facility] Comment:Cutoff: 5 ng/mL Fentanyl, urine NONE DETECTED NONE DETECTED [facility] Comment: Cutoff: 5 ng/mL INTERPRETATION FOR TOXICOLOGY PANEL: These results are unconfirmed and should be used for Medical Treatment purposes only. Urine (Urine) 10/26/2024 4:0 7 PM EDT 10/26/2024 4:11 PM EDT Reece Torres MD, MPH URINE ORDERABLES Final Result Performing Organization Address City/[facility]/ZIP Co de Phone Number [address] [address] * Ethanol, blood (10/26/2024 12:59 AM EDT) ETHANOL <10 <10 mg/dL [facility] Blood 10/26/2024 12:5 9 AM EDT 10/26/2024 1:03 AM EDT us Reece Torres MD, MPH LAB BLOOD ORDERA BLES Final Result Performing Organization Address City/[facility]/ZIP Co de Phone Number [address] [address] * HCG, serum qualitative (10/26/2024 12:59 AM EDT) HCG, QUALITATIVE Negative Negative IU/L [facility] Blood 10/26/2024 12:5 9 AM EDT 10/26/2024 1:03 AM EDT us Reece Torres MD, MPH LAB BLOOD ORDERA BLES Final Result Performing Organization Address [facility] Co de Phone Number [address] [address] * LFTs (hepatic panel) (10/26/2024 12:59 AM EDT) ALKALINE PHOSPHATASE 70 39 - 117 U/L [facility] TOTAL BILIRUBIN 0.4 0.0 - 1.2 mg/dL [facility] DIRECT BILIRUBIN 0.1 0.0 - 0.2 mg/dL [facility] Bilirubin (Indirect) NOT CALCULATED 0 - 1.5 mg/dL [facility] AST 27 0 - 37 U/L [facility] ALT 38 0 - 40 U/L [facility] TOTAL PROTEIN 7.8 6.5 - 8.0 g/dL [facility] ALBUMIN 4.3 3.9 - 4.8 g/dL [facility] GLOBULIN 3.5 1 - 4.8 g/dL [facility] A/G Ratio 1.23 1.00 - 4.80 RATIO [facility] Blood 10/26/2024 12:5 9 AM EDT 10/26/2024 1:03 AM EDT us Reece Torres MD, MPH LAB BLOOD ORDERA BLES Final Result Performing Organization Address City/[facility]/ZIP Co de Phone Number [address] [address] * (ABNORMAL) CBC and differential (10/26/2024 12:59 AM EDT) WBC 11.97(H) 4.00 - 11.00 K/uL [facility] RBC 5.20 4.00 - 5.20 M/uL [facility] HGB 14.8 12.0 - 16.0 g/dL [facility] HCT 45.2 36.0 - 46.0 % [facility] PLT 236 150 - 450 K/uL [facility] MCV 86.9 80.0 - 100.0 fL [facility] MCH 28.5 27.0 - 31.0 pg [facility] MCHC 32.7 32.0 - 36.0 g/dL [facility] RDW 15.6(H) 11.5 - 14.5 % [facility] MPV 10.0 8.4 - 12.0 fL [facility] NRBC 0.00 0.00 /100 WBCs [facility] ABSOLUTE NRBC 0.00 0.00 K/uL [facility] DIFF METHOD Auto [facility] NEUTS 68.9 48.0 - 76.0 % [facility] LYMPHS 22.8 18.0 - 41.0 % [facility] MONOS 5.3 4.0 - 11.0 % [facility] EOS 2.1 0.0 - 5.0 % [facility] BASOS 0.4 0.0 - 1.5 % [facility] Granulocytes, immature (%) 0.5 0.0 - 0.9 % [facility] ABSOLUTE NEUTS 8.24(H) 1.92 - 7.60 K/uL [facility] ABSOLUTE LYMPHS 2.73 0.72 - 4.10 K/uL [facility] ABSOLUTE MONOS 0.64 0.16 - 1.10 K/uL [facility] ABSOLUTE EOS 0.25 0.00 - 0.50 K/uL [facility] ABSOLUTE BASOS 0.05 0.00 - 0.15 K/uL [facility] Granulocytes, immature 0.06 0.00 - 0.09 K/uL [facility] Blood 10/26/2024 12:5 9 AM EDT 10/26/2024 1:03 AM EDT us Reece Torres MD, MPH LAB BLOOD ORDERA BLES Final Result Performing Organization Address [facility] Co de Phone Number [address] [address] * (ABNORMAL) Basic metabolic panel (10/26/2024 12:59 AM EDT) SODIUM 138 133 - 146 mmol/L [facility] CHLORIDE 107 96 - 108 mmol/L [facility] POTASSIUM 4.2 3.3 - 5.1 mmol/L [facility] Comment:Specimen slightly he molyzed, result may be falsely elevated. CO2 19(L) 21 - 35 mmol/L [facility] BUN 14 6 - 19 mg/dL [facility] CREATININE 0.80 0.5 - 1.5 mg/dL [facility] GLUCOSE 150(H) 70 - 99 mg/dL [facility] CALCIUM 10.1 8.4 - 10.3 mg/dL [facility] EGFR 105 >59 mL/min/1.7 3m2 [facility] Comment:Estimated glomerular filtration rate calculated using the CKD-EPI refit equation. ANION GAP 16 10 - 20 mmol/L [facility] Blood 10/26/2024 12:5 9 AM EDT 10/26/2024 1:03 AM EDT us Reece Torres MD, MPH LAB BLOOD ORDERA BLES Final Result Performing Organization Address [facility] Co de Phone Number [address] [address] from Last [address] [place] [address] [employer] [place] [address] [facility] [place] [address] [place] [address] [place] [address] [facility] [employer] [place] [phone] Advance Directives For more information, please contact: [phone] (9AM - 5PM [facility], Saturday-Saturday) * Full Code (Latest Code Status on File) Date Activated Date Inactivated Comments 10/27/2024 2:33 PM Question Answer Comments Code Status Confirmed With: Patient Care Teams Packaging Mechanic Relationship Specialty Start Date End Date Pcp, Unknown PCP - General 10/26/24 Additional Source Comments The information contained in this document represents components of the legal health record. It is not the complete legal health record.[facility]
[2024-11-01 14:11] LABS: MANUAL DIFF FLAG NO
[2024-11-01 14:12] LABS: Hematocrit 38.9 % (37.0-47.0); Hemoglobin 13.3 g/dl (12.0-16.0); Imm Gran Abs Auto 0.04 X10*3/uL (0.00-0.03); Imm Gran Pct Auto 0.4 % (0.0-0.4); Lymphocytes Absolute Auto 2.6 X10*3/uL (1.2-4.9); Mean Corpuscular HGB Conc 34.2 g/dl (31.0-35.0); Mean Corpuscular Hemoglobin 28.9 pg (27.0-33.0); Mean Corpuscular Volume 84.6 fL (80.0-98.0); NRBC Abs Auto 0.000 X10*3/uL (0.0-0.012); NRBC Pct Auto 0.0 /100WBC (0.0-0.2); Platelet Count 226 X10*3/uL (160-400); Red Blood Count 4.60 X10*6/uL (4.20-5.50); White Blood Count 9.8 X10*3/uL (4.8-10.8)
[2024-11-01 14:36] LABS: Alanine Aminotransferase 39 U/L (0-31); Albumin Level 3.9 g/dL (3.5-5.0); Alkaline Phosphatase 73 U/L (39-117); Anion Gap 13 (12-20); Aspartate Amino Transferase 32 U/L (5-31); Blood Urea Nitrogen 14 mg/dL (9-16); Calcium 8.9 mg/dL (8.4-10.2); Carbon Dioxide 23 mmol/L (22-29); Chloride 110 mmol/L (96-108); Creatinine Clr Calc Pharmacy 176.3; Estimated Glomerular Filt Rate > 60; Potassium 4.2 mmol/L (3.3-5.1); Sodium 142 mmol/L (135-145); Total Protein 6.9 g/dL (6.5-8.0)
[2024-11-01 14:53] VITALS: BP 131/83; PULSE 96; RESP 18; TEMP 36.9; O2SAT 99
== END 2024-11-01 14:54 | disposition home or self-care (01) ==
PROVIDERS: Physician Assistant; Emergency Provider Emergency Medicine; PCP Nurse Practitioner Primary Care
DX: Z00.00 Encounter for general adult medical examination without abnormal findings (principal); F20.9 Schizophrenia, unspecified; F31.9 Bipolar disorder, unspecified; F19.10 Other psychoactive substance abuse, uncomplicated
CPT/HCPCS: 36415; 80053; 84702; 85025; 99282; 99283